=== PATIENT | female | born 1975 | race Caucasian/White ===

== ENCOUNTER 2021-07-09 15:10 | Outpatient (CLI) | payer BC, SELFPAY ==
--- NOTE | 2021-07-09 16:00 | MRI_ITS ---
STUDY: MRI CERVICAL SPINE WITHOUT CONTRAST ENHANCEMENT OF 1502 HOURS ON 07/09/2021 REASON FOR EXAM: 39-year-old female with neck and right arm pain. TECHNIQUE: Standardized fat and water weighted pulse sequences were obtained in the sagittal and axial planes. COMPARISON: None FINDINGS: No cervical vertebral body fractures, subluxations, or intervertebral disc space narrowing. Cervical spinal Canal measures 1.3 cm at the level of the C3 vertebra and 1.2 cm at the level of the C7 vertebra-chest compatible with a mild osseous spinal stenosis. There is a mild central degenerative disc at the C5-C6 level that does not efface the spinal cord. There is no evidence of other extradural, intradural, intramedullary lesions. The posterior elements have a normal appearance. Prevertebral soft tissues are normal. MRI/Spine Cervical (Routine) IMPRESSION: 1. Mild cervical osseous spinal stenosis. 2. No fractures, subluxations or intervertebral disc space narrowing of the cervical spine. 2. Mild central degenerative disc at the C5-C6 level that does not efface the spinal cord. 3. No evidence of other extradural, intradural, intramedullary lesions. 4. Normal posterior elements. Electronically Signed: Trev Headley MD at 21:10 EDT ,
== END 2021-07-09 23:59 | disposition home or self-care (01) ==
PROVIDERS: PCP Nurse Practitioner Primary Care; Visit Provider Orthopaedic Surgery
DX: M47.22 Other spondylosis with radiculopathy, cervical region (principal); M48.02 Spinal stenosis, cervical region
CPT/HCPCS: 72141

== ENCOUNTER 2021-07-29 13:57 | Outpatient (CLI) | payer BC, SELFPAY ==
--- NOTE | 2021-07-29 15:06 | NEURO ---
NCS and/or EMG Patient Report Ordering Doctor: Bam Ramesh DATE OF SERVICE: 07/29/21 Indication: Chronic localized neck pain with occasional radiation down the right upper extremity. The quality is stabbing, tingling, and numb. No fixed sensory disturbance. Evaluate for cervical radiculopathy. Findings: Nerve conduction studies were performed in the right upper extremity. The right median motor study recording the abductor pollicis brevis showed a normal amplitude, borderline distal latency and normal conduction velocity. The right ulnar motor study recording the abductor digiti minimi showed a normal amplitude, normal distal latency and normal conduction velocity. No conduction block or focal slowing was present across the elbow. The right median sensory response recording digit two showed a normal amplitude, normal latency and borderline conduction velocity. The right ulnar sensory response recording digit five showed a normal amplitude, latency and conduction velocity. The right radial sensory response recording over the extensor snuff box showed a normal amplitude, latency and conduction velocity. Needle EMG of the right upper extremity and cervical paraspinal muscles was performed. No denervation was seen in any muscle. All motor unit morphology, activation and recruitment patterns were normal. Impression: This is a normal study. There is no electrophysiologic evidence of cervical radiculopathy in the right upper extremity. In addition, there was no electrophysiologic evidence of median or ulnar entrapment neuropathy in the right upper extremity. Please note: the electrodiagnosis of radiculopathy is made on the basis of excluding peripheral nerve lesions on nerve conduction studies and the needle EMG demonstrating denervation and/or reinnervation in the distribution of one or more nerve roots (i.e., acute and/or chronic axonal loss). Thus, electrodiagnostic studies are insensitive in detecting radiculopathy in the absence of axonal loss (e.g., in the setting of compression resulting in intermittent ischemia or mechanical deformation; or demyelination without axonal loss). Thus, clinical correlation is required in the interpretation of this negative electrodiagnostic study for radiculopathy. Efren Irene D.O. Multi Select Codes Neurology Neurology Interp Codes: 91669-26 Musc test done w/n test comp (interp) and 91351-29 Nrv cndj tst 5-6 studies (interp)
== END 2021-07-29 23:59 | disposition home or self-care (01) ==
LOC: PSN 13:57
PROVIDERS: PCP Nurse Practitioner Primary Care; Visit Provider Orthopaedic Surgery
DX: M47.22 Other spondylosis with radiculopathy, cervical region (principal); R03.0 Elevated blood-pressure reading, without diagnosis of hypertension; R20.2 Paresthesia of skin
CPT/HCPCS: 95886; 95909

== ENCOUNTER 2024-01-08 10:14 | Emergency (ER) | payer BC, SELFPAY ==
[2024-01-08 10:14] VITALS: BP 132/89; PULSE 74; RESP 14; TEMP 36.9; O2SAT 99; BMI 26.9
--- NOTE | 2024-01-08 10:54 | EDS_ITS ---
HPI HPI - GI History of Present Illness Chief Complaint: Abd Pain Informant: patient Narrative Narrative: Patient is a 48-year-old female with history of prior appendectomy, depression, endometriosis and prior right oophorectomy presenting for with intermittent episodes of abdominal pain and bloating. Patient states this been going on for at least 4 months but it sounds infection going on longer than this. She states for the past 2 weeks she has had no improvement. She has had a pretty extensive workup through the [facility] system. She saw an ORDER DESK CALLER on 12/29, Dr. Staley, and was sent to the emergency room because of the amount of pain she was having. Had a CT of the abdomen pelvis that did not show any acute process. Patient was given pain control and ultimately discharged home. Patient does have an IUD. On 12/03 she had renal as well as pelvic ultrasounds which was consistent with adenomyosis. She followed up with local ORDER DESK CALLER, Dr. Ruvalcaba, yesterday. She has an outpatient MRI ordered for further evaluation and also has a referral for the pelvic pain clinic. Chart review shows that patient is active been complaining of abdominal bloating and cramping for years. Patient had colonoscopy on 11/26/2023 which was largely normal. Patient had sudden onset of recurrent bloating and diffuse abdominal pain today. States the pain radiates to her back and she is a squeezing sensation in her thighs. She denies any associated urinary symptoms. She states sometimes she does get a headache secondary to the pain. Denies any vomiting and states her bowel movements have been normal. [facility] Medical History Endometriosis Home Medications ?Medication ?Instructions ?Recorded ?Last Taken ?Type Ibuprofen [Motrin] 800 mg PO TID PRN PRN Pain 04/05/14 Unknown History acetaminophen 325 mg tablet 1 - 2 tab PO Q4H PRN PRN Pain 04/05/14 Unknown History (Tylenol) amitriptyline 25 mg tablet 25 mg PO QHS 04/05/14 Unknown History clonazepam 1 mg tablet 1 mg PO TID PRN PRN Anxiety 04/05/14 Unknown History cyclobenzaprine 10 mg tablet 5 mg PO TID 04/05/14 Unknown History gabapentin 600 mg tablet 600 mg PO TIDCM 04/05/14 Unknown History polyethylene glycol 3350 17 gram 17 g PO DAILY #15 packets 04/05/14 Unknown Rx oral powder packet trazodone 150 mg tablet 150 mg PO DAILY 04/05/14 Unknown History venlafaxine 37.5 mg tablet 37.5 mg PO DAILY 04/05/14 Unknown History hyoscyamine sulfate 0.125 mg 0.125 mg sublingual Q6H PRN 01/08/24 Unknown Rx sublingual tablet (Levsin/SL) abdominal pain #20 tabs simethicone 125 mg chewable tablet 125 mg PO TID PRN abdominal 01/08/24 Unknown Rx distention #20 tabs Allergy/AdvReac Type Severity Reaction Status Date / Time iodine AdvReac Upset Verified 01/08/24 12:57 Stomach Family History no significant family his Surgical History History of appendectomy S/P cervical disc replacement Social History Smoking Status: Current every day smoker tobacco type: cigarettes ROS ROS ED Constitutional Constitutional ED: Denies chills or fever(s) Cardiovascular Cardiovascular: Denies chest pain Respiratory/Chest Respiratory/Chest: Denies cough or dyspnea Gastrointestinal Gastrointestinal: Reports abdominal pain and nausea; Denies constipation, diarrhea, melena or vomiting Genitourinary Genitourinary ED: Denies dysuria or hematuria Musculoskeletal Musculoskeletal: Reports back pain; Denies arthralgias or myalgias Integumentary Denies rash Neurologic Neurologic: Denies weakness Psychiatric Psychiatric: Denies anxiety Hematologic/Lymphatic Hematologic/Lymphatic: Denies easy bleeding or easy bruising EXAM Physical Exam Const Vital Signs: 01/08/24 10:14 01/08/24 12:14 Temperature 98.4 F Temperature Source Oral Pulse Rate 74 78 Respiratory Rate 14 19 H Blood Pressure 132/89 H 148/78 H Blood Pressure Mean 103 101 Pulse Ox 99 Oxygen Delivery Method Room Air Positive well nourished and well developed General Appearance ED: well developed and NAD; Negative for pallor HEENT Reports moist mucous membranes Neck supple Resp normal respiratory effort and clear to auscultation bilaterally Cardio regular rate and regular rhythm GI GI Narrative: No peritoneal signs. Diffuse abdominal bloating and distention. Hypoactive bowel sounds present. Inspection: abdominal distention Palpation: soft and tender; Negative for guarding or rigid Back/Spine no CVA tenderness Extremity full ROM Neuro moves all extremities Sensorium / Orientation: alert Motor Exam: Negative for general weakness Psych mental status grossly normal and thought process normal Skin no wounds General Skin Exam: Negative for jaundice or pallor MDM MDM MDM Narrative Medical decision making narrative: Patient presents for recurrent episode of abdominal pain and abdominal bloating. She has had an extensive workup for this already. She has an outpatient MRI scheduled. Patient is distended in her abdomen with hypoactive bowel sounds. Differential includes was not limited to gastroparesis, chronic abdominal pain, endometriosis, diverticulitis, ileus, liver disease, pancreatitis. Patient's vital signs are normal. She is nontoxic-appearing. As initially given Toradol, Zofran and morphine for her symptoms. She does not report any improvement of her pains on repeat evaluation. Her lab work however is largely normal with a normal CBC, CMP, lactate. Initially imaging not ordered as patient has had a recent CT, pelvic ultrasound and endoscopy. I did pull up the images from patient's recent CT at [facility]. There is a little bit of fluid and questionable abnormality at the sigmoid colon on my interpretation of the films. I do not see any obvious large stool burden or abnormal gas pattern. It was read as negative with no acute process. Discussed with patient and she is amenable to repeating the CT here to ensure there is no progressive changes or disease or an acute process now. I then spoke with ORDER DESK CALLER on-call for [facility] Dr Kelly who reviewed the patient's chart and actually spoke with the doctor that saw her yesterday. They felt that this really is unlikely to be gynecologic and I do not think this is related to endometriosis or adenomyosis given her age and the timing of her symptoms. They feel that really this should be referred to GI. She does have an outpatient abdominal MRI and referral to the pelvic pain clinic pending. This is communicated with the patient. Will give the patient a GI follow-up referral. On repeat evaluation after receiving additional morphine, Haldol and simethicone patient has improvement of her symptoms. CT of the abdomen pelvis does not show any acute process to explain her symptoms. She does have a decent amount of gas in her stomach and her small bowel. Will prescribe her simethicone as well as Levsin (states that she has been prescribed Bentyl but she could not tolerate it). Will give her outpatient referral for GI. She is reevaluated and states her pain is improved. Is requesting a work note for today. Discussed with patient at length that while the cause of her symptoms is not clear and there does not appear to be an immediate/emergent surgical or medical process at this time it is safe for her to continue to follow-up outpatient. Patient and mother verbalized agreement to this plan. Patient discharged home in stable and improved condition. History & Record Review Additional record(s) reviewed:: Prior outpatient record (See HPI) Lab Data Attestation: I reviewed the patient's lab results. Labs: Laboratory Results - last 24 hr 01/08/24 11:20 WBC 7.7 RBC 5.20 Hgb 14.3 Hct 43.6 MCV 83.8 MCH 27.5 MCHC 32.8 RDW Std Deviation 41.3 RDW Coeff of Whitney 13.4 Plt Count 294 MPV 10.2 Immature Gran % (Auto) 0.100 Neut % (Auto) 49.1 Lymph % (Auto) 39.9 [place] % (Auto) 6.5 Eos % (Auto) 3.8 Baso % (Auto) 0.6 Absolute Neuts (auto) 3.8 Absolute Lymphs (auto) 3.08 Nucleated RBC % 0 Sodium 138 Potassium 3.8 Chloride 111 H Carbon Dioxide 23.0 Anion Gap 4 L BUN 10 Creatinine 0.62 Estim Creat Clear Calc 102.37 Est GFR (MDRD) Af Amer 131 Est GFR (MDRD) Non-Af 108 BUN/Creatinine Ratio 16.1 Glucose 95 Lactic Acid 0.8 Calcium 9.2 Total Bilirubin 0.20 AST 15 ALT 19 Alkaline Phosphatase 119 H Total Protein 7.6 Albumin 3.5 Globulin 4.1 Albumin/Globulin Ratio 0.9 Radiography Diagnostic Testing: Clinical Impression(s) from Imaging Studies Abdomen/Pelvis CT 01/08/24 12:45 IMPRESSION: No acute intra-abdominal process. Electronically Signed: Joy Mccarthy MD at 13:13 EDT , Management Discussion w/another healthcare provider: Hydro Pneumatic Tester Discharge Plan Triage Chief Complaint: Abd Pain ED Provider: Shaye Dye Dx/Rx/DC Orders Clinical Impression: Abdominal pain, recurrent, Abdominal bloating Instructions: ED Abdominal Pain Unkn Cause Fem Prescriptions: New simethicone 125 mg tablet,chewable 125 mg PO TID PRN (Reason: abdominal distention) Qty: 20 0RF hyoscyamine sulfate [Levsin/SL] 0.125 mg tablet, sublingual 0.125 mg sublingual Q6H PRN (Reason: abdominal pain) Qty: 20 0RF No Action cyclobenzaprine 10 MG tablet 5 mg PO TID acetaminophen [Tylenol] 325 MG tablet 1 - 2 tab PO Q4H PRN PRN (Reason: Pain) gabapentin 600 MG tablet 600 mg PO TIDCM clonazepam 1 MG tablet 1 mg PO TID PRN PRN (Reason: Anxiety) amitriptyline 25 MG tablet 25 mg PO QHS venlafaxine 37.5 MG tablet 37.5 mg PO DAILY trazodone 150 MG tablet 150 mg PO DAILY Ibuprofen [Motrin] 800 MG tablet 800 mg PO TID PRN PRN (Reason: Pain) polyethylene glycol 3350 17 GM powder in packet 17 g PO DAILY Qty: 15 0RF Primary Care Provider: Humera Garcia NP Referrals: Niall Schmidt, [Med Staff - Active Staff] - As soon as possible Oliverio Crowe NP, CERTIFIED MEDICATION TECHNICIAN-C [Non-Staff] - Activity Restrictions/Additional Instructions: The cause of your recurrent abdominal pain and bloating is not clear however there does not appear to be an acute surgical or medical emergency at this time thankfully. After discussion with ORDER DESK CALLER they have a lower suspicion that this is related to endometriosis or adenomyosis of the uterus. Please continue to follow-up as they recommend however is also given a referral to a GI doctor. As we discussed please start keeping a food diary of what you eat and how your symptoms are to see if there is any pattern that shows itself. Print Language: Lithuanian Disposition Disposition: Home, Self Care
[2024-01-08] MEDS: Morphine 4 MG/ML Syringe IV ×2 (11:03→12:36)
[2024-01-08] MEDS: Ketorolac 15 MG/ML Vial IV (11:03)
[2024-01-08] MEDS: Ondansetron 4 MG/2 ML Vial IV (11:03)
[2024-01-08 11:34] LABS: Absolute Lymphocyte Count 3.08 X10^3/uL (0.83-4.51); Absolute Neutrophil Count 3.8 X10^3/uL (2.0-7.7); Basophil# 0.05 X10^3/uL; Basophil% 0.6 % (0-1); Eosinophil# 0.29 X10^3/uL; Eosinophils% 3.8 % (0-5); Hematocrit 43.6 % (37-47); Hemoglobin 14.3 g/dL (12.0-15.0); Lymphocyte # 3.08 X10^3/ul (0.83-4.51); Lymphocyte % 39.9 % (19-41); Mean Corp Hgb Conc 32.8 g/dL (32-36); Mean Corpuscular Hgb 27.5 pg (27.0-32.0); Mean Corpuscular Volume 83.8 fL (81-99); Mean Platelet Vol. 10.2 fl (6.2-12.0); Monocyte% 6.5 % (0-10); NRBC Flagged by Analyzer 0 % (0-5); Neutrophil # 3.79 X10^3/uL (2.7-7.7); Neutrophil % 49.1 % (47-70); Platelet Count 294 K/mm3 (150-450); RBC Distribution Width CV 13.4 % (11.6-14.6); RBC Distribution Width SD 41.3 fl (35.1-43.9); White Blood Count 7.7 K/mm3 (4.4-11.0)
[2024-01-08 11:47] LABS: ALB/GLOB Ratio 0.9 RATIO (0.9-2.4); AST(SGOT) 15 U/L (15-37); Alanine Aminotransfer ALT/SGPT 19 U/L (13-56); Albumin, Serum 3.5 g/dL (3.2-5.0); Alkaline Phosphatase 119 U/L (45-117); Anion Gap 4 (5-15); BUN 10 mg/dL (7-18); BUN/Creat Ratio 16.1 RATIO (10-20); Calcium,Total 9.2 mg/dL (8.5-10.1); Chloride 111 mmol/L (98-107); Creatinine, Serum 0.62 mg/dL (0.55-1.02); EST Glomerular Filtration Rate 108 mL/min (>60); Est Glom Filt Rate - Afr Amer 131 mL/min (>60); Estimated Creatinine Clearance 102.37 ml/min; Globulin 4.1 g/dL (2.2-4.2); Glucose 95 mg/dL (74-106); Potassium 3.8 mmol/L (3.5-5.1); Protein, Total 7.6 g/dL (6.4-8.2); Sodium Level 138 mmol/L (136-145)
[2024-01-08 12:01] LABS: Lactic Acid 0.8 mmol/L (0.4-1.9)
[2024-01-08 12:14] VITALS: BP 148/78; PULSE 78; RESP 19
[2024-01-08] MEDS: SimETHICONE 80 MG Chewable Tablet PO (12:35)
[2024-01-08] MEDS: Haloperidol Lactate 5 MG/ML Vial 1 MG IV (12:36)
--- NOTE | 2024-01-08 12:45 | CT_ITS ---
STUDY: CT ABDOMEN AND PELVIS WITH CONTRAST - URINARY TRACT REASON FOR EXAM: Female, 48 years old abdominal pain, bloating RADIATION DOSAGE (If Supplied By Facility): CTDIvol = ( 13.18 ) mGy, DLP = ( 675.74 ) mGycm TECHNIQUE: IV 100mL Isovue-300 was administered. Transaxial images were obtained from the dome of the diaphragm to the symphysis pubis subsequent to intravenous contrast administration. Multiplanar coronal and sagittal images were reformatted. The protocol utilizes one or more of the following dose reduction techniques: automated exposure control, adjustment of mA and/or kV according to patient size,and/or use of iterative reconstruction technique. COMPARISON: No relevant prior comparison study available FINDINGS: There is bibasilar atelectasis and/or scarring. There are left basilar pleural-based calcifications. The visualized portions of the heart are within normal limits. There is a too small to characterize low-attenuation focus within the left hepatic lobe which may reflect a cyst or hemangioma. Normal gallbladder and extrahepatic biliary system. Normal spleen. Normal pancreas. Normal bilateral adrenal glands. Normal visualized stomach. Normal small intestine. Normal colon. There is non-visualization of the appendix. Normal abdominal aorta. No retroperitoneal adenopathy. Normal right kidney. Normal left kidney. Normal urinary bladder. There is an intrauterine device in place in a grossly satisfactory position. Normal abdominal wall. Normal osseous structures. CT/Abdomen/Pelvis W IV Cont ONLY IMPRESSION: No acute intra-abdominal process. Electronically Signed: Joy Mccarthy MD at 13:13 EDT ,
[2024-01-08 13:58] VITALS: BP 122/90; PULSE 75; RESP 18; TEMP 36.6; O2SAT 96
== END 2024-01-08 14:07 | disposition home or self-care (01) ==
PROVIDERS: Emergency Provider Emergency Medicine; PCP Registered Nurse; Visit Provider Emergency Medicine
DX: R10.9 Unspecified abdominal pain (principal); R14.0 Abdominal distension (gaseous); F17.210 Nicotine dependence, cigarettes, uncomplicated
CPT/HCPCS: 36415; 74177; 80053; 83605; 85025; 96361; 96374; 96375; 99283; J7030; Q9967; J2405

== ENCOUNTER → 2024-01-20 | Outpatient (CLI) | payer BC, SELFPAY ==
[2024-01-20 12:19] LABS: Erythrocyte Sedimentation Rate 18 mm/hr (0-30)
[2024-01-20 12:45] LABS: CRP 6.57 mg/L (0.0-3.0); LDH 187 U/L (84-246)
[2024-01-20 12:51] LABS: Vitamin B12 436 pg/mL (211-911)
[2024-01-24 12:07] LABS: ACCA 47 units (0-90); ALCA 34 units (0-60); AMCA 141 units (0-100); Albumin 3.8 g/dL (2.9-4.4); Alpha-1-Globulins 0.3 g/dL (0.0-0.4); Beef <0.10 kU/L (Class 0); Chocolate <0.10 kU/L (Class 0); Codfish <0.10 kU/L (Class 0); Corn <0.10 kU/L (Class 0); Egg, Whole <0.10 kU/L (Class 0); Endomysial Antibody IgA Negative (Negative); Gamma Globulin 1.1 g/dL (0.4-1.8); Immunoglobulin A 196 mg/dL (87-352); Immunoglobulin E 10 IU/mL (6-495); Immunoglobulin G 989 mg/dL (586-1602); Immunoglobulin M 243 mg/dL (26-217); Milk (Cow) <0.10 kU/L (Class 0); Mussels <0.10 kU/L (Class 0); PROEL- TOTAL PROTEIN 7.1 g/dL (6.0-8.5); Peanut <0.10 kU/L (Class 0); Pork <0.10 kU/L (Class 0); Salmon <0.10 kU/L (Class 0); Shrimp <0.10 kU/L (Class 0); Soybean <0.10 kU/L (Class 0); Tuna <0.10 kU/L (Class 0); Wheat <0.10 kU/L (Class 0); gASCA 72 units (0-50); t-Transglutaminase IgA <2 U/mL (0-3)
== END | disposition home or self-care (01) ==
LOC: LAB 11:24
PROVIDERS: PCP Registered Nurse
DX: K63.8219 Small intestinal bacterial overgrowth, unspecified (principal); K92.89 Other specified diseases of the digestive system
CPT/HCPCS: 36415; 82607; 82784; 82785; 83516; 83615; 84165; 85652; 86003; 86005; 86036; 86140; 86255; 86334; 86671

== ENCOUNTER → 2024-01-31 | Outpatient (CLI) | payer BC, SELFPAY ==
[2024-02-03 14:54] LABS: Pancreatic Elastase, Fecal > 800 (>200)
[2024-02-03 17:07] LABS: Calprotectin, Stool 494 ug/g (0-120); Fats, Neutral Normal (.); Fats, Total Increased (.)
== END | disposition home or self-care (01) ==
LOC: LABSPEC 14:39
PROVIDERS: PCP Registered Nurse
DX: K92.89 Other specified diseases of the digestive system (principal); K63.8219 Small intestinal bacterial overgrowth, unspecified; K58.9 Irritable bowel syndrome, unspecified
CPT/HCPCS: 82653; 82705; 83630; 83993

== ENCOUNTER 2024-03-11 12:53 | Day surgery (SDC) | payer BC, SELFPAY ==
[2024-03-11] VITALS (8 sets, daily range): BP systolic 87–117; BP diastolic 66–86; PULSE 89–91; RESP 16–18; TEMP 36.8–36.9; O2SAT 92–96; BMI 26.9
--- NOTE | 2024-03-11 13:23 | PRE.ANES_ITS ---
ASA Classification* ASA Classification ASA Classification: 2 Assessment & Plan Anesthesia* Anesthesia Assessment Anesthesia Assessment: Discussed sedation and/or anesthesia options, risks, benefits, and alternatives with patient/parents/legal guardian/POA. Questions invited. The patient/parents/legal guardian/POA seems to understand and agrees to proceed with anesthesia plan. Reviewed the physical assessment, medical history, allergy history and patient home medications list prior to surgery/procedure/anesthetic and documented any changes. Performed airway and anesthesia risk assessments. Anesthesia Type Anesthesia Type: MAC Anesthesia Focused Assessment* Temperature: 98.5 F Pulse Rate: 91 Blood Pressure: 117/86 Respiratory Rate: 16 Pulse Ox: 96 Airway Assessment Mouth opens: >3 cm Mallampati Score: II Focused Labs Anesthesia Preop lab: CBC WBC 7.7 K/mm3 (4.4-11.0) 01/08/24 11:20 RBC 5.20 M/mm3 (4.2-5.4) 01/08/24 11:20 Hgb 14.3 g/dL (12.0-15.0) 01/08/24 11:20 Hct 43.6 % (37-47) 01/08/24 11:20 Plt Count 294 K/mm3 (150-450) 01/08/24 11:20 CHEMISTRY Potassium 3.8 mmol/L (3.5-5.1) 01/08/24 11:20 Sodium 138 mmol/L (136-145) 01/08/24 11:20 BUN 10 mg/dL (7-18) 01/08/24 11:20 Creatinine 0.62 mg/dL (0.55-1.02) 01/08/24 11:20 Glucose 95 mg/dL (74-106) 01/08/24 11:20 COAG Pre-Assessment Diagnosis/Proposed Procedure Planned Operative Procedure(s): egd and cscope Anesthesia History Anesthesia History - experiential therapist: Anesthesia History - experiential therapist Hx Hospitalization No 03/10/24 14:30 Any Problems With Anesthesia Yes: slow to awaken 03/10/24 14:30 Cholinesterase deficiency No 03/10/24 14:30 You/Your Family Experience No 03/10/24 14:30 fever (hyperthermia) with Relationship Recent Exposure to Contagious No 03/11/24 13:12 Disease Does patient have nerve No 03/10/24 14:30 stimulator Patient instructed to have device shut off --Does patient have Pacemaker No 03/11/24 13:12 or ICD? When Was Last Pacemaker Check QUESTION #4 FULL TEXT: You/Your Family Experience fever (hyperthermia) with Anesthesia Last Oral Intake Last Oral intake: Last Oral Intake NPO since 08:30 03/11/24 13:12 Meds taken in AM with sips of water? Meds patient instructed to take am of surgery PONV PONV - experiential therapist: PONV - experiential therapist Female Yes 03/10/24 14:30 HX of Motion Sickness No 03/10/24 14:30 HX of N/V After Surgery No 03/10/24 14:30 Non-Smoker No 03/10/24 14:30 Duration of Surgery greater No 03/10/24 14:30 than 60 minutes Number of Risk Factors 1 03/10/24 14:30 PONV Score Low Risk 03/10/24 14:30 Height & Weight Height & Weight: Anesthesia: Height & Weight Height 5 ft 3 in 03/11/24 13:12 Weight: 68.946 kg 03/11/24 13:12 Body Mass Index (BMI) 26.9 03/11/24 13:12 Respiratory Assessment Respiratory Assessment - experiential therapist: Respiratory Tract Infection Hx - experiential therapist Hx Respiratory Tract Infection No 03/10/24 14:30 STOP Sleep Apnea STOP Sleep Apnea - experiential therapist: STOP Sleep Apnea - experiential therapist Hx Hypertension No 03/10/24 14:30 Hx Sleep Apnea No 03/10/24 14:30 CPAP BIPAP Do you snore loudly (louder Yes 03/10/24 14:30 than talking or can be heard Do you often feel tired/ No 03/10/24 14:30 fatigued/ sleepy during daytime? Has anyone observed you stop No 03/10/24 14:30 breathing during sleep? STOP Results Negative 03/10/24 14:30 QUESTION #5 FULL TEXT : Do you snore loudly (louder than talking or can be heard through closed doors)? Tobacco Use History Tobacco Use History - experiential therapist: Tobacco Use History - experiential therapist Tobacco Use Smoking Status Current every day smoker 03/10/24 14:30 Hx Tobacco Use Yes 03/10/24 14:30 Years Smoking Packs Smoked per Day 0.5 03/10/24 14:30 Smoking Cessation Date was within the last 15 years Hx Smoking Cessation Date Hx Smoking Cessation Counseling Hematologic Medial History Hematologic Hx - experiential therapist: Hematologic Medical Hx - outreach worker Hx of Blood Transfusion No 03/10/24 14:30 Hx of Transfusion in last 3 No 03/10/24 14:30 Months Date of Last Transfusion (if within last 3 months) Ever experience any problems No 03/10/24 14:30 with transfusion(s)? Specify any problems Hx of Preganancy in last 3 N/A 03/10/24 14:30 Months Nurse Filling Out Transfusion NBUCHER 03/10/24 14:30 & Questions: Date: 03/10/24 03/10/24 14:30 Time: 14:32 03/10/24 14:30 Patient unable to answer at this time (ie. confused, unrespo /Reproduction History /Reproductive History - experiential therapist: /Reproductive Hx- experiential therapist Hx Now No 03/10/24 14:30 Gestational Age (in weeks): EDC: Hx Hx Para Hx Section SAB No 03/10/24 14:30 PFSH Medical History Wears dentures Depression Anxiety Low iron History of Crohn's disease Heartburn Gastric reflux Smoker Post-menopausal Endometriosis Home Medications ?Medication ?Instructions ?Recorded ?Last Taken ?Type acetaminophen 325 mg tablet 1 - 2 tab PO Q4H PRN PRN Pain 04/05/14 Unknown History (Tylenol) lactobacillus combination no.4 3 3,000 mmu cells PO BID #28 caps 01/20/24 Unknown Rx billion cell capsule omeprazole 40 mg capsule,delayed 40 mg PO BID #60 caps 01/20/24 Unknown Rx release hyoscyamine sulfate 0.125 mg 0.125 mg PO BID-QID PRN dyspepsia 01/21/24 Unknown Rx sublingual tablet #80 tabs phenobarbital 16.2 mg tablet 16.2 mg PO Q6H #80 tabs 01/21/24 Unknown Rx rifaximin 550 mg tablet 550 mg PO TID 2 weeks #42 tabs 02/03/24 Unknown Rx budesonide 9 mg tablet,delayed and 9 mg PO QAM #30 ea 02/04/24 Unknown Rx extended release Allergy/AdvReac Type Severity Reaction Status Date / Time iodine AdvReac Upset Verified 03/11/24 13:12 Stomach Surgical History History of lung surgery History of tubal ligation History of appendectomy S/P cervical disc replacement Social History Smoking Status: Current every day smoker tobacco type: cigarettes Review of Systems (Anesthesia) ROS Narrative System reviewed and no additional complaints, except as documented.
--- NOTE | 2024-03-11 14:00 | EGD_PTH ---
PATIENT: BRITTNEE RUST LOC: EN U#:[id number] AGE/SX: 48/F ROOM: RE03/11/[address]: Dr. Niall Schmidt DO : 1975 BED: DIS: 03/11/2024 SPEC #: [id number] RECD: 03/11/24 16:25 STATUS: SUNNI ANGIE #: [id number] REJI: 03/11/24 14:[address]: Niall Schmidt DEPT: SURGICAL PATHOLOGY RECD BY: Allyn Carranza ENTERED: 03/14/24 11:03 SP TYPE: EGD BIOPSY OTHR DR: Humera Garcia, FREDA-Keshawn Tissues: A - Gastric mucous membrane B - Gastric mucous membrane C - Esophagus, NOS D - Ileum, NOS E - COLON BIOPSY F - Sigmoid colon biopsy Procedures: Special Stain Group I Surgery Specimen Level IV Alcian Blue/PAS (control) HEADER OPERATION: Colonoscopy, EGD with biopsy PRE-OP DIAGNOSIS: Irritable bowel syndrome with diarrhea, gas bloat syndrome TISSUE SUBMITTED: A- Gastric pylorus biopsy, B- Gastric body biopsy, C- Distal esophagus biopsy, D- Terminal ileum biopsy, E- Random colon biopsy, F- Sigmoid polyp MICROSCOPIC DIAGNOSIS A. Gastric pylorus, biopsy: Mild chronic gastritis. See comment. B. Gastric body, biopsy: Chronic gastritis. C. Distal esophagus, biopsy: Gastroesophageal junctional biopsy with mild chronic inflammation. Focal changes of reflux. No evidence of goblet cell metaplasia. See comment. D. Terminal ileum, biopsy: No pathologic change. E. Colon, random biopsy: Mild melanosis coli. Focal ischemic change suspected. F. Sigmoid colon polyp, biopsy: Hyperplastic polyp. AM. 03/15/2024 COMMENT A. The results of immunohistochemistry for Helicobacter pylori will be reported separately ([id number]). C. Alcian blue/PAS stain with matched control is used in the evaluation of the specimen. MICROSCOPIC DESCRIPTION Slides are reviewed. GROSS DESCRIPTION A. Received in fixative is one container labeled with the patient's name and designated Gastric pylorus biopsy. The specimen consists of two irregular fragments of light brambila soft tissue that in aggregate measure 0.7 x 0.2 x 0.1 cm. The specimen is totally submitted in one cassette. B. Received in fixative is one container labeled with the patient's name and designated Gastric body biopsy. The specimen consists of two irregular fragments of light brambila soft tissue that in aggregate measure 0.8 x 0.6 x 0.1 cm. The specimen is totally submitted in one cassette. C. Received in fixative is one container labeled with the patient's name and designated Distal esophagus biopsy. The specimen consists of two irregular fragments of light brambila soft tissue that in aggregate measure 0.7 x 0.7 x 0.1 cm. The specimen is totally submitted in one cassette. D. Received in fixative is one container labeled with the patient's name and designated Terminal ileum biopsy. The specimen consists of two irregular fragments of light brambila soft tissue that in aggregate measure 1.0 x 0.8 x 0.1 cm. The specimen is totally submitted in one cassette. E. Received in fixative is one container labeled with the patient's name and designated Random colon biopsy. The specimen consists of multiple irregular fragments of light brambila soft tissue that in aggregate measure 1.5 x 0.6 x 0.1 cm. The specimen is totally submitted in one cassette. F. Received in fixative is one container labeled with the patient's name and designated Sigmoid polyp. The specimen consists of one irregular fragment of light brambila soft tissue that in aggregate measure 0.6 x 0.2 x 0.1 cm. The specimen is totally submitted in one cassette. 03/14/2024 TC:3 CPT:56102n4,91018
--- NOTE | 2024-03-11 14:00 | IMM_PTH ---
PATIENT: BRITTNEE RUST LOC: EN U#:[id number] AGE/SX: 48/F ROOM: RE03/11/[address]: Dr. Niall Schmidt DO : 1975 BED: DIS: 03/11/2024 SPEC #: [id number] RECD: 03/14/24 09:41 STATUS: SUNNI REQ #: [id number] REJI: 03/11/24 14:[address]: Niall Schmidt DEPT: IMMUNOHISTOCHEMISTRY RECD BY: Brandon Duron ENTERED: 03/14/24 09:42 SP TYPE: IMMUNO OTHR DR: Humera Garcia, LANGUAGE PATHOLOGIST-C Tissues: A - Gastric mucous membrane Procedures: H Pylori (initial) PHYSICIAN & INSTITUTION [place] [id number] SPECIMEN INFORMATION: Tissue Source: A- Gastric pylorus biopsy Clinical Info: Irritable bowel syndrome with diarrhea, gas bloat syndrome Specimen Number: [id number] CPT code: 13346 METHODOLOGY: Deparaffinized sections of prefer/formalin-fixed tissue or PAP/DQ stained slides are incubated with monoclonal/polyclonal antibodies/oligonucleotide probes. Localization is made via biotin free immunoperoxidase method. Appropriate controls are performed and reacted as expected. Results on target cell population are indicated in the following table: RESULTS: ANTIBODY / CLONE RESULT Block A H Pylori (polyclonal) negative These tests were developed and their performance characteristics determined by [facility]. They may not have been cleared or approved by the U.S. Food and Drug Administration. The FDA has determined that such clearance or approval is not necessary. The above immunohistochemical/dualISH markers are ordered and reviewed by the Pathologist. INTERPRETATION: A. Gastric pylorus, biopsy: Negative for Helicobacter pylori organisms. ROSELIA/ 03/15/2024
--- NOTE | 2024-03-11 14:12 | HP.PCM_ITS ---
History and Physical Date of Admission: 03/11/24 Chief Complaint: abdominal pain and bloating Details: BRITTNEE RUST, is a 48 F who presents to the office today for establishment with [facility] for complaints of severe mid- to lower abdominal pain and bloating with diarrhea. She reports the bloating started about 4 months ago, but has been g radually getting worse to the point of being unbearable. She states that she has had extensive workup by her [employer], but they said there's nothing wrong with you. She reports a recent emergency room visit at [facility] for the abdominal pain; they repeated an abd/pelvis CT w/IV contrast that resulted no acute process but upon visualization of the scan, her stomach is enlarged with gas and includes extensive involvement of her intestines, with a large pocket of gas noted in the ascending colon. She reports that she can literally feel the gas bubbles moving around. She rates her abdominal pain as 10/10, with sharp stabbing pains that cause tingling; pain starts in her back and radiates forward to wrap around abdomen and down to her inner thighs with no loss of sensation. She denies difficulty chewing and swallowing. Reports heartburn and nausea, minimal emesis. She reports quite a bit of her pain is relieved with a BM of diarrhea. Denies hematochezia and melena. She reports loose fitting upper dentures, carbonated drink consumption, and gum chewing. She states that she stopped taking the simethicone and omeprazole because she felt they weren't doing anything. She denies fever, chills, and change in water source. ROS Const Constitutional: Positive for anorexia, body ache, fatigue, decreased energy, weakness, abnormal sleep pattern and change in appetite Eyes Eyes: No blurry vision or change in vision ENT ENT: No abnormal hearing or difficulty swallowing Resp Respiratory: No cough Cardio Cardiology: Positive for leg pain with exertion; No chest pain at rest or chest pain with exertion Gastro GI: Positive for abdominal pain, belching, bloating, change in bowel habits, cramping, diarrhea, heartburn, excessive flatus and nausea/dyspepsia; No change in stool character, coffee ground emesis, constipation, difficulty swallowing, feeling full early, incontinent of stools, Vomiting blood/hematemesis, Blood in stool, loose stools, Black,tarry stools, pain with swallowing or vomiting Genitourinary-Female: No difficulty urinating Musc Musculoskeletal: Positive for abnormal gait and leg pain with exertion Skin Skin: No yellowing of the eye or itchy eyes Neuro Neurology: Positive for abnormal gait and weakness; No abnormal hearing Psych Psychiatric: Positive for abnormal sleep pattern and Positive for change in appetite Endo Endocrine: Positive for fatigue; No cold intolerance or heat intolerance Aller/Imm Allergy/Immunologic: No food intolerance or itchy eyes Felipe/Lymp Hematologic/Lymphatic: No easy bleeding or easy bruising Exam Const General: cooperative and acute distress moderate (guarding of abdomen with facial grimacing) Orientation: alert [facility] Head: normal to inspection Ears: hearing grossly normal bilaterally Nose: external nose normal Face and sinus: normal facial exam and face symmetric Mouth: oral mucosae normal Teeth and gingiva: dentures Eyes General: appearance normal, both eyes and all related structures Sclera: sclerae normal Neck Neck: full ROM Neck mass: No Chest Chest palpation & inspection: normal inspection of the chest Resp Effort & Inspection: normal respiratory effort, able to speak in complete sentences and symmetric chest movement GI Inspection: distended Auscultation: hypoactive bowel sounds Percussion: tympanic to percussion Palpation: soft, guarding and tender Musc Musculoskeletal: No joint tenderness Skin General: no rashes or lesions noted Neuro General: patient alert, patient awake and patient oriented x3 Cognition: normal cognition Speech: speech normal Gait: normal gait Motor: muscle tone normal throughout Sensory Exam: no sensory deficits noted Extrem General: normal to inspection and full ROM Psych Appearance: grossly normal Mental Status: mental status grossly normal Mood: anxious mood Affect: anxious affect Speech and Movement: speech and movement normal Attitude: cooperative Thought Process: normal Assessment and Plan Assessment and Plan (1) Irritable bowel syndrome with diarrhea: Status: Acute Plan: BRITTNEE RUST, is a 48 F who presents to the office today for establishment with [facility] for complaints of severe mid- to lower abdominal pain and bloating with diarrhea. Differential diagnoses include: IBS-D, IBD, SIBO, food allergy, air swallowing, LES stricture. Discussed plan with patient: * blood for allergy, inflammation, immunology, absorption disorder * stool for enzymes, inflammatory, fat markers * adhere to low FODMAP diet, handout given * continue simethicone PRN * increase omeprazole 40mg PO BID * rifaximin 550mg PO TID [id number] * lactobacillus PO BID [id number], starting second week of rifaximin * EGD * call with results * office follow-up in 3months (2) Small intestinal bacterial overgrowth (SIBO): Status: Acute (3) Gas bloat syndrome: Status: Acute Orders: Orders Allergen, Food Profile 14 Today K63.8219 - Small intestinal bacterial overgrowth, unspecified, K92.89 - Other specified diseases of the digestive system Celiac Disease Profile Today K63.8219 - Small intestinal bacterial overgrowth, unspecified, K92.89 - Other specified diseases of the digestive system CRP Today K63.8219 - Small intestinal bacterial overgrowth, unspecified, K92.89 - Other specified diseases of the digestive system Erythrocyte Sed Rate Today K63.8219 - Small intestinal bacterial overgrowth, unspecified, K92.89 - Other specified diseases of the digestive system IBD Expanded Profile Today K63.8219 - Small intestinal bacterial overgrowth, unspecified, K92.89 - Other specified diseases of the digestive system MILLI + Protein Elect, Serum Today K63.8219 - Small intestinal bacterial overgrowth, unspecified, K92.89 - Other specified diseases of the digestive system Immunoglobulins G/A/M/E Today K63.8219 - Small intestinal bacterial overgrowth, unspecified, K92.89 - Other specified diseases of the digestive system LDH Today K63.8219 - Small intestinal bacterial overgrowth, unspecified, K92.89 - Other specified diseases of the digestive system Vitamin B12 Today K63.8219 - Small intestinal bacterial overgrowth, unspecified, K92.89 - Other specified diseases of the digestive system Pancreatic Elastase, Fecal Today K63.8219 - Small intestinal bacterial overgr owth, unspecified, K92.89 - Other specified diseases of the digestive system Calprotectin, Stool Today K63.8219 - Small intestinal bacterial overgrowth, unspecified, K92.89 - Other specified diseases of the digestive system Stool Lactoferrin/WBC Today K58.9 - Irritable bowel syndrome, unspecified, K63.8219 - Small intestinal bacterial overgrowth, unspecified, K92.89 - Other specified diseases of the digestive system Fecal Fat, Qualitative Today K63.8219 - Small intestinal bacterial overgrowth, unspecified, K92.89 - Other specified diseases of the digestive system Medications: New rifaximin 550 mg PO TID 42 tabs 2RF lactobacillus combination no.4 administer with a meal 3,000 mmu cells PO BID 28 caps 2RF omeprazole Stop 5 days before scheduled EGD, then resume. 40 mg PO BID 60 caps 2RF Refilled simethicone 125 mg PO TID PRN 45 tabs 2RF abdominal distention Coding Level of Care Code New Pt Off vis,new,level 4 Patient Type New History Comprehensive Exam Comprehensive Medical Decision Making Moderate Complexity I have examined the patient and the H&P has been reviewed. There are no clinical changes since date of exam.
--- NOTE | 2024-03-11 15:23 | OP.CCLET_ITS ---
03/11/2024 Humera Garcia Re : Upper GI endoscopy procedure for Ricarda Marie Dear Radha This procedure was performed on Monday, March 11, 2024. My impressions and recommendations are as follows: Impressions : - LA Grade A erosive esophagitis with bleeding. Biopsied. - Erythematous mucosa in the gastric body. Biopsied. - No gross lesions in the first portion of the duodenum. Recommendations : - Discharge patient to home. - Resume previous diet. - Continue present medications. - Await pathology results. My findings are described in the full procedure note, which is enclosed. If I can be of further assistance, please feel free to contact me at . Sincerely, Niall Schmidt, 03/11/2024 3:23:14 PM This report has been signed electronically.
--- NOTE | 2024-03-11 15:23 | PCM.POST.ANE ---
Anesthesia: Postop Eval I Current Vital Signs Temperature: 98.4 F Pulse Rate: 91 Blood Pressure: 92/74 Respiratory Rate: 18 Pulse Ox: 93 Oxygen Delivery Method: Room Air Assessment Airway patent: Yes Spontaneous unlabored respirations: Yes Mental status: Asleep nausea: No Vomiting: No Anesthesia Complication: No Fluid Hydration Crystalloid volume administer (ml): 75 Total IV fluid infused: 75 Progress Note Anesthesia document: Postop Eval 1 completed: Yes
--- NOTE | 2024-03-11 15:26 | OP.COLON_ITS ---
Patient Name: Ricarda Marie Procedure Date: 03/11/2024 3:00 PM Date of : 1975 Age: 48 Procedure: Colonoscopy Indications: Screening for colorectal malignant neoplasm Providers: Niall Schmidt DO Referring MD: Humera Garcia Medicines: Monitored Anesthesia Care Patient Profile: This is a 48 year old female. Refer to note in patient chart for documentation of history and physical. Patient has symptoms of chronic epigastric abdominal pain, chronic dyspepsia and chronic heartburn. Last Colonoscopy: date unknown. Unable to locate last colonoscopy report. Complications: No immediate complications. Procedure: Pre-Anesthesia Assessment: - Prior to the procedure, a History and Physical was performed, and patient medications and allergies were reviewed. The patient is competent. The risks and benefits of the procedure and the sedation options and risks were discussed with the patient. All questions were answered and informed consent was obtained. Patient identification and proposed procedure were verified by the physician in the pre-procedure area. Mental Status Examination: alert and oriented. Airway Examination: normal oropharyngeal airway and neck mobility. Respiratory Examination: clear to auscultation. CV Examination: normal. Prophylactic Antibiotics: The patient does not require prophylactic antibiotics. Prior Anticoagulants: The patient has taken no anticoagulant or antiplatelet agents except for NSAID medication. ASA Grade Assessment: II - A patient with mild systemic disease. After reviewing the risks and benefits, the patient was deemed in satisfactory condition to undergo the procedure. The anesthesia plan was to use monitored anesthesia care (MAC). Immediately prior to administration of medications, the patient was re-assessed for adequacy to receive sedatives. The heart rate, respiratory rate, oxygen saturations, blood pressure, adequacy of pulmonary ventilation, and response to care were monitored throughout the procedure. The physical status of the patient was re-assessed after the procedure. After I obtained informed consent, the scope was passed under direct vision. Throughout the procedure, the patient's blood pressure, pulse, and oxygen saturations were monitored continuously. The Colonoscope was introduced through the anus and advanced to the terminal ileum. The colonoscopy was performed without difficulty. The patient tolerated the procedure well. The quality of the bowel preparation was adequate. The terminal ileum, ileocecal valve, appendiceal orifice, and rectum were photographed. Scope In: 3:02:10 PM Scope Withdrawal Time 0 hours 8 minutes 41 seconds Scope Out: 3:14:24 PM Total Procedure Duration Time 0 hours 12 minutes 14 seconds Findings: The perianal and digital rectal examinations were normal. A 7 mm polyp was found in the sigmoid colon. The polyp was sessile. The polyp was removed with a jumbo cold forceps. Resection and retrieval were complete. Verification of patient identification for the specimen was done. Estimated blood loss was minimal. An area of moderately congested mucosa was found in the recto-sigmoid colon, in the sigmoid colon, in the descending colon and at the splenic flexure. Biopsies were taken with a cold forceps for histology. Verification of patient identification for the specimen was done. Estimated blood loss was minimal. Patchy moderate inflammation characterized by erythema was found in the recto-sigmoid colon, in the sigmoid colon and in the descending colon. Biopsies were taken with a cold forceps for histology. Verification of patient identification for the specimen was done. Estimated blood loss was minimal. The terminal ileum appeared normal. Biopsies were taken with a cold forceps for histology. Verification of patient identification for the specimen was done. Estimated blood loss was minimal. Mild rectal prolapse was present. Impression: - One 7 mm polyp in the sigmoid colon, removed with a jumbo cold forceps. Resected and retrieved. - Congested mucosa in the recto-sigmoid colon, in the sigmoid colon, in the descending colon and at the splenic flexure. Biopsied. - Patchy moderate inflammation was found in the recto-sigmoid colon, in the sigmoid colon and in the descending colon secondary to colitis. Biopsied. - The examined portion of the ileum was normal. Biopsied. Recommendation: - Discharge patient to home. - Resume previous diet. - Continue present medications. - Await pathology results. - Repeat colonoscopy in 5 years for surveillance. Procedure Code(s): --- Professional --- 89658, Colonoscopy, flexible; with biopsy, single or multiple CPT copyright 2021 [employer]. All rights reserved. The codes documented in this report are preliminary and upon vp delivery review may be revised to meet current compliance requirements. Niall Schmidt DO 03/11/2024 3:26:29 PM This report has been signed electronically. Number of Addenda: 0 Note Initiated On: 03/11/2024 3:00 PM
--- NOTE | 2024-03-11 15:26 | OP.CCLET_ITS ---
03/11/2024 Humera Garcia Re : Colonoscopy procedure for Ricarda Marie Dear Radha This procedure was performed on Monday, March 11, 2024. My impressions and recommendations are as follows: Impressions : - One 7 mm polyp in the sigmoid colon, removed with a jumbo cold forceps. Resected and retrieved. - Congested mucosa in the recto-sigmoid colon, in the sigmoid colon, in the descending colon and at the splenic flexure. Biopsied. - Patchy moderate inflammation was found in the recto-sigmoid colon, in the sigmoid colon and in the descending colon secondary to colitis. Biopsied. - The examined portion of the ileum was normal. Biopsied. Recommendations : - Discharge patient to home. - Resume previous diet. - Continue present medications. - Await pathology results. - Repeat colonoscopy in 5 years for surveillance. My findings are described in the full procedure note, which is enclosed. If I can be of further assistance, please feel free to contact me at . Sincerely, Niall Schmidt, 03/11/2024 3:26:29 PM This report has been signed electronically.
--- NOTE | 2024-03-11 16:48 | PCM.POSTANE2 ---
Anesthesia Postop Eval I Sum Postop Eval Completion status Anesthesia document: Postop Eval 1 completed: Yes Anesthesia Postop Eval I Summary Anesthesia Postop Eval I Summary: Anesthesia Postop Eval I: Assessment Summary Airway patent Yes 03/11/24 15:24 [email or web address] Spontaneous unlabored Yes 03/11/24 15:24 [email or web address] respirations Mental status Asleep 03/11/24 15:24 [email or web address] nausea No 03/11/24 15:24 [email or web address] Vomiting No 03/11/24 15:24 [email or web address] Anesthesia Postop Eval I: Fluid Summary Crystalloid volume administer 75 03/11/24 15:24 [email or web address] (ml) Colloids volume administered ( ml) Blood Product volume administered (ml) Total IV fluid infused 75 03/11/24 15:24 [email or web address] Anesthesia Postop Eval I: Summary Notes Anesthesia Complication No 03/11/24 15:24 [email or web address] Anesthesia Complication Comment: Post-operative progress note Anesthesia: Postop Eval II Evaluation Mental status: Awake and Calm Pain Level: 0 nausea: No Vomiting: No Complications Anesthesia Complication: No
== END 2024-03-11 16:13 | disposition home or self-care (01) ==
LOC: EN 12:53 → AC 12:54
PROVIDERS: PCP Registered Nurse; Referring Provider Registered Nurse; Visit Provider Internal Medicine Gastroenterology
PROC: 0DJD8ZZ Inspection of Lower Intestinal Tract, Via Natural or Artificial Opening Endoscopic (ICD-10-PCS; CPT 45378; principal; 2024-03-11 13:55)
DX: Z12.11 Encounter for screening for malignant neoplasm of colon (principal); K63.5 Polyp of colon; K63.89 Other specified diseases of intestine; K58.0 Irritable bowel syndrome with diarrhea; K29.50 Unspecified chronic gastritis without bleeding; K30 Functional dyspepsia; K63.8219 Small intestinal bacterial overgrowth, unspecified; G89.29 Other chronic pain; F17.210 Nicotine dependence, cigarettes, uncomplicated; Z79.899 Other long term (current) drug therapy
CPT/HCPCS: 45380; 43239; 88305; 88312; 88342; A4216; J2405

== ENCOUNTER → 2024-03-29 | Outpatient (CLI) | payer BC, SELFPAY ==
--- NOTE | 2024-03-29 12:22 | RAD_ITS ---
EXAM: XR ABDOMEN, 1 VIEW CLINICAL INDICATION: eval for pill cam in GI tract TECHNIQUE: Frontal supine view of the abdomen/pelvis. COMPARISON: No relevant prior studies available. FINDINGS: LOWER THORAX: No acute pathology. GASTROINTESTINAL TRACT: Unremarkable. Non-obstructive. No bowel or stomach distention. ORGANS: Unremarkable as visualized. No organomegaly. No abnormal calcifications. BONES/JOINTS: No acute pathology. SOFT TISSUES: No radiopaque camera foreign body in the abdomen and pelvis. TUBES, LINES AND DEVICES: IUD device in place. RAD/Abdomen Single View IMPRESSION: 1. No radiopaque camera foreign body in the abdomen and pelvis. 2. IUD device in place. 3. No acute abnormality. Electronically Signed: Brad Connor MD at 15:55 EST ,
== END | disposition home or self-care (01) ==
LOC: RAD 12:22
PROVIDERS: PCP Registered Nurse; Referring Provider Internal Medicine Gastroenterology; Visit Provider Internal Medicine Gastroenterology
DX: K55.9 Vascular disorder of intestine, unspecified (principal)
CPT/HCPCS: 74018

== ENCOUNTER 2024-04-21 16:07 | Emergency (ER) | payer BC, SELFPAY ==
[2024-04-21 16:10] VITALS: BP 159/94; PULSE 92; RESP 20; TEMP 36.5; O2SAT 100; BMI 28.3
--- NOTE | 2024-04-21 16:47 | EKG12_ITS ---
Test Reason : CHEST PAIN Blood Pressure : */* mmHG Vent. Rate : 88 BPM Atrial Rate : 88 BPM P-R Int : 138 ms QRS Dur : 94 ms QT Int : 392 ms P-R-T Axes : 61 36 59 degrees QTcB Int : 474 ms Poor data quality, interpretation may be adversely affected Normal sinus rhythm Normal ECG Confirmed by MARIAH SALTER, HECTOR ([id number]), editor book RAE MORROW ([id number]) on 04/22/2024 8:25:26 AM Referred By: Confirmed By: HECTOR LEMUS MD
[2024-04-21] MEDS: 0.9% Normal Saline (1000mL) 1,000 ML 999 ML IV ×2 (17:02→18:58)
[2024-04-21] MEDS: Ondansetron 4 MG/2 ML Vial IV (17:03)
[2024-04-21 17:13] LABS: Absolute Lymphocyte Count 4.06 X10^3/uL (0.83-4.51); Absolute Neutrophil Count 6.9 X10^3/uL (2.0-7.7); Basophil# 0.07 X10^3/uL; Basophil% 0.6 % (0-1); Eosinophil# 0.21 X10^3/uL; Eosinophils% 1.7 % (0-5); Hematocrit 42.4 % (37-47); Lymphocyte # 4.06 X10^3/ul (0.83-4.51); Lymphocyte % 33.7 % (19-41); Mean Corpuscular Hgb 28.2 pg (27.0-32.0); Mean Corpuscular Volume 85.5 fL (81-99); Mean Platelet Vol. 9.3 fl (6.2-12.0); Monocyte# 0.71 X10^3/uL; Monocyte% 5.9 % (0-10); NRBC Flagged by Analyzer 0 % (0-5); Neutrophil # 6.94 X10^3/uL (2.7-7.7); Neutrophil % 57.8 % (47-70); Platelet Count 325 K/mm3 (150-450); RBC Distribution Width CV 14.6 % (11.6-14.6); RBC Distribution Width SD 44.6 fl (35.1-43.9); Red Blood Count 4.96 M/mm3 (4.2-5.4)
[2024-04-21 17:21] LABS: Internal QC Validated? YES +Cl - CLEAR BKGD; Pregnancy, Serum, hCG Quali. NEGATIVE Negative
[2024-04-21 17:35] LABS: Anion Gap 7 (5-15); BUN 12 mg/dL (7-18); BUN/Creat Ratio 15.5 RATIO (10-20); Calcium,Total 9.1 mg/dL (8.5-10.1); Chloride 107 mmol/L (98-107); Creatinine, Serum 0.77 mg/dL (0.55-1.02); EST Glomerular Filtration Rate 84 mL/min (>60); Est Glom Filt Rate - Afr Amer 102 mL/min (>60); Estimated Creatinine Clearance 84.42 ml/min; Glucose 107 mg/dL (74-106); Lipase 41 U/L (13-75); Magnesium 2.1 mg/dL (1.6-2.6); Potassium 2.7 mmol/L (3.5-5.1); Sodium Level 140 mmol/L (136-145)
[2024-04-21 17:52] LABS: Lactic Acid 2.8 mmol/L (0.4-1.9)
[2024-04-21 17:57] LABS: Mucous, Urine 0 SEEN /hpf (<or=2+); Red Blood Cells-Urine 0 SEEN /hpf (0-5)
[2024-04-21 18:02] LABS: Color, Urine Yellow (Yellow); Glucose, Dipstick Normal (Normal); Ketone-Dipstick Negative (Negative); Leukocyte Esterase-Dipstick 25 /ul (Negative); Nitrite-Dipstick Negative (Negative); Occult Blood-Urine Negative /ul (Negative); Protein-Dipstick Negative (Negative); Urine Bilirubin Dipstick Negative (Negative); Urine Clarity Clear (Clear); Urine Urobilinogen Normal (Normal)
--- NOTE | 2024-04-21 18:04 | EX.ED.DYSGE1 ---
HPI History of Present Illness Chief Complaint: Alt LOC Informant: patient Narrative Narrative: Patient is a 48-year-old female with history of interval bowel syndrome, small intestine bacterial overgrowth and ischemic colitis presenting for episode of altered mental status/near syncope. Patient was talking to her work friend when she suddenly felt very weak and just seemed out of it. She is complaining of bodyaches, headache and generally not feeling good. She started having nausea and vomiting. She questionably passed out for couple seconds. Patient was transferred to the emergency room but does not remember getting here. She has had multiple episodes of vomiting. She denies any abdominal pain. She states her last bowel movement was last night. She does have some associated chest pain. She has been coughing as well. Has been around her grandchildren who have been sick. No fevers reported. [facility] Medical History Wears dentures Depression Anxiety Low iron History of Crohn's disease Heartburn Gastric reflux Smoker Post-menopausal Endometriosis Home Medications ?Medication ?Instructions ?Recorded ?Last Taken ?Type acetaminophen 325 mg tablet 1 - 2 tab PO Q4H PRN PRN Pain 04/05/14 Unknown History (Tylenol) omeprazole 40 mg capsule,delayed 40 mg PO BID #60 caps 01/20/24 Unknown Rx release phenobarbital 16.2 mg tablet 16.2 mg PO Q6H #80 tabs 01/21/24 Unknown Rx budesonide 9 mg tablet,delayed and 9 mg PO QAM #30 ea 02/04/24 Unknown Rx extended release hyoscyamine sulfate 0.125 mg 0.125 mg PO BID-QID PRN dyspepsia 03/23/24 Unknown Rx sublingual tablet #80 tabs mesalamine 1.2 gram tablet,delayed 2.4 g (2 x 1.2 gram) PO QDAY 8 03/24/24 Unknown Rx release weeks #112 tabs ondansetron 4 mg disintegrating 4 mg PO Q8H PRN PRN Nausea #10 tabs 04/21/24 Unknown Rx tablet potassium chloride 10 mEq 20 meq (2 x 10 mEq) PO DAILY #10 04/21/24 Unknown Rx capsule,extended release caps Allergy/AdvReac Type Severity Reaction Status Date / Time iodine AdvReac Upset Verified 04/21/24 16:18 Stomach Surgical History History of lung surgery History of tubal ligation History of appendectomy S/P cervical disc replacement Social History household members: spouse and children housing: house current occupational status: employed Smoking Status: Current every day smoker tobacco type: cigarettes ROS ROS ED Constitutional Constitutional ED: Denies chills or fever(s) Cardiovascular Cardiovascular: Reports chest pain Respiratory/Chest Respiratory/Chest: Reports cough; Denies dyspnea Gastrointestinal Gastrointestinal: Reports nausea and vomiting; Denies abdominal pain or diarrhea Musculoskeletal Musculoskeletal: Denies arthralgias or myalgias Neurologic Neurologic: Reports headache(s) and weakness Psychiatric Psychiatric: Reports anxiety Hematologic/Lymphatic Hematologic/Lymphatic: Denies easy bleeding or easy bruising EXAM Physical Exam Const Vital Signs: 04/21/24 16:10 04/21/24 18:09 04/21/24 19:16 Temperature 97.7 F L 97.9 F Temperature Source Oral Oral Pulse Rate 92 86 86 Respiratory Rate 20 H 20 H 14 Blood Pressure 159/94 H 100/76 100/76 Blood Pressure Mean 115 84 84 Pulse Ox 100 98 98 Oxygen Delivery Method Room Air Room Air Room Air 04/21/24 21:01 04/21/24 22:48 Temperature 98.3 F Temperature Source Pulse Rate 88 89 Respiratory Rate 18 18 Blood Pressure 112/87 H 112/87 H Blood Pressure Mean 95 95 Pulse Ox 97 97 Oxygen Delivery Method Room Air Positive well nourished and well developed General Appearance ED: well developed and NAD HEENT Reports dry mucous membranes Mouth ED: Yes dry mucous membranes Mouth: dry mucous membranes Eyes PERRL Neck supple Chest Wall inspection of chest normal and palpation of chest normal Resp normal respiratory effort and clear to auscultation bilaterally Cardio regular rate and regular rhythm GI normal to inspection, nondistended, normoactive bowel sounds and non-tender Palpation: soft; Negative for tender or guarding Extremity normal to inspection Neuro Sensorium / Orientation: alert and lethargic Motor Exam: general weakness Psych mental status grossly normal Mood & Affect: anxious Skin no rashes or lesions noted and no wounds MDM MDM MDM Narrative Medical decision making narrative: Patient presents for sudden onset of weakness, confusion, nausea and vomiting. Upon arrival patient is vomiting quite profusely. Patient is given IV fluids and Zofran. She slowly has improvement of symptoms. She is going of heartburn is also given Pepcid. Lab work looking for cause of her presentation is performed differential includes acute dehydration, ACS, small bowel obstruction, gastroenteritis, pancreatitis, septicemia/bacteremia, ischemic gut and electrolyte abnormality/BRITTANY. Lab work shows mild leukocytosis of 12.0. CBC otherwise normal. CMP does show hypokalemia potassium of 2.7 however her anion gap and bicarb are normal. Normal BUN and creatinine. Lactate is elevated 2.8. Magnesium added on which is normal. Lipase is 41. Urinalysis is consistent with contamination but not urinary tract infection. EKG does not show any acute ischemic changes. The lower suspicion for cardiac etiology. Patient is not to be syncopal episodes while in the emergency room. She is given total of 2 L of fluid and also given Compazine. She is given potassium placement emergency room. Lactic acidosis resolved to the emergency room and repeat lactate 0.7. Patient has no further vomiting and her symptoms resolved. She is feeling better. She is amatory in the emergency room. CT of the abdomen pelvis was obtained given her presentation elevated lactate. Was done without contrast as she reports history of hives with contrast. It does not show an acute process. Given her downtrending lactate have a lower suspicion for an acute ischemic process. Abdomen is now soft and nontender. She is not pain out of proportion. Chest x-ray viewed by myself as well as radiology does not show any acute process. Patient be discharged home with a prescription for potassium as well as Zofran. Will follow-up with GI (actually has an appointment tomorrow). Given return precautions. Tolerates p.o. challenge in the emergency room. Discharged home in improved and stable condition. I suspect she has some sort of gastritis that caused her presentation today. Her COVID flu and RSV however were negative. Lab Data Attestation: I reviewed the patient's lab results. Labs: Laboratory Results - last 24 hr 04/21/24 04/21/24 04/21/24 16:58 17:35 18:05 WBC 12.0 H RBC 4.96 Hgb 14.0 Hct 42.4 MCV 85.5 MCH 28.2 MCHC 33.0 RDW Std Deviation 44.6 H RDW Coeff of Whitney 14.6 Plt Count 325 MPV 9.3 Immature Gran % (Auto) 0.300 Neut % (Auto) 57.8 Lymph % (Auto) 33.7 [place] % (Auto) 5.9 Eos % (Auto) 1.7 Baso % (Auto) 0.6 Absolute Neuts (auto) 6.9 Absolute Lymphs (auto) 4.06 Nucleated RBC % 0 Sodium 140 Potassium 2.7 L* Chloride 107 Carbon Dioxide 26.0 Anion Gap 7 BUN 12 Creatinine 0.77 Estim Creat Clear Calc 84.42 Est GFR (MDRD) Af Amer 102 Est GFR (MDRD) Non-Af 84 BUN/Creatinine Ratio 15.5 Glucose 107 H Lactic Acid 2.8 H* Calcium 9.1 Magnesium 2.1 1.9 Troponin I High Sens 3 Lipase 41 Serum , Qual NEGATIVE Urine Color Yellow Urine Clarity Clear Urine pH 6.0 Ur Specific [place] 1.010 Urine Protein Negative Urine Glucose (UA) Normal Urine Ketones Negative Urine Occult Blood Negative Urine Nitrite Negative Urine Bilirubin Negative Urine Urobilinogen Normal Ur Leukocyte Esterase 25 H Urine RBC 0 SEEN Urine WBC 0-5 SEEN Ur Squamous Epith Cells 5-10 SEEN Urine Bacteria RARE Urine Mucus 0 SEEN 04/21/24 21:13 WBC RBC Hgb Hct MCV MCH MCHC RDW Std Deviation RDW Coeff of Whitney Plt Count MPV Immature Gran % (Auto) Neut % (Auto) Lymph % (Auto) [place] % (Auto) Eos % (Auto) Baso % (Auto) Absolute Neuts (auto) Absolute Lymphs (auto) Nucleated RBC % Sodium Potassium Chloride Carbon Dioxide Anion Gap BUN Creatinine Estim Creat Clear Calc Est GFR (MDRD) Af Amer Est GFR (MDRD) Non-Af BUN/Creatinine Ratio Glucose Lactic Acid 0.7 Calcium Magnesium Troponin I High Sens 5 Lipase Serum , Qual Urine Color Urine Clarity Urine pH Ur Specific [place] Urine Protein Urine Glucose (UA) Urine Ketones Urine Occult Blood Urine Nitrite Urine Bilirubin Urine Urobilinogen Ur Leukocyte Esterase Urine RBC Urine WBC Ur Squamous Epith Cells Urine Bacteria Urine Mucus Radiography Diagnostic Testing: Clinical Impression(s) from Imaging Studies Abdomen/Pelvis CT 04/21/24 18:42 IMPRESSION: No acute findings in the abdomen or pelvis. Electronically Signed: Corona Alicia MD at 19:25 EST , Chest X-Ray 04/21/24 19:00 IMPRESSION: No radiographic evidence of acute cardiopulmonary disease. Electronically Signed: Corona Alicia MD at 19:54 EST Reading Location ID and State: [facility] / [place] Tel , Service support , Rhythm Strip Rhythm Strip: Sinus Rhythm Rate: 88 Ectopy: None EKG Initial EKG: Attestation: I personally reviewed and interpreted this EKG as follows: Interpretation: Sinus Rhythm Comments: Normal sinus rhythm at a rate of 88 bpm Normal axis Normal intervals Normal ST segments Discharge Plan Triage Chief Complaint: Alt LOC ED Provider: Shaye Dye Dx/Rx/DC Orders Clinical Impression: Nausea & vomiting, Acute hypokalemia, Near syncope, Altered mental status Instructions: ED Hypokalemia, ED Near-Fainting, Uncertain Cause, ED Vomiting (Adult) Prescriptions: New potassium chloride 10 mEq capsule, extended release 20 meq PO DAILY Qty: 10 0RF ondansetron 4 mg tablet,disintegrating 4 mg PO Q8H PRN PRN (Reason: Nausea) Qty: 10 0RF No Action omeprazole 40 mg capsule,delayed release(DR/EC) 40 mg PO BID Qty: 60 2RF Rx Instructions: Stop 5 days before scheduled EGD, then resume. mesalamine 1.2 gram tablet,delayed release (DR/EC) 2.4 g PO QDAY 56 Days Qty: 112 3RF acetaminophen [Tylenol] 325 MG tablet 1 - 2 tab PO Q4H PRN PRN (Reason: Pain) phenobarbital 16.2 mg tablet 16.2 mg PO Q6H Qty: 80 0RF budesonide 9 mg tablet,delayed and ext.release 9 mg PO QAM Qty: 30 2RF hyoscyamine sulfate 0.125 mg tablet, sublingual 0.125 mg PO BID-QID PRN (Reason: dyspepsia) Qty: 80 0RF Primary Care Provider: Humera Garcia NP Referrals: Humera Garcia NP, CLINICAL INVESTIGATOR-C [Primary Care Provider] - Activity Restrictions/Additional Instructions: The exact cause of your symptoms today is not clear. You do have signs of dehydration low potassium level. Push fluids, you been prescribed potassium medication. Follow-up with GI tomorrow scheduled. Return if you have progression worsening your symptoms. Print Language: Yoruba Disposition Disposition: Home, Self Care Discharge Date/Time: 04/21/24 23:31
[2024-04-21 18:09] VITALS: BP 100/76; PULSE 86; RESP 20; O2SAT 98
[2024-04-21 18:10] LABS: Bacteria RARE /hpf (None Seen); Squamous Epithelial Cells - UA 5-10 SEEN /hpf (5-10); White Blood Cells 0-5 SEEN /hpf (0-5)
[2024-04-21 18:37] LABS: Magnesium 1.9 mg/dL (1.6-2.6); Troponin-I HS (w/2H Reflex) 3 pg/mL (3.0-54.0)
--- NOTE | 2024-04-21 18:42 | CT_ITS ---
EXAM: CT ABDOMEN AND PELVIS WITHOUT INTRAVENOUS CONTRAST CLINICAL INDICATION: nausea and vomiting TECHNIQUE: Helically acquired images were obtained of the abdomen and pelvis without intravenous contrast. This CT exam was performed using one or more of the following dose reduction techniques: automated exposure control, adjustment of the mA and/or kV according to patient size, and/or use of iterative reconstruction technique. COMPARISON: 01/08/2024 FINDINGS: LOWER THORAX: Unremarkable. Lung bases are clear. No cardiomegaly. No significant pericardial effusion. ABDOMEN: LIVER: Unremarkable. Homogeneous. GALLBLADDER AND BILE DUCTS: Unremarkable. No calcified gallstones. No gallbladder distention or wall edema. No intra- or extrahepatic biliary ductal dilation. PANCREAS: Unremarkable. No focal cystic mass. SPLEEN: Unremarkable. Normal size without focal cystic or solid mass. ADRENALS: Unremarkable. No nodules. KIDNEYS AND URETERS: Unremarkable. Normal renal size and position. No hydronephrosis. STOMACH AND BOWEL: Unremarkable. No stomach or bowel distention. No focal inflammatory change. PELVIS: APPENDIX: No evidence of acute appendicitis. BLADDER: Unremarkable. REPRODUCTIVE: Unremarkable as visualized. No mass. ABDOMEN and PELVIS: INTRAPERITONEAL SPACE: Unremarkable. No ascites or other fluid collection. No free air. BONES/JOINTS: Unremarkable. No suspicious lytic or blastic abnormality. SOFT TISSUES: Unremarkable. No discrete abdominal or pelvic wall hernia. VASCULATURE: Unremarkable. Abdominal aorta is non-dilated. LYMPH NODES: Unremarkable. No enlarged lymph nodes. TUBES, LINES AND DEVICES: There is an intrauterine device in place. CT/Abdomen/Pelvis without Cont IMPRESSION: No acute findings in the abdomen or pelvis. Electronically Signed: Corona Alicia MD at 19:25 [facility] ,
[2024-04-21] MEDS: Potassium Chloride 10mEq/100mL 10 MEQ/100 ML IV.SOLN. 100 MEQ IV BOLUS ×2 (18:58→21:00)
--- NOTE | 2024-04-21 19:00 | RAD_ITS ---
EXAM: XR CHEST, 2 VIEWS CLINICAL INDICATION: vomiting, weakness, sycope TECHNIQUE: Frontal and lateral views of the chest. COMPARISON: 04/05/2014 FINDINGS: LUNGS AND PLEURAL SPACES: Unremarkable. No consolidation or edema. No pneumothorax. No effusion. HEART: Unremarkable. Cardiac silhouette not enlarged. MEDIASTINUM: Central airways and mediastinal contour are unremarkable. BONES/JOINTS: Unremarkable. No acute fracture. SOFT TISSUES: Unremarkable. RAD/Chest PA and Lateral IMPRESSION: No radiographic evidence of acute cardiopulmonary disease. Electronically Signed: Corona Alicia MD at 19:54 EST ,
[2024-04-21 19:16] VITALS: BP 100/76; PULSE 86; RESP 14; TEMP 36.6; O2SAT 98
[2024-04-21] MEDS: proCHLORPERazine 10 MG/2 ML Vial 5 MG IV (19:28)
[2024-04-21] MEDS: Famotidine 200 MG/20 ML MDV 20 MG in 0.9% Normal Saline (Pres. free 8 ML 300 MG IV (19:30)
[2024-04-21 20:15] LABS: Reflex Troponin-HS? (from REC) Y
[2024-04-21 21:01] VITALS: BP 112/87; PULSE 88; RESP 18; O2SAT 97
[2024-04-21 21:08] LABS: Reflex Lactate? Y
[2024-04-21 21:41] LABS: Troponin-I HS 5 pg/mL (3.0-54.0)
[2024-04-21 21:50] LABS: Lactic Acid 0.7 mmol/L (0.4-1.9)
--- NOTE | 2024-04-21 22:46 | ED.RN ---
PO K not given earlier due to nausea/vomiting. clarified with Doctor to hold PO K due to receiving IV K.
[2024-04-21 22:48] VITALS: BP 112/87; PULSE 89; RESP 18; TEMP 36.8; O2SAT 97
== END 2024-04-21 23:31 | disposition home or self-care (01) ==
LOC: ED 17:05
PROVIDERS: Emergency Provider Emergency Medicine; PCP Registered Nurse; Visit Provider Emergency Medicine
DX: R41.82 Altered mental status, unspecified (principal); R11.2 Nausea with vomiting, unspecified; E87.6 Hypokalemia; R55 Syncope and collapse; F17.210 Nicotine dependence, cigarettes, uncomplicated
CPT/HCPCS: 71046; 74176; 80048; 81001; 83605; 83690; 83735; 84484; 84703; 85025; 87631; 93005; 96361; 96365; 96366; 96367; 96375; 99285; A4216; J2405

== ENCOUNTER → 2024-04-23 | Outpatient (CLI) | payer BC, SELFPAY ==
[2024-04-23 08:49] LABS: AST(SGOT) 13 U/L (15-37); Alanine Aminotransfer ALT/SGPT 19 U/L (13-56); Albumin, Serum 3.6 g/dL (3.2-5.0); Alkaline Phosphatase 104 U/L (45-117); Anion Gap 5 (5-15); BUN 11 mg/dL (7-18); BUN/Creat Ratio 15.4 RATIO (10-20); CPK Total, Creatine Kinase 68 U/L (26-192); Calcium,Total 9.1 mg/dL (8.5-10.1); Chloride 111 mmol/L (98-107); Creatinine, Serum 0.72 mg/dL (0.55-1.02); EST Glomerular Filtration Rate 92 mL/min (>60); Est Glom Filt Rate - Afr Amer 111 mL/min (>60); Globulin 3.7 g/dL (2.2-4.2); Glucose 98 mg/dL (74-106); Magnesium 2.1 mg/dL (1.6-2.6); Potassium 3.6 mmol/L (3.5-5.1); Protein, Total 7.3 g/dL (6.4-8.2); Sodium Level 140 mmol/L (136-145)
[2024-04-23 08:54] LABS: Urine Chloride 154 mmol/L (Not Establ.); Urine Sodium 106 mmol/L (Not Establ.)
[2024-04-23 09:06] LABS: Osmolality, Urine 623 mOsm/KG
[2024-04-23 09:18] LABS: Hemoglobin A1c 5.4 % (3.8-5.6)
[2024-05-09 18:07] LABS: ALDOSTERONE/RENIN RATIO 1.4 (0.0-30.0); Adrenocorticotropic Hormone 7.5 pg/mL (7.2-63.3); Aldolase 5.4 U/L (3.3-10.3); Aldosterone, Serum 1.1 ng/dL (0.0-30.0); Myoglobin, Urine 2 ng/mL (0-13); Renin, Plasma 0.764 ng/mL/hr (0.167-5.380)
== END | disposition home or self-care (01) ==
LOC: LAB 07:35
PROVIDERS: PCP Registered Nurse; Referring Provider Internal Medicine Gastroenterology; Visit Provider Internal Medicine Gastroenterology
DX: R41.82 Altered mental status, unspecified (principal); R11.2 Nausea with vomiting, unspecified; R55 Syncope and collapse; E87.6 Hypokalemia; K55.9 Vascular disorder of intestine, unspecified
CPT/HCPCS: 36415; 80053; 82024; 82085; 82088; 82436; 82533; 82550; 83036; 83735; 83874; 83935; 84133; 84244; 84300

== ENCOUNTER 2024-05-03 09:32 | Emergency (ER) | payer BC, SELFPAY ==
[2024-05-03 09:32] VITALS: BP 124/86; PULSE 89; RESP 14; TEMP 36.6; O2SAT 99; BMI 26.7
--- NOTE | 2024-05-03 09:39 | ED.VIS.CHEST ---
HPI History of Present Illness Chief Complaint: Chest Pain Informant: patient Onset/Context/Timing Onset: Yesterday Activity at onset: gradual Timing: Intermittent Quality: Positive for Sharp and Stabbing Worsened By: Movement of Torso Relieved By: Rest Associated Symptoms: Positive for Nausea, Dyspnea, Lightheadedness and Palpitations; Negative for Vomiting, Diaphoresis, Cough, Fever or Acid Reflux Narrative Narrative: Patient presents with chest pain that began yesterday. Patient states that has been intermittent. Patient states it comes on gradually. Patient describes it as sharp and stabbing. Patient states it is over the lower substernal area and left parasternal area. Patient states it is worse with certain movements. Patient states it is better with rest. Patient admits to some nausea but denies any vomiting. Patient admits to some shortness of breath but denies any cough or fever. Patient admits to some lightheadedness and palpitations where she felt like her heart was racing. Patient states that she had an episode at home where her heart rate went up to 202. CVD Risk Factors: Positive for Smoking; Negative for Hypertension, Diabetes, Hypercholesterolemia or Family History 1' </=55 PE Risk Factors: Negative for Recent Travel/Surgery, Recent Immobilization, Prior DVT or PE, Cancer or OCP + Smoking + >/=35 PFSH PFSH Medical History Wears dentures Depression Anxiety Low iron History of Crohn's disease Heartburn Gastric reflux Smoker Post-menopausal Endometriosis Home Medications ?Medication ?Instructions ?Recorded ?Last Taken ?Type acetaminophen 325 mg tablet 1 - 2 tab PO Q4H PRN PRN Pain 04/05/14 Unknown History (Tylenol) omeprazole 40 mg capsule,delayed 40 mg PO BID #60 caps 01/20/24 Unknown Rx release budesonide 9 mg tablet,delayed and 9 mg PO QAM #30 ea 02/04/24 Unknown Rx extended release hyoscyamine sulfate 0.125 mg 0.125 mg PO BID-QID PRN dyspepsia 03/23/24 Unknown Rx sublingual tablet #80 tabs mesalamine 1.2 gram tablet,delayed 2.4 g (2 x 1.2 gram) PO QDAY 8 03/24/24 Unknown Rx release weeks #112 tabs ondansetron 4 mg disintegrating 4 mg PO Q8H PRN PRN Nausea #10 tabs 04/21/24 Unknown Rx tablet potassium chloride 10 mEq 20 meq (2 x 10 mEq) PO DAILY #10 04/21/24 Unknown Rx capsule,extended release caps meclizine 25 mg tablet 25 mg PO BID PRN dizziness #30 tabs 05/02/24 Unknown Rx Allergy/AdvReac Type Severity Reaction Status Date / Time iodine AdvReac Upset Verified 05/03/24 09:33 Stomach Surgical History History of lung surgery History of tubal ligation History of appendectomy S/P cervical disc replacement Social History household members: spouse and children housing: house current occupational status: employed Smoking Status: Current every day smoker tobacco type: cigarettes ROS ROS ED Constitutional Constitutional ED: Denies chills or fever(s) Eyes Eyes: Denies blurry vision or change in vision ENT ENT ED: Denies rhinorrhea or sore throat Cardiovascular Cardiovascular: Reports chest pain, palpitations and racing heartbeat Respiratory/Chest Respiratory/Chest: Reports dyspnea; Denies cough Gastrointestinal Gastrointestinal: Reports nausea; Denies vomiting Genitourinary Genitourinary ED: Denies dysuria or hematuria Musculoskeletal Musculoskeletal: Reports back pain; Denies neck pain Integumentary Denies abscess or rash Neurologic Neurologic: Denies headache(s) or weakness Allergic/Immunologic Allergic/Immunologic ED: Denies mouth swelling or urticaria EXAM Physical Exam Const Vital Signs: 05/03/24 09:32 05/03/24 09:47 05/03/24 10:25 Temperature 98 F Temperature Source Temporal Pulse Rate 89 82 Respiratory Rate 14 16 Respiratory Effort Normal Non-Labored Respiratory Pattern Normal Blood Pressure 124/86 H 124/83 H Blood Pressure Mean 98 96 Pulse Ox 99 98 Oxygen Delivery Method Room Air Room Air Positive well nourished and well developed General Appearance ED: well developed and NAD HEENT Reports moist mucous membranes Neck supple and no JVD Resp normal respiratory effort and clear to auscultation bilaterally Cardio regular rate and regular rhythm GI soft to palpation, non-tender and non-distended Extremity normal to inspection General Extremety ED: Negative for edema or tenderness General Extremity: Negative for edema Neuro oriented x3, CN's II-XII intact bilaterally and no sensory deficits noted Sensorium / Orientation: awake Motor Exam: strength 5/5 throughout Psych mental status grossly normal Heart Score History: Slightly/Non-Suspicious ECG: Normal Age: >45 - <65 years Risk Factors: 1 or 2 Risk Factors Troponin: </= Normal Limit Score: 2 MDM MDM MDM Narrative Medical decision making narrative: Differential diagnosis includes cardiac dysrhythmia, cardiac ischemia, pneumonia, pneumothorax, electrolyte abnormality, gastroesophageal reflux disease, and anxiety. EKG will be obtained to assess for cardiac dysrhythmia and cardiac ischemia. Chest x-ray will be obtained to assess for pneumonia and pneumothorax. CBC will be obtained to assess for leukocytosis and anemia. Basic metabolic profile will be obtained to assess for electrolyte abnormality and renal function. High-sensitivity troponin will be obtained to assess for cardiac ischemia. Lab Data Attestation: I reviewed the patient's lab results. Lab results narrative: CBC was reviewed and was within normal limits. Basic metabolic profile was reviewed and was essentially within normal limits. Initial high-sensitivity troponin was reviewed and was normal at 8. 2-hour repeat high-sensitivity troponin was reviewed and was normal at 8. Labs: Laboratory Results - last 24 hr 05/03/24 05/03/24 09:56 12:30 WBC 8.5 RBC 5.12 Hgb 14.5 Hct 43.3 MCV 84.6 MCH 28.3 MCHC 33.5 RDW Std Deviation 43.5 RDW Coeff of Whitney 14.2 Plt Count 313 MPV 9.1 Immature Gran % (Auto) 0.400 Neut % (Auto) 50.8 Lymph % (Auto) 39.8 [place] % (Auto) 6.9 Eos % (Auto) 1.5 Baso % (Auto) 0.6 Absolute Neuts (auto) 4.3 Absolute Lymphs (auto) 3.37 Nucleated RBC % 0 Sodium 139 Potassium 3.7 Chloride 112 H Carbon Dioxide 21.0 Anion Gap 6 BUN 13 Creatinine 0.66 Estim Creat Clear Calc 99.45 Est GFR (MDRD) Af Amer 121 Est GFR (MDRD) Non-Af 100 BUN/Creatinine Ratio 19.5 Glucose 99 Calcium 9.4 Troponin I High Sens 8 8 Radiography Chest X-Ray - ED: 2 View, Read by ED Physician, Read by Radiologist and No Acute Disease Diagnostic Testing: Clinical Impression(s) from Imaging Studies Chest X-Ray 05/03/24 10:17 IMPRESSION: No acute abnormality is present. Electronically Signed: Andrew Addison MD at 10:50 EST , PA and lateral chest x-ray was obtained. There are 2 views. On my independent interpretation, lung serra are clear. There is normal cardiac silhouette. Bony thorax is normal. There is no acute process noted. Radiologist also interpreted the x-ray and agrees. EKG Initial EKG: Attestation: I personally reviewed and interpreted this EKG as follows: Interpretation: Sinus Rhythm (85) and No Acute Injury Pattern Comments: EKG was obtained. On my independent interpretation, it showed a normal sinus rhythm with a rate of 85. AL interval, QRS interval, and QTc intervals were all normal. [place] was normal. There are no acute ST or T wave changes. Prior EKG tracings: available for review Prior: Unchanged (04/21/2024) Differential Diagnosis Chest pain/SOB: pulmonary embolism Reason(s) PE less likely: Positive for PERC negative, Well's <3, not tachycardic and not hypoxic Treatment and Re-Evaluation :: Smoking cessation was discussed. Patient is given aspirin. Patient was feeling better on reevaluation. Patient was advised of her findings. Patient has a HEART score of 2. Patient was advised that this is low risk for acute cardiac event. Patient was instructed to follow-up with her primary care physician in 5 to 7 days. Patient was advised she may need further testing. Patient understood and was agreeable with the plan. All questions were answered. Discharge Plan Triage Chief Complaint: Chest Pain ED Provider: Sulaiman Hoffman Dx/Rx/DC Orders Clinical Impression: Chest pain, Tobacco use Instructions: ED Chest Pain, Uncertain Cause Prescriptions: No Action omeprazole 40 mg capsule,delayed release(DR/EC) 40 mg PO BID Qty: 60 2RF Rx Instructions: Stop 5 days before scheduled EGD, then resume. mesalamine 1.2 gram tablet,delayed release (DR/EC) 2.4 g PO QDAY 56 Days Qty: 112 3RF acetaminophen [Tylenol] 325 MG tablet 1 - 2 tab PO Q4H PRN PRN (Reason: Pain) potassium chloride 10 mEq capsule, extended release 20 meq PO DAILY Qty: 10 0RF ondansetron 4 mg tablet,disintegrating 4 mg PO Q8H PRN PRN (Reason: Nausea) Qty: 10 0RF budesonide 9 mg tablet,delayed and ext.release 9 mg PO QAM Qty: 30 2RF hyoscyamine sulfate 0.125 mg tablet, sublingual 0.125 mg PO BID-QID PRN (Reason: dyspepsia) Qty: 80 0RF meclizine 25 mg tablet 25 mg PO BID PRN (Reason: dizziness) Qty: 30 0RF Stand Alone Forms: Work / School Excuse Primary Care Provider: Humera Garcia NP Referrals: Humera Garcia NP, INSTALL AND REPAIR TECHNICIAN-C [Primary Care Provider] - 5-7 Days Print Language: Bulgarian Disposition Disposition: Home, Self Care
--- NOTE | 2024-05-03 10:17 | RAD_ITS ---
STUDY: X-RAY CHEST REASON FOR EXAM: Female, 48 years old. Chest pain TECHNIQUE: AP and lateral views of the chest. COMPARISON: Comparison is made with prior study dated April 21, 2024. FINDINGS: EKG electrodes are seen. The lungs are clear and expanded. There is no demonstrated pleural abnormality. Normal size heart. Normal mediastinum and fredrick. Normal visualized pulmonary arteries. Normal visualized aortic arch and descending thoracic aorta. There is demineralization of the osseous structures. Normal visualized ribs, clavicles, and shoulders. There is no demonstrated abnormality of the visualized soft tissue structures of the upper abdomen. RAD/Chest PA and Lateral IMPRESSION: No acute abnormality is present. Electronically Signed: Andrew Addison MD at 10:50 EST ,
[2024-05-03] MEDS: Aspirin 81 MG TAB.CHEW 324 MG PO (10:21)
[2024-05-03 10:25] VITALS: BP 124/83; PULSE 82; RESP 16; O2SAT 98
[2024-05-03 10:27] LABS: Absolute Lymphocyte Count 3.37 X10^3/uL (0.83-4.51); Absolute Neutrophil Count 4.3 X10^3/uL (2.0-7.7); Basophil# 0.05 X10^3/uL; Basophil% 0.6 % (0-1); Eosinophil# 0.13 X10^3/uL; Eosinophils% 1.5 % (0-5); Hematocrit 43.3 % (37-47); Hemoglobin 14.5 g/dL (12.0-15.0); Lymphocyte # 3.37 X10^3/ul (0.83-4.51); Lymphocyte % 39.8 % (19-41); Mean Corp Hgb Conc 33.5 g/dL (32-36); Mean Corpuscular Hgb 28.3 pg (27.0-32.0); Mean Corpuscular Volume 84.6 fL (81-99); Mean Platelet Vol. 9.1 fl (6.2-12.0); Monocyte# 0.58 X10^3/uL; Monocyte% 6.9 % (0-10); NRBC Flagged by Analyzer 0 % (0-5); Neutrophil % 50.8 % (47-70); Platelet Count 313 K/mm3 (150-450); RBC Distribution Width CV 14.2 % (11.6-14.6); RBC Distribution Width SD 43.5 fl (35.1-43.9); Red Blood Count 5.12 M/mm3 (4.2-5.4); White Blood Count 8.5 K/mm3 (4.4-11.0)
[2024-05-03 10:44] LABS: Anion Gap 6 (5-15); BUN 13 mg/dL (7-18); BUN/Creat Ratio 19.5 RATIO (10-20); Calcium,Total 9.4 mg/dL (8.5-10.1); Chloride 112 mmol/L (98-107); Creatinine, Serum 0.66 mg/dL (0.55-1.02); EST Glomerular Filtration Rate 100 mL/min (>60); Est Glom Filt Rate - Afr Amer 121 mL/min (>60); Estimated Creatinine Clearance 99.45 ml/min; Glucose 99 mg/dL (74-106); Potassium 3.7 mmol/L (3.5-5.1); Sodium Level 139 mmol/L (136-145); Troponin-I HS (w/2H Reflex) 8 pg/mL (3.0-54.0)
[2024-05-03 12:21] LABS: Reflex Troponin-HS? (from REC) Y
[2024-05-03 12:56] LABS: Troponin-I HS 8 pg/mL (3.0-54.0)
[2024-05-03 13:16] VITALS: BP 110/76; PULSE 80; RESP 24; TEMP 36.6; O2SAT 95
== END 2024-05-03 13:26 | disposition home or self-care (01) ==
PROVIDERS: Emergency Provider Emergency Medicine; PCP Registered Nurse; Visit Provider Emergency Medicine
DX: R07.9 Chest pain, unspecified (principal); F17.210 Nicotine dependence, cigarettes, uncomplicated
CPT/HCPCS: 71046; 80048; 84484; 85025; 93005; 99284; A4216

== ENCOUNTER → 2024-05-17 | Outpatient (CLI) | payer BC, OTHER, SELFPAY ==
--- NOTE | 2024-05-18 08:03 | TILTTABLE_ITS ---
Staff Staff: Elizabeth Ryder and Ananya Simmons Summary Pre Test Resting HR: 83 Pre Test Resting BP: 111/69 Minimum Test HR: 83 Maximum Test HR: 130 Minimum Test BP: 0/0 Maximum Test BP: 124/105 Reason for Test Termination: Syncope Physician Tilt Table Report Patient's Physicians Primary Care Physician: Humera Garcia NP Indications/Diagnosis: Altered mental status Procedure Comments: Patient was brought to the noninvasive lab in the p ostabsorptive state and informed consent was obtained. Initial EKG was obtained demonstrating sinus rhythm with a rate of 83 bpm blood pressure was 111/69 mmHg. The patient was then put into the 70 degree head upright tilt position for 20 minutes continuous EKG monitoring was performed. The initial heart rate went up to 104 bpm. Blood pressures remained stable. After 20 minutes the patient was then put in the recumbent position. Patient had complained of mild dizziness and feeling tired. In the recumbent position the patient was given sublingual nitroglycerin and then put back in the head upright tilt position. Heart rate went up from 106 bpm with a blood pressure 110/80 to a peak of 130 bpm. Patient subsequently became flushed tachycardic symptomatic with heart racing and dropped her blood pressure and needed to be put in the recumbent position. Patient subsequently started feeling better with a heart rate improving to 85 bpm and a blood pressure 109/79 mmHg. No EKG changes were noted. Summary: The above is suggestive of likely orthostatic hypotension exacerbated by nitroglycerin.
[2024-05-18 08:07] VITALS: BP 0/0; BP 111/69; BP 124/105
== END | disposition home or self-care (01) ==
PROVIDERS: PCP Registered Nurse; Referring Provider Internal Medicine Gastroenterology; Visit Provider Internal Medicine Gastroenterology
DX: R41.82 Altered mental status, unspecified (principal); R55 Syncope and collapse; R11.2 Nausea with vomiting, unspecified; E87.6 Hypokalemia; K55.9 Vascular disorder of intestine, unspecified
CPT/HCPCS: 93660; A4216

== ENCOUNTER 2024-11-14 09:59 | Emergency (ER) | payer BC, SELFPAY ==
[2024-11-14 10:00] VITALS: BP 148/98; PULSE 81; RESP 16; TEMP 36.7; O2SAT 99
[2024-11-14 10:01] VITALS: BMI 26.9
--- NOTE | 2024-11-14 10:06 | ED.VIS.CHEST ---
HPI History of Present Illness Chief Complaint: Chest Pain Informant: patient Onset/Context/Timing Onset: Today Activity at onset: gradual Timing: Continuous Quality: Positive for Burning, Heaviness and Sharp Location: Left Chest Worsened By: Nothing Relieved By: Nothing Associated Symptoms: Positive for Diaphoresis, Dyspnea, Lightheadedness and Palpitations; Negative for Nausea, Vomiting, Cough, Fever or Acid Reflux Narrative Narrative: Patient presents with chest pain that began today. Patient states that it came on gradually. Patient states she started having some shortness of breath and lightheadedness. Patient states she has been started having some pressure in her chest. Patient states it radiates into her left arm. Patient states it feels like there is an elephant sitting on my chest. Patient also describes her pain as sharp and burning. Patient states nothing makes it better and nothing makes it worse. CVD Risk Factors: Positive for Smoking; Negative for Hypertension, Diabetes, Hypercholesterolemia or Family History 1' </=55 PE Risk Factors: Negative for Recent Travel/Surgery, Recent Immobilization, Prior DVT or PE, Cancer or OCP + Smoking + >/=35 PFSH PFSH Medical History SVT (supraventricular tachycardia) Tension pneumothorax, spontaneous Hx of migraines Anxiety and depression Wears dentures Depression Anxiety Low iron History of Crohn's disease Heartburn Gastric reflux Smoker Post-menopausal Endometriosis Home Medications ?Medication ?Instructions ?Recorded ?Last Taken ?Type acetaminophen 325 mg tablet 1 - 2 tab PO Q4H PRN PRN Pain 04/05/14 Unknown History (Tylenol) omeprazole 40 mg capsule,delayed 40 mg PO BID #60 caps 01/20/24 11/13/24 Rx release trazodone 50 mg tablet 50 mg PO QHS PRN sleep 08/30/24 11/13/24 History metoprolol tartrate 25 mg tablet 25 mg PO BID #60 tabs 09/14/24 11/13/24 Rx ibuprofen 200 mg tablet (Advil) 400 mg PO Q6H PRN fever or pain 11/14/24 Unknown History Allergy/AdvReac Type Severity Reaction Status Date / Time adhesive tape Allergy Unknown Unknown Verified 11/14/24 09:59 iodine AdvReac Upset Verified 11/14/24 09:59 Stomach Family History Grandmother Diabetes Hypertension Grandfather Lung cancer Other Cancer Surgical History History of esophagogastroduodenoscopy (EGD) (03/11/24) History of oophorectomy History of colonoscopy (03/11/24) History of lung surgery History of tubal ligation History of appendectomy S/P cervical disc replacement Social History household members: spouse and children housing: house current occupational status: employed Smoking Status: Current every day smoker tobacco type: cigarettes alcohol intake: current substance use type: does not use caffeine: Yes Type: carbonated beverages Number of servings: 3 ROS ROS ED Constitutional Constitutional ED: Denies chills or fever(s) Eyes Eyes: Denies blurry vision or change in vision ENT ENT ED: Denies rhinorrhea or sore throat Cardiovascular Cardiovascular: Reports chest pain; Denies palpitations Respiratory/Chest Respiratory/Chest: Reports dyspnea; Denies cough Gastrointestinal Gastrointestinal: Denies nausea or vomiting Genitourinary Genitourinary ED: Denies dysuria or hematuria Musculoskeletal Musculoskeletal: Denies back pain or neck pain Integumentary Denies abscess or rash Neurologic Neurologic: Denies headache(s) or weakness Allergic/Immunologic Allergic/Immunologic ED: Denies mouth swelling or urticaria EXAM Physical Exam Const Vital Signs: 11/14/24 10:00 11/14/24 10:01 11/14/24 11:00 Temperature 98.0 F Temperature Source Oral Pulse Rate 81 Respiratory Rate 16 Respiratory Effort Normal Blood Pressure 148/98 H Blood Pressure Mean 114 Pulse Ox 99 Oxygen Delivery Method Room Air Room Air 11/14/24 11:00 11/14/24 12:31 11/14/24 13:00 Temperature Temperature Source Pulse Rate 89 78 63 Respiratory Rate 18 18 Respiratory Effort Blood Pressure 143/78 H 138/78 H Blood Pressure Mean 99 98 Pulse Ox 98 98 99 Oxygen Delivery Method Room Air Room Air 11/14/24 14:00 11/14/24 15:14 Temperature 97.7 F L Temperature Source Pulse Rate 65 65 Respiratory Rate 18 16 Respiratory Effort Blood Pressure 122/72 H 127/69 H Blood Pressure Mean 88 88 Pulse Ox 99 99 Oxygen Delivery Method Room Air Positive well nourished and well developed General Appearance ED: well developed and NAD HEENT Reports moist mucous membranes Neck supple and no JVD Resp normal respiratory effort and clear to auscultation bilaterally Cardio regular rate and regular rhythm GI soft to palpation, non-tender and non-distended Neuro oriented x3, CN's II-XII intact bilaterally and no sensory deficits noted Sensorium / Orientation: awake and alert Motor Exam: strength 5/5 throughout Psych mental status grossly normal Heart Score History: Slightly/Non-Suspicious ECG: Normal Age: >45 - <65 years Risk Factors: 1 or 2 Risk Factors Troponin: </= Normal Limit Score: 2 MDM MDM MDM Narrative Medical decision making narrative: Differential diagnosis includes cardiac dysrhythmia, cardiac ischemia, pneumonia, bronchitis, electrolyte abnormality, musculoskeletal pain, and anxiety. EKG will be obtained to assess cardiac dysrhythmia and cardiac ischemia. Chest x-ray will be obtained to assess for pneumonia or bronchitis. CBC will be obtained to assess for leukocytosis and anemia. Basic metabolic profile will be obtained to assess for electrolyte abnormality and renal function. High-sensitivity troponin will be obtained to assess for cardiac ischemia. 2-hour repeat high-sensitivity troponin will be obtained to assess for ongoing cardiac ischemia. History & Record Review Additional record(s) reviewed:: Prior outpatient record, Prior ED visit and Prior labs Lab Data Attestation: I reviewed the patient's lab results. Lab results narrative: CBC was reviewed and was within normal limits. Basic metabolic profile was reviewed and was within normal limits. Initial high-sensitivity troponin was reviewed and was less than 6. 2-hour repeat high-sensitivity troponin was reviewed and was less than 6. Labs: Laboratory Results - last 24 hr 11/14/24 11/14/24 10:10 12:35 WBC 7.4 RBC 4.68 Hgb 13.1 Hct 38.4 MCV 82.1 MCH 28.0 MCHC 34.1 RDW Std Deviation 38.7 RDW Coeff of [place] 13.1 Plt Count 297 MPV 9.8 Immature Gran % (Auto) 0.300 Neut % (Auto) 51.6 Lymph % (Auto) 38.1 [place] % (Auto) 7.1 Eos % (Auto) 2.2 Baso % (Auto) 0.7 Absolute Neuts (auto) 3.8 Absolute Lymphs (auto) 2.81 Nucleated RBC % 0 Sodium 140 Potassium 3.7 Chloride 106 Carbon Dioxide 21.1 Anion Gap 13 BUN 12 Creatinine 0.72 Est GFR (MDRD) Non-Af 102 BUN/Creatinine Ratio 17.2 Glucose 93 Calcium 9.3 Troponin T High Sens < 6 Troponin T Hi Sens 2 Hr < 6 Radiography Chest X-Ray - ED: 1 View, Read by ED Physician, Read by Radiologist and No Acute Disease Diagnostic Testing: Clinical Impression(s) from Imaging Studies Chest X-Ray 11/14/24 10:31 IMPRESSION: No acute process is identified in the chest. Reading Location: [facility] Portable 1 view chest x-ray was obtained. On my independent interpretation, lung serra are clear. There is normal cardiac silhouette. Bony thorax is normal. There is no acute process noted. Radiologist also interpreted the x-ray and agrees. EKG Initial EKG: Attestation: I personally reviewed and interpreted this EKG as follows: Interpretation: Sinus Rhythm (73) and No Acute Injury Pattern Comments: EKG was obtained. On my independent interpretation, it showed a normal sinus rhythm with a rate of 73. [place] interval, QRS interval, and QTc intervals were all normal. [place] was normal. There are no acute ST or T wave changes. Prior EKG tracings: available for review Prior: Unchanged (05/03/2024) Treatment and Re-Evaluation :: Patient was given aspirin. Patient was feeling better on reevaluation. Patient was advised of her findings. Patient has a HEART score of 2. Patient was advised that this is low risk for acute cardiac event. Patient was instructed to follow-up with her primary care physician in 5 to 7 days for further evaluation. Patient was instructed return if worse in any way. Patient understood and was agreeable with the plan. All questions were answered. Discharge Plan Triage Chief Complaint: Chest Pain ED Provider: Sulaiman Hoffman Dx/Rx/DC Orders Clinical Impression: Chest pain, Hypertension Instructions: ED Chest Pain, Uncertain Cause Prescriptions: No Action omeprazole 40 mg capsule,delayed release(DR/EC) 40 mg PO BID Qty: 60 2RF Rx Instructions: Stop 5 days before scheduled EGD, then resume. trazodone 50 mg tablet 50 mg PO QHS PRN (Reason: sleep) acetaminophen [Tylenol] 325 MG tablet 1 - 2 tab PO Q4H PRN PRN (Reason: Pain) ibuprofen [Advil] 200 mg tablet 400 mg PO Q6H PRN (Reason: fever or pain) metoprolol tartrate 25 mg tablet 25 mg PO BID Qty: 60 11RF Patient Comments: pt states she only takes pm because it makes her tired Stand Alone Forms: Work / School Excuse Primary Care Provider: Humera Garcia NP Referrals: Humera Garcia NP, [employer] [Primary Care Provider] - 5-7 Days Print Language: Icelandic Disposition Disposition: Home, Self Care Discharge Date/Time: 11/14/24 15:17
--- NOTE | 2024-11-14 10:31 | RAD_ITS ---
PROCEDURE: CHEST 1 VIEW (PORTABLE) 11/14/2024 REASON FOR EXAM: CHEST PAIN TECHNIQUE: Frontal view of the chest. COMPARISON: None FINDINGS: Heart size and mediastinal configuration are within normal limits. There is no focal infiltrate or consolidation. There is no pneumothorax or effusion. There is no acute bony abnormality. Aortic calcifications are visible. Hardware is noted in the cervical region. RAD/Chest 1 View (Portable) IMPRESSION: No acute process is identified in the chest. Reading Location: [facility]
--- NOTE | 2024-11-14 10:31 | EKG12_ITS ---
Test Reason : CP Blood Pressure : */* mmHG Vent. Rate : 73 BPM Atrial Rate : 73 BPM P-R Int : 130 ms QRS Dur : 82 ms QT Int : 404 ms P-R-T Axes : 51 50 60 degrees QTcB Int : 445 ms Normal sinus rhythm Normal ECG Confirmed by MARIAH SALTER, HECTOR ([id number]), image editor [employer] [employer] ([id number]) on 11/15/2024 1:02:01 PM Referred By: MARCOS/PATRICIO Confirmed By: HECTOR LEMUS MD
[2024-11-14 11:00] VITALS: BP 143/78; PULSE 89; RESP 18; O2SAT 98
[2024-11-14 11:00] LABS: Hematocrit 38.4 % (37-47); Hemoglobin 13.1 g/dL (12.0-15.0); Immature Granulocytes Count 0.020 X10^3/uL (0.0-0.0); Mean Corp Hgb Conc 34.1 g/dL (32-36); Mean Corpuscular Volume 82.1 fL (81-99); Mean Platelet Vol. 9.8 fl (6.2-12.0); NRBC Flagged by Analyzer 0 % (0-5); Platelet Count 297 K/mm3 (150-450); RBC Distribution Width CV 13.1 % (11.6-14.6); RBC Distribution Width SD 38.7 fl (35.1-43.9); Red Blood Count 4.68 M/mm3 (4.2-5.4); White Blood Count 7.4 K/mm3 (4.4-11.0)
[2024-11-14 11:40] LABS: Anion Gap 13 (5-15); BUN 12 mg/dL (4-19); BUN/Creat Ratio 17.2 RATIO (10-20); Calcium,Total 9.3 mg/dL (7.6-11.0); Carbon Dioxide 21.1 mmol/L (21.0-32.0); Chloride 106 mmol/L (98-108); Glucose 93 mg/dL (70-99); Potassium 3.7 mmol/L (3.3-5.1); Troponin T High Sensitivity < 6 ng/L (<=14)
[2024-11-14 12:31] VITALS: BP 138/78; PULSE 78; RESP 18; O2SAT 98
[2024-11-14 13:00] VITALS: PULSE 63; O2SAT 99
[2024-11-14 13:31] LABS: Troponin T High Sens 2 HR < 6 ng/L (<=14)
[2024-11-14 14:00] VITALS: BP 122/72; PULSE 65; RESP 18; O2SAT 99
[2024-11-14 15:14] VITALS: BP 127/69; PULSE 65; RESP 16; TEMP 36.5; O2SAT 99
== END 2024-11-14 15:17 | disposition home or self-care (01) ==
PROVIDERS: Emergency Provider Emergency Medicine; PCP Registered Nurse; Visit Provider Emergency Medicine
DX: R07.9 Chest pain, unspecified (principal); F17.210 Nicotine dependence, cigarettes, uncomplicated; I10 Essential (primary) hypertension; K21.9 Gastro-esophageal reflux disease without esophagitis; Z79.899 Other long term (current) drug therapy; Z98.51 Tubal ligation status; Z90.49 Acquired absence of other specified parts of digestive tract
CPT/HCPCS: 71045; 80048; 84484; 85025; 93005; 99283; A4216

== ENCOUNTER 2024-11-14 10:02 | Emergency (ER) | payer BC, SELFPAY | END 2024-11-14 10:09 | disposition left against medical advice (07) | LOC: ED 10:08 | PROVIDERS: PCP Registered Nurse | DX: R07.9 Chest pain, unspecified (principal) ==

== ENCOUNTER → 2025-03-23 | Outpatient (CLI) | payer BC, SELFPAY ==
[2025-03-23 12:04] LABS: Hematocrit 37.8 % (37-47); Hemoglobin 12.7 g/dL (12.0-15.0); Immature Granulocytes Count 0.010 X10^3/uL (0.0-0.0); Mean Corp Hgb Conc 33.6 g/dL (32-36); Mean Corpuscular Volume 82.7 fL (81-99); Mean Platelet Vol. 9.3 fl (6.2-12.0); NRBC Flagged by Analyzer 0 % (0-5); Platelet Count 257 K/mm3 (150-450); RBC Distribution Width CV 14.0 % (11.6-14.6); RBC Distribution Width SD 42.1 fl (35.1-43.9); Red Blood Count 4.57 M/mm3 (4.2-5.4); White Blood Count 5.1 K/mm3 (4.4-11.0)
[2025-03-23 12:48] LABS: AST(SGOT) 34 U/L (<=31); Alanine Aminotransfer ALT/SGPT 36 U/L (<=34); Albumin, Serum 4.4 g/dL (3.5-5.0); Alkaline Phosphatase 93 U/L (35-104); Anion Gap 10 (5-15); BUN 13 mg/dL (4-19); BUN/Creat Ratio 17.6 RATIO (10-20); Calcium,Total 9.4 mg/dL (7.6-11.0); Carbon Dioxide 25.6 mmol/L (21.0-32.0); Chloride 107 mmol/L (98-108); Globulin 2.8 g/dL (2.2-4.2); Glucose 94 mg/dL (70-99); Lipase 39 U/L (13-75); Potassium 3.8 mmol/L (3.3-5.1)
== END | disposition home or self-care (01) ==
LOC: LAB 10:52
PROVIDERS: PCP Registered Nurse; Referring Provider Student in an Organized Health Care Education/Training Program; Visit Provider Student in an Organized Health Care Education/Training Program
DX: R10.9 Unspecified abdominal pain (principal)
CPT/HCPCS: 36415; 80053; 83690; 85025

== ENCOUNTER → 2025-04-08 | Outpatient (CLI) | payer BC, SELFPAY ==
--- OUTSIDE RECORDS SUMMARY | 2025-04-08 09:45 | XMS RPT_ITS | CCD ---
Author Organization [facility] Care Team Providers Care [employer] Name Role Phone MIGUEL ÁNGEL BENOIT Unavailable Unavailable DENYS CONTI Unavailable Unavailable DENYS CONTI Unavailable Unavailable PHYSICIAN, NOT RECORDED Primary Care Physician U audrey GONZALEZ APRN-KELLY, BRAEDEN Primary Care Physician Unavailable Primary Care Provider UnavailDr. Bam Serna Referring Provider [phone] Dr. Bam Clancy Other Provider [phone] Carlos VP TREASURER, VP TREASURER-C Braeden Primary Care Provider Dr. Lee Irene Attending Provider Marj SALTER, Denys Primary Care Provider Marj SALTER, Denys Primary Care Provider Marj SALTER, Denys Primary Care Provider Marj SALTER, Denys Primary Care Provider Radha DIAGNOSTIC ASSISTANT.RECORDS MANAGEMENT ASSOCIATE, Humera Primary Care Provider HAAGEN DIAGNOSTIC ASSISTANT-RECORDS MANAGEMENT ASSOCIATE, HUMERA Primary Care Physician ANKUR SALTER, DR MOREL Attending Unavailab le ANKUSHAGEN DIAGNOSTIC ASSISTANT-RECORDS MANAGEMENT ASSOCIATE, HUMERA Primary Care Unavail able CARLOS DIAGNOSTIC ASSISTANT-RECORDS MANAGEMENT ASSOCIATE, BRAEDEN Primary Care Akshat GARCIA MD, DR MIK Harrison Attending Unavaillisbeth MIGUEL DO, DR ANTONI Yost Attending Unavailable CARLOS SANCHEZN-RECORDS MANAGEMENT ASSOCIATE, BRAEDEN Primary Care UnavailANNMARIE Morales Referring Unavailable HUMERA GARCIA Primary Care Unavailable ANNMARIE CORONADO Admitting Unavailable ANNMARIE CORONADO Attending Unavailable Haagen DIAGNOSTIC ASSISTANT.RECORDS MANAGEMENT ASSOCIATE, Humera Primary Care Provider Suppan DIAGNOSTIC ASSISTANT.RECORDS MANAGEMENT ASSOCIATE, Lin A Unavailable Danny Avila MD Unavailable Friend DO, Nhan Marroquin Unavailable Suppan DIAGNOSTIC ASSISTANT.RECORDS MANAGEMENT ASSOCIATE, Lin A Unavailable Danny Avila MD Unavailable HAAGEN DIAGNOSTIC ASSISTANT-RECORDS MANAGEMENT ASSOCIATE, HUMERA Primary Care Unavail able ARABELLA RAMON MD Attending Unavailable Haagen VP TREASURER-C, Humera Primary Care Provider Rodrigo SALTER, Dr. Georges Attending Provider Roxana CHANDLER, Dr. Tierney Referring Provider Roxana CHANDLER, Dr. Tierney Attending Provider Roxana CHANDLER, Dr. Tierney Other Provider Haagen VP TREASURER-C, Humera Referring Provider Vivi SALTER, Dr. Caban Attending Provider [phone] Haagen VP TREASURER-C, Humera Primary Care Provider [phone] Provider, Ed Physician Emergency Provider Dr. Sulaiman Gross DO Emergency Provider Dr. Sulaiman Hoffman DO Attending Provider Provider, Ed Physician Attending Provider Brittani lam Haagen, Humera Primary Care Unavailable Friend, Nhan Attending Unavailable Friend, Nhan Referring Unavailable Friend, Nhan Attending Unavailable Haagen, Humera Primary Care Unavailable Haagen, Humera Referring Unavailable Friend, Nhan Consulting Unavailable Haagen, Humera Primary Care Unavailable Friend, Nhan Attending Unavailable Haagen, Humera Referring Unavailable Haagen, Humera Primary Care Unavailable Arsh Trinidad Attending Unavailable Haagen, Humera Referring Unavailable Haagen, Humera Referring Unavailable Haagen, Humera Primary Care Unavailable SattiArsh Attending Unavailable Haagen, Humera Primary Care Unavailable Friend, Nhan Attending Unavailable Haagen, Humera Referring Unavailable Haagen, Humera Primary Care Unavailable Haagen, Humera Referring Unavailable Desirae Mancia Attending Unavailable Friend, Nhan Referring Unavailable Haagen, Humera Primary Care Unavailable José Manuel Wallace Attending Unavailable Friend, Nhan Referring Unavailable Haagen, Humera Primary Care Unavailable Friend, Nhan Consulting Unavailable José Manuel Wallace Attending Unavailable Haagen, Humera Primary Care Unavailable Génesis Das Attending Unavailable Friend, Nhan Referring Unavailable Haagen, Humera Primary Care Unavailable Friend, Nhan Attending Unavailable Shaye Dye Attending Unavailable Haagen, Humera Primary Care Unavailable Haagen, Humera Primary Care Unavailable SchwigerSulaiman Attending Unavailable Haagen, Humera Primary Care Unavailable Schwiger, Sulaiman Attending Unavailable Friend, Nhan Attending Unavailable Haagen, Humera Primary Care Unavailable Haagen, Humera Referring Unavailable Friend, Nhan Referring Unavailable Haagen, Humera Primary Care Unavailable Friend, Nhan Attending Unavailable Haagen, Humera Primary Care Unavailable SatShelley garciaArsh Referring Unavailable SatShelley garciaArsh Attending Unavailable Provider, Ed Physician Attending Unavailab le Haagen, Humera Primary Care Unavailable HAAGEN, HUMERA Primary Care Unavailable SUPPAN, LIN A Attending Unavailable HAAGEN, HUMERA Primary Care Unavailable JARED NAZARIO Referring Unavailable HAAGEN, HUMERA Primary Care Unavailable SUPPAN, LIN A Attending Unavailable DANNY AVILA Referring Unavailable SELF Referring Unavailable HAAGEN, HUMERA Primary Care Unavailable NAZARIO, JARED Attending Unavailable HAAGEN, HUMERA Primary Care Unavailable CLARK, IRMA P Referring Unavailable HAAGEN, HUMERA Primary Care Unavailable CLARK, IRMA P Referring Unavailable HAAGEN, HUMERA Primary Care Unavailable CLARK, IRMA P Attending Unavailable FRIEND, NHAN B Referring Unavailable HAAGEN, HUMERA Primary Care Unavailable SUPPAN, LIN A Attending Unavailable HAAGEN, HUMERA Primary Care Unavailable SUPPAN, LIN A Attending Unavailable SUPPAN, LIN A Attending Unavailable HAAGEN, HUMERA Primary Care Unavailable SUPPAN, LIN A Attending Unavailable HAAGEN, HUMERA Primary Care Unavailable Allergies Allergy Classification Reported Allergen(s) Allergy Type Date of Onset Reaction(s) Facility (20 sources) Acetaminophen / HYDROcodone; Translations: [acetaminophen-hy drocodone] Drug Allergy 3 Unknown [facility] Comment on above: states was in pain m anagement and given 2 meds at once and had reaction, unsure if it was the 2 meds or one. (20 sources) Acetaminophen / oxyCODONE; Translations: [acetaminophen-ox ycodone] Drug Allergy 3 GI Upset, [facility] Comment on above: is unsure if this is a true reaction, was given 2 meds at the same time by pain management (10 sources) Acetaminophen / Propoxyphene; Translations: [acetaminophen-pr opoxyphene] Drug Allergy Percocet Tablets (product) [facility] (10 sources) Adhesive Tape Allergy to substance welts, cooney [facility] (4 sources) cyclobenzaprine; Translations: [cyclobenzaprine] Drug Allergy [facility] Comment on above: was seeing pain martine gement and given 2 meds at once and is unsure if this was a true reaction or just one of the meds (10 sources) Latex Allergy to substance [facility] (10 sources) Povidone-Iodine; Translations: [povidone iodine topical] Drug Allergy bernardo, b urns [facility] (20 sources) topiramate; Translations: [topiramate] Drug Allergy 3 GI Upset [facility] (20 sources) Iodine; Translations: [IODINE] Drug Allergy 3 GI Upset [facility] Work Phone: (20 sources) Adhesive Tape; Translations: [ADHESIVE TAPE (ROSINS)] Allergy to substance 3 Swelling [facility] Work Phone: (20 sources) cyclobenzaprine; Translations: [CYCLOBENZAPRINE HCL] Drug Allergy 3 GI Upset [facility] Work Phone: (4 sources) Orphenadrine Drug Allergy 3 Unknown [facility] Work Phone: (20 sources) Propoxyphene N-Acetaminophen; Translations: [PROPOXYPHENE N-ACETAMINOPHEN] Drug Allergy 3 Unknown [facility] Work Phone: (2 sources) Acetaminophen / oxyCODONE; Translations: [OXYCODONE-ACETAM INOPHEN] Drug Allergy 3 [facility] Other [facility] (5 sources) Adhesive Tape; Translations: [adhesive tape] Allergy to substance [address] [facility] (1 source) Iodine Drug Allergy 5 [facility] Repository Medications Current Medications Medication Drug Class(es) Dates Sig (Normalized) Sig (Original) Albuterol (2 sources) beta2-Adrenergic Agonist Start: 04-04-2021 take 1 dose by inhalation every six hours albuterol 2.5 mg/3 mL (0.083%) inhalation solution Dose : 2.5 mg = 3 mL, Inhalation, q6h, # 60 EA, 0 Refill(s), Acute exacerbation of COPD Start Date: 04/04/21 Status: Ordered albuterol MDI (90 mcg/inh) CFC free inhalation aerosol (9 sources) Start: 10-10-2021 take 2 puff(s) by inhalation every four hours as needed for wheezing albuterol MDI (90 mcg/inh) CFC free inhalation aerosol 2 puff(s), Inhalation, q4h, PRN as needed for wheezing, # 18 gram(s), 0 Refill(s), Pharmacy: [facility]/pharmacy #[id number], Acute bronchitis, 162.6, cm, 10/10/21 10:15:00 EDT, Height Start Date: 10/10/21 Status: Ordered Start: 04-04-2021 take 2 puff(s) by in halation every four hours albuterol MDI (90 mcg/inh) CFC free inhalation aerosol 2 puff(s), Inhalation, q4h, # 1 EA, 0 Refill(s), Acute exacerbation of COPD Start Date: 04/04/21 Status: Ordered Start: 06-29-2019 take 2 puff(s) by in halation four times daily as needed for wheezing albuterol MDI (90 mcg/inh) CFC free inhalation aerosol 2 puff(s), Inhalation, QID, PRN as needed for wheezing, # 8 gram(s), 0 Refill(s), Viral syndrome Start Date: 06/29/19 Status: Ordered amoxicillin 875 mg / clavulanate 125 mg oral tablet (1 source) Penicillin-class Antibacterial Start: 06-10-2023 End: 06-17-2023 take 1 tablet by mouth every twelve hours amoxicillin-clavulanate 875 mg-125 mg oral tablet 1 tab(s), Oral, q12h, X 7 day(s), # 14 tab(s), 0 Refill(s), 06/17/23 8:33:00 AM EST, 61.4 Start Date: 06/10/23 Stop Date: 06/17/23 Status: Ordered aspirin 325 mg delayed release oral tablet (2 sources) Platelet Aggregation Inhibitor, Nonsteroidal Anti-inflammatory Drug Start: 05-10-2019 End: 05-09-2020 take 1 tablet by mouth every six hours as needed for pain aspirin 325 MG EC tablet Take 1 tablet by mouth every 6 hours as needed for Pain 30 tablet 0 05/10/2019 05/09/2020 Active Start: 05-10-2019 aspirin chewab le tablet 324 mg benzonatate 100 mg oral capsule (2 sources) Non-narcotic Antitussive Start: 06-10-2023 End: 06-17-2023 Tessalon Perles 100 mg oral capsule Dose : 100 mg = 1 cap(s), Oral, TID, PRN as needed for cough, X 7 day(s), # 21 cap(s), 0 Refill(s), 06/17/23 8:33:00 AM EST Start Date: 06/10/23 Stop Date: 06/17/23 Status: Ordered Start: 05-10-2019 End: 05-25-2019 take 1 capsule by mouth twice daily as needed for cough benzonatate (TESSALON) 100 MG capsule Take 1 capsule by mouth 2 times daily as needed for Cough 30 capsule 0 05/10/2019 05/25/2019 Active cetirizine hydrochloride 10 mg oral tablet (1 source) Histamine-1 Receptor Antagonist Start: 05-10-2019 cetirizine (ZYRTEC) tablet 10 mg Start: 05-10-2019 cetirizine (ZY RTEC) tablet 10 mg ciprofloxacin 500 mg oral tablet (2 sources) Quinolone Antimicrobial Start: 11-24-2023 End: 11-29-2023 take 1 tablet by mouth twice daily ciprofloxacin HCl (CIPRO) 500 mg tablet Indications: Periumbilical abdominal pain Take 1 tablet by mouth two times a day for 5 days. 10 tablet 0 11/24/2023 11/29/2023 Active cyclobenzaprine hydrochloride 10 mg oral tablet (13 sources) Muscle Relaxant Start: 06-19-2021 cyclobenzaprine 10 mg oral tablet Dose : 10 mg = 1 tab(s), Oral, TID, PRN for spasm, 0 Refill(s) Start Date: 06/19/21 Status: Ordered Start: 04-05-2014 take 5 mg by mouth t hree times daily Cyclobenzaprine Active 5 MG PO THREE TIMES A DAY April 05, 2014 6:51pm Start: 04-05-2014 End: 01-20-2024 take 5 mg by mouth three times daily Cyclobenzaprine 10 MG tablet Discontinued 5 mg PO THREE TIMES A DAY April 05, 2014 1:00am January 20, 2024 12:34pm dicyclomine hydrochloride 20 mg oral tablet (1 source) Anticholinergic Start: 12-30-2023 End: 01-06-2024 take 1 tablet by mouth every six hours as needed dicyclomine (BENTYL) 20 mg tablet Take 1 tablet by mouth four times a day as needed for up to 7 days. 20 tablet 12/30/2023 01/06/2024 Active doxycycline hyclate 100 mg oral capsule (1 source) Tetracycline-class Drug Start: 03-30-2023 End: 04-06-2023 doxycycline hyclate 100 mg oral capsule Dose : 100 mg = 1 cap(s), Oral, BID, X 7 day(s), # 14 cap(s), 0 Refill(s), 04/06/23 7:22:00 AM EST, 63.6 Start Date: 03/30/23 Stop Date: 04/06/23 Status: Ordered enteric contrast (will be provided with radiology test) (1 source) Start: 12-30-2023 End: 12-31-2023 enteric contrast (will be provided with radiology test) Indications: Pelvic pain , Abdominal distension (gaseous) , Pelvic and perineal pain For CT ABD/PEL W IVCON Routine order Administer, As Directed One Time Only, via Oral, Rectal, both Oral and Rectal, Enteric Tube, Stoma or Indwelling Catheter, Enteric Contrast as designated per enteric contrast guidelines 1 Each 12/30/2023 12/31/2023 Active ibuprofen 200 mg oral tablet (8 sources) Nonsteroidal Anti-inflammatory Drug Start: 11-14-2024 take 2 tablets by mouth every six hours as needed for pain Ibuprofen (Advil) 200 mg tablet Active 400 mg PO EVERY 6 HOURS as needed for fever or pain November 14, 2024 12:00am Start: 04-05-2014 End: 01-20-2024 take 1 tablet by mouth three times daily as needed for pain Ibuprofen (Motrin) 800 MG tablet Discontinued 800 mg PO 3 TIMES DAILY NEEDED as needed for Pain April 05, 2014 1:00am January 20, 2024 12:39pm iv contrast (will be provide d with radiology test) (3 sources) Start: 02-09-2024 End: 02-10-2024 iv contrast (will be provide d with radiology test) Indications: Lung nodules CT Chest W -Inject, intravenously, once for 1 dose.No IV access, insert saline lock prior to the beginning of sedation, infusion, injection of imaging exam. Discontinue saline lock post exam. If Pt. has a central line or IVAD, may access for administration according to line specific nursing protocol. Once exam is complete flush line and de-access according to line specific nursing protocol in the CT contrast administration guidelines link. 1 Each 02/09/2024 02/10/2024 Active Start: 01-07-2024 End: 01-08-2024 iv contrast (will be provide d with radiology test) Indications: Intra-abdominal and pelvic swelling, mass and lump, unspecified site MRI ABD/PEL Inject, intravenously, once for 1 dose. No IV access, insert saline lock prior to the beginning of sedation, infusion, injection of imaging exam. Discontinue saline lock post exam. If Pt. has a central line or IVAD, may access for administration according to line specific nursing protocol. Once exam is complete flush line and de-access according to line specific nursing protocol in the MR contrast administration guidelines link. 1 Each 01/07/2024 01/08/2024 Active Start: 12-30-2023 End: 12-31-2023 iv contrast (will be provide d with radiology test) Indications: Pelvic pain , Abdominal distension (gaseous) , Pelvic and perineal pain CT ABD/PEL -Inject, intravenously, once for 1 dose.No IV access, insert saline lock prior to the beginning of sedation, infusion, injection of imaging exam. Discontinue saline lock post exam. If Pt. has a central line or IVAD, may access for administration according to line specific nursing protocol. Once exam is complete flush line and de-access according to line specific nursing protocol in the CT contrast administration guidelines link. 1 Each 12/30/2023 12/31/2023 Active 24 hr loratadine 10 mg / pseudoephedrine sulfate 240 mg extended release oral tablet (1 source) alpha-Adrenergic Agonist Start: 05-10-2019 take 10-240 mg by mouth once loratadine-pseudoephedrine (CLARITIN-D 24 HOUR) 10-240 MG per extended release tablet Take 1 tablet by mouth daily 10 tablet 0 05/10/2019 Active Start: 05-10-2019 take 10-240 mg by mo ut once loratadine-pseudoephedrine (CLARITIN-D 2 4 HOUR) 10-240 MG per extended release tablet Take 1 tablet by mouth daily 10 tablet 0 05/10/2019 Active meloxicam 15 mg oral tablet (2 sources) Nonsteroidal Anti-inflammatory Drug Start: 08-14-2021 meloxicam 15 mg oral tablet Dose : 15 mg = 1 tab(s), Oral, qDay, # 30 tab(s), 0 Refill(s), Pharmacy: [facility]/pharmacy #[id number], Neck pain, 163.83, cm, 08/14/21 13:53:00 EDT, Height Start Date: 08/14/21 Status: Ordered metroNIDAZOLE 500 mg oral tablet (2 sources) Nitroimidazole Antimicrobial Start: 11-24-2023 End: 11-29-2023 take 1 tablet by mouth three times daily metroNIDAZOLE (FLAGYL) 500 mg tablet Indications: Periumbilical abdominal pain Take 1 tablet by mouth three times a day for 5 days. 15 tablet 0 11/24/2023 11/29/2023 Active omeprazole 40 mg delayed release oral capsule (20 sources) Proton Pump Inhibitor Start: 01-20-2024 End: 12-26-2025 take 1 capsule by mouth twice daily omeprazole (PRILOSEC) 40 mg capsule Indications: Gastroesophageal reflux disease without esophagitis Take 1 capsule by mouth two times a day. 180 capsule 3 12/26/2024 12/26/2025 Active Start: 12-15-2019 End: 07-11-2024 take 1 capsule by mouth once daily before breakfast omeprazole (PRILOSEC) 20 mg capsule Indications: Gastroesophageal reflux disease, unspecified whether esophagitis present Take 1 capsule by mouth daily before breakfast. 1/2 hr before meal. 30 capsule 2 10/12/2023 07/11/2024 Discontinued (Discontinued by Patient) End: 12-26-2024 take 1 capsule by mouth once daily omeprazole (PRILOSEC) 40 mg capsule Take 40 mg by mouth once daily. 12/26/2024 Discontinued (Cost of medication) Comment on above: Take 1 capsule by mo uth daily before breakfast. ondansetron 4 mg oral tablet, disintegrating (3 sources) Start: ondansetron 4 mg oral tablet, disintegrating Dose : 4 mg = 1 tab(s), Oral, q6h, PRN Nausea/Vomiting, # 20 tab(s), 0 Refill(s), Dehydration Start Date: 07/16/20 Status: Ordered predniSONE 20 mg oral tablet (1 source) Start: End: predniSONE 20 mg oral tablet Dose : 60 mg = 3 tab(s), Oral, qDay, X 4 day(s), # 12 tab(s), 0 Refill(s), 04/08/21 12:55:00 EST, Acute exacerbation of COPD Start Date: 04/04/21 Stop Date: 04/08/21 Status: Ordered propafenone hydrochloride 150 mg oral tablet (1 source) Antiarrhythmic Start: take 1 tablet by mouth every eight hours Propafenone 150 mg tablet Active 150 mg PO Q8H 90 30 December 30, 2024 12:00am sertraline 50 mg oral tablet (5 sources) Serotonin Reuptake Inhibitor Start: 025 End: 026 take 1 tablet by mouth once daily Sertraline 50 mg tablet Active 50 mg PO daily December 30, 2024 12:00am traMADol hydrochloride 50 mg oral tablet (7 sources) Opioid Agonist Start: End: take 1 tablet by mouth every eight hours as needed for pain traMADol (ULTRAM) 50 mg tablet Indications: Sacral pain , Periumbilical abdominal pain Take 1 tablet by mouth every 8 hours as needed for pain for up to 5 days. 15 tablet 0 11/24/2023 11/29/2023 Active Start: 10-10-2021 take 1 tablet by pily th every six hours as needed for pain traMADol 50 mg oral tablet TAKE 1 TABLET BY MOUTH EVERY 6 HOURS NEEDED FOR PAIN FOR 7 DAYS. Start Date: 10/10/21 Status: Ordered Start: 09-10-2021 End: 09-17-2021 traMADol 50 mg oral tablet D ose : 50 mg = 1 tab(s), Oral, q6h, PRN for pain, X 7 day(s), # 28 tab(s), 0 Refill(s), 09/17/21 7:17:00 EDT, Pharmacy: [facility]/pharmacy #[id number], Cervical spondylosis, 160, cm, 09/10/21 6:21:00 EDT, Height, 60 Start Date: 09/10/21 Stop Date: 09/17/21 Status: Ordered traZODone hydrochloride 50 mg oral tablet (19 sources) Serotonin Reuptake Inhibitor Start: 07-11-2024 End: 12-14-2024 take 1 tablet by mouth at bedtime as needed for sleep Trazodone 50 mg tablet Active 50 mg PO AT BEDTIME as needed for sleep 2024 12:00am Start: 04-05-2014 End: 01-20-2024 take 1 tablet by mouth once daily Trazodone 150 MG tablet Discontinued 150 mg PO DAILY April 05, 2014 1:00am January 20, 2024 12:36pm triamcinolone acetonide 1 mg/ml topical cream (1 source) Corticosteroid Start: 08-07-2023 End: 08-14-2023 triamcinolone acetonide (KENALOG) 0.1 % cream Apply 1 application to affected area two times a day for 7 days. Apply to affected area. Use sparingly. 15 g 0 08/07/2023 08/14/2023 Active Comment on above: Apply 1 application to affected area two times a day for 7 days. Apply to affected area. Use sparingly. Completed/Discontinued Medications Medication Drug Class(es) Dates Sig (Normalized) Sig (Original) acetaminophen 500 mg oral tablet (18 sources) Start: 05-10-2019 End: 05-10-2019 acetaminophen (TYLENOL) tablet 1,000 mg Start: 04-05-2014 Acetaminophen (Tylenol) 325 MG tablet Active 1 - 2 {tbl} PO EVERY 4 HOURS NEEDED as needed for Pain April 05, 2014 1:00am Start: 01-31-2014 End: 11-24-2023 take 325-650 mg by mouth every four hours as needed acetaminophen (TYLENOL) 325 mg tablet Take 1-2 tablets by mouth every 4 hours as needed for Pain. 0 01/31/2014 11/24/2023 Discontinued (Discontinued by Patient) Comment on above: Take 1-2 tablets by mouth every 4 hours as needed for Pain. amitriptyline hydrochloride 25 mg oral tablet (6 sources) Tricyclic Antidepressant Start: 04-05-20 End: 01-20-20 take 1 tablet by mouth at bedtime Amitriptyline 25 MG tablet Discontinued 25 mg PO AT BEDTIME April 05, 2014 1:00am January 20, 2024 12:34pm atropine sulfate 0.59774 mg/ml / hyoscyamine sulfate 0.0207 mg/ml / PHENobarbital 3.24 mg/ml / scopolamine hydrobromide 0.0013 mg/ml oral solution (4 sources) Anticholinergic, Cholinergic Muscarinic Antagonist Start: 01-20-20 End: 01-21-20 take 1 mL by mouth at bedtime Bplfhigfn-Emykjr-App opine-Scop 16.2-0.1037 -0.0194 mg/5 mL elixir Discontinued 5 mL PO before meals and at bedtime 120 0 January 20, 2024 2:51pm January 21, 2024 12:53pm Atropine 1 % drops (4 sources) Start: 01-21-20 End: 03-10-20 Atropine 1 % drops Discontinued 1 NMA BUCCAL EVERY 6 HOURS NEEDED as needed for secretions 5 0 January 21, 2024 12:00am March 10, 2024 3:29pm Start: 01-21-2024 End: 03-10-2024 Atropine 1 % drops Discontin ued 1 NMA BUCCAL EVERY 6 HOURS NEEDED as needed for secretions 5 January 21, 2024 12:00am March 10, 2024 3:29pm 24 hr budesonide 9 mg extended release oral tablet (4 sources) Corticosteroid Start: 02-04-2024 End: 09-02-2024 take 1 tablet by mouth once daily in the morning Budesonide 9 mg tablet,delayed and ext.release Discontinued 9 mg PO EVERY MORNING 30 February 04, 2024 12:00am September 02, 2024 11:35am cimetidine 200 mg oral tablet (7 sources) Histamine-2 Receptor Antagonist Start: 10-12-2023 End: 11-24-2023 take 1 tablet by mouth four times daily cimetidine (TAGAMET) 200 mg tablet Take 1 tablet by mouth four times daily. 0 10/12/2023 11/24/2023 Discontinued (Discontinued by another Health Care Provider) clonazePAM 1 mg oral tablet (6 sources) Benzodiazepine Start: 04-05-2014 End: 01-20-2024 take 1 tablet by mouth three times daily as needed for anxiety Clonazepam 1 MG tablet Discontinued 1 mg PO 3 TIMES DAILY NEEDED as needed for Anxiety April 05, 2014 1:00am January 20, 2024 12:34pm DULoxetine 30 mg delayed release oral capsule (5 sources) Serotonin and Norepinephrine Reuptake Inhibitor Start: 12-15-2019 End: 10-12-2023 take 1 capsule by mouth once daily, then take 2 capsules by mouth once daily DULoxetine (CYMBALTA) 30 mg capsule Indications: Chronic bilateral low back pain without sciatica , Depression, unspecified depression type Take 1 capsule by mouth once daily. For 2 weeks then increase to 2 tabs daily if tolerating 60 capsule 1 12/15/2019 10/12/2023 Discontinued (Other) Comment on above: Take 1 capsule by [facility] once daily. For 2 weeks then increase to 2 tabs daily if tolerating gabapentin 600 mg oral tablet (6 sources) Anti-epileptic Agent Start: 04-05-2014 End: 01-20-2024 take 1 tablet by mouth three times daily at mealtime Gabapentin 600 MG tablet Discontinued 600 mg PO 3 TIMES DAILY WITH MEALS April 05, 2014 1:00am January 20, 2024 12:34pm hydrOXYzine hydrochloride 10 mg oral tablet (20 sources) Antihistamine Start: 10-12-2023 End: 07-11-2024 take 1 tablet by mouth three times daily as needed hydrOXYzine HCl (ATARAX) 10 mg tablet Indications: STEPHANIE (generalized anxiety disorder) Take 1 tablet by mouth three times a day as needed. 30 tablet 1 10/12/2023 07/11/2024 Discontinued (Discontinued by Patient) hyoscyamine sulfate 0.125 mg sublingual tablet (13 sources) Start: 01-21-2024 End: 09-02-2024 Hyoscyamine Sulfate 0.125 mg tablet, sublingual Discontinued 0.125 mg PO 2 to 4 times per day as needed for dyspepsia 80 0 March 23, 2024 1:05pm September 02, 2024 11:35am Start: 01-08-2024 End: 01-20-2024 take 1 tablet under the tongue every six hours as needed for pain Hyoscyamine Sulfate (Levsin/Sl) 0.125 mg tablet, sublingual Discontinued 0.125 mg SL EVERY 6 HOURS as needed for abdominal pain 20 0 January 08, 2024 1:56pm January 20, 2024 12:35pm Start: 11-13-2023 Levsin 0.125 m g oral tablet Dose : 0.125 mg = 1 tab(s), Oral, QID, # 40 tab(s), 0 Refill(s) Start Date: 11/13/23 Status: Ordered Lactobacillus Combination No.4 3 billion cell capsule (8 sources) Start: 01-20-2024 End: 04-21-2024 take 3 capsules by mouth twice daily Lactobacillus Combination No.4 3 billion cell capsule Discontinued 3000 NMA PO TWICE A DAY 17 06January 20, 2024 2:51pm April 21, 2024 5:19pm administer with a meal Start: 01-20-2024 End: 04-21-2024 take 3 capsules by mouth twice daily Lactobacillus Combination No.4 3 billion cell capsule Discontinued 3000 NMA PO TWICE A DAY January 20, 2024 2:51pm April 21, 2024 5:19pm administer with a meal Start: 01-20-2024 End: 01-20-2024 take 3 capsules by mouth twice daily Lactobacillus Combination No.4 3 billion cell capsule Discontinued 3000 NMA PO TWICE A DAY 17 06January 20, 2024 12:00am January 20, 2024 2:52pm administer with a meal Start: 01-20-2024 End: 01-20-2024 take 3 capsules by mouth twice daily Lactobacillus Combination No.4 3 billion cell capsule Discontinued 3000 NMA PO TWICE A DAY January 20, 2024 12:00am January 20, 2024 2:52pm administer with a meal meclizine hydrochloride 25 mg oral tablet (4 sources) Antiemetic Start: 05-02-2024 End: 09-02-2024 take 1 tablet by mouth twice daily as needed for dizziness Meclizine 25 mg tablet Discontinued 25 mg PO TWICE A DAY as needed for dizziness 30 May 02, 2024 1:00am September 02, 2024 11:35am mesalamine 1200 mg delayed release oral tablet (4 sources) Aminosalicylate Start: 03-24-2024 End: 09-02-2024 take 2 tablets by mouth once daily Mesalamine 1.2 gram tablet,delayed release (DR/EC) Discontinued 2.4 g PO daily 112 56 March 24, 2024 1:00am September 02, 2024 11:35am 24 hr metoprolol succinate 25 mg extended release oral tablet (12 sources) beta-Adrenergic Jean Paul Start: 11-17-2024 End: 05-16-2025 take 2 tablets by mouth once daily Metoprolol Succinate 25 mg tablet extended release 24 hr Discontinued 12.5 mg PO daily December 30, 2024 12:00am December 30, 2024 1:27pm Start: 09-14-2024 End: 12-30-2024 take 1 tablet by mouth twice daily Metoprolol Tartrate 25 mg tablet Discontinued 25 mg PO TWICE A DAY 60 September 14, 2024 12:00am December 30, 2024 1:00pm Start: 09-02-2024 End: 09-14-2024 take 1 tablet by mouth once daily Metoprolol Succinate 25 mg tablet extended release 24 hr Discontinued 25 mg PO daily 90 September 02, 2024 12:00am September 14, 2024 4:55pm ondansetron 4 mg disintegrating oral tablet (6 sources) Serotonin-3 Receptor Antagonist Start: 04-21-2024 End: 09-02-2024 take 1 tablet by mouth every eight hours as needed for nausea Ondansetron 4 mg tablet,disintegrating Discontinued 4 mg PO EVERY 8 HOURS NEEDED as needed for Nausea 10 0 April 21, 2024 1:00am September 02, 2024 11:35am Start: 03-30-2023 End: 04-02-2023 ondansetron 4 mg oral tablet , disintegrating Dose : 4 mg = 1 tab(s), Oral, q8h, X 3 day(s), # 9 tab(s), 0 Refill(s), 04/02/23 6:41:00 AM EST Start Date: 03/30/23 Stop Date: 04/02/23 Status: Ordered Start: 10-15-2022 End: 10-18-2022 Zofran 4 mg oral tablet Dose : 4 mg = 1 tab(s), Oral, q8h, PRN Nausea/Vomiting, X 3 day(s), # 10 tab(s), 0 Refill(s), 10/18/22 8:30:00 EDT, URTI - Viral upper respiratory tract infection Viral pharyngitis Start Date: 10/15/22 Stop Date: 10/18/22 Status: Ordered Ovqyfkhya-Xqlqge-Zryxrapr-Sc op 16.2-0.1037 -0.0194 mg/5 mL elixir (4 sources) Start: 01-20-2024 End: 01-20-2024 take 1 mL by mouth at bedtime Inzqqxxfl-Ilqbvp-Fzroanjk-Scop 16.2-0.1037 -0.0194 mg/5 mL elixir Discontinued 5 mL PO before meals and at bedtime 120 January 20, 2024 12:00am January 20, 2024 2:52pm Start: 01-20-2024 End: 01-20-2024 take 1 mL by mouth at bedtime Sauygrahh-Hjcquv-Wmezpmyx-Scop 16.2-0.10 37 -0.0194 mg/5 mL elixir Discontinued 5 mL PO before meals and at bedtime January 20, 2024 12:00am January 20, 2024 2:52pm PHENobarbital 16.2 mg oral tablet (4 sources) Start: 01-21-2024 End: 04-22-2024 take 1 tablet by mouth every six hours Phenobarbital 16.2 mg tablet Discontinued 16.2 mg PO EVERY 6 HOURS 80 0 January 21, 2024 12:00am April 22, 2024 1:24pm polyethylene glycol 3350 09881 mg powder for oral solution (6 sources) Osmotic Laxative Start: 04-05-2014 End: 01-20-2024 take 17 g by mouth once daily Polyethylene Glycol 3350 17 GM powder in packet Discontinued 17 g PO DAILY 15 April 05, 2014 1:00am January 20, 2024 12:39pm polyethylene glycol 3350 185303 mg / potassium chloride 2970 mg / sodium bicarbonate 6740 mg / sodium chloride 5860 mg / sodium sulfate 94484 mg powder for oral solution (15 sources) Osmotic Laxative Start: 11-02-2023 End: 07-11-2024 take 4000 mL by mouth once GAVILYTE-G 236-22.74-6.74 -5.86 gram suspension TAKE 4000 ML BY MOUTH ONE TIME ONLY FOR 1 DOSE. REFER TO PRINTED PREP INSTRUCTIONS FROM PROVIDER 11/02/2023 07/11/2024 Discontinued (Discontinued by Patient) Start: 11-02-2023 End: 11-02-2023 peg 3350-Electrolytes (GOLYT LEONEL) 236-22.74-6.74 -5.86 gram suspension Indications: Screening for colon cancer Take 4,000 mL by mouth one time only for 1 dose. Refer to printed prep instructions from your provider. 4000 mL 0 11/02/2023 11/02/2023 potassium chloride 10 meq extended release oral capsule (4 sources) Start: 04-21-2024 End: 09-02-2024 take 2 capsules by mouth once daily Potassium Chloride 10 mEq capsule, extended release Discontinued 20 meq PO DAILY 10 April 21, 2024 1:00am September 02, 2024 11:34am propranolol hydrochloride 10 mg oral tablet (10 sources) beta-Adrenergic Jean Paul Start: 07-11-2024 End: 11-17-2024 take 1 tablet by mouth three times daily Propranolol 10 mg tablet Discontinued 10 mg PO THREE TIMES A DAY 2024 12:00am September 02, 2024 12:03pm rifAXIMin 550 mg oral tablet (20 sources) Rifamycin Antibacterial Start: 01-20-2024 End: 04-21-2024 take 1 tablet by mouth three times daily Rifaximin 550 mg tablet Discontinued 550 mg PO THREE TIMES A DAY 42 14 2 February 03, 2024 12:30pm April 21, 2024 5:19pm simethicone 125 mg chewable tablet (8 sources) Start: 01-08-2024 End: 01-20-2024 take 1 tablet by mouth three times daily as needed Simethicone 125 mg tablet,chewable Discontinued 125 mg PO THREE TIMES A DAY as needed for abdominal distention 45 2 January 20, 2024 11:54am January 20, 2024 12:35pm varenicline 1 mg oral tablet (20 sources) Partial Cholinergic Nicotinic Agonist Start: 10-12-2023 End: 07-11-2024 take 1 tablet by mouth once daily varenicline (CHANTIX STARTING MONTH BOX) 0.5 mg (11)- 1 mg (42) tablet Take 0.5 mg by mouth once daily on Days 1 through 3, THEN 0.5 mg twice daily on Days 4 through 7, THEN 1 mg twice daily on Day 8 and thereafter 53 tablet 10/12/2023 07/11/2024 Discontinued (Discontinued by Patient) Start: 10-12-2023 End: 07-11-2024 take 1 tablet by mouth twice daily at mealtime varenicline (CHANTIX) 1 mg tablet TAKE 1 TABLET BY MOUTH TWICE A DAY WITH FOOD 168 tablet 1 11/06/2023 07/11/2024 Discontinued (Discontinued by Patient) venlafaxine 37.5 mg oral tablet (6 sources) Serotonin and Norepinephrine Reuptake Inhibitor Start: 04-05-2014 End: 01-20-2024 take 1 tablet by mouth once daily Venlafaxine 37.5 MG tablet Discontinued 37.5 mg PO DAILY April 05, 2014 1:00am January 20, 2024 12:36pm Problems Active Problems Problem Classification Problem Date Documented Da te Episodic/Chronic Abdominal pain (14 sources) Abdominal pain; Translations: [Unspecified abdominal pain] Onset: 4 Episodic Anxiety disorders (20 sources) Mixed anxiety and depressive disorder; Translations: [Posttraumatic stress disorder] Onset: 2 04-23-2014 Chronic Cardiac dysrhythmias (10 sources) Postural orthostatic tachycardia syndrome ; Translations: [POTS (postural orthostatic tachycardia syndrome)] Onset: 5 07-05-2024 Chronic Chronic obstructive pulmonary disease and bronchiectasis (1 source) Acute exacerbation of chronic obstructive airways disease; Translations: [Chronic obstructive pulmonary disease with (acute) exacerbation] Onset: Chronic Disorders of lipid metabolism (4 sources) Mixed hyperlipidemia; Translations: [Mixed hyperlipidemia] Onset: 5 07-05-2024 Chronic Esophageal disorders (6 sources) Gastroesophageal reflux disease; Translations: [Gastro-esophageal reflux disease without esophagitis] Onset: 5 10-12-2023 Chronic Esophageal disorders (2 sources) Esophagitis; Translations: [Esophagitis] 05-31-2024 Episodic Essential hypertension (2 sources) Hypertensive disorder; Translations: [Essential (primary) hypertension] 11-14-2024 Chronic Headache; including migraine (10 sources) Migraine 10-08-2013 Chronic Malaise and fatigue (1 source) Fatigue; Translations: [Other fatigue] 10-12-2023 Episodic Miscellaneous mental health disorders (2 sources) Chronic insomnia; Translations: [Psychophysiologic insomnia] Onset: 5 07-11-2024 Chronic Mood disorders (20 sources) Depressive disorder; Translations: [Depression] Onset: 3 02-23-2013 Chronic Other acquired deformities (10 sources) Scoliosis of cervical spine 06-24-2013 Chronic Other female genital disorders (1 source) History of endometriosis; Translations: [Personal history of other diseases of the female genital tract] 01-07-2024 Episodic Other female genital disorders (1 source) History of gynecological disorder; Translations: [Personal history of other diseases of the female genital tract] 01-07-2024 Episodic Other gastrointestinal disorders (4 sources) Irritable bowel syndrome with diarrhea; Translations: [Irritable bowel syndrome with diarrhea] 01-20-2024 Chronic Other gastrointestinal disorders (6 sources) Abdominal bloating; Translations: [Abdominal distension (gaseous)] 11-03-2023 Episodic Other gastrointestinal disorders (1 source) Abdominal distension, gaseous; Translations: [Abdominal distension (gaseous)] 12-30-2023 Episodic Other gastrointestinal disorders (1 source) Finding of abdominopelvic segment of trunk; Translations: [Intra-abdominal and pelvic swelling, mass and lump, unspecified site] 01-07-2024 Episodic Other gastrointestinal disorders (2 sources) Swollen abdomen; Translations: [Abdominal distension (gaseous)] 05-31-2024 Episodic Other gastrointestinal disorders (4 sources) Small bowel bacterial overgrowth syndrome; Translations: [Small intestinal bacterial overgrowth (SIBO)] 01-20-2024 Episodic Other gastrointestinal disorders (4 sources) Disorder of gastrointestinal tract; Translations: [Other specified diseases of the digestive system] 01-20-2024 Episodic Other lower respiratory disease (1 source) Multiple nodules of lung; Translations: [Other nonspecific abnormal finding of lung field] 02-09-2024 Episodic Other nervous system disorders (20 sources) Chronic pain; Translations: [Other chronic pain] Onset: 5 05-10-2014 Chronic Other screening for suspected conditions (not mental disorders or infectious disease) (1 source) Computed tomography result abnormal; Translations: [Abnormal findings on diagnostic imaging of other specified body structures] 11-30-2023 Chronic Other skin disorders (1 source) Eruption; Translations: [Rash and other nonspecific skin eruption] 08-07-2023 Episodic Other upper respiratory infections (3 sources) Upper respiratory infection; Translations: [Acute upper respiratory infection] Onset: 3 Episodic Peripheral and visceral atherosclerosis (6 sources) Ischemic colitis; Translations: [Vascular disorder of intestine, unspecified] Onset: 5 03-24-2024 Chronic Pneumonia (except that caused by tuberculosis or sexually transmitted disease) (3 sources) Pneumonia; Translations: [Pneumonia, unspecified organism] Onset: 4 Episodic Residual codes; unclassified (10 sources) Ovary absent 10-12-2015 Episodic Residual codes; unclassified (7 sources) Insomnia 05-08-2021 Episodic Residual codes; unclassified (1 source) Intolerant of cold; Translations: [Other general symptoms and signs] 10-12-2023 Episodic Residual codes; unclassified (1 source) Trying to give up smoking; Translations: [Tobacco use] 11-11-2023 Episodic Residual codes; unclassified (1 source) Procedure not done; Translations: [Procedure and treatment not carried out, unspecified reason] 11-13-2023 Episodic Residual codes; unclassified (1 source) Sensation of being cold; Translations: [Other general symptoms and signs] 05-31-2024 Episodic Residual codes; unclassified (4 sources) Altered mental status; Translations: [Altered mental status, unspecified] 04-29-2024 Episodic Residual codes; unclassified (4 sources) Tobacco use and exposure - finding; Translations: [Tobacco use] 05-11-2024 Episodic Substance-related disorders (1 source) Nicotine dependence; Translations: [Nicotine dependence, unspecified, uncomplicated] Onset: 2 Chronic Unclassified (1 source) Unknown / UNK(Unknown) Onset: 7 Unclassified (1 source) Supraventricular tachycardia, unspecified; Translations: [Supraventricular tachycardia, unspecified] Onset: 5 Unclassified (1 source) POTS (postural orthostatic tachycardia syndrome); Translations: [POTS (postural orthostatic tachycardia syndrome)] Onset: 5 Viral infection (2 sources) Viral disease; Translations: [Other viral agents as the cause of diseases classified elsewhere] Onset: 1 Episodic Viral infection (1 source) COVID-19; Translations: [COVID-19] Onset: 5 Past or Other Problems Problem Classification Problem Date Documented Da te Episodic/Chronic Cardiac dysrhythmias (6 sources) Tachycardia; Translations: [Tachycardia, unspecified] Onset: 07-11-2024 05-31-2024 Episodic Fluid and electrolyte disorders (6 sources) Acute hypokalemia; Translations: [Hypokalemia] Onset: 04-22-2024 04-29-2024 Episodic Headache; including migraine (20 sources) Chronic headache disorder; Translations: [Chronic headaches] Onset: 02-23-2013 02-23-2013 Episodic Nausea and vomiting (6 sources) Nausea and vomiting; Translations: [Nausea with vomiting, unspecified] Onset: 04-22-2024 04-29-2024 Episodic Nonspecific chest pain (19 sources) Chest pain; Translations: [Chest pain, unspecified] Onset: 07-11-2024 05-31-2024 Episodic Other gastrointestinal disorders (1 source) Other specified diseases of the digestive system; Translations: [Other specified diseases of the digestive system] Onset: 02-22-2024 Episodic Other lower respiratory disease (1 source) Cough Onset: 10-17-2016 Episodic Other screening for suspected conditions (not mental disorders or infectious disease) (20 sources) Patient encounter status; Translations: [Encounter for screening mammogram for malignant neoplasm of breast] Onset: 11-26-2023 Episodic Residual codes; unclassified (2 sources) Altered mental status, unspecified; Translations: [Altered mental status, unspecified] Onset: 06-01-2024 Episodic Residual codes; unclassified (1 source) Other general symptoms and signs; Translations: [Cold feeling] Onset: 05-31-2024 Episodic Screening and history of mental health and substance abuse codes (1 source) Encounter for screening examination for other mental health and behavioral disorders; Translations: [Encounter for screening examination for other mental health and behavioral disorders] Onset: 11-17-2024 Episodic Spondylosis; intervertebral disc disorders; other back problems (20 sources) Neck pain; Translations: [Cervicalgia] Onset: 01-14-2013 09-06-2013 Episodic Syncope (16 sources) Near syncope; Translations: [Syncope] Onset: 04-22-2024 05-31-2024 Episodic Unclassified (1 source) Patient encounter status 09-13-2024 Results Test Name Value Interpretation Reference Range Facility [facility] BRITTNEE MARIE ([id number]) 1975 F Date Time Provider Department 02/23/25 8:20 AM LIN C[facility]OS [facility] During your visit today, we recorded the following information about you: Temperature Pulse Blood pressure Weight 97.9 degrees 68/minute 100/72 71.7 kg Lin Cisneros APRN.[employer] 02/23/2025 8:37 AM Signed This is a 49 year old female who presents today with: Patient presents with: Covid Follow Up HISTORY OF PRESENT ILLNESS: Brittnee Dajuan Frank is a 49 year old female. Patient presents with: Covid Follow Up The patient is a 49-year-old female presenting for evaluation of acute onset fever, chills, nonproductive cough, nasal congestion, and severe headache. Brittnee Marie is a 49-year-old female presenting for evaluation of persistent symptoms including temperature dysregulation, cough, and headaches. Temperature Dysregulation: - Experiences alternating sensations of being in the freezer and in the oven. - Chills at bedtime, even with an electric blanket. Cough: - Persistent cough, non-productive. - Episodes of tachycardia during severe coughing spells. - Taking Mucinex. Headaches: - Severe headaches, described as freaking headaches. - Headaches are intermittent, with no noted improvement. Rhinorrhea and Nasal Congestion: - Alternating episodes of rhinorrhea and nasal congestion. Dyspnea: - Mild dyspnea reported. Nausea: - Occasional nausea without emesis. General Well-being: - Describes fluctuating symptoms, feeling better at times and then feeling like the wind just been knocked out of me. - Maintaining adequate oral intake. - is also currently ill. PAST MEDICAL HISTORY: PAST MEDICAL HISTORY Diagnosis Date Anxiety Bulging disc neck c6 Depression Migraine Pneumothorax, spontaneous, tension Prolapse, disk Neck Scoliosis Neck PAST SURGICAL HISTORY Procedure Laterality Date APPENDECTOMY 04/20/2002 COLONOSCOPY FLX DX W/COLLJ SPEC WHEN PFRMD 05/17/2014 Colonoscopy EGD W/O [facility] SPEC VARICIES INJ 03/11/2024 Dr. Schmidt, [facility]; [place] Grade A erosive esophagitis with bleeding (biopsied), erythematous mucosa in gastric body (biopsied) LIG/TRNSXJ FLP TUBE ABDL/VAG APPR UNI/BI 04/20/1994 Tubal ligation NECK SURGERY HX 08/2021 [facility] -- has hardware in neck OOPHORECTOMY PARTIAL/TOTAL UNI/BI 04/20/2009 Right. Endometriosis noted at that time per patient PAST SURGICAL HISTORY OF 04/20/2003 left lung -[facility] PAST SURGICAL HISTORY OF cervical /lumbar spine pain injections ALLERGIES Tape [Adhesive Tape (Rosins)] MEDICATIONS Current Outpatient Medications Medication Sig guaiFENesin (MUCINEX) 600 mg 12 hr tablet Take 1 tablet by mouth two times a day. omeprazole (PRILOSEC) 40 mg capsule Take 1 capsule by mouth two times a day. traZODone (DESYREL) 50 mg tablet Take 1 tablet by mouth daily at bedtime. metoprolol succinate ER (TOPROL XL) 25 mg 24 hr tablet Take 0.5 tablets by mouth once daily. sertraline (ZOLOFT) 50 mg tablet Take 1 tablet by mouth once daily. methylPREDNISolone (MEDROL, CURRY,) 4 mg Dose-Pack Take as instructed per package. No current facility-administered medications for this visit. FAMILY HISTORY Problem Relation Age of Onset No Known Problems Mother no personal ca, but reports cancer runs through that family (? leukemia). No Known Problems Father Diabetes Maternal Grandmother other (htn) Maternal Grandmother Cancer Maternal Grandfather lung other (old age) Paternal Grandmother SOCIAL HISTORY[1] REVIEW OF SYSTEMS Constitutional: (+) chills Head: (+) headaches Ears/Nose/Mouth/Throat: (+) nasal congestion, (+) rhinorrhea Cardiovascular: (+) palpitations, (-) chest pain Respiratory: (+) cough, (+) dyspnea, (-) sputum production Gastrointestinal: (-) nausea, (-) vomiting, (-) diarrhea Skin: (-) rash, (-) pruritus EXAM: BP 100/72 (BP Site: Left Arm, BP Position: Sitting) Pulse 68 Temp 36.6 ?C (97.9 ?F) (Left Tympanic) Wt 71.7 kg (158 lb) LMP (LMP Unknown) SpO2 99% BMI 27.99 kg/m? PHYSICAL EXAM: GENERAL: NAD, alert and oriented SKIN: unremarkable, no rash or skin lesions. HEAD: normocephalic NOSE/SINUSES: Nares boggy and smooth, pink. Septum midline. Stuffy nose noted. OROPHARYNX: lips, mucosa, and tongue normal, good dentition. No oral lesions noted. NECK: Supple, no lymphadenopathy, normal thyroid, no carotid bruits. LUNGS: Clear to auscultation bilaterally, no wheezes/rhonchi/rales. Breath sounds slightly diminished. HEART: Regular rate and rhythm, no murmurs. No ectopy. EXTREMITIES: Normal, No deformities, No skin discoloration, No edema. NEURO: Awake, alert and oriented x3, cranial nerves II-XII grossly intact, normal gait, no involuntary motions LABS: ASSESSMENT/PLAN: 1. COVID-19 (U07.1) - Persistent symptoms include severe he (more content not included)... Normal [facility] Cardiology Visit Reporton Cardiology Visit Report [facility] [address] [place] [address] OFFICE VISIT Date of Service: 12/30/24 MR#: [id number] Acct: [id number] Name: BRITTNEE MARIE Rep #: [id number] : 1975 Provider: Dr. Arsh cheeam MD Age/Sex: 49/F Location: [facility] [place] Status: Signed HPI HPI History of Present Illness Surgical H P: No Details: The patient is a 49-year-old female who presents for follow-up evaluation of ongoing palpitations. She has a history of paroxysmal supraventricular tachycardia and has previously failed a trial of propranolol. She was subsequently switched to metoprolol succinate. The patient reports an emergency department visit on November 14, 2024, for an acute episode that began with a racing heart, followed by the onset of substernal chest pressure, dyspnea, and lightheadedness. An emergency department workup, including cardiac enzymes, was negative for an acute coronary event. The patient reports that the metoprolol has not improved her palpitations. She has independently reduced her dose from 25 mg to 12.5 mg daily due to significant fatigue that was interfering with her ability to function at work. The palpitations occur sporadically; she may experience them for several consecutive days and then have symptom-free periods of two to three days. The patient denies any identifiable triggers such as caffeine, exertion, or lack of sleep. The patient is a 49-year-old female with a history of palpitations due to tachycardia. She was seen for an initial consultation on September 02, 2024. She had previously failed propranolol 10 mg three times daily and was switched to metoprolol succinate 25 mg daily at that time. A prior Holter monitor demonstrated supraventricular tachycardia with maximal rates of 190 bpm. The longest recorded run was 16 beats at a rate of 161 bpm. A stress echocardiogram performed on July 19, 2024, was nondiagnostic and suboptimal, as the patient did not achieve the target heart rate. The patient achieved 72% of the maximum predicted heart rate with 3.2 METS of exertion. The study showed a left ventricular ejection fraction of 56% with normal valve function and no regional wall motion abnormalities at peak heart rate. The EKG from her emergency department visit on November 14, 2024, showed a normal sinus rhythm at 73 bpm without ectopy or evidence of ischemia. A twelve-lead EKG performed in the office today shows a normal sinus rhythm at 60 bpm with normal conduction intervals and no ectopy. Review of systems: CONSTITUTIONAL: Fatigue positive RESPIRATORY: Shortness of breath positive CARDIOVASCULAR: Chest pain positive, Palpitations positive NEUROLOGICAL: Dizziness positive PSYCHIATRIC: Anxiety positive Physical examination: GENERAL APPEARANCE: The patient is an alert, well-appearing female in no acute distress. LUNGS: Lungs are clear to auscultation bilaterally. There is no evidence of respiratory distress. CARDIAC: Auscultation reveals a regular rate and rhythm. No murmurs, rubs, or gallops are appreciated. The in-office electrocardiogram shows a normal sinus rhythm. NEUROLOGICAL: The patient is alert and oriented. Speech is fluent and appropriate. PSYCHIATRIC: Mood appears euthymic with an affect that is appropriate to the situation. The patient is cooperative. 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: No Accompanied by: Self Is patient in pain?: No Allergies adhesive tape Allergy (Unknown, Verified 12/30/24 12:59) Unknown iodine Adverse Reaction (Verified 12/30/24 12:59) Upset Stomach Medications ???Medication ???Instructions ???Recorded ???Confirmed ???Type acetaminophen 325 mg tablet 1 - 2 tab PO Q4H PRN PRN Pain 03/2012/09/24 History (Tylenol) omeprazole 40 mg capsule,delayed 40 mg PO BID #60 caps 01/20/2404/13 Rx release trazodone 50 mg tablet 50 mg PO QHS PRN sleep 08/30/24 History ibuprofen 200 mg tablet (Advil) 400 mg PO Q6H PRN fever or pain 12/09/24 History propafenone 150 mg tablet 150 mg PO Q8H 30 days #90 tabs 04/1312/30/24 Rx sertraline 50 mg tablet 50 mg PO QDAY 12/30/24 12/30/24 Hi story Ejection fraction %: 56 Have you fallen in the past year?: No PFSH Medical History SVT (supraventricular tachycardia) Tension pneumothorax, spontaneous Hx of migraines Anxiety and depression Wears dentures Depression Anxiety Low iron History of Crohn's disease Heartburn Gastric reflux Smoker Post-men (more content not included)... Normal [facility] CNOVon 12-26-2024 [facility] BRITTNEE MARIE ([id number]) 1975 F Date Time Provider Department 12/26/24 8:20 AM LIN CISNEROS [facility] During your visit today, we recorded the following information about you: Pulse Blood pressure Weight 66/minute 100/68 73.5 kg Lin Cisneros APRN.[facility] 12/26/2024 8:33 AM Signed This is a 49 year old female who presents today with: Patient presents with: Follow Up: 6 week anxiety and SVT follow up HISTORY OF PRESENT ILLNESS: Brittnee Marie is a 49 year old female. Patient presents with: Follow Up: 6 week anxiety and SVT follow up The patient is a 49-year-old female with GERD and anxiety disorder, presenting for evaluation of chest pain, dyspnea, and palpitations. Chest Pain: - Brittnee Marie has persistent chest pain. - Previously managed with omeprazole BID; currently out of medication. - Denies significant chest heaviness or diaphoresis. Dyspnea: - Brittnee denies significant dyspnea. Palpitations: - Intermittent palpitations; describes sensation of heart racing. Anxiety: - Brittnee reports improvement in anxiety symptoms. - Able to go places without significant anxiety. - Previously experienced severe anxiety, especially when late for work. - Currently sleeping well; denies excessive worrying. Fatigue: - Brittnee reports increased fatigue recently. - Suspects low blood pressure may be contributing to fatigue. PAST MEDICAL HISTORY: PAST MEDICAL HISTORY Diagnosis Date Anxiety Bulging disc neck c6 Depression Migraine Pneumothorax, spontaneous, tension Prolapse, disk Neck Scoliosis Neck PAST SURGICAL HISTORY Procedure Laterality Date APPENDECTOMY 04/20/2002 COLONOSCOPY FLX DX W/COLLJ SPEC WHEN PFRMD 05/17/2014 Colonoscopy EGD W/O [facility] SPEC VARICIES INJ 03/11/2024 Dr. Schmidt, [facility]; [place] Grade A erosive esophagitis with bleeding (biopsied), erythematous mucosa in gastric body (biopsied) LIG/TRNSXJ FLP TUBE ABDL/VAG APPR UNI/BI 04/20/1994 Tubal ligation NECK SURGERY HX 08/2021 [facility] -- has hardware in neck OOPHORECTOMY PARTIAL/TOTAL UNI/BI 04/20/2009 Right. Endometriosis noted at that time per patient PAST SURGICAL HISTORY OF 04/20/2003 left lung -[facility]arpal PAST SURGICAL HISTORY OF cervical /lumbar spine pain injections ALLERGIES Tape [Adhesive Tape (Rosins)] MEDICATIONS Current Outpatient Medications Medication Sig traZODone (DESYREL) 50 mg tablet Take 1 tablet by mouth daily at bedtime. omeprazole (PRILOSEC) 40 mg capsule Take 40 mg by mouth once daily. metoprolol succinate ER (TOPROL XL) 25 mg 24 hr tablet Take 0.5 tablets by mouth once daily. sertraline (ZOLOFT) 50 mg tablet Take 1 tablet by mouth once daily. No current facility-administered medications for this visit. FAMILY HISTORY Problem Relation Age of Onset No Known Problems Mother no personal ca, but reports cancer runs through that family (? leukemia). No Known Problems Father Diabetes Maternal Grandmother other (htn) Maternal Grandmother Cancer Maternal Grandfather lung other (old age) Paternal Grandmother SOCIAL HISTORY[1] REVIEW OF SYSTEMS Chest Pain: - Brittnee Marie has persistent chest pain. - Previously managed with omeprazole BID; currently out of medication. - Denies significant chest heaviness or diaphoresis. Dyspnea: - Brittnee denies significant dyspnea. Palpitations: - Intermittent palpitations; describes sensation of heart racing. Anxiety: - Brittnee reports improvement in anxiety symptoms. - Able to go places without significant anxiety. - Previously experienced severe anxiety, especially when late for work. - Currently sleeping well; denies excessive worrying. Fatigue: - Brittnee reports increased fatigue recently. - Suspects low blood pressure may be contributing to fatigue. ROS: Constitutional: (+) fatigue Cardiovascular: (+) chest pain, (+) chest heaviness, (+) palpitations Respiratory: (+) shortness of breath Skin: (+) diaphoresis Psychiatric: (+) anxiety, (-) sleep disturbance EXAM: BP 102/58 Pulse 66 Wt 73.5 kg (162 lb) LMP (LMP Unknown) SpO2 98% BMI 28.70 kg/m? PHYSICAL EXAM: GENERAL: NAD, alert and oriented. SKIN: Unremarkable, no rash or skin lesions. HEAD: Normocephalic. LUNGS: Clear to auscultation bilaterally, no wheezes/rhonchi/rales. HEART: Regular rate and rhythm, no murmurs. No ectopy. EXTREMITIES: Normal, no deformities, no skin discoloration, no edema. NEURO: Awake, alert and oriented x3, cranial nerves II-XII grossly intact, normal gait, no involuntary motions. LABS: ASSESSMENT/PLAN: 1. Gastroesophageal reflux disease without esophagitis (K21.9) - GERD symptoms improving; previously on omeprazole BID, but ran out of medication. - Restart omeprazole; advised to take on an empty stomach. - Educated on risks of long-term PPI use, including decreased jeet (more content not included)... Normal [facility] CNOVon 11-17-2024 [facility] BRITTNEE MARIE ([id number]) 1975 F Date Time Provider Department 11/17/24 8:20 AM LIN CISNEROS [facility] During your visit today, we recorded the following information about you: Pulse Blood pressure Weight 71/minute 116/74 74.8 kg Lin Cisneros APRN.[employer] 11/17/2024 8:38 AM Signed This is a 49 year old female who presents today with: Patient presents with: ER F/U: [facility] ER 11/14/24 HISTORY OF PRESENT ILLNESS: Brittnee Marie is a 49 year old female. Patient presents with: ER F/U: [facility] ER 11/14/24 Patient presents for follow-up on ER visit to [facility] for chest pain on November 14: Pain was described as burning, heaviness, and sharp. Positive for diaphoresis, shortness of breath, lightheadedness and palpitations. No nausea vomiting, cough, fever, or acid reflux. Pain came on gradually started having some shortness of breath and lightheadedness. Pain did radiate into her left arm. Feel like an elephant sitting on her chest. Sharp and burning. Nothing made it better or worse. She does have a history of tobacco use, family history of heart attack less than or equal to 55. No recent travel. History of supraventricular tachycardia, tension pneumothorax, migraines, anxiety depression, Crohn's, and heartburn. Blood pressure 148/98, heart rate 114, respirations 16, saturation 99%. WBC 7.4, hemoglobin 13.1, hematocrit 38.4, platelet count 297 Differential is normal Sodium 140, potassium 3.7, BUN 12, creatinine 0.72, glucose 93 Calcium 9.3 Troponin less than 6 Chest x-ray no acute process EKG sinus rhythm with a rate of 73, TN interval, QRS, and QTc were all normal. [place] normal. No ST changes. EKG unchanged from April. Instructed to follow-up with primary care PAST MEDICAL HISTORY: PAST MEDICAL HISTORY Diagnosis Date Anxiety Bulging disc neck c6 Depression Migraine Pneumothorax, spontaneous, tension Prolapse, disk Neck Scoliosis Neck PAST SURGICAL HISTORY Procedure Laterality Date APPENDECTOMY 04/20/2002 COLONOSCOPY FLX DX W/COLLJ SPEC WHEN PFRMD 05/17/2014 Colonoscopy EGD W/O [facility] SPEC VARICIES INJ 03/11/2024 Dr. Schmidt, [facility]; [place] Grade A erosive esophagitis with bleeding (biopsied), erythematous mucosa in gastric body (biopsied) LIG/TRNSXJ FLP TUBE ABDL/VAG APPR UNI/BI 04/20/1994 Tubal ligation NECK SURGERY HX 08/2021 [facility] -- has hardware in neck OOPHORECTOMY PARTIAL/TOTAL UNI/BI 04/20/2009 Right. Endometriosis noted at that time per patient PAST SURGICAL HISTORY OF 04/20/2003 left lung -[facility]arpal PAST SURGICAL HISTORY OF cervical /lumbar spine pain injections ALLERGIES Tape [Adhesive Tape (Rosins)] MEDICATIONS Current Outpatient Medications Medication Sig omeprazole (PRILOSEC) 40 mg capsule Take 40 mg by mouth once daily. traZODone (DESYREL) 50 mg tablet Take 50 mg by mouth daily at bedtime. propranolol (INDERAL) 10 mg tablet Take 1 tablet by mouth three times a day. No current facility-administered medications for this visit. FAMILY HISTORY Problem Relation Age of Onset No Known Problems Mother no personal ca, but reports cancer runs through that family (? leukemia). No Known Problems Father Diabetes Maternal Grandmother other (htn) Maternal Grandmother Cancer Maternal Grandfather lung other (old age) Paternal Grandmother Social History Tobacco Use Smoking status: Former Current packs/day: 0.00 Average packs/day: 0.3 packs/day for 22.0 years (5.5 ttl pk-yrs) Types: Cigarettes Quit date: 08/2024 Years since quittin.2 Smokeless tobacco: Never Vaping Use Vaping status: Never Used Substance Use Topics Alcohol use: Yes Comment: very rare Drug use: No REVIEW OF SYSTEMS Constitutional: (+) weight gain Ears/Nose/Mouth/Throat: (+) pulsatile tinnitus Cardiovascular: (+) chest pain, (+) palpitations, (+) lower extremity swelling Respiratory: (+) wheezing, (+) shortness of breath, (-) orthopnea Psychiatric: (+) anxiety, (+) insomnia EXAM: BP 116/74 Pulse 71 Wt 74.8 kg (165 lb) LMP (LMP Unknown) SpO2 97% BMI 29.23 kg/m? PHYSICAL EXAM: GENERAL: NAD, alert and oriented. SKIN: Unremarkable, no rash or skin lesions. HEAD: Normocephalic. LUNGS: Clear to auscultation bilaterally, no wheezes/rhonchi/rales. HEART: Regular rate and rhythm, no murmurs. No ectopy. EXTREMITIES: Normal, no deformities, no skin discoloration, no edema. NEURO: Awake, alert and oriented x3, cranial nerves II-XII grossly intact, normal gait, no involuntary motions. MOOD: good eye contact. Appropriate. LABS: Imaging: - Stress Echocardiogram: - Heart function was good and strong - No structural abnormalities - Normal blood flow ASSESSMENT/PLAN: 1. STEPHANIE (generalized anxiety disorder) (F41.1) 2. Encounter for screening examination for other mental health and behavioral dis (more content not included)... Normal [facility] 12 Lead EKGon 11-14-2024 12 Lead EKG [facility] Cardiovascular Services [address] [place] [address] 12 Lead EKG 11/14/24 1005 MR#: [id number] Acct: [id number] Name: BRITTNEE MARIE Rep #: [id number] : 1975 49 From: José Manuel Wallace MD Attending Dr: Status: DEP ER Ordering Dr: Sulaiman Hoffman DO Date: 11/14/24 Location: ED Sex: F C Admitted: Test Reason : CP Blood Pressure : */* mmHG Vent. Rate : 73 BPM Atrial Rate : 73 BPM P-R Int : 130 ms QRS Dur : 82 ms QT Int : 404 ms P-R-T Axes : 51 50 60 degrees QTcB Int : 445 ms Normal sinus rhythm Normal ECG Confirmed by RODRIGO SALTER, JOSÉ MANUEL ([id number]), news video editor DANYA HOUSE ([id number]) on 11/15/2024 1:02:01 PM Referred By: MARCOS/PATRICIO Confirmed By: JOSÉ MANUEL WALLACE MD 11/15/24 1302 Date José Manuel Wallace MD CC: VP TREASURER-C Humera Garcia; Dr. Sulaiman Hoffman DO Signed Normal [facility] Absolute lymphocyte countOrd ered By: Sulaiman Hoffman on 11-14-2024 Lymphocytes Auto (Unsp spec) [#/Vol] 2.81 10*3/uL 0.83-4.51 [facility] Absolute neutrophil countOrd ered By: Sulaiman Hoffman on 11-14-2024 Neutrophils (Bld) [#/Vol] 3.8 10*3/uL 2.0-7.7 [facility] Anion gap in Serum or Plasma Ordered By: Sulaiman Hoffman on 11-14-2024 Anion gap [Moles/Vol] 13 mmol/L 5-15 [facility] Automated blood erythrocyte countOrdered By: Sulaiman Hoffman on 11-14-2024 RBC (Bld) [#/Vol] 4.68 10*6/uL Normal 4.2-5.4 [facility] Comment on above: Performed By: #### L 501.5425, L100.0100, L500.2500 #### [facility] [address] [place], [address] Automated blood hematocrit ( percentage)Ordered By: Sulaiman Hoffman on 11-14-2024 Hematocrit (Bld) [Volume fraction] 38.4 % Normal 37-47 [facility] Comment on above: Performed By: #### L 501.5425, L100.0100, L500.2500 #### [facility] [address] [place], [address] Automated lymphocyte count a s percentage of total leukocytesOrdered By: Sulaiman Hoffman on 11-14-2024 Lymphocytes/100 WBC Auto (Unsp spec) 38.1 % 19-41 [facility] BUN/creatinine ratioOrdered By: Sulaiman Hoffman on 11-14-2024 Urea nitrogen/Creatinine [Mass ratio] 17.2 mg/mg 10- [facility] Basic Metabolic Profile (BMP )on 11-14-2024 BUN/CRE 17.2 RATIO Normal - [facility] Comment on above: Performed By: #### L 501.5425, L100.0100, L500.2500 #### [facility] [address] [place], [address] Calcium [Mass/Vol] 9.3 mg/dL Normal 7.6-11.0 [facility] Comment on above: Performed By: #### L 501.5425, L100.0100, L500.2500 #### [facility] [address] [place], [address] Chloride [Moles/Vol] 106 mmol/L Normal 98-108 [facility] Comment on above: Performed By: #### L 501.5425, L100.0100, L500.2500 #### [facility] [address] [place], [address] CO2 [Moles/Vol] 21.1 mmol/L Normal 21.0-32.0 [facility] Comment on above: Performed By: #### L 501.5425, L100.0100, L500.2500 #### [facility] [address] [place], [address] Creatinine [Mass/Vol] 0.72 mg/dL Normal 0.70-1.20 [facility] Comment on above: Performed By: #### L 501.5425, L100.0100, L500.2500 #### [facility] [address] [place], [address] GAP 13 Normal 5-15 [facility] Comment on above: Performed By: #### L 501.5425, L100.0100, L500.2500 #### [facility] [address] [place], [address] GFR/1.73 sq M.predicted among non-blacks MDRD (S/P/Bld) [Vol rate/Area] 102 mL/min/{1.73_m2} Normal >60 [facility] Comment on above: Result Comment: mL/m in/1.73m2 CKD-EPI Creatinine Equation (2020) Performed By: #### L 501.5425, L100.0100, L500.2500 #### [facility] [address] [place], [address] Glucose [Mass/Vol] 93 mg/dL Normal 70-99 [facility] Comment on above: Performed By: #### L 501.5425, L100.0100, L500.2500 #### [facility] [address] [place], [address] Potassium [Moles/Vol] 3.7 mmol/L Normal 3.3-5.1 [facility] Comment on above: Performed By: #### L 501.5425, L100.0100, L500.2500 #### [facility] [address] [place], [address] Sodium [Moles/Vol] 140 mmol/L Normal 133-145 [facility] Comment on above: Performed By: #### L 501.5425, L100.0100, L500.2500 #### [facility] [address] [place], [address] Urea nitrogen [Mass/Vol] 12 mg/dL Normal 4-19 [facility] Comment on above: Performed By: #### L 501.5425, L100.0100, L500.2500 #### [facility] [address] [place], [address] Basophil percentageOrdered B y: Sulaiman Hoffman on 11-14-2024 Basophils/100 WBC (Bld) 0.7 % Normal 0-1 [facility] Comment on above: Performed By: #### L 501.5425, L100.0100, L500.2500 #### [facility] [address] [place], [address] CBC W/Diff, Automatedon 10-19 Absolute Lymph 2.81 X10 3/uL Normal 0.83-4.51 [facility] Comment on above: Performed By: #### L 501.5425, L100.0100, L500.2500 #### [facility] [address] [place], [address] Absolute Neut 3.8 X10 3/uL Normal 2.0-7.7 [facility] Comment on above: Performed By: #### L 501.5425, L100.0100, L500.2500 #### [facility] [address] [place], [address] IG% 0.300 Normal 0.0-0.9 [facility] Comment on above: Result Comment: IG% - Immature Granulocytes (promyelocytes, myelocytes and metamyelocytes) > 1% indicates that a LEFT SHIFT is Present. Performed By: #### L 501.5425, L100.0100, L500.2500 #### [facility] [address] [place], [address] Lymphocytes/100 WBC (Bld) 38.1 % Normal 19-41 [facility] Comment on above: Performed By: #### L 501.5425, L100.0100, L500.2500 #### [facility] [address] [place], [address] Nucleated RBC (Bld) [#/Vol] 0 10*3/uL Normal 0-5 [facility] Comment on above: Performed By: #### L 501.5425, L100.0100, L500.2500 #### [facility] [address] [place], [address] RDW SD 38.7 fl Normal 35.1-43.9 [facility] Comment on above: Performed By: #### L 501.5425, L100.0100, L500.2500 #### [facility] [address] [place], [address] Carbon dioxide, total [Moles /volume] in Central venous bloodOrdered By: Sulaiman Hoffman on 11-14-2024 CO2 [Moles/Vol] 21.1 mmol/L 21.0-32.0 [facility] Chest 1 View (Portable)on Chest 1 View (Portable) [facility] Imaging Services [address] [place] [address] Chest 1 View (Portable) MR#: [id number] Acct: [id number] Name: BRITTNEE MARIE Rep #: [id number] : 1975 F 49 From: Tre Currie MD PCP: DIVINE Dempsey Status: REG ER Study: Chest 1 View (Portable) Date of Exam: 11/14/24 Exam# [id number] Ordering Dr: Sulaiman Hoffman DO PROCEDURE: CHEST 1 VIEW (PORTABLE) 11/14/2024 REASON FOR EXAM: CHEST PAIN TECHNIQUE: Frontal view of the chest. COMPARISON: None FINDINGS: Heart size and mediastinal configuration are within normal limits. There is no focal infiltrate or consolidation. There is no pneumothorax or effusion. There is no acute bony abnormality. Aortic calcifications are visible. Hardware is noted in the cervical region. RAD/Chest 1 View (Portable) IMPRESSION: No acute process is identified in the chest. Reading Location: [facility] CC: VP TREASURER-C Humera Garcia; Dr. Sulaiman Hoffman DO Fly Frame Tender: Signed Normal [facility] Chloride assayOrdered By: Joshua Hoffman on 11-14-2024 Chloride [Moles/Vol] 106 mmol/L 98-108 [facility] Emergency Department Summary on 11-14-2024 Emergency Department Summary [facility] Medical Records Department [address] [place] [id number] Emergency Department Summary 11/14/24 MR#: [id number] Acct: [id number] Name: BRITTNEE MARIE Rep #: [id number] : 1975 49 From: Sulaiman Hoffman DO PCP: DIVINE Dempsey Status:DEP ER Location: ED HPI History of Present Illness Chief Complaint: Chest Pain Informant: patient Onset/Context/Timing Onset: Today Activity at onset: gradual Timing: Continuous Quality: Positive for Burning, Heaviness and Sharp Location: Left Chest Worsened By: Nothing Relieved By: Nothing Associated Symptoms: Positive for Diaphoresis, Dyspnea, Lightheadedness and Palpitations; Negative for Nausea, Vomiting, Cough, Fever or Acid Reflux Narrative Narrative: Patient presents with chest pain that began today. Patient states that it came on gradually. Patient states she started having some shortness of breath and lightheadedness. Patient states she has been started having some pressure in her chest. Patient states it radiates into her left arm. Patient states it feels like there is an elephant sitting on my chest. Patient also describes her pain as sharp and burning. Patient states nothing makes it better and nothing makes it worse. CVD Risk Factors: Positive for Smoking; Negative for Hypertension, Diabetes, Hypercholesterolemia or Family History 1' PE Risk Factors: Negative for Recent Travel/Surgery, Recent Immobilization, Prior DVT or PE, Cancer or OCP + Smoking + >/=35 PFSH PFSH Medical History SVT (supraventricular tachycardia) Tension pneumothorax, spontaneous Hx of migraines Anxiety and depression Wears dentures Depression Anxiety Low iron History of Crohn's disease Heartburn Gastric reflux Smoker Post-menopausal Endometriosis Home Medications ???Medication ???Instructions ???Recorded ???Last Taken ???Type acetaminophen 325 mg tablet 1 - 2 tab PO Q4H PRN PRN Pain 03/20 10/31 Unknown History (Tylenol) omeprazole 40 mg capsule,delayed 40 mg PO BID #60 caps 01/20/24 Rx release trazodone 50 mg tablet 50 mg PO QHS PRN sleep 08/30/24 History metoprolol tartrate 25 mg tablet 25 mg PO BID #60 tabs 09/14/24 Rx ibuprofen 200 mg tablet (Advil) 400 mg PO Q6H PRN fever or pain Unknown History Allergy/AdvReac Type Severity Reaction Status Date / Time adhesive tape Allergy Unknown Unknown Verified 11/14/24 09:59 iodine AdvReac Upset Verified 11/14/24 09:59 Stomach Family History Grandmother Diabetes Hypertension Grandfather Lung cancer Other Cancer Surgical History History of esophagogastroduodenoscopy (EGD) (03/11/24) History of oophorectomy History of colonoscopy (03/11/24) History of lung surgery History of tubal ligation History of appendectomy S/P cervical disc replacement Social History household members: spouse and children housing: house current occupational status: employed Smoking Status: Current every day smoker tobacco type: cigarettes alcohol intake: current substance use type: does not use caffeine: Yes Type: carbonated beverages Number of servings: 3 ROS ROS ED Constitutional Constitutional ED: Denies chills or fever(s) Eyes Eyes: Denies blurry vision or change in vision ENT ENT ED: Denies rhinorrhea or sore throat Cardiovascular Cardiovascular: Reports chest pain; Denies palpitations Respiratory/Chest Respiratory/Chest: Reports dyspnea; Denies cough Gastrointestinal Gastrointestinal: Denies nausea or vomiting Genitourinary Genitourinary ED: Denies dysuria or hematuria Musculoskeletal Musculoskeletal: Denies back pain or neck pain Integumentary Denies abscess or rash Neurologic Neurologic: Denies headache(s) or weakness Allergic/Immunologic Allergic/Immunologic ED: Denies mouth swelling or urticaria EXAM Physical Exam Const Vital Signs: 11/14/24 10:00 11/14/24 10:01 11/14/24 11:00 Temperature 98.0 F Temperature Source Oral Pulse Rate 81 Respiratory Rate 16 Respiratory Effort Normal Blood Pressure 148/98 H Blood Pressure Mean 114 Pulse Ox 99 Oxygen Delivery Method Room Air Room Air 11/14/24 11:00 11/14/24 12:31 11/14/24 13:00 Temperature Temperature Source Pulse Rate 89 78 63 Respiratory Rate 18 18 Respiratory Effort Blood Pressure 143/78 H 138/78 H Blood Pressure Mean 99 98 Pulse Ox 98 98 99 Oxygen Delivery Method Room Air Room Air 11/14/24 14:00 11/14/24 15:14 Temperature 97.7 F L Temperature Source Pulse Rate 65 65 Respira (more content not included)... Normal [facility] Eosinophil percentageOrdered By: Sulaiman Hoffman on 11-14-2024 Eosinophils/100 WBC (Bld) 2.2 % Normal 0-5 [facility] Comment on above: Performed By: #### L 501.5425, L100.0100, L500.2500 #### [facility] [address] [place], [place], [id number] Erythrocyte distribution wid th ratioOrdered By: Sulaiman Hoffman on 11-14-2024 Erythrocyte distribution width (RBC) [Ratio] 13.1 % Normal 11.6-14.6 [facility] Comment on above: Performed By: #### L 501.5425, L100.0100, L500.2500 #### [facility] [address] [place], [address] Erythrocyte distribution wid th standard deviationOrdered By: Sulaiman Hoffman on 11-14-2024 Erythrocyte distribution width (RBC) [Ratio] 38.7 fl 35.1-43.9 [facility] Glomerular filtration rate ( GFR) estimation/1.73 sq m using serum, plasma, or whole bOrdered By: Sulaiman Hoffman on 11-14-2024 GFR/1.73 sq M.predicted among non-blacks MDRD (S/P/Bld) [Vol rate/Area] 102 mL/min/{1.73_m2} >60 [facility] Comment on above: mL/min/1.73m2 CKD-EP I Creatinine Equation (2020) Hemoglobin measurementOrdere d By: Sulaiman Hoffman on 11-14-2024 Hemoglobin (Bld) [Mass/Vol] 13.1 g/dL Normal 12.0-15.0 [facility] Comment on above: Performed By: #### L 501.5425, L100.0100, L500.2500 #### [facility] [address] [place], [address] Immature granulocytes/100 WB C Auto (Bld)Ordered By: Sulaiman Hoffman on 11-14-2024 Immature granulocytes/100 WBC (Bld) 0.300 % 0.0-0.9 [facility] Comment on above: IG% - Immature Granu locytes (promyelocytes, myelocytes and metamyelocytes) > 1% indicates that a LEFT SHIFT is Present. L501.4021on 11-14-2024 Trop T High Sen < 6 Normal <=14 [facility] Comment on above: Performed By: #### L 501.5425, L100.0100, L500.2500 #### [facility] [address] [place], [address] MCV (mean corpuscular volume ) determinationOrdered By: Sulaiman Hoffman on 11-14-2024 MCV (RBC) [Entitic vol] 82.1 fL Normal 81-99 [facility] Comment on above: Performed By: #### L 501.5425, L100.0100, L500.2500 #### [facility] [address] [place], [address] Mean corpuscular hemoglobin (MCH) determinationOrdered By: Sulaiman Hoffman on 11-14-2024 MCH (RBC) [Entitic mass] 28.0 pg Normal 27.0-32.0 [facility] Comment on above: Performed By: #### L 501.5425, L100.0100, L500.2500 #### [facility] [address] [place], [address] Mean corpuscular hemoglobin concentration (MCHC) determinationOrdered By: Sulaiman Hoffman on 11-14-2024 MCHC (RBC) [Mass/Vol] 34.1 g/dL Normal 32-36 [facility] Comment on above: Performed By: #### L 501.5425, L100.0100, L500.2500 #### [facility] [address] [place], [address] Mean platelet volume determi nationOrdered By: Sulaiman Hoffman on 11-14-2024 Platelet mean volume (Bld) [Entitic vol] 9.8 fL Normal 6.2-12.0 [facility] Comment on above: Performed By: #### L 501.5425, L100.0100, L500.2500 #### [facility] [address] [place], [address] Monocyte percentageOrdered B y: Sulaiman Hoffman on 11-14-2024 Monocytes/100 WBC (Bld) 7.1 % Normal 0-10 [facility] Comment on above: Performed By: #### L 501.5425, L100.0100, L500.2500 #### [facility] [address] [place], [address] Neutrophil percentageOrdered By: Sulaiman Hoffman on 11-14-2024 Neutrophils/100 WBC (Bld) 51.6 % Normal 47-70 [facility] Comment on above: Performed By: #### L 501.5425, L100.0100, L500.2500 #### [facility] [address] [place], [address] Nucleated red blood cell per centageOrdered By: Sulaiman Hoffman on 11-14-2024 Nucleated RBC/100 WBC (Bld) [Ratio] 0 % 0-5 [facility] Platelet countOrdered By: Joshua Hoffman on 11-14-2024 Platelets (Bld) [#/Vol] 297 10*3/uL Normal 150-450 [facility] Comment on above: Performed By: #### L 501.5425, L100.0100, L500.2500 #### [facility] [address] [place], [place], [id number] Potassium measurement (mass/ volume)Ordered By: Sulaiman Hoffman on 11-14-2024 Potassium (Unsp spec) [Mass/Vol] 3.7 mmol/L 3.3-5.1 [facility] Serum creatinine measurement (mass/volume)Ordered By: Sulaiman Hoffman on 11-14-2024 Creatinine [Mass/Vol] 0.72 mg/dL 0.70-1.20 [facility] Serum glucose measurement (m ass/volume)Ordered By: Sulaiman Hoffman on 11-14-2024 Glucose [Mass/Vol] 93 mg/dL 70-99 [facility] Serum or plasma calcium isacc urement (mass/volume)Ordered By: Sulaiman Hoffman on 11-14-2024 Calcium [Mass/Vol] 9.3 mg/dL 7.6-11.0 [facility] Serum or plasma urea nitroge n measurement (mass/volume)Ordered By: Sulaiman Hoffman on 11-14-2024 Urea nitrogen [Mass/Vol] 12 mg/dL 4-19 [facility] Sodium levelOrdered By: Sulaiman Hofmfan on 11-14-2024 Sodium [Moles/Vol] 140 mmol/L 133-145 [facility] Troponin T HS 2 HRon 025 Trop T High Sen < 6 Normal <=14 [facility] Comment on above: Performed By: #### L 499.0042 #### [facility] [address] [place], [address] Troponin T HS 4 HRon 025 Trop T High Sen Normal <=14 [facility] Comment on above: Result Comment: PT D ISCHARGED Performed By: #### L 501.4020 #### [facility] [address] [place], [address] Troponin T.cardiac [Mass/vol ume] in Serum or Plasma by High sensitivity methodOrdered By: Sulaiman Hoffman on 11-14-2024 Troponin T.cardiac High sensitivity method [Mass/Vol] < 6 ng/L <14 [facility] Troponin T.cardiac High sensitivity method [Mass/Vol] < 6 ng/L <14 [facility] White blood cell (WBC) count Ordered By: Sulaiman Hofmfan on 11-14-2024 WBC (Bld) [#/Vol] 7.4 10*3/uL Normal 4.4-11.0 [facility] Comment on above: Performed By: #### L 501.5425, L100.0100, L500.2500 #### [facility] [address] [place], [address] Cardiology Visit Reporton Cardiology Visit Report [facility] [address] [place] [address] OFFICE VISIT Date of Service: 09/02/24 MR#: [id number] Acct: [id number] Name: BRITTNEE MARIE Rep #: [id number] : 1975 Provider: Dr. Arsh cheema MD Age/Sex: 49/F Location: [facility] Status: Signed HPI HPI History of Present Illness Surgical H P: No Details: # HISTORY OF PRESENT ILLNESS The patient presents for evaluation of tachycardia. She reports experiencing episodes of rapid heart rate, which she monitors using a blood pressure cuff that measures her pulse. The episodes have been occurring for some time, but have gradually worsened. She describes the frequency as a couple of times per week, with each episode lasting several minutes, though subjectively feeling like days. The episodes occur randomly, without any identifiable triggers such as stress, dehydration, or food intake. The patient notes that the episodes have begun to wake her from sleep, and occur regardless of her position (sitting, lying down). The patient was prescribed Propranolol 10 mg three times daily approximately one month ago by her primary care physician, Dr. Pickard, after presenting to her office during an episode of tachycardia. The patient reports that the medication has provided slight relief. She states that during the episodes, her stomach swells. She also endorses lightheadedness and swelling in her legs. The patient was seen in the emergency department May 03, 2024, complaining of sharp intermittent chest pain, lightheadedness, and palpitations. On May 18, 2024, the patient underwent tilt table testing, which demonstrated orthostatic hypotension, with a supine blood pressure of 116/69, dropping with orthostatic stress plus nitroglycerin challenge, and a peak heart rate of 130 bpm at 20 minutes. On June 22, 2024, the patient's PCP noted complaints of palpitations and tachycardia with heart rates up to 200 bpm while seated and subsequently initiated Propranolol. The patient had a Holter monitor from May to June, which captured a maximum heart rate of 144 bpm in May. A stress test and echocardiogram were performed on July 19, which were unremarkable. An EKG on May 03, 2024, showed sinus rhythm at 85 bpm with normal conduction intervals. # REVIEW OF SYSTEMS CARDIOVASCULAR: Palpitations, positive GASTROINTESTINAL: Abdominal pain, positive NEUROLOGICAL: Dizziness, positive PSYCHIATRIC: Anxiety, positive MUSCULOSKELETAL: Back pain, positive # PHYSICAL EXAMINATION RESPIRATORY: Respiratory effort normal, lungs clear to auscultation CARDIAC: Regular rate and rhythm # ASSESSMENT AND PLAN Problem: Tachycardia Plan: Patient was seen for evaluation of tachycardia. History reviewed, noting episodes of heart racing with rates up to 190 bpm, as captured on previous Holter monitor, occurring a couple of times per week, lasting minutes, and occasionally waking her from sleep. The episodes are random, without clear triggers. Review of telemetry transmission suggest atrial tachycardia or multifocal atrial tachycardia as an etiology. Symptoms are nonsustained to suggest atrial fibrillation nor the need for anticoagulation. Prior echocardiogram and stress test results reviewed and were unremarkable. Propranolol 10 mg three times daily, started approximately one month ago by PCP, provided minimal relief. Given the side effect profile and dosing frequency of Propranolol, the patient was transitioned to Metoprolol once daily for improved tolerability and convenience. Patient was instructed to continue Propranolol until the Metoprolol prescription is filled and to discontinue Propranolol once starting Metoprolol. Patient was instructed to start Metoprolol in the morning initially, but if fatigue occurs, to switch to evening dosing. Patient was advised that the goal is to reduce the frequency and intensity of the tachycardia episodes and that it may take 2-4 months to see maximal benefit. Patient was counseled regarding potential side effects of Metoprolol, including fatigue, and the importance of adherence to the medication regimen. Patient was educated regarding lifestyle modifications, including avoiding caffeine and excessive alcohol intake, and staying well-hydrated. Patient was educated that if there is lightheadedness or dizziness, this is due to the ineffective pumping of blood from the heart. Follow-up appointment scheduled in 3 months to assess response to Metoprolol and to discuss further management options if needed. Intake Vital Signs 05/03/24 09:32 09/02/24 08:54 Height 5 ft 4 in 5 ft 4 in Weight: 165 lb BMI 28.3 BP 132/83 H Blood Pressure Location Lt brachial Position Sitting Respiration 16 Pulse 70 Pulse Source NIBP Intake Visit Ripton (more content not included)... Normal [facility] .Auto Diffon 08-08-2024 Basophil, Absolute 0.1 10 3/mcL Normal 0.0-0.3 [facility] Comment on above: Performed By: #### A PRABHU, TROPHS, BMP, GFR, CBC, ADSHERIE, W #### [id number] [place], [place] [address] Basophils/100 WBC (Bld) 0.8 % Normal 0.0-2.5 [facility] Comment on above: Performed By: #### A PRABHU, TROPHS, BMP, GFR, CBC, ADSHERIE, MDW #### [id number] [place], [place] [address] Eosinophil, Absolute 0.2 10 3/mcL Normal 0.0-0.[address] [facility] Comment on above: Performed By: #### A PRABHU, TROPHS, BMP, GFR, CBC, ADIFF, MDW #### [address] [address] Eosinophils/100 WBC (Bld) 3.2 % Normal 0.0-6.0 [facility] Comment on above: Performed By: #### A PRABHU, TROPHS, BMP, GFR, CBC, ADIFF, MDW #### [address] [address] Lymphocyte, Absolute 2.9 10 3/mcL Normal 0.9-4.[address] [facility] Comment on above: Performed By: #### A PRABHU, TROPHS, BMP, GFR, CBC, ADIFF, MDW #### [address] [address] Lymphocytes/100 WBC (Bld) 45.0 % High 20.0-40.0 [facility] Comment on above: Performed By: #### A PRABHU, TROPHS, BMP, GFR, CBC, ADIFF, MDW #### [address] [address] Monocyte, Absolute 0.5 10 3/mcL Normal 0.1-1.4 [facility] Comment on above: Performed By: #### A PRABHU, TROPHS, BMP, GFR, CBC, ADIFF, MDW #### [address] [address] Monocytes/100 WBC (Bld) 7.8 % Normal 2.0-13.0 [facility] Comment on above: Performed By: #### A PRABHU, TROPHS, BMP, GFR, CBC, ADIFF, MDW #### [address] [address] Neutrophils/100 WBC (Bld) 43.2 % Low 50.0-75.0 [facility] Comment on above: Performed By: #### A PRABHU, TROPHS, BMP, GFR, CBC, ADIFF, MDW #### [address] [address] .GFRon 08-08-2024 Estimated Glomerular Filtration Rate 89 ml/min/1.73sqm Normal [facility] Comment on above: Result Comment: Stages of Chronic Kidney Disease (CKD) Stage Description eGFR(ml/min/1.73 sq.m.) CKD 1 Normal kidney function or >=90 normal kindney function with possible kidney damage (ex. Proteinuria) CKD 2 Kidney damage with mild loss 60-89 of kidney function CKD 3a Mild to moderate loss of kidney 45-59 function CKD 3b Moderate to severe loss of 30-44 of kindey function CKD 4 Severe loss of kidney function 15-29 CKD 5 Kidney failure <15 Note: (go live 2024) the eGFR calculation was updated to the 2020 CKD-EPI creatinine equation without a race factor to calculate the eGFR results. Performed By: #### A PRABHU, TROPHS, BMP, GFR, CBC, ADIFF, W #### [address] [address] .MDWon 08-08-2024 Monocyte Distribution Width 18.71 Normal 0.00-20.00 [facility] Comment on above: Result Comment: For ED adult patients suspected of sepsis, MDW<=20.0 does not rule out sepsis or risk of sepsis Performed By: #### A PRABHU, TROPHS, BMP, GFR, CBC, ADSHERIE, HIMANSHU #### [address] [address] .NEUABSon 08-08-2024 Neutrophil, Absolute 2.8 10 3/mcL Normal 2.3-8.[address] [facility] Comment on above: Performed By: #### A PRABHU, TROPHS, BMP, GFR, CBC, ADSHERIE, MDW #### [address] [address] BMPon 08-08-2024 BUN/Creatinine Ratio 16 ratio Normal 7-27 [facility] Comment on above: Performed By: #### A PRABHU, TROPHS, BMP, GFR, CBC, ADSHERIE, W #### [id number] [place], [place] [address] Calcium [Mass/Vol] 9.1 mg/dL Normal 8.4-10.2 [facility] Comment on above: Performed By: #### A PRABHU, TROPHS, BMP, GFR, CBC, HIMANSHU LEVI #### [place] [address] Chloride [Moles/Vol] 106 mmol/L Normal 98-107 [facility] Comment on above: Performed By: #### A PRBAHU, TROPHS, BMP, GFR, CBC, HIMANSHU LEVI #### [place] [address] CO2 [Moles/Vol] 25 mmol/L Normal 22-29 [facility] Comment on above: Performed By: #### A PRABHU, TROPHS, BMP, GFR, CBC, HIMANSHU LEVI #### [place] [address] Creatinine [Mass/Vol] 0.81 mg/dL Normal 0.55-1.02 [facility] Comment on above: Result Comment: Test ing performed on Siemens Dimension EXL analyzer using a modified kinetic Carly technique. Performed By: #### A PRABHU, TROPHS, BMP, GFR, CBC, HIMANSHU LEVI #### [place] [address] Electrolyte Balance 9.0 mEq/L Normal 4.0-15.0 [facility] Comment on above: Performed By: #### A PRABHU, TROPHS, BMP, GFR, CBC, HIMANSHU LEVI #### [place] [address] Glucose [Mass/Vol] 94 mg/dL Normal 70-105 [facility] Comment on above: Performed By: #### A PRABHU, TROPHS, BMP, GFR, CBC, HIMANSHU LEVI #### [place] [address] Potassium [Moles/Vol] 3.9 mmol/L Normal 3.5-5.1 [facility] Comment on above: Performed By: #### A PRABHU, TROPHS, BMP, GFR, CBC, HIMANSHU LEVI #### [id number] Sodium [Moles/Vol] 140 mmol/L Normal 136-145 [facility] Comment on above: Performed By: #### A PRABHU, TROPHS, BMP, GFR, CBCGURMEET MDW #### [address] [address] Urea nitrogen [Mass/Vol] 13 mg/dL Normal 7-18 [facility] Comment on above: Performed By: #### A PRABHU, TROPHS, BMP, GFR, CBCGURMEET MDW #### [address] [address] CBCon 08-08-2024 Erythrocyte distribution width (RBC) [Ratio] 13.6 % Normal 11.5-15.5 [facility] Comment on above: Performed By: #### A PRABHU, TROPHS, BMP, GFR, CBCGURMEET MDW #### [address] [address] Hematocrit (Bld) [Volume fraction] 40.9 % Normal 34.0-46.0 [facility] Comment on above: Performed By: #### A PRABHU, TROPHS, BMP, GFR, GURMEET MARQUEZ MDW #### [address] [address] Hgb 13.8 G/dL Normal 12.0-16.0 [facility] Comment on above: Performed By: #### A PRABHU, TROPHS, BMP, GFR, CBCGURMEET MDW #### [address] [address] MCH (RBC) [Entitic mass] 28.4 pg Normal 27.0-33.0 [facility] Comment on above: Performed By: #### A PRABHU, TROPHS, BMP, GFR, CBCGURMEET MDW #### [address] [address] MCHC 33.9 G/dL Normal 32.0-36.0 [facility] Comment on above: Performed By: #### A PRABHU, TROPHS, BMP, GFR, CBCGURMEET MDW #### [address] [address] MCV (RBC) [Entitic vol] 83.7 fL Normal 80.0-99.0 [facility] Comment on above: Performed By: #### A PRABHU, TROPHS, BMP, GFR, CBC, HIMANSHU LEVI #### [address] [address] Platelet 265 10 3/mcL Normal 150-450 [facility] Comment on above: Performed By: #### A PRABHU, TROPHS, BMP, GFR, CBC, HIMANSHU LEVI #### [address] [address] Platelet mean volume (Bld) [Entitic vol] 7.3 fL Normal 6.6-10.5 [facility] Comment on above: Performed By: #### A PRABHU, TROPHS, BMP, GFR, CBCGURMEET MDW #### [id number] RBC 4.88 10 6/mcL Normal 4.10-5.30 [facility] Comment on above: Performed By: #### A PRABHU, TROPHS, BMP, GFR, CBCGURMEET MDW #### [address] [place] [id number] WBC 6.4 10 3/mcL Normal 4.5-10.8 [facility] Comment on above: Performed By: #### A PRABHU, TROPHS, BMP, GFR, GURMEET MARQUEZ MDW #### [address] [address] TROPHSon 08-08-2024 High Sensitivity Troponin I <4 Normal 0-51 [facility] Comment on above: Result Comment: High Sensitive Troponin I Reference Ranges: Female: 0-51 ng/L Male: 0-76 ng/L Testing performed on [employer] using a homogeneous sandwich chemiluminescent immunoassay based on [email or web address] technology. Performed By: #### T CECY #### [place] [address] High Sensitivity Troponin I <4 Normal 0-51 [facility] Comment on above: Result Comment: High Sensitive Troponin I Reference Ranges: Female: 0-51 ng/L Male: 0-76 ng/L Testing performed on [employer] using a homogeneous sandwich chemiluminescent immunoassay based on [email or web address] technology. Performed By: #### A PRABHU, TROPHS, BMP, GFR, CBC, HIMANSHU LEVI #### [facility] [address] [place], [place] [address] XR CHEST 1 VIEWon 08-08-2024 XR CHEST 1 VIEW ORIGINAL EXAMINATION: ONE XRAY VIEW OF THE CHEST 08/08/2024 9:29 am COMPARISON: 06/10/2024 HISTORY: ORDERING SYSTEM PROVIDED HISTORY: Reason for Exam: chest pain FINDINGS: Partially visualized cervical ACDF. The heart is within normal limits. No edema. No focal consolidation, pleural effusion or pneumothorax. No acute osseous abnormality. IMPRESSION: No acute cardiopulmonary process. Interpreted by: Sharon Morgan Preliminary Report By: Sharon Morgan Electronically signed By Sharon Morgan Dictated Date: 08/08/2024 9:40:36 AM Prelim Date: 08/08/2024 9:41:01 AM Sign Date: 08/08/2024 9:41:01 AM Ordering Provider: ARABELLA Pryor [facility] Polo 07-26-2024 LOPEZ Telephone (GEOVANI) BRITTNEE MARIE ([id number]) 1975 F Date Time Provider Department 07/26/24 HUMERA GARCIA During your visit today, we recorded the following information about you: Karey Manuel, NAI 07/26/2024 10:56 AM Signed Kaylyn with [facility] calling regarding referral that was placed by Kal Cisneros CNP. Kaylyn states the referral states for pt to see Dr. Trinidad, who works in Electrophysiology. Kaylyn asking if provider wishes for patient to be seen by Cardiology first, or seen by Electrophysiology? Please call Kaylyn with reply at [phone]. NAI Rivers Jacqueline A, APRN.RECOR[employer] MANAGEMENT ASSOCIATE 07/26/2024 11:19 AM Signed EP (Dr. Trinidad) - pt. Has SVT- symptomatic. Seen on Event recorder. Stress echo normal. No valve issues, EF 72% No wall motion abnormality Maru Kohler MA 07/26/2024 11:40 AM Signed Kaylyn notified of EP referral Allergies As of Date: 07/26/2024 Noted Allergy Reaction OXYCODONE-ACETAMINOPHEN 01/14/2013 8 - GI Upset 4 - Hives DARVOCET A500 (PROPOXYPHENE N-KODY*01/14/2013 16 - Unknown FLEXERIL (CYCLOBENZAPRINE HCL) 01/14/2013 8 - GI Upset TAPE (ADHESIVE TAPE (ROSINS)) 01/14/2013 7 - Swelling Comments: paper tape ok TOPIRAMATE 01/14/2013 8 - GI Upset Date Reviewed: 07/22/2024 Reviewed by: Maru Kohler MA - Fully Assessed Reason for Visit: Patient Question [3757] Prescriptions as of 07/26/2024 - propranolol (INDERAL) 10 mg tablet Take 1 tablet by mouth three times a day. - traZODone (DESYREL) 50 mg tablet Take 1 tablet by mouth at bedtime as needed for sedation. Problem List As Of Date 07/26/2024 Noted Resolved Neck pain on right side [M54.2] 01/14/2013 Chronic headaches [R51.9, G89.29] 02/23/2013 Depression [F32.A] 02/23/2013 Cervical radiculitis [M54.12] 02/21/2014 Chronic pain [G89.29] 05/10/2014 Screening for colon cancer [Z12.11] 11/26/2023 Encounter Status:Closed by MARU KOHLER on 07/26/24 Normal [facility] CNOVon 07-22-2024 CNOV Office Visit (FAMPWS ) BRITTNEE MARIE ([id number]) 1975 F Date Time Provider Department 07/22/24 4:20 PM LIN CISNEROS During your visit today, we recorded the following information about you: Temperature Pulse Blood pressure Weight 98 degrees 67/minute 104/66 71.7 kg Lin Cisneros, DIAGNOSTIC ASSISTANT.RECORDS MANAGEMENT ASSOCIATE 07/22/2024 4:39 PM Signed This is a 48 year old female who presents today with: Patient presents with: Tachycardia: 2 week medication follow up HISTORY OF PRESENT ILLNESS: Brittnee Marie is a 48 year old female. Patient presents with: Tachycardia: 2 week medication follow up Chest pain that is intermittent. Mid sternal. Lasts only a couple minutes. Sometimes takes her breath away. Sometimes a severe heartburn that takes her breath away when she lays down. Wakes her up at night. Heart starts racing and she gets hot. Then slows down and she gets cold. Sometimes nausea, no vomiting Appetite comes and goes No pain in jaw, neck, between shoulder blades Alleviated not at all Aggravated- lying down and extreme exertion Pain is a 10/10 Palpations last minutes to 2 - 3 min. Trazodone helps her sleep PAST MEDICAL HISTORY: PAST MEDICAL HISTORY Diagnosis Date Anxiety Bulging disc neck c6 Depression Migraine Pneumothorax, spontaneous, tension Prolapse, disk Neck Scoliosis Neck PAST SURGICAL HISTORY Procedure Laterality Date APPENDECTOMY 04/20/2002 COLONOSCOPY FLX DX W/COLLJ SPEC WHEN PFRMD 05/17/2014 Colonoscopy EGD W/O [facility] SPEC VARICIES INJ 03/11/2024 Dr. Schmidt, [facility]; [place] Grade A erosive esophagitis with bleeding (biopsied), erythematous mucosa in gastric body (biopsied) LIG/TRNSXJ FLP TUBE ABDL/VAG APPR UNI/BI 04/20/1994 Tubal ligation NECK SURGERY HX 08/2021 [facility] -- has hardware in neck OOPHORECTOMY PARTIAL/TOTAL UNI/BI 04/20/2009 Right. Endometriosis noted at that time per patient PAST SURGICAL HISTORY OF 04/20/2003 left lung -[place] PAST SURGICAL HISTORY OF cervical /lumbar spine pain injections ALLERGIES Oxycodone-Acetaminophen, Darvocet A500 [Propoxyphene N-Acetaminophen], Flexeril [Cyclobenzaprine Hcl], Tape [Adhesive Tape (Rosins)], and Topiramate MEDICATIONS Current Outpatient Medications Medication Sig propranolol (INDERAL) 10 mg tablet Take 1 tablet by mouth three times a day. traZODone (DESYREL) 50 mg tablet Take 1 tablet by mouth at bedtime as needed for sedation. No current facility-administered medications for this visit. FAMILY HISTORY Problem Relation Age of Onset No Known Problems Mother no personal ca, but reports cancer runs through that family (? leukemia). No Known Problems Father Diabetes Maternal Grandmother other (htn) Maternal Grandmother Cancer Maternal Grandfather lung other (old age) Paternal Grandmother Social History Tobacco Use Smoking status: Every Day Current packs/day: 0.25 Average packs/day: 0.3 packs/day for 22.0 years (5.5 ttl pk-yrs) Types: Cigarettes Smokeless tobacco: Never Vaping Use Vaping status: Never Used Substance Use Topics Alcohol use: Yes Comment: very rare Drug use: No EXAM: BP 104/66 Pulse 67 Temp 36.7 ?C (98 ?F) (Left Tympanic) Wt 71.7 kg (158 lb) LMP (LMP Unknown) SpO2 97% BMI 27.99 kg/m? PHYSICAL EXAM: Physical Exam Vitals reviewed. Constitutional: Appearance: Normal appearance. Cardiovascular: Rate and Rhythm: Normal rate and regular rhythm. Pulses: Normal pulses. Heart sounds: Normal heart sounds. Pulmonary: Effort: Pulmonary effort is normal. Breath sounds: Normal breath sounds. Musculoskeletal: General: Normal range of motion. Comments: Moves all ext. Without difficulty, walks w/o assistive device Skin: General: Skin is warm and dry. Neurological: Mental Status: She is alert and oriented to person, place, and time. Psychiatric: Mood and Affect: Mood normal. Behavior: Behavior normal. LABS: ASSESSMENT/PLAN: 1. SVT (supraventricular tachycardia) (HCC) - ICD9: 427.89, ICD10: I47.10 Will refer locally to Dr. Trinidad - CONSULT TO CARDIOLOGY Discussed treatment plan and patient voices understanding. Patient's questions answered appropriately. Medications and potential side effects were discussed and patient voices understanding. Return to the office as scheduled or as needed for worsening/no improvement. JUAN ANTONIO Goyal Jacqueline A, APRN.CNP 07/22/2024 4:38 PM Signed 1) Consult Dr. Trinidad- EP cardiology at [facility]- ax stress echo and event monitor along with recent labs 2) Follow up in 6 months Allergies As of Date: 07/22/2024 Noted Allergy Reaction OXYCODONE-ACETAMINOPHEN 01/14/2013 8 - GI Upset 4 - Hives DARVOCET A500 (PROPOXYPHENE N-KODY*01/14/2013 16 - Unknown FLEXERIL (CYCLOBENZAPRINE HCL) 01/14/2013 8 - GI Upset TAPE (ADHESIVE TAPE (ROSINS)) 01/14/2013 7 - Swelling Comments (more content not included)... Normal [facility] CNCOon 07-19-2024 CNCO Letter Text Normal [facility] STRESS ECHO TREADMILLon 04-0 STRESS ECHO TREADMILL Stress Blind Hooker Report: Stress Echo [facility]ly [facility] Date of service: 07/19/2024 1:01:00 PM OF COMPLIANCE Supervising physician: Jared Nazario MD PATIENT: Name: MRS. BRITTNEE MARIE Age: 48 years Gender: F The supervising physician was in the department and immediately available. Final Echocardiography Report: Stress Echo [facility] Date of service: 07/19/2024 1:01:00 PM OF COMPLIANCE Ordering physician: JARED NAZARIO Indication: Palpitations Technologist: Zina Barrientos RDCS Interpreting physician: Jared Nazario MD PATIENT: Name: MRS. BRITTNEE MARIE : 1975 Age: 48 years Gender: F Primary rhythm: sinus. Height: 160.00 cm BSA: 1.76 m Weight: 70.00 kg BMI: 27.3 kg/m Heart rate 73 bpm Blood pressure 104/68 mmHg Color Doppler was utilized to interrogate the cardiac valves assessed and spectral Doppler was utilized to determine the flow velocities and pressure gradients reported in this exam. MEASUREMENTS: Value Indexed Normal Left atrial volume 36 ml (biplane A-L) 21 ml/m Esther <= 34 LV ID (diastole) 4.3 cm (2D) 2.45 cm/m IVS, leaflet tips 0.9 cm (2D) Posterior wall thickness 0.8 cm (2D) Left ventricular mass 112 g (2D) 63 g/m LV stroke volume 44 ml (2D biplane) LV end diastolic volume 80 ml (2D biplane) 45.4 ml/m 29<=EDVi<62 LV end systolic volume 36 ml (2D biplane) 20.2 ml/m Ejection Fraction 56 % (2D biplane) EF > 54 FINDINGS: LEFT VENTRICLE The left ventricle is normal in size. Left ventricular systolic function is normal. Normal left ventricular diastolic function. Wall Motion: Rest: All scored segments are normal. Stress: All scored segments are normal. RIGHT VENTRICLE The right ventricle is normal in size. Estimated right ventricular systolic pressure is not reported due to an insufficient tricuspid regurgitation signal. Estimated right atrial pressure is not included as the IVC was not seen. LEFT ATRIUM The left atrial cavity is normal in size. RIGHT ATRIUM The right atrial cavity is normal in size. MITRAL VALVE The mitral valve leaflets are structurally normal. There is no mitral valve regurgitation. The pressure half time is 50 msec. The peak mitral E/A ratio is 1.03. The mitral flow deceleration time is 172 msec. TRICUSPID VALVE The tricuspid valve leaflets are structurally normal. There is trace tricuspid valve regurgitation. AORTIC VALVE The aortic valve cusps are structurally normal. There is no aortic valve regurgitation. PULMONIC VALVE The pulmonic valve cusps are structurally normal. There is trace pulmonic valve regurgitation. STRESS ECHO Peak HR 122 bpm. (72 % MPHR) Peak BP 112 mmHg/72 mmHg. The left ventricular cavity size is decreased with stress. CONCLUSIONS: - Exam indication: Palpitations - The exercise stress echo was non-diagnostic due to sub-optimal heart rate response at 72 % of MPHR (3.2 METS). No regional wall motion abnormality seen at heart rate achieved. - The left ventricle is normal in size. Left ventricular systolic function is normal. EF = 56 5% (2D biplane) - Normal left ventricular diastolic function. - The right ventricle is normal in size. - There are no significant valvular abnormalities. - Estimated right ventricular systolic pressure is not reported due to an insufficient tricuspid regurgitation signal. Estimated right atrial pressure is not included as the IVC was not seen. - The patient has not had a prior CC echocardiographic exam for comparison. Final Stress ECG Report: Stress Echo [facility] Date of service: 07/19/2024 1:01:00 PM OF COMPLIANCE Ordering physician: JARED NAZARIO it operations specialist: Shelby Calzada RN Interpreting physician: Jared Nazario MD Patient name: MRS. BRITTNEE MARIE Age: 48 years Gender: F Height: 160.00 cm BSA: 1.76 m Weight: 70.00 kg BMI: 27.3 kg/m Indication: Chest pressure / Chest tightness, Palpitations and Encounter for screening for cardiovascular disorders Stress ECG Conclusion: Conclusion: Non-diagnostic due to inadequate HR response Stress ECG Summary: The patient's resting heart rate was 73 bpm and blood pressure was 104/68 mmHg. The patient exercised according to the Santosh protocol. The estimated end-exercise MET level achieved using the FRIEND equation was 3.2, which is in the bottom 10th percentile for age and sex. The estimated end-exercise MET level achieved using the previous ACSM equation was 4.6. The test was terminated due to shortness of breath and patient request and the (more content not included)... Normal [facility] CNOVon 07-11-2024 CNOV Office Visit (FAMPWS ) BRITTNEE MARIE ([id number]) 1975 F Date Time Provider Department 07/11/24 4:20 PM LIN CISNEROS During your visit today, we recorded the following information about you: Blood pressure 98/60 Lin Cisneros, DIAGNOSTIC ASSISTANT.RECORDS MANAGEMENT ASSOCIATE 07/11/2024 4:43 PM Addendum This is a 48 year old female who presents today with: Patient presents with: Chest Pain HISTORY OF PRESENT ILLNESS: Brittnee Marie is a 48 year old female. Patient presents with: Chest Pain Chest pain that started last evening around 9:30 while resting. Intermittent through the night and today. Sometimes feels like she is SOB. Heaviness mid-sternal. Heart starts racing and she gets hot. Then slows down and she gets cold. No N/V No appetite No pain in jaw, neck, between shoulder blades Alleviated not at all Aggravated- activity Pain is a 9/10 Palpations last minutes to 30 min. Pain lasts hours Hasn't slept because eof the pain Had Covid when it first came out Cut back on smoking-did not quit PAST MEDICAL HISTORY: PAST MEDICAL HISTORY Diagnosis Date Anxiety Bulging disc neck c6 Depression Migraine Pneumothorax, spontaneous, tension Prolapse, disk Neck Scoliosis Neck PAST SURGICAL HISTORY Procedure Laterality Date APPENDECTOMY 04/20/2002 COLONOSCOPY FLX DX W/COLLJ SPEC WHEN PFRMD 05/17/2014 Colonoscopy EGD W/O [facility] SPEC VARICIES INJ 03/11/2024 Dr. Schmidt, [facility]; [place] Grade A erosive esophagitis with bleeding (biopsied), erythematous mucosa in gastric body (biopsied) LIG/TRNSXJ FLP TUBE ABDL/VAG APPR UNI/BI 04/20/1994 Tubal ligation NECK SURGERY HX 08/2021 [facility] -- has hardware in neck OOPHORECTOMY PARTIAL/TOTAL UNI/BI 04/20/2009 Right. Endometriosis noted at that time per patient PAST SURGICAL HISTORY OF 04/20/2003 left lung -[facility]arpal PAST SURGICAL HISTORY OF cervical /lumbar spine pain injections ALLERGIES Oxycodone-Acetaminophen, Darvocet A500 [Propoxyphene N-Acetaminophen], Flexeril [Cyclobenzaprine Hcl], Tape [Adhesive Tape (Rosins)], and Topiramate MEDICATIONS Current Outpatient Medications Medication Sig GAVILYTE-G 236-22.74-6.74 -5.86 gram suspension TAKE 4000 ML BY MOUTH ONE TIME ONLY FOR 1 DOSE. REFER TO PRINTED PREP INSTRUCTIONS FROM PROVIDER (Patient not taking: Reported on 12/30/2023) varenicline (CHANTIX) 1 mg tablet TAKE 1 TABLET BY MOUTH TWICE A DAY WITH FOOD omeprazole (PRILOSEC) 20 mg capsule Take 1 capsule by mouth daily before breakfast. 1/2 hr before meal. varenicline (CHANTIX STARTING MONTH BOX) 0.5 mg (11)- 1 mg (42) tablet Take 0.5 mg by mouth once daily on Days 1 through 3, THEN 0.5 mg twice daily on Days 4 through 7, THEN 1 mg twice daily on Day 8 and thereafter (Patient not taking: Reported on 12/30/2023) hydrOXYzine HCl (ATARAX) 10 mg tablet Take 1 tablet by mouth three times a day as needed. No current facility-administered medications for this visit. FAMILY HISTORY Problem Relation Age of Onset No Known Problems Mother no personal ca, but reports cancer runs through that family (? leukemia). No Known Problems Father Diabetes Maternal Grandmother other (htn) Maternal Grandmother Cancer Maternal Grandfather lung other (old age) Paternal Grandmother Social History Tobacco Use Smoking status: Every Day Current packs/day: 0.25 Average packs/day: 0.3 packs/day for 22.0 years (5.5 ttl pk-yrs) Types: Cigarettes Smokeless tobacco: Never Vaping Use Vaping status: Never Used Substance Use Topics Alcohol use: Yes Comment: very rare Drug use: No EXAM: Pulse (P) 88 Wt (P) 69.4 kg (153 lb) LMP (LMP Unknown) SpO2 (P) 97% BMI (P) 27.10 kg/m? PHYSICAL EXAM: Physical Exam Vitals reviewed. Constitutional: Appearance: Normal appearance. HENT: Head: Normocephalic. Cardiovascular: Rate and Rhythm: Normal rate and regular rhythm. Pulses: Normal pulses. Heart sounds: Normal heart sounds. Pulmonary: Effort: Pulmonary effort is normal. Breath sounds: Normal breath sounds. Abdominal: General: Bowel sounds are normal. Palpations: Abdomen is soft. Musculoskeletal: Right lower leg: No edema. Left lower leg: No edema. Skin: General: Skin is warm and dry. Neurological: Mental Status: She is alert and oriented to person, place, and time. LABS: ASSESSMENT/PLAN: 1. Tachycardia - ICD9: 785.0, ICD10: R00.0 (primary diagnosis) Being evaluated for POTS - PROPRANOLOL 10 MG TABLET 3 x day since ER only comes in 60 mg starting 2. Chest pain, unspecified type - ICD9: 786.50, ICD10: R07.9 Atypical chest pain, symptoms are not consistent with cardiac ischemia due to nonexertional nature of symptom possible etiology include valvular heart disease vs POTS Start with low dose intermittent beta-jean paul - PROPRANOLOL 10 MG TABLET 3 x day with liquid IV or Gatorade - Off work today and t (more content not included)... Normal [facility] CNOVon 07-05-2024 CNOV Office Visit (CAIFB) BRITTNEE MARIE ([id number]) 1975 F Date Time Provider Department 07/05/24 9:00 AM JARED NAZARIO During your visit today, we recorded the following information about you: Pulse Blood pressure Weight Height 79/minute 114/74 70 kg 1.6 m Jared Nazario MD 07/05/2024 9:41 AM [facility] Department of Cardiovascular Medicine SECTION OF REGIONAL CARDIOLOGY OUTPATIENT VISIT DATE July 05, 2024 OUTPATIENT VISIT TYPE NEW CONSULTATION PRIMARY CARE PHYSICIAN: Humera Garcia [address] [place] [address] CHIEF COMPLAINT: Palpitations HISTORY OF PRESENT ILLNESS: Ms. Marie is a pleasant 48 year old female here for cardiovascular evaluation. She has a history of STEPHANIE. She was recently seen in the neuromuscular clinic where she described episodes of heart racing that is intermittent in nature and hypertension. She has also previously had some episodes of chest pains. She has also previously had some syncopal episodes as well. She states that this recently started that she went to see a GI doctor for bloating and she underwent a colonoscopy and was told her heart is not producing enough blood flow from what he could see. She was told that she might have POTS. Family Hx: None contributory Smoking: Half a Pack a day. Caffeine: 3 bottles of 16 ounces pop a day. The following portions of the patient's history were reviewed and updated as appropriate, allergies, current medications, past medical, social, surgical, and family history and problem list. PAST MEDICAL HISTORY Diagnosis Date Anxiety Bulging disc neck c6 Depression Migraine Pneumothorax, spontaneous, tension Prolapse, disk Neck Scoliosis Neck PAST SURGICAL HISTORY Procedure Laterality Date APPENDECTOMY 04/20/2002 COLONOSCOPY FLX DX W/COLLJ SPEC WHEN PFRMD 05/17/2014 Colonoscopy EGD W/O [facility] SPEC VARICIES INJ 03/11/2024 Dr. Schmidt, [facility]; [place] Grade A erosive esophagitis with bleeding (biopsied), erythematous mucosa in gastric body (biopsied) LIG/TRNSXJ FLP TUBE ABDL/VAG APPR UNI/BI 04/20/1994 Tubal ligation NECK SURGERY HX 08/2021 [facility] -- has hardware in neck OOPHORECTOMY PARTIAL/TOTAL UNI/BI 04/20/2009 Right. Endometriosis noted at that time per patient PAST SURGICAL HISTORY OF 04/20/2003 left lung -[facility]arpal PAST SURGICAL HISTORY OF cervical /lumbar spine pain injections FAMILY HISTORY Problem Relation Age of Onset No Known Problems Mother no personal ca, but reports cancer runs through that family (? leukemia). No Known Problems Father Diabetes Maternal Grandmother other (htn) Maternal Grandmother Cancer Maternal Grandfather lung other (old age) Paternal Grandmother Social History Tobacco Use Smoking status: Every Day Current packs/day: 0.25 Average packs/day: 0.3 packs/day for 22.0 years (5.5 ttl pk-yrs) Types: Cigarettes Smokeless tobacco: Never Vaping Use Vaping status: Never Used Substance Use Topics Alcohol use: Yes Comment: very rare Drug use: No ALLERGIES Allergen Reactions Oxycodone-Acetamino* GI Upset, Hives Darvocet A500 [Prop* Unknown Flexeril [Cyclobenz* GI Upset Tape [Adhesive Tape* Swelling paper tape ok Topiramate GI Upset CURRENT MEDICATIONS: GAVILYTE-G 236-22.74-6.74 -5.86 gram suspension TAKE 4000 ML BY MOUTH ONE TIME ONLY FOR 1 DOSE. REFER TO PRINTED PREP INSTRUCTIONS FROM PROVIDER (Patient not taking: Reported on 12/30/2023) varenicline (CHANTIX) 1 mg tablet TAKE 1 TABLET BY MOUTH TWICE A DAY WITH FOOD omeprazole (PRILOSEC) 20 mg capsule Take 1 capsule by mouth daily before breakfast. 1/2 hr before meal. varenicline (CHANTIX STARTING MONTH BOX) 0.5 mg (11)- 1 mg (42) tablet Take 0.5 mg by mouth once daily on Days 1 through 3, THEN 0.5 mg twice daily on Days 4 through 7, THEN 1 mg twice daily on Day 8 and thereafter (Patient not taking: Reported on 12/30/2023) hydrOXYzine HCl (ATARAX) 10 mg tablet Take 1 tablet by mouth three times a day as needed. I have personally interviewed, confirmed and edited the above information if obtained by others. Physical Exam LMP (LMP Unknown) Gen: alert, no acute distress HEENT: normocephalic, atraumatic, no rinorrhea, no congestion, normal hearing, EOMI, no eye discharge Heart: no murmurs, S1/S2+, regular rate and rhythm Lungs: no wheezing, no rales, symmetric expansion, nonlabored Abdomen: soft, nontender, nondistended Musculoskeletal: no edema, nontender Neurological: no focal deficits, alert, oriented Psychatric: cooperative, appropriate Pertinent Diagnostics/Labs/Data reviewed (ECGs and echo listed personally reviewed today or prior) and include: Last EKG Result Conclusion ECG COMPLETE Collected: 05/31/2024 3:45 PM (Final result) Impression: NORMAL (more content not included)... Normal [facility] ECG COMPLETEon 07-05-2024 ECG COMPLETE Ventricular Rate : 7 9 BPM Atrial Rate : 79 BPM P-R Interval : 142 ms QRS Duration : 80 ms Q-T Interval : 416 ms QTC Calculation(Bazett) : 477 ms Calculated P [place] : 7 degrees Calculated R [place] : 39 degrees Calculated T [place] : 50 degrees NORMAL SINUS RHYTHM NORMAL ECG Confirmed by JARED NAZARIO MD ([id number]) on 07/14/2024 10:05:53 AM NAME : BRITTNEE MARIE PID : [id number] : 1975 Gender : Female Race : ORD : [id number] Procedure Date : Jul 05 2024 08:55:21 Edit Date : Jul 14 2024 10:05:56 Diagnosis: NORMAL SINUS RHYTHM NORMAL ECG Confirmed by JARED NAZARIO MD ([id number]) on 07/14/2024 10:05:53 AM Test Reason : R07.89 Atypical chest pain Location : 503 : [facility] Overread By : JARED NAZARIO MD Edited By : JARED NAZARIO MD Referred By : SELF, Acquired by : Konstantin schwarz [facility] CBC panel Auto (Bld)on 05-31 Erythrocyte distribution width (RBC) [Ratio] 13.5 % 11.5 - 15.0 % [facility] Hematocrit (Bld) [Volume fraction] 44.1 % 36.0 - 46.0 % [facility] Hemoglobin (Bld) [Mass/Vol] 14.5 g/dL 11.5 - 15.5 g/dL [facility] Interpretation and review of laboratory results Normal [facility] MCH (RBC) [Entitic mass] 28.5 pg 26.0 - 34.0 pg [facility] MCHC (RBC) [Mass/Vol] 32.9 g/dL 30.5 - 36.0 g/dL [facility] MCV (RBC) [Entitic vol] 86.8 fL 80.0 - 100.0 fL [facility] Nucleated RBC (Bld) [#/Vol] NINF [facility] Platelet mean volume (Bld) [Entitic vol] 10.3 fL 9.0 - 12.7 fL [facility] Platelets (Bld) [#/Vol] 333 10*3/uL [facility] RBC (Bld) [#/Vol] 5.08 10*6/uL 3.90 - 5.20 m/uL [facility] WBC (Bld) [#/Vol] 10.38 10*3/uL [facility] Erythrocyte distribution width (RBC) [Ratio] 13.5 % Normal 11.5-15.0 [facility] Comment on above: Order Comment: Speci men Type: BLOOD SPECIMENOrdering Facility: [facility] Address: [address] [place] [address] Performed By: #### 5 8410-2 ####[facility] [id number] [place] [address] [place] Hematocrit (Bld) [Volume fraction] 44.1 % Normal 36.0-46.0 [facility] Comment on above: Order Comment: Speci men Type: BLOOD SPECIMENOrdering Facility: [facility] Address: [address] [place] [address] Performed By: #### 5 8410-2 ####[facility] [id number] [place] [address] [place] Hemoglobin (Bld) [Mass/Vol] 14.5 g/dL Normal 11.5-15.5 [facility] Comment on above: Order Comment: Speci men Type: BLOOD SPECIMENOrdering Facility: [facility] Address: [address] [place] [address] Performed By: #### 5 8410-2 ####[facility] [id number] [place] [address] [place] MCH (RBC) [Entitic mass] 28.5 pg Normal 26.0-34.0 [facility] Comment on above: Order Comment: Speci men Type: BLOOD SPECIMENOrdering Facility: [facility] Address: [address] [place] [address] Performed By: #### 5 8410-2 ####[facility] [id number] [place] [address] [place] MCHC (RBC) [Mass/Vol] 32.9 g/dL Normal 30.5-36.0 [facility] Comment on above: Order Comment: Speci men Type: BLOOD SPECIMENOrdering Facility: [facility] Address: [address] [place] [address] Performed By: #### 5 8410-2 ####[facility] [id number] [place] [address] [place] MCV (RBC) [Entitic vol] 86.8 fL Normal 80.0-100.0 [facility] Comment on above: Order Comment: Speci men Type: BLOOD SPECIMENOrdering Facility: [facility] Address: [address] [place] [address] Performed By: #### 5 8410-2 ####[facility] [id number] [place] [address] [place] Nucleated RBC (Bld) [#/Vol] 10*3/uL Normal <0.01 [facility] Comment on above: Order Comment: Speci men Type: BLOOD SPECIMENOrdering Facility: [facility] Address: [address] [place] [address] Performed By: #### 5 8410-2 ####[facility] [id number] [place] [address] [place] Platelet mean volume (Bld) [Entitic vol] 10.3 fL Normal 9.0-12.7 [facility] Comment on above: Order Comment: Speci men Type: BLOOD SPECIMENOrdering Facility: [facility] Address: [address] [place] [address] Performed By: #### 5 8410-2 ####[facility] [id number] [place] [address] [place] Platelets (Bld) [#/Vol] 333 10*3/uL Normal 150-400 [facility] Comment on above: Order Comment: Speci men Type: BLOOD SPECIMENOrdering Facility: [facility] Address: [address] [place] [address] Performed By: #### 5 8410-2 ####[facility] [id number] [place] [address] [place] RBC (Bld) [#/Vol] 5.08 10*6/uL Normal 3.90-5.20 [facility] Comment on above: Order Comment: Speci men Type: BLOOD SPECIMENOrdering Facility: [facility] Address: [address] [place] [address] Performed By: #### 5 8410-2 ####[facility] [id number] [place] [address] [place] WBC (Bld) [#/Vol] 10.38 10*3/uL Normal 3.70-11.00 [facility] Comment on above: Order Comment: Speci men Type: BLOOD SPECIMENOrdering Facility: [facility] Address: [address] [place] [address] Performed By: #### 5 8410-2 ####[facility] [id number] [address] [place] CNOVon 05-31-2024 CNOV Office Visit (NEALMN ) BRITTNEE MARIE ([id number]) 1975 F Date Time Provider Department 05/31/24 2:00 PM [facility] During your visit today, we recorded the following information about you: Pulse Blood pressure Weight Height 91/minute 129/82 70.5 kg 1.6 m Irma Clark, DIAGNOSTIC ASSISTANT.RECORDS MANAGEMENT ASSOCIATE 05/31/2024 3:22 PM Signed [facility] Neuromuscular Medicine New Patient Evaluation Chief Complaint/Issues: Brittene Marie is a 48 year old female seen in the [facility] for Neuromuscular medicine for: New patient Chest pain HPI: Accompanied by , Chris. A few years ago started to notice occasional heart racing. Heart racing was non-positional, not related to activity or standing. The heart racing is still intermittent. Recently had HR >200s bpm while seated and resting, started to feel dizzy and lightheaded, may see black spots. Her BP was high for her with that episode, something like 150/110 mmHg. Gets heart racing episodes about once per month. About 1 year ago, developed heart burn. Reports the heart burn feels like a pain in the middle of her chest. Reports she also has chest pressure, like someone is sitting on her chest. Describes like a fiery burning sensation. Not correlated with meal times, can wake her up at night. She does have belching with this. She feels like her heart is going to explode from the pain. Sometimes laying on her R side increases her chest pains. Going up stairs causes chest pain. She has never had an Echo or stress test. She did have an EKG in the hospital. In the last 6 months developed new symptoms of stomach swelling. Her stomach swelling comes and goes, not related to the heart pain or racing. Reports she looks 9 months . She had an upper and lower scope done, and was told the only abnormality was a lack of blood flow to her colon. She did have ultrasounds of the belly and MRIs completed. No constipation or diarrhea, but has soft stools. No color change to the stool. No vomiting. No urine changes. No weight loss, has actually gained 25-30 pounds in the last year. She is eating her normal diet, maybe a little more than usual. She went to see Dr. Schmidt at [facility], a GI specialist. He found that her blood flow from her heart was not supplying her colon. Reports GI said they think she has issues with her heart causing her GI issues, or worried about adrenal insufficiency. She had a tilt table test ordered, after which time she was referred her to me. Reports she is always freezing. Sometimes she gets a hot flash, and feels like she walked in fire. Reports about 1 month ago, had a fainting spell at work. She went to the ER, was found to have very low potassium. Reports she had come back from lunch. She was feeling off that morning, having heart burn / chest pain. She was so uncomfortable she wasn't able to eat. She started to feel dizzy, lightheaded, and mild heart racing. She passed out, and remembers waking up in the ER. Unsure how long she was unresponsive, was told she was awake but wasn't aware of her surroundings. No incontinence, no mouth maceration. After coming to, she was confused for some time. Did not remember getting to the hospital. After waking up, had ongoing chest pain and some SOB. [place] extremely fatigued. PMH PAST MEDICAL HISTORY Diagnosis Date Anxiety Bulging disc neck c6 Depression Migraine Pneumothorax, spontaneous, tension Prolapse, disk Neck Scoliosis Neck PAST SURGICAL HISTORY Procedure Laterality Date APPENDECTOMY 04/20/2002 COLONOSCOPY FLX DX W/COLLJ SPEC WHEN PFRMD 05/17/2014 Colonoscopy EGD W/O [facility] SPEC VARICIES INJ 03/11/2024 Dr. Schmidt, [facility]; [place] Grade A erosive esophagitis with bleeding (biopsied), erythematous mucosa in gastric body (biopsied) LIG/TRNSXJ FLP TUBE ABDL/VAG APPR UNI/BI 04/20/1994 Tubal ligation NECK SURGERY HX 08/2021 Harpal -- has hardware in neck OOPHORECTOMY PARTIAL/TOTAL UNI/BI 04/20/2009 Right. Endometriosis noted at that time per patient PAST SURGICAL HISTORY OF 04/20/2003 left lung -Harpal PAST SURGICAL HISTORY OF cervical /lumbar spine pain injections ALLERGIES Allergen Reactions Oxycodone-Acetamino* GI Upset, Hives Darvocet A500 [Prop* Unknown Flexeril [Cyclobenz* GI Upset Tape [Adhesive Tape* Swelling paper tape ok Topiramate GI Upset Social History Tobacco Use Smoking status: Every Day Current packs/day: 0.25 Average packs/day: 0.3 packs/day for 22.0 years (5.5 ttl pk-yrs) Types: Cigarettes Smokeless tobacco: Never Vaping Use Vaping status: Never Used Substance Use Topics Alcohol use: Yes Comment: very rare Drug use: No FAMILY HISTORY Problem Relation Age of Onset No Known Problems Mother no personal ca, but reports cancer runs through that family (? leukemia). No Known (more content not included)... Normal [facility] ECG COMPLETEon 05-31-2024 ECG COMPLETE Ventricular Rate : 7 8 BPM Atrial Rate : 78 BPM P-R Interval : 140 ms QRS Duration : 82 ms Q-T Interval : 412 ms QTC Calculation(Bazett) : 469 ms Calculated P [place] : 60 degrees Calculated R [place] : 28 degrees Calculated T [place] : 50 degrees NORMAL SINUS RHYTHM NORMAL ECG Confirmed by AGNES RODRIGUEZ MD ([id number]) on 06/16/2024 9:27:58 PM NAME : BRITTNEE MARIE PID : [id number] : 1975 Gender : Female Race : ORD : [id number] Procedure Date : May 31 2024 15:45:31 Edit Date : Jun 16 2024 21:28:00 Diagnosis: NORMAL SINUS RHYTHM NORMAL ECG Confirmed by AGNES RODRIGUEZ MD ([id number]) on 06/16/2024 9:27:58 PM Test Reason : Location : [facility] : [facility] Overread By : AGNES RODRIGUEZ MD Edited By : AGNES RODRIGUEZ MD Referred By : IRMA CLARK Acquired by : TODD LEE [facility] Ferritin SerPl-ncon 2024 Ferritin [Mass/Vol] 209.0 ng/mL High 14.7-205.1 [facility] Comment on above: Order Comment: Speci men Type: BLOOD SPECIMENOrdering Facility: [facility] Address: [address] [place] [address] Performed By: #### T COLIN, 47243-4, 6-4 ####[facility] [id number] [place] [address] [place] Iron and Iron binding capaci panelon 05-31-2024 Iron [Mass/Vol] 31 ug/dL Low 41-186 [facility] Comment on above: Order Comment: Speci men Type: BLOOD SPECIMENOrdering Facility: [facility] Address: [address] [place] [address] Performed By: #### T [facility], 86028-4, 6-4 ####[facility] [id number] [place] [address] [place] Iron binding capacity [Mass/Vol] 289 ug/dL Normal 232-386 [facility] Comment on above: Order Comment: Speci men Type: BLOOD SPECIMENOrdering Facility: [facility] Address: [address] [place] [address] Performed By: #### T MARLON, 68523-5, 2276-4 ####[facility] [id number] [place] [address] [place] Iron/TIBC [Molar ratio] 10.7 % Low 15.0-57.0 [facility] Comment on above: Order Comment: Speci men Type: BLOOD SPECIMENOrdering Facility: [facility] Address: [address] [place] [address] Performed By: #### T COLIN, 01142-2, 6-4 ####[facility] [id number] [place] [address] [place] TSH W/REFLEX FT4on TSH Qn 0.883 m[IU]/L Normal 0.270-4.20 0 [facility] Comment on above: Order Comment: Speci renea Type: BLOOD SPECIMENOrdering Facility: [facility] Address: [address] [place] [address] Result Comment: If t he patient is , TSH reference range varies by gestational period: First Trimester (weeks 9-12): 0.180-2.990 mIU/L Second Trimester: 0.110-3.980 mIU/L Third Trimester: 0.480-4.710 mIU/L Miguel Amaya et al. A Practical Approach for the Verifications and Determination of Site- and Trimester-Specific Reference Intervals for Thyroid Function tests in . Thyroid, 2019:29:3:412-420. Art Jaquez, et al. 2017 Guidelines of the [place] Thyroid Association for the Diagnosis and Management of Thyroid Disease during and the . Thyroid, 2017:27:3:315-389. Performed By: #### T MARLON, 01222-1, 6-4 ####[facility] [id number] [place] [id number] [place] CNPKina 05-23-2024 CNPN Telephone ([facility]) BRITTNEE MARIE ([id number]) 1975 F Date Time Provider Department 05/23/24 NEUROLOGY PROVIDER PRINCE During your visit today, we recorded the following information about you: Sho Huertas 05/23/2024 11:22 AM Signed Referral source: Nhan Schmidt DO ([facility]) Reason for visit: POTS eval for dizziness, nausea abnormal tilt table test External records: Sent with referral. Uploaded to chart. Financial clearance: Not required to schedule Allergies As of Date: 05/23/2024 Noted Allergy Reaction OXYCODONE-ACETAMINOPHEN 01/14/2013 8 - GI Upset 4 - Hives DARVOCET A500 (PROPOXYPHENE N-KODY*01/14/2013 16 - Unknown FLEXERIL (CYCLOBENZAPRINE HCL) 01/14/2013 8 - GI Upset TAPE (ADHESIVE TAPE (ROSINS)) 01/14/2013 7 - Swelling Comments: paper tape ok TOPIRAMATE 01/14/2013 8 - GI Upset Date Reviewed: 01/07/2024 Reviewed by: Danya North MA - Fully Assessed Reason for Visit: Received Outside Medical Records [[id number]] Cmt: External referral to [facility] Prescriptions as of 05/23/2024 - GAVILYTE-G 236-22.74-6.74 -5.86 gram suspension TAKE 4000 ML BY MOUTH ONE TIME ONLY FOR 1 DOSE. REFER TO PRINTED PREP INSTRUCTIONS FROM PROVIDER - varenicline (CHANTIX) 1 mg tablet TAKE 1 TABLET BY MOUTH TWICE A DAY WITH FOOD - omeprazole (PRILOSEC) 20 mg capsule Take 1 capsule by mouth daily before breakfast. 1/2 hr before meal. - varenicline (CHANTIX STARTING MONTH BOX) 0.5 mg (11)- 1 mg (42) tablet Take 0.5 mg by mouth once daily on Days 1 through 3, THEN 0.5 mg twice daily on Days 4 through 7, THEN 1 mg twice daily on Day 8 and thereafter - hydrOXYzine HCl (ATARAX) 10 mg tablet Take 1 tablet by mouth three times a day as needed. Problem List As Of Date 05/23/2024 Noted Resolved Neck pain on right side [M54.2] 01/14/2013 Chronic headaches [R51.9, G89.29] 02/23/2013 Depression [F32.A] 02/23/2013 Cervical radiculitis [M54.12] 02/21/2014 Chronic pain [G89.29] 05/10/2014 Screening for colon cancer [Z12.11] 11/26/2023 Encounter Status:Closed by SHO HUERTAS on 05/23/24 Normal [facility] Tilt Tableon 05-18-2024 Tilt Table [facility] [address] [place] [address] 05/18/24 0803 MR#: [id number] Acct: [id number] Name: BRITTNEE MARIE Rep #: [id number] : 1975 48 From: José Manuel Wallace MD Attending Dr: Nhan Schmidt DO Status: REG CL I Ordering Dr: Nhan Schmidt DO Date: 05/18/24 Location: [facility] Sex: F C Admitted: Staff Staff: Elizabeth Ryder and Rae Simmons Summary Pre Test Resting HR: 83 Pre Test Resting BP: 111/69 Minimum Test HR: 83 Maximum Test HR: 130 Minimum Test BP: 0/0 Maximum Test BP: 124/105 Reason for Test Termination: Syncope Physician Tilt Table Report Patient's Physicians Primary Care Physician: Humera Garcia NP Indications/Diagnosis: Altered mental status Procedure Comments: Patient was brought to the noninvasive lab in the postabsorptive state and informed consent was obtained. Initial EKG was obtained demonstrating sinus rhythm with a rate of 83 bpm blood pressure was 111/69 mmHg. The patient was then put into the 70 degree head upright tilt position for 20 minutes continuous EKG monitoring was performed. The initial heart rate went up to 104 bpm. Blood pressures remained stable. After 20 minutes the patient was then put in the recumbent position. Patient had complained of mild dizziness and feeling tired. In the recumbent position the patient was given sublingual nitroglycerin and then put back in the head upright tilt position. Heart rate went up from 106 bpm with a blood pressure 110/80 to a peak of 130 bpm. Patient subsequently became flushed tachycardic symptomatic with heart racing and dropped her blood pressure and needed to be put in the recumbent position. Patient subsequently started feeling better with a heart rate improving to 85 bpm and a blood pressure 109/79 mmHg. No EKG changes were noted. Summary: The above is suggestive of likely orthostatic hypotension exacerbated by nitroglycerin. 05/18/24806 Date José Manuel Wallace MD CC: DIVINE Garcia; Nhan Friend, Date Dictated: 05/18/24802 Date Transcribed: 05/18/24802 Fly Frame Tender: [place] Signed Normal [facility] Adrenocorticotropic Hormoneo n 05-09-2024 ACTH 7.5 pg/mL Normal 7.2-63.3 [facility] Comment on above: Order Comment: 1 Y Result Comment: ACTH reference interval for samples collected between 7 and 10 AM. Performed By: #### L 501.5425, L100.0100, L500.2500 #### [facility] [address] [place], [address] Aldolaseon 05-09-2024 ALDOLASE 5.4 U/L Normal 3.3-10.3 [facility] Comment on above: Order Comment: 1 Y Performed By: #### L 501.5425, L100.0100, L500.2500 #### [facility] [address] [place], [address] Myoglobin, Urineon 5 MYOGLOBIN,URINE 2 ng/mL Normal 0-13 [facility] Comment on above: Order Comment: 1 Y Result Comment: Perf ormed at: - [facility] [id number] [employer]: Panfilo Mclaughlin MD, Phone: [phone] Performed at: [facility] [id number] [employer]: Pablo Cai PhD, Phone: [phone] Performed By: #### L 501.5425, L100.0100, L500.2500 #### [facility] [address] [place], [address] Renin/Aldosterone Activityon 05-09-2024 ALD/RENIN RATIO 1.4 Normal 0.0-30.0 [facility] Comment on above: Order Comment: 1 Y Result Comment: Unit s: ng/dL per ng/mL/hr Performed By: #### L 501.5425, L100.0100, L500.2500 #### [facility] [address] [place], [address] ALDOSTERONE,S 1.1 ng/dL Normal 0.0-30.0 [facility] Comment on above: Order Comment: 1 Y Performed By: #### L 501.5425, L100.0100, L500.2500 #### [facility] [address] [place], [address] RENIN, PLASMA 0.764 ng/mL/hr Normal 0.167-5.[address] [facility] Comment on above: Order Comment: 1 Y Performed By: #### L 501.5425, L100.0100, L500.2500 #### [facility] [address] [place], [address] Basic Metabolic Profile (BMP )on 05-03-2024 BUN/CRE 19.5 RATIO Normal 10-20 [facility] Comment on above: Order Comment: 1 Y Performed By: #### L 501.5425, L100.0100, L500.2500 #### [facility] [address] [place], [address] CA,Total 9.4 mg/dL Normal 8.5-10.1 [facility] Comment on above: Order Comment: 1 Y Performed By: #### L 501.5425, L100.0100, L500.2500 #### [facility] [address] [place], [address] Chloride [Moles/Vol] 112 mmol/L High 98-107 [facility] Comment on above: Order Comment: 1 Y Performed By: #### L 501.5425, L100.0100, L500.2500 #### [facility] [address] [place], [address] CO2 [Moles/Vol] 21.0 mmol/L Normal 21.0-32.0 [facility] Comment on above: Order Comment: 1 Y Performed By: #### L 501.5425, L100.0100, L500.2500 #### [facility] [address] [place], [address] Creatinine [Mass/Vol] 0.66 mg/dL Normal 0.55-1.02 [facility] Comment on above: Order Comment: 1 Y Result Comment: The validity of the calculated GFR GFRAA in patients over 70 years has not been determined. Clinical correlation is essential. Performed By: #### L 501.5425, L100.0100, L500.2500 #### [facility] [address] [place], [address] ECRCL 99.45 ml/min Normal [facility] Comment on above: Order Comment: 1 Y Performed By: #### L 501.5425, L100.0100, L500.2500 #### [facility] [address] [place], [address] EST GFR - AA 121 mL/min Normal >60 [facility] Comment on above: Order Comment: 1 Y Result Comment: Afri can Ethiopian GFR Calc Performed By: #### L 501.5425, L100.0100, L500.2500 #### [facility] [address] [place], [address] GAP 6 Normal 5-15 [facility] Comment on above: Order Comment: 1 Y Performed By: #### L 501.5425, L100.0100, L500.2500 #### [facility] [address] [place], [address] GFR/1.73 sq M.predicted among non-blacks MDRD (S/P/Bld) [Vol rate/Area] 100 mL/min/{1.73_m2} Normal >60 [facility] Comment on above: Order Comment: 1 Y Result Comment: Non- GFR Calc Performed By: #### L 501.5425, L100.0100, L500.2500 #### [facility] [address] [place], [address] Glucose [Mass/Vol] 99 mg/dL Normal 74-106 [facility] Comment on above: Order Comment: 1 Y Performed By: #### L 501.5425, L100.0100, L500.2500 #### [facility] [address] [place], [address] Potassium [Moles/Vol] 3.7 mmol/L Normal 3.5-5.1 [facility] Comment on above: Order Comment: 1 Y Performed By: #### L 501.5425, L100.0100, L500.2500 #### [facility] [address] [place], [address] Sodium [Moles/Vol] 139 mmol/L Normal 136-145 [facility] Comment on above: Order Comment: 1 Y Performed By: #### L 501.5425, L100.0100, L500.2500 #### [facility] [address] [place], [address] Urea nitrogen [Mass/Vol] 13 mg/dL Normal 7-18 [facility] Comment on above: Order Comment: 1 Y Performed By: #### L 501.5425, L100.0100, L500.2500 #### [facility] [address] [place], [address] CBC W/Diff, Automatedon 04-20 Absolute Lymph 3.37 X10 3/uL Normal 0.83-4.51 [facility] Comment on above: Performed By: #### L 501.5425, L100.0100, L500.2500 #### [facility] [address] [place], [address] Absolute Neut 4.3 X10 3/uL Normal 2.0-7.7 [facility] Comment on above: Performed By: #### L 501.5425, L100.0100, L500.2500 #### [facility] [address] [place], [address] Basophils/100 WBC (Bld) 0.6 % Normal 0-1 [facility] Comment on above: Performed By: #### L 501.5425, L100.0100, L500.2500 #### [facility] [address] [place], [address] Eosinophils/100 WBC (Bld) 1.5 % Normal 0-5 [facility] Comment on above: Performed By: #### L 501.5425, L100.0100, L500.2500 #### [facility] [address] [place], [address] Erythrocyte distribution width (RBC) [Ratio] 14.2 % Normal 11.6-14.6 [facility] Comment on above: Performed By: #### L 501.5425, L100.0100, L500.2500 #### [facility] [address] [place], [address] Hematocrit (Bld) [Volume fraction] 43.3 % Normal 37-47 [facility] Comment on above: Performed By: #### L 501.5425, L100.0100, L500.2500 #### [facility] [address] [place], [address] Hemoglobin (Bld) [Mass/Vol] 14.5 g/dL Normal 12.0-15.0 [facility] Comment on above: Performed By: #### L 501.5425, L100.0100, L500.2500 #### [facility] [address] [place], [address] IG% 0.400 Normal 0.0-0.9 [facility] Comment on above: Result Comment: IG% - Immature Granulocytes (promyelocytes, myelocytes and metamyelocytes) > 1% indicates that a LEFT SHIFT is Present. Performed By: #### L 501.5425, L100.0100, L500.2500 #### [facility] [address] [place], [address] Lymphocytes/100 WBC (Bld) 39.8 % Normal 19-41 [facility] Comment on above: Performed By: #### L 501.5425, L100.0100, L500.2500 #### [facility] [address] [place], [address] MCH (RBC) [Entitic mass] 28.3 pg Normal 27.0-32.0 [facility] Comment on above: Performed By: #### L 501.5425, L100.0100, L500.2500 #### [facility] [address] [place], [address] MCHC (RBC) [Mass/Vol] 33.5 g/dL Normal 32-36 [facility] Comment on above: Performed By: #### L 501.5425, L100.0100, L500.2500 #### [facility] [address] [place], [address] MCV (RBC) [Entitic vol] 84.6 fL Normal 81-99 [facility] Comment on above: Performed By: #### L 501.5425, L100.0100, L500.2500 #### [facility] [address] [place], [address] Monocytes/100 WBC (Bld) 6.9 % Normal 0-10 [facility] Comment on above: Performed By: #### L 501.5425, L100.0100, L500.2500 #### [facility] [address] [place], [address] Neutrophils/100 WBC (Bld) 50.8 % Normal 47-70 [facility] Comment on above: Performed By: #### L 501.5425, L100.0100, L500.2500 #### [facility] [address] [place], [address] Nucleated RBC (Bld) [#/Vol] 0 10*3/uL Normal 0-5 [facility] Comment on above: Performed By: #### L 501.5425, L100.0100, L500.2500 #### [facility] [address] [place], [address] Platelet mean volume (Bld) [Entitic vol] 9.1 fL Normal 6.2-12.0 [facility] Comment on above: Performed By: #### L 501.5425, L100.0100, L500.2500 #### [facility] [address] [place], [address] Platelets (Bld) [#/Vol] 313 10*3/uL Normal 150-450 [facility] Comment on above: Performed By: #### L 501.5425, L100.0100, L500.2500 #### [facility] [address] [place], [address] RBC (Bld) [#/Vol] 5.12 10*6/uL Normal 4.2-5.4 [facility] Comment on above: Performed By: #### L 501.5425, L100.0100, L500.2500 #### [facility] [address] [place], [address] RDW SD 43.5 fl Normal 35.1-43.9 [facility] Comment on above: Performed By: #### L 501.5425, L100.0100, L500.2500 #### [facility] [address] [place], [address] WBC (Bld) [#/Vol] 8.5 10*3/uL Normal 4.4-11.0 [facility] Comment on above: Performed By: #### L 501.5425, L100.0100, L500.2500 #### [facility] [address] [place], [address] Chest PA and Lateralon 05-03 Chest PA and Lateral [facility] [address] [place] [address] Chest PA and Lateral MR#: [id number] Acct: [id number] Name: BRITTNEE MARIE Rep #: [id number] : 1975 F 48 From: Andrew beard MD PCP: DIVINE Dempsey Status: PRE ER Study: Chest PA and Lateral Date of Exam: 05/03/24 Exam# [id number] Ordering Dr: Sulaiman Hoffman DO [id number] STUDY: X-RAY CHEST REASON FOR EXAM: Female, 48 years old. Chest pain TECHNIQUE: AP and lateral views of the chest. COMPARISON: Comparison is made with prior study dated April 21, 2024. FINDINGS: EKG electrodes are seen. The lungs are clear and expanded. There is no demonstrated pleural abnormality. Normal size heart. Normal mediastinum and fredrick. Normal visualized pulmonary arteries. Normal visualized aortic arch and descending thoracic aorta. There is demineralization of the osseous structures. Normal visualized ribs, clavicles, and shoulders. There is no demonstrated abnormality of the visualized soft tissue structures of the upper abdomen. RAD/Chest PA and Lateral IMPRESSION: No acute abnormality is present. Electronically Signed: Andrew Addison MD at 10:50 EST Reading Location ID and State: [facility] / ID , Service support , CC: DIVINE Garcia; Dr. Sulaiman Hoffman DO Fly Frame Tender: Signed Normal [facility] Emergency Department Summary on 05-03-2024 Emergency Department Summary [facility] Medical Records Department [address] [place] [address] Emergency Department Summary 05/03/24 MR#: [id number] Acct: [id number] Name: BRITTNEE MARIE Rep #: [id number] : 1975 48 From: Sulaiman Hoffman DO PCP: DIVINE Dempsey Status:DEP ER Location: ED HPI History of Present Illness Chief Complaint: Chest Pain Informant: patient Onset/Context/Timing Onset: Yesterday Activity at onset: gradual Timing: Intermittent Quality: Positive for Sharp and Stabbing Worsened By: Movement of Torso Relieved By: Rest Associated Symptoms: Positive for Nausea, Dyspnea, Lightheadedness and Palpitations; Negative for Vomiting, Diaphoresis, Cough, Fever or Acid Reflux Narrative Narrative: Patient presents with chest pain that began yesterday. Patient states that has been intermittent. Patient states it comes on gradually. Patient describes it as sharp and stabbing. Patient states it is over the lower substernal area and left parasternal area. Patient states it is worse with certain movements. Patient states it is better with rest. Patient admits to some nausea but denies any vomiting. Patient admits to some shortness of breath but denies any cough or fever. Patient admits to some lightheadedness and palpitations where she felt like her heart was racing. Patient states that she had an episode at home where her heart rate went up to 202. CVD Risk Factors: Positive for Smoking; Negative for Hypertension, Diabetes, Hypercholesterolemia or Family History 1' PE Risk Factors: Negative for Recent Travel/Surgery, Recent Immobilization, Prior DVT or PE, Cancer or OCP + Smoking + >/=35 PFSH PFSH Medical History Wears dentures Depression Anxiety Low iron History of Crohn's disease Heartburn Gastric reflux Smoker Post-menopausal Endometriosis Home Medications ???Medication ???Instructions ???Recorded ???Last Taken ???Type acetaminophen 325 mg tablet 1 - 2 tab PO Q4H PRN PRN Pain 04/05/14 Unknown History (Tylenol) omeprazole 40 mg capsule,delayed 40 mg PO BID #60 caps 01/20/24 Unknown Rx release budesonide 9 mg tablet,delayed and 9 mg PO QAM #30 ea 02/04/24 Unknown Rx extended release hyoscyamine sulfate 0.125 mg 0.125 mg PO BID-QID PRN dyspepsia 03/23/24 Unknown Rx sublingual tablet #80 tabs mesalamine 1.2 gram tablet,delayed 2.4 g (2 x 1.2 gram) PO QDAY 8 03/24/24 Unknown Rx release weeks #112 tabs ondansetron 4 mg disintegrating 4 mg PO Q8H PRN PRN Nausea #10 tabs 04/21/24 Unknown Rx tablet potassium chloride 10 mEq 20 meq (2 x 10 mEq) PO DAILY #10 04/21/24 Unknown Rx capsule,extended release caps meclizine 25 mg tablet 25 mg PO BID PRN dizziness #30 tabs 05/02/24 Unknown Rx Allergy/AdvReac Type Severity Reaction Status Date / Time iodine AdvReac Upset Verified 05/03/24 09:33 Stomach Surgical History History of lung surgery History of tubal ligation History of appendectomy S/P cervical disc replacement Social History household members: spouse and children housing: house current occupational status: employed Smoking Status: Current every day smoker tobacco type: cigarettes ROS ROS ED Constitutional Constitutional ED: Denies chills or fever(s) Eyes Eyes: Denies blurry vision or change in vision ENT ENT ED: Denies rhinorrhea or sore throat Cardiovascular Cardiovascular: Reports chest pain, palpitations and racing heartbeat Respiratory/Chest Respiratory/Chest: Reports dyspnea; Denies cough Gastrointestinal Gastrointestinal: Reports nausea; Denies vomiting Genitourinary Genitourinary ED: Denies dysuria or hematuria Musculoskeletal Musculoskeletal: Reports back pain; Denies neck pain Integumentary Denies abscess or rash Neurologic Neurologic: Denies headache(s) or weakness Allergic/Immunologic Allergic/Immunologic ED: Denies mouth swelling or urticaria EXAM Physical Exam Const Vital Signs: 05/03/24 09:32 05/03/24 09:47 05/03/24 10:25 Temperature 98 F Temperature Source Temporal Pulse Rate 89 82 Respiratory Rate 14 16 Respiratory Effort Normal Non-Labored Respiratory Pattern Normal Blood Pressure 124/86 H 124/83 H Blood Pressure Mean 98 96 Pulse Ox 99 98 Oxygen Delivery Method Room Air Room Air Positive well nourished and well developed General Appearance ED: well developed and NAD HEENT Reports moist mucous membranes Neck supple and no JVD Resp normal respiratory effort and clear to auscultation bilaterally Cardio regular rate and regular rhythm GI soft to palpation, non-tender and non-distended Extremity normal to inspection General (more content not included)... Normal [facility] L501.4020on 05-03-2024 TROPONIN-I HS 8 pg/mL Normal 3.0-54.0 [facility] Comment on above: Result Comment: Plea se Note: New Test Units and Gender Specific Reference Ranges. For more information see Policy Stat Procedure [place] High Sensitivity Troponin (TNIH) and attachments. Performed By: #### L 501.4020 #### [facility] [address] [place], [address] L501.5425on 05-03-2024 TROPONIN-I HS 8 pg/mL Normal 3.0-54.0 [facility] Comment on above: Order Comment: 1 Y Result Comment: Plea se Note: New Test Units and Gender Specific Reference Ranges. For more information see Policy Stat Procedure [place] High Sensitivity Troponin (TNIH) and attachments. Performed By: #### L 501.5425, L100.0100, L500.2500 #### [facility] [address] [place] [place], [address] L3410.9999on 04-27-2024 [facility]. COMMENT Normal . [facility] Comment on above: Order Comment: [id number] STOOL ELECTROLYTES Result Comment: Test Ordered: [id number] Electrolytes, Fecal Sodium, Stool 44 mmol/L Y8 Reference Range: . INTERPRETIVE INFORMATION: Fecal Sodium A reference interval has not been established for fecal specimens. This test was developed and its performance characteristics determined by [facility]. It has not been cleared or approved by the [place] Food and Drug Administration. This test was performed in a CLIA certified laboratory and is intended for clinical purposes. Potassium, Stool 89 mmol/L Y8 Reference Range: . INTERPRETIVE INFORMATION: Fecal Potassium A reference interval has not been established for fecal specimens. This test was developed and its performance characteristics determined by [facility]. It has not been cleared or approved by the [place] Food and Drug Administration. This test was performed in a CLIA certified laboratory and is intended for clinical purposes. Chloride, Stool 30 mmol/L Y8 Reference Range: . INTERPRETIVE INFORMATION: Fecal Chloride A reference interval has not been established for fecal specimens. This test was developed and its performance characteristics determined by [facility]. It has not been cleared or approved by the [place] Food and Drug Administration. This test was performed in a CLIA certified laboratory and is intended for clinical purposes. Performed at: Y - [facility] [address] [id number] [employer]: Bryn Nieves [facility], Phone: [phone] Performed at: [facility] [id number] [employer]: Pablo Cai PhD, Phone: [phone] Performed By: #### L 3410.9999 #### [facility] [address] [place], [address] CORTISOL SERUMon 04-25-2024 CORTISOL 9.40 ug/dL Normal 3.44-22.45 [facility] Comment on above: Result Comment: Adul t (AM) 5.27 - 22.45 ug/dL Adult (PM) 3.44 - 16.76 ug/dL Performed By: #### L 501.5425, L100.0100, L500.2500 #### [facility] [address] [facility] [place], [address] CPK Total, Creatine Kinaseon 04-23-2024 CPK TOTAL 68 U/L Normal 26-192 [facility] Comment on above: Performed By: #### L 500.9400, L501.7400, L3600.5000, L3100.7000, L501.3620, L3300.1000, L501.5200, L509.6000, L3300.1050, L501.9985, L500.4050 #### [facility] [address] [place], [address] Comprehensive Metabolic Prof ilon 04-23-2024 Albumin [Mass/Vol] 3.6 g/dL Normal 3.2-5.0 [facility] Comment on above: Performed By: #### L 500.9400, L501.7400, L3600.5000, L3100.7000, L501.3620, L3300.1000, L501.5200, L509.6000, L3300.1050, L501.9985, L500.4050 #### [facility] [address] [place], [address] Albumin/Globulin [Mass ratio] 1.0 {ratio} Normal 0.9-2.4 [facility] Comment on above: Performed By: #### L 500.9400, L501.7400, L3600.5000, L3100.7000, L501.3620, L3300.1000, L501.5200, L509.6000, L3300.1050, L501.9985, L500.4050 #### [facility] [address] [place], [address] ALK P 104 U/L Normal 45-117 [facility] Comment on above: Performed By: #### L 500.9400, L501.7400, L3600.5000, L3100.7000, L501.3620, L3300.1000, L501.5200, L509.6000, L3300.1050, L501.9985, L500.4050 #### [facility] [address] [place], [address] ALT [Catalytic activity/Vol] 19 U/L Normal 13-56 [facility] Comment on above: Performed By: #### L 500.9400, L501.7400, L3600.5000, L3100.7000, L501.3620, L3300.1000, L501.5200, L509.6000, L3300.1050, L501.9985, L500.4050 #### [facility] [address] [facility] [place], [address] AST [Catalytic activity/Vol] 13 U/L Low 15-37 [facility] Comment on above: Performed By: #### L 500.9400, L501.7400, L3600.5000, L3100.7000, L501.3620, L3300.1000, L501.5200, L509.6000, L3300.1050, L501.9985, L500.4050 #### [facility] [address] [facility] [place], [address] Bilirubin [Mass/Vol] 0.30 mg/dL Normal 0.20-1.00 [facility] Comment on above: Result Comment: For patients on eltrombopag therapy, use of Dimension [place] TBIL is not recommended. Performed By: #### L 500.9400, L501.7400, L3600.5000, L3100.7000, L501.3620, L3300.1000, L501.5200, L509.6000, L3300.1050, L501.9985, L500.4050 #### [facility] [address] [place], [address] BUN/CRE 15.4 RATIO Normal 10-20 [facility] Comment on above: Performed By: #### L 500.9400, L501.7400, L3600.5000, L3100.7000, L501.3620, L3300.1000, L501.5200, L509.6000, L3300.1050, L501.9985, L500.4050 #### [facility] [address] [place], [address] CA,Total 9.1 mg/dL Normal 8.5-10.1 [facility] Comment on above: Performed By: #### L 500.9400, L501.7400, L3600.5000, L3100.7000, L501.3620, L3300.1000, L501.5200, L509.6000, L3300.1050, L501.9985, L500.4050 #### [facility] [address] [facility] [address] [place], [place], [phone] ([phone] Chloride [Moles/Vol] 111 mmol/L High 98-107 [facility] Comment on above: Performed By: #### L 500.9400, L501.7400, L3600.5000, L3100.7000, L501.3620, L3300.1000, L501.5200, L509.6000, L3300.1050, L501.9985, L500.4050 #### [facility] [address] [facility] [place], [place], [phone] ([phone]) CO2 [Moles/Vol] 24.0 mmol/L Normal 21.0-32.0 [facility] Comment on above: Performed By: #### L 500.9400, L501.7400, L3600.5000, L3100.7000, L501.3620, L3300.1000, L501.5200, L509.6000, L3300.1050, L501.9985, L500.4050 #### [facility] [address] [place], [address] Creatinine [Mass/Vol] 0.72 mg/dL Normal 0.55-1.02 [facility] Comment on above: Result Comment: The validity of the calculated GFR GFRAA in patients over 70 years has not been determined. Clinical correlation is essential. Performed By: #### L 500.9400, L501.7400, L3600.5000, L3100.7000, L501.3620, L3300.1000, L501.5200, L509.6000, L3300.1050, L501.9985, L500.4050 #### [facility] [address] [place], [place], [phone] EST GFR - AA 111 mL/min Normal >60 [facility] Comment on above: Result Comment: Afri can Ethiopian GFR Calc Performed By: #### L 500.9400, L501.7400, L3600.5000, L3100.7000, L501.3620, L3300.1000, L501.5200, L509.6000, L3300.1050, L501.9985, L500.4050 #### [facility] [address] [place], [address] GAP 5 Normal 5-15 [facility] Comment on above: Performed By: #### L 500.9400, L501.7400, L3600.5000, L3100.7000, L501.3620, L3300.1000, L501.5200, L509.6000, L3300.1050, L501.9985, L500.4050 #### [facility] [address] [place], [place], [phone] GFR/1.73 sq M.predicted among non-blacks MDRD (S/P/Bld) [Vol rate/Area] 92 mL/min/{1.73_m2} Normal >60 [facility] Comment on above: Result Comment: Non- GFR Calc Performed By: #### L 500.9400, L501.7400, L3600.5000, L3100.7000, L501.3620, L3300.1000, L501.5200, L509.6000, L3300.1050, L501.9985, L500.4050 #### [facility] [address] [place], [address] Globulin (S) [Mass/Vol] 3.7 g/dL Normal 2.2-4.2 [facility] Comment on above: Performed By: #### L 500.9400, L501.7400, L3600.5000, L3100.7000, L501.3620, L3300.1000, L501.5200, L509.6000, L3300.1050, L501.9985, L500.4050 #### [facility] [address] [place], [address] Glucose [Mass/Vol] 98 mg/dL Normal 74-106 [facility] Comment on above: Performed By: #### L 500.9400, L501.7400, L3600.5000, L3100.7000, L501.3620, L3300.1000, L501.5200, L509.6000, L3300.1050, L501.9985, L500.4050 #### [facility] [address] [place], [address] Potassium [Moles/Vol] 3.6 mmol/L Normal 3.5-5.1 [facility] Comment on above: Performed By: #### L 500.9400, L501.7400, L3600.5000, L3100.7000, L501.3620, L3300.1000, L501.5200, L509.6000, L3300.1050, L501.9985, L500.4050 #### [facility] [address] [place], [address] Sodium [Moles/Vol] 140 mmol/L Normal 136-145 [facility] Comment on above: Performed By: #### L 500.9400, L501.7400, L3600.5000, L3100.7000, L501.3620, L3300.1000, L501.5200, L509.6000, L3300.1050, L501.9985, L500.4050 #### [facility] [address] [place], [address] T PROT 7.3 g/dL Normal 6.4-8.2 [facility] Comment on above: Performed By: #### L 500.9400, L501.7400, L3600.5000, L3100.7000, L501.3620, L3300.1000, L501.5200, L509.6000, L3300.1050, L501.9985, L500.4050 #### [facility] [address] [place], [address] Urea nitrogen [Mass/Vol] 11 mg/dL Normal 7-18 [facility] Comment on above: Performed By: #### L 500.9400, L501.7400, L3600.5000, L3100.7000, L501.3620, L3300.1000, L501.5200, L509.6000, L3300.1050, L501.9985, L500.4050 #### [facility] [address] [place], [address] Hemoglobin A1con 04-23-2024 HbA1c (Bld) [Mass fraction] 5.4 % Normal 3.8-5.6 [facility] Comment on above: Result Comment: Norm al < 5.7 % Prediabetic 5.7 - 6.4 % Diabetic >or= 6.5 % Please note range changes. Performed By: #### L 501.5425, L100.0100, L500.2500 #### [facility] [address] [place], [address] Magnesiumon 04-23-2024 Magnesium [Mass/Vol] 2.1 mg/dL Normal 1.6-2.6 [facility] Comment on above: Performed By: #### L 501.5425, L100.0100, L500.2500 #### [facility] [address] [place], [place], [id number] Osmolality, Urineon 04-23-19 25 OSMOLALITY,UR 623 mOsm/KG Normal [facility] Comment on above: Result Comment: Normal Urine Reference Ranges Random: 50 - 1200 mOsm/kg H20 depending on fluid intake Random: >850 mOsm/kg after 12 hour fluid restriction 24 hour: 300 - 900 mOsm/kg H2O Performed By: #### L 501.5425, L100.0100, L500.2500 #### [facility] [address] [facility] [place], [address] Urine Electrolytes- Randomon 04-23-2024 Sodium (U) [Moles/Vol] 106 mmol/L Normal Not Establ. [facility] Comment on above: Performed By: #### L 500.9400, L501.7400, L3600.5000, L3100.7000, L501.3620, L3300.1000, L501.5200, L509.6000, L3300.1050, L501.9985, L500.4050 #### [facility] [address] [place], [place], [id number] UR CL 154 mmol/L Normal Not Establ. [facility] Comment on above: Performed By: #### L 500.9400, L501.7400, L3600.5000, L3100.7000, L501.3620, L3300.1000, L501.5200, L509.6000, L3300.1050, L501.9985, L500.4050 #### [facility] [address] [place], [address] UR K 30.0 mmol/L Normal Not Establ. [facility] Comment on above: Performed By: #### L 500.9400, L501.7400, L3600.5000, L3100.7000, L501.3620, L3300.1000, L501.5200, L509.6000, L3300.1050, L501.9985, L500.4050 #### [facility] [address] [facility] [place], [address] Gastroenterology Visit Repor ton 04-22-2024 Gastroenterology Visit Report [facility] Gastroenterology [address] [place] [address] OFFICE VISIT Date of Service: 04/22/24 MR#: [id number] Acct: [id number] Name: BRITTNEE MARIE Rep #: [id number] : 1975 Provider: Nhan Schmidt DO Age/Sex: 48/F Location: [facility] [place] Status: Signed Intake Vital Signs 01/08/24 10:14 03/23/24 10:39 04/21/24 16:10 Height 5 ft 3 in 5 ft 3 in 5 ft 3 in Intake Visit Reasons: 3 M FU Allergies iodine Adverse Reaction (Verified 04/21/24 16:18) Upset Stomach Medications ???Medication ???Instructions ???Recorded ???Confirmed ???Type acetaminophen 325 mg tablet 1 - 2 tab PO Q4H PRN PRN Pain 04/05/14 04/22/24 History (Tylenol) omeprazole 40 mg capsule,delayed 40 mg PO BID #60 caps 01/20/24 04/22/24 Rx release budesonide 9 mg tablet,delayed and 9 mg PO QAM #30 ea 02/04/24 04/22/24 Rx extended release hyoscyamine sulfate 0.125 mg 0.125 mg PO BID-QID PRN dyspepsia 03/23/24 04/22/24 Rx sublingual tablet #80 tabs mesalamine 1.2 gram tablet,delayed 2.4 g (2 x 1.2 gram) PO QDAY 8 03/24/24 04/22/24 Rx release weeks #112 tabs ondansetron 4 mg disintegrating 4 mg PO Q8H PRN PRN Nausea #10 tabs 04/21/24 04/22/24 Rx tablet potassium chloride 10 mEq 20 meq (2 x 10 mEq) PO DAILY #10 04/21/24 04/22/24 Rx capsule,extended release caps PFSH Medical History Wears dentures Depression Anxiety Low iron History of Crohn's disease Heartburn Gastric reflux Smoker Post-menopausal Endometriosis Surgical History History of lung surgery History of tubal ligation History of appendectomy S/P cervical disc replacement Social History household members: spouse and children housing: house current occupational status: employed Smoking Status: Current every day smoker tobacco type: cigarettes HPI HPI Details: BRITTNEE MARIE, is a 48 F who presents to the office today for follow up. EGD and Colonoscopy 03.11.24 EGD LA Grade A erosive esophagitis with bleeding. Biopsied. Erythematous mucosa in the gastric body. Biopsied. No gross lesions in the first portion of the duodenum. Colonoscopy One 7 mm polyp in the sigmoid colon, removed with a jumbo cold forceps. Resected and retrieved. Congested mucosa in the recto-sigmoid colon, in the sigmoid colon, in the descending colon and at the splenic flexure. Biopsied. Patchy moderate inflammation was found in the recto-sigmoid colon, in the sigmoid colon and in the descending colon secondary to colitis. Biopsied. The examined portion of the ileum was normal. Biopsied. OV 12..24 Pt is here today to review results of her scopes and blood work up. She has been doing ok. She does continue to have issues with abdominal pain. She has tried hyoscyamine with some relief. Pill Cam 03.28.24 possible ulcer in the jejunum. Non specific inflammation in the small bowel. Increased transit time from the stomach to colon. [facility] ED 1.2.25 Alt LOC OV 1.3.25 pt reports she went to the ER yesterday for Alt LOC. States she was at work, became dizzy, put her head down on her desk, and then woke up in the ER. Pt reports occasional nausea with HB. Reports sharp lower abd pain that is occasional worsened by eating and not alleviated with a bm. Pt reports a daily bm; denies blood in the stool. ROS Const Constitutional: Positive for fatigue; No fever(s) or weight change ENT ENT: No difficulty swallowing Gastro GI: Positive for abdominal pain, bloating, heartburn, excessive flatus and nausea/dyspepsia; No belching, change in bowel habits, change in stool character, coffee ground emesis, constipation, cramping, diarrhea, difficulty swallowing, feeling full early, incontinent of stools, Vomiting blood/hematemesis, Blood in stool, loose stools, Black,tarry stools, pain with swallowing, vomiting or other Musc Musculoskeletal: Positive for back pain, muscle cramps and muscle weakness; No joint pain Skin Skin: No yellowing of the eye or itchy eyes Psych Psychiatric: Positive for anxiety and No depression Endo Endocrine: Positive for fatigue; No weight change Aller/Imm Allergy/Immunologic: No itchy eyes Felipe/Lymp Hematologic/Lymphatic: Positive for easy bruising; No easy bleeding Exam Const General: cooperative and comfortable Nutritional Appearance: average body habitus and well nourished HENMT Head: normal to inspection Ears: hearing grossly normal bilaterally Nose: external nose normal Face and sinus: normal facial exam Eyes General: appearance normal, both eyes and all related structures Neck Neck: normal visual inspection Chest Chest palpation inspection: normal inspection of the c (more content not included)... Normal [facility] 12 Lead EKGon 04-21-2024 12 Lead EKG [facility] Cardiovascular Services [address] [place] [address] 12 Lead EKG 04/21/24 1632 MR#: [id number] Acct: [id number] Name: BRITTNEE MARIE Rep #: [id number] : 1975 48 From: José Manuel Wallace MD Attending Dr: Status: DEP ER Ordering Dr: Shaye Dye DO Date: 04/21/24 Location: ED Sex: F C Admitted: Test Reason : CHEST PAIN Blood Pressure : */* mmHG Vent. Rate : 88 BPM Atrial Rate : 88 BPM P-R Int : 138 ms QRS Dur : 94 ms QT Int : 392 ms P-R-T Axes : 61 36 59 degrees QTcB Int : 474 ms Poor data quality, interpretation may be adversely affected Normal sinus rhythm Normal ECG Confirmed by JOSÉ MANUEL WALLACE MD ([id number]), news video editor RAE SIMMONS ([id number]) on 04/22/2024 8:25:26 AM Referred By: Confirmed By: JOSÉ MANUEL WALLACE MD 04/22/24 0825 Date José Manuel Wallace MD CC: VP TREASURER-C Humera Garcia; Dr. Shaye Dye DO Signed Normal [facility] Abdomen/Pelvis without Conto n 04-21-2024 Abdomen/Pelvis without Cont [facility] Imaging Services [address] [place], [place] [address] Abdomen/Pelvis without Cont MR#: [id number] Acct: [id number] Name: BRITTNEE MARIE Rep #: [id number] : 1975 F 48 From: Corona Alicia MD PCP: DIVINE Dempsey Status: REG ER Study: Abdomen/Pelvis without Cont Date of Exam: 06/14 Exam# [id number] Ordering Dr: Shaye Dye DO [id number] EXAM: CT ABDOMEN AND PELVIS WITHOUT INTRAVENOUS CONTRAST CLINICAL INDICATION: nausea and vomiting TECHNIQUE: Helically acquired images were obtained of the abdomen and pelvis without intravenous contrast. This CT exam was performed using one or more of the following dose reduction techniques: automated exposure control, adjustment of the mA and/or kV according to patient size, and/or use of iterative reconstruction technique. COMPARISON: 01/08/2024 FINDINGS: LOWER THORAX: Unremarkable. Lung bases are clear. No cardiomegaly. No significant pericardial effusion. ABDOMEN: LIVER: Unremarkable. Homogeneous. GALLBLADDER AND BILE DUCTS: Unremarkable. No calcified gallstones. No gallbladder distention or wall edema. No intra- or extrahepatic biliary ductal dilation. PANCREAS: Unremarkable. No focal cystic mass. SPLEEN: Unremarkable. Normal size without focal cystic or solid mass. ADRENALS: Unremarkable. No nodules. KIDNEYS AND URETERS: Unremarkable. Normal renal size and position. No hydronephrosis. STOMACH AND BOWEL: Unremarkable. No stomach or bowel distention. No focal inflammatory change. PELVIS: APPENDIX: No evidence of acute appendicitis. BLADDER: Unremarkable. REPRODUCTIVE: Unremarkable as visualized. No mass. ABDOMEN and PELVIS: INTRAPERITONEAL SPACE: Unremarkable. No ascites or other fluid collection. No free air. BONES/JOINTS: Unremarkable. No suspicious lytic or blastic abnormality. SOFT TISSUES: Unremarkable. No discrete abdominal or pelvic wall hernia. VASCULATURE: Unremarkable. Abdominal aorta is non-dilated. LYMPH NODES: Unremarkable. No enlarged lymph nodes. TUBES, LINES AND DEVICES: There is an intrauterine device in place. CT/Abdomen/Pelvis without Cont IMPRESSION: No acute findings in the abdomen or pelvis. Electronically Signed: Corona Alicia MD at 19:25 EST , CC: DIVINE Garcia; Dr. Shaye Dye DO Fly Frame Tender: Signed Normal [facility] Basic Metabolic Profile (BMP )on 04-21-2024 BUN/CRE 15.5 RATIO Normal 10-20 [facility] Comment on above: Performed By: #### L 501.5425, L100.0100, L500.2500 #### [facility] [address] [place], [address] CA,Total 9.1 mg/dL Normal 8.5-10.1 [facility] Comment on above: Performed By: #### L 501.5425, L100.0100, L500.2500 #### [facility] [address] [place], [address] Chloride [Moles/Vol] 107 mmol/L Normal 98-107 [facility] Comment on above: Performed By: #### L 501.5425, L100.0100, L500.2500 #### [facility] [address] [place], [address] CO2 [Moles/Vol] 26.0 mmol/L Normal 21.0-32.0 [facility] Comment on above: Performed By: #### L 501.5425, L100.0100, L500.2500 #### [facility] [address] [place], [address] Creatinine [Mass/Vol] 0.77 mg/dL Normal 0.55-1.02 [facility] Comment on above: Result Comment: The validity of the calculated GFR GFRAA in patients over 70 years has not been determined. Clinical correlation is essential. Performed By: #### L 501.5425, L100.0100, L500.2500 #### [facility] [address] [place], [address] ECRCL 84.42 ml/min Normal [facility] Comment on above: Performed By: #### L 501.5425, L100.0100, L500.2500 #### [facility] [address] [place], [address] EST GFR - AA 102 mL/min Normal >60 [facility] Comment on above: Result Comment: Afri can Ethiopian GFR Calc Performed By: #### L 501.5425, L100.0100, L500.2500 #### [facility] [address] [place], [address] GAP 7 Normal 5-15 [facility] Comment on above: Performed By: #### L 501.5425, L100.0100, L500.2500 #### [facility] [address] [place], [address] GFR/1.73 sq M.predicted among non-blacks MDRD (S/P/Bld) [Vol rate/Area] 84 mL/min/{1.73_m2} Normal >60 [facility] Comment on above: Result Comment: Non- GFR Calc Performed By: #### L 501.5425, L100.0100, L500.2500 #### [facility] [address] [place], [address] Glucose [Mass/Vol] 107 mg/dL High 74-106 [facility] Comment on above: Result Comment: Fast ing Glucose result from 100 to 125 mg/dL suggests IMPAIRED HOMEOSTASIS per A.D.A. criteria. Performed By: #### L 501.5425, L100.0100, L500.2500 #### [facility] [address] [place], [address] Potassium [Moles/Vol] 2.7 mmol/L Invalid Interpretation Code 3.5-5.1 [facility] Comment on above: Result Comment: Crit ical Result(s) Called at: 17:34:40 04/21/2024 by: LEON GRIJALVA. Results read back by Christine Carrasco Performed By: #### L 501.5425, L100.0100, L500.2500 #### [facility] [address] [place], [address] Sodium [Moles/Vol] 140 mmol/L Normal 136-145 [facility] Comment on above: Performed By: #### L 501.5425, L100.0100, L500.2500 #### [facility] [address] [place], [address] Urea nitrogen [Mass/Vol] 12 mg/dL Normal 7-18 [facility] Comment on above: Performed By: #### L 501.5425, L100.0100, L500.2500 #### [facility] [address] [place], [address] CBC W/Diff, Automatedon -0 Absolute Lymph 4.06 X10 3/uL Normal 0.83-4.51 [facility] Comment on above: Performed By: #### L 501.5425, L100.0100, L500.2500 #### [facility] [address] [place], [address] Absolute Neut 6.9 X10 3/uL Normal 2.0-7.7 [facility] Comment on above: Performed By: #### L 501.5425, L100.0100, L500.2500 #### [facility] [address] [place], [address] Basophils/100 WBC (Bld) 0.6 % Normal 0-1 [facility] Comment on above: Performed By: #### L 501.5425, L100.0100, L500.2500 #### [facility] [address] [place], [address] Eosinophils/100 WBC (Bld) 1.7 % Normal 0-5 [facility] Comment on above: Performed By: #### L 501.5425, L100.0100, L500.2500 #### [facility] [address] [place], [address] Erythrocyte distribution width (RBC) [Ratio] 14.6 % Normal 11.6-14.6 [facility] Comment on above: Performed By: #### L 501.5425, L100.0100, L500.2500 #### [facility] [address] [place], [address] Hematocrit (Bld) [Volume fraction] 42.4 % Normal 37-47 [facility] Comment on above: Performed By: #### L 501.5425, L100.0100, L500.2500 #### [facility] [address] [place], [address] Hemoglobin (Bld) [Mass/Vol] 14.0 g/dL Normal 12.0-15.0 [facility] Comment on above: Performed By: #### L 501.5425, L100.0100, L500.2500 #### [facility] [address] [place], [address] IG% 0.300 Normal 0.0-0.9 [facility] Comment on above: Result Comment: IG% - Immature Granulocytes (promyelocytes, myelocytes and metamyelocytes) > 1% indicates that a LEFT SHIFT is Present. Performed By: #### L 501.5425, L100.0100, L500.2500 #### [facility] [address] [place], [address] Lymphocytes/100 WBC (Bld) 33.7 % Normal 19-41 [facility] Comment on above: Performed By: #### L 501.5425, L100.0100, L500.2500 #### [facility] [address] [place], [address] MCH (RBC) [Entitic mass] 28.2 pg Normal 27.0-32.0 [facility] Comment on above: Performed By: #### L 501.5425, L100.0100, L500.2500 #### [facility] [address] [place], [address] MCHC (RBC) [Mass/Vol] 33.0 g/dL Normal 32-36 [facility] Comment on above: Performed By: #### L 501.5425, L100.0100, L500.2500 #### [facility] [address] [place], [address] MCV (RBC) [Entitic vol] 85.5 fL Normal 81-99 [facility] Comment on above: Performed By: #### L 501.5425, L100.0100, L500.2500 #### [facility] [address] [place], [address] Monocytes/100 WBC (Bld) 5.9 % Normal 0-10 [facility] Comment on above: Performed By: #### L 501.5425, L100.0100, L500.2500 #### [facility] [address] [place], [address] Neutrophils/100 WBC (Bld) 57.8 % Normal 47-70 [facility] Comment on above: Performed By: #### L 501.5425, L100.0100, L500.2500 #### [facility] [address] [place], [address] Nucleated RBC (Bld) [#/Vol] 0 10*3/uL Normal 0-5 [facility] Comment on above: Performed By: #### L 501.5425, L100.0100, L500.2500 #### [facility] [address] [place], [address] Platelet mean volume (Bld) [Entitic vol] 9.3 fL Normal 6.2-12.0 [facility] Comment on above: Performed By: #### L 501.5425, L100.0100, L500.2500 #### [facility] [address] [place], [address] Platelets (Bld) [#/Vol] 325 10*3/uL Normal 150-450 [facility] Comment on above: Performed By: #### L 501.5425, L100.0100, L500.2500 #### [facility] [address] [place], [address] RBC (Bld) [#/Vol] 4.96 10*6/uL Normal 4.2-5.4 [facility] Comment on above: Performed By: #### L 501.5425, L100.0100, L500.2500 #### [facility] [address] [place], [address] RDW SD 44.6 fl High 35.1-43.9 [facility] Comment on above: Performed By: #### L 501.5425, L100.0100, L500.2500 #### [facility] [address] [place], [address] WBC (Bld) [#/Vol] 12.0 10*3/uL High 4.4-11.0 [facility] Comment on above: Performed By: #### L 501.5425, L100.0100, L500.2500 #### [facility] [address] [place], [address] Chest PA and Lateralon 04-21 Chest PA and Lateral [facility] Imaging Services [address] [place] [address] Chest PA and Lateral MR#: [id number] Acct: [id number] Name: BRITTNEE MARIE Rep #: [id number] : 1975 F 48 From: Corona Alicia MD PCP: DIVINE Dempsey Status: REG ER Study: Chest PA and Lateral Date of Exam: 04/21/24 Exam# [id number] Ordering Dr: Shaye Dye DO [id number] EXAM: XR CHEST, 2 VIEWS CLINICAL INDICATION: vomiting, weakness, sycope TECHNIQUE: Frontal and lateral views of the chest. COMPARISON: 04/05/2014 FINDINGS: LUNGS AND PLEURAL SPACES: Unremarkable. No consolidation or edema. No pneumothorax. No effusion. HEART: Unremarkable. Cardiac silhouette not enlarged. MEDIASTINUM: Central airways and mediastinal contour are unremarkable. BONES/JOINTS: Unremarkable. No acute fracture. SOFT TISSUES: Unremarkable. RAD/Chest PA and Lateral IMPRESSION: No radiographic evidence of acute cardiopulmonary disease. Electronically Signed: Corona Alicia MD at 19:54 EST , CC: DIVINE Garcia; Dr. Shaye Dye DO Fly Frame Tender: Signed Normal [facility] Emergency Department Summary on 04-21-2024 Emergency Department Summary [facility] Medical Records Department [address] [place] [address] Emergency Department Summary 04/21/24 MR#: [id number] Acct: [id number] Name: BRITTNEE MARIE Rep #: [id number] : 1975 48 From: Shaye Dye DO PCP: DIVINE Dempsey Status:DEP ER Location: ED HPI History of Present Illness Chief Complaint: Alt LOC Informant: patient Narrative Narrative: Patient is a 48-year-old female with history of interval bowel syndrome, small intestine bacterial overgrowth and ischemic colitis presenting for episode of altered mental status/near syncope. Patient was talking to her work friend when she suddenly felt very weak and just seemed out of it. She is complaining of bodyaches, headache and generally not feeling good. She started having nausea and vomiting. She questionably passed out for couple seconds. Patient was transferred to the emergency room but does not remember getting here. She has had multiple episodes of vomiting. She denies any abdominal pain. She states her last bowel movement was last night. She does have some associated chest pain. She has been coughing as well. Has been around her grandchildren who have been sick. No fevers reported. [facility] Medical History Wears dentures Depression Anxiety Low iron History of Crohn's disease Heartburn Gastric reflux Smoker Post-menopausal Endometriosis Home Medications ???Medication ???Instructions ???Recorded ???Last Taken ???Type acetaminophen 325 mg tablet 1 - 2 tab PO Q4H PRN PRN Pain 04/05/14 Unknown History (Tylenol) omeprazole 40 mg capsule,delayed 40 mg PO BID #60 caps 01/20/24 Unknown Rx release phenobarbital 16.2 mg tablet 16.2 mg PO Q6H #80 tabs 01/21/24 Unknown Rx budesonide 9 mg tablet,delayed and 9 mg PO QAM #30 ea 02/04/24 Unknown Rx extended release hyoscyamine sulfate 0.125 mg 0.125 mg PO BID-QID PRN dyspepsia 03/23/24 Unknown Rx sublingual tablet #80 tabs mesalamine 1.2 gram tablet,delayed 2.4 g (2 x 1.2 gram) PO QDAY 8 03/24/24 Unknown Rx release weeks #112 tabs ondansetron 4 mg disintegrating 4 mg PO Q8H PRN PRN Nausea #10 tabs 04/21/24 Unknown Rx tablet potassium chloride 10 mEq 20 meq (2 x 10 mEq) PO DAILY #10 04/21/24 Unknown Rx capsule,extended release caps Allergy/AdvReac Type Severity Reaction Status Date / Time iodine AdvReac Upset Verified 04/21/24 16:18 Stomach Surgical History History of lung surgery History of tubal ligation History of appendectomy S/P cervical disc replacement Social History household members: spouse and children housing: house current occupational status: employed Smoking Status: Current every day smoker tobacco type: cigarettes ROS ROS ED Constitutional Constitutional ED: Denies chills or fever(s) Cardiovascular Cardiovascular: Reports chest pain Respiratory/Chest Respiratory/Chest: Reports cough; Denies dyspnea Gastrointestinal Gastrointestinal: Reports nausea and vomiting; Denies abdominal pain or diarrhea Musculoskeletal Musculoskeletal: Denies arthralgias or myalgias Neurologic Neurologic: Reports headache(s) and weakness Psychiatric Psychiatric: Reports anxiety Hematologic/Lymphatic Hematologic/Lymphatic: Denies easy bleeding or easy bruising EXAM Physical Exam Const Vital Signs: 04/21/24 16:10 04/21/24 18:09 04/21/24 19:16 Temperature 97.7 F L 97.9 F Temperature Source Oral Oral Pulse Rate 92 86 86 Respiratory Rate 20 H 20 H 14 Blood Pressure 159/94 H 100/76 100/76 Blood Pressure Mean 115 84 84 Pulse Ox 100 98 98 Oxygen Delivery Method Room Air Room Air Room Air 04/21/24 21:01 04/21/24 22:48 Temperature 98.3 F Temperature Source Pulse Rate 88 89 Respiratory Rate 18 18 Blood Pressure 112/87 H 112/87 H Blood Pressure Mean 95 95 Pulse Ox 97 97 Oxygen Delivery Method Room Air Positive well nourished and well developed General Appearance ED: well developed and NAD HEENT Reports dry mucous membranes Mouth ED: Yes dry mucous membranes Mouth: dry mucous membranes Eyes PERRL Neck supple Chest Wall inspection of chest normal and palpation of chest normal Resp normal respiratory effort and clear to auscultation bilaterally Cardio regular rate and regular rhythm GI normal to inspection, nondistended, normoactive bowel sounds and non-tender Palpation: soft; Negative for tender or guarding Extremity normal to inspection Neuro Sensorium / Orientation: alert and lethargic Motor Exam: general weakness Psych mental status grossly normal Mood Affect: anxious Skin no rashes or lesions noted (more content not included)... Normal [facility] L501.4020on 04-21-2024 TROPONIN-I HS 5 pg/mL Normal 3.0-54.0 [facility] Comment on above: Result Comment: Plejacklyn merida Note: New Test Units and Gender Specific Reference Ranges. For more information see Policy Stat Procedure [place] High Sensitivity Troponin (TNIH) and attachments. Performed By: #### L 501.5425, L100.0100, L500.2500 #### [facility] [address] [place], [address] L501.5425on 04-21-2024 TROPONIN-I HS 3 pg/mL Normal 3.0-54.0 [facility] Comment on above: Order Comment: 1Y Result Comment: Gilbert merida Note: New Test Units and Gender Specific Reference Ranges. For more information see Policy Stat Procedure [place] High Sensitivity Troponin (TNIH) and attachments. Performed By: #### L 503.6005 #### [facility] [address] [place], [address] Lactic Acidon 04-21-2024 Lactate [Moles/Vol] 0.7 mmol/L Normal 0.4-1.9 [facility] Comment on above: Performed By: #### L 503.6005 #### [facility] [address] [place], [address] Lactate [Moles/Vol] 2.8 mmol/L Invalid Interpretation Code 0.4-1.9 [facility] Comment on above: Order Comment: 1 Y Result Comment: Crit ical Result(s) Called at: 17:51:02 04/21/2024 by: LEON GRIJALVA. Results read back by Margoth Diana Performed By: #### L 501.5425, L100.0100, L500.2500 #### [facility] [address] [place], [address] Lipaseon 04-21-2024 Lipase [Catalytic activity/Vol] 41 U/L Normal 13-75 [facility] Comment on above: Result Comment: Gilbert merida note: LIPASE revised reference range effective 22. New Lipase methodology. Expected to produce lower values than the previous assay method. NEW Reference Range: 13 - 75 U/L Performed By: #### L 501.5425, L100.0100, L500.2500 #### [facility] [address] [place], [address] M100.678on 04-21-2024 M100.678 Normal Reference Ran ge = Negative FLUABV+SARS-CoV-2+RSV Pnl Resp ALLEN+probe GeneXpert Instrument, PCR method SARS-CoV-2 (COVID 19) Negative INFLUENZA A Negative INFLUENZA B Negative RSV PCR Negative Normal [facility] Comment on above: Performed By: #### L 501.4020 #### [facility] [address] [place], [address] Magnesiumon 04-21-2024 Magnesium [Mass/Vol] 1.9 mg/dL Normal 1.6-2.6 [facility] Comment on above: Order Comment: 1Y Performed By: #### L 503.6005 #### [facility] [address] [place], [address] Magnesium [Mass/Vol] 2.1 mg/dL Normal 1.6-2.6 [facility] Comment on above: Performed By: #### L 501.5425, L100.0100, L500.2500 #### [facility] [address] [place], [address] ,Serum,hCG Quali.on 04-21-2024 HCG, SERUM QUAL Negative Normal [facility] Comment on above: Performed By: #### L 501.5425, L100.0100, L500.2500 #### [facility] [address] [place], [address] Urinalysis, Completeon 04-21 BACTERIA RARE Normal None Seen [facility] Comment on above: Order Comment: CLEAN CATCH Performed By: #### L 501.4020 #### [facility] [address] [place], [address] EPI,SQUAMOUS 5-10 SEEN Normal 5-10 [facility] Comment on above: Order Comment: CLEAN CATCH Performed By: #### L 501.4020 #### [facility] [address] [place], [address] WBC 0-5 SEEN Normal 0-5 [facility] Comment on above: Order Comment: CLEAN CATCH Performed By: #### L 501.4020 #### [facility] [address] [place], [address] Mucus Ql (Urine sed) 0 SEEN Normal [facility] Comment on above: Order Comment: CLEAN CATCH Performed By: #### L 501.4020 #### [facility] [address] [place], [address] RBC 0 SEEN Normal 0-5 [facility] Comment on above: Order Comment: CLEAN CATCH Performed By: #### L 501.4020 #### [facility] [address] [place], [address] Abdomen Single Viewon 2023 Abdomen Single View [facility] [address] [place] [address] Abdomen Single View MR#: [id number] Acct: [id number] Name: BRITTNEE MARIE Rep #: [id number] : 1975 F 48 From: Brad Connor MD PCP: DIVINE Dempsey Status: REG CLI Study: Abdomen Single View Date of Exam: 03/29/24 Exam# [id number] Ordering Dr: Nhan Schmidt DO [id number] EXAM: XR ABDOMEN, 1 VIEW CLINICAL INDICATION: eval for pill cam in GI tract TECHNIQUE: Frontal supine view of the abdomen/pelvis. COMPARISON: No relevant prior studies available. FINDINGS: LOWER THORAX: No acute pathology. GASTROINTESTINAL TRACT: Unremarkable. Non-obstructive. No bowel or stomach distention. ORGANS: Unremarkable as visualized. No organomegaly. No abnormal calcifications. BONES/JOINTS: No acute pathology. SOFT TISSUES: No radiopaque camera foreign body in the abdomen and pelvis. TUBES, LINES AND DEVICES: IUD device in place. RAD/Abdomen Single View IMPRESSION: 1. No radiopaque camera foreign body in the abdomen and pelvis. 2. IUD device in place. 3. No acute abnormality. Electronically Signed: Brad Connor MD at 15:55 EST Reading Location ID and State: [facility] / [place] , Service support , CC: DIVINE Garcia; Nhan Schmidt DO Fly Frame Tender: Signed Normal [facility] Office Visit Reporton 2023 Office Visit Report [facility] [address] [place] [address] OFFICE VISIT Date of Service: 03/28/24 MR#: [id number] Acct: [id number] Patient: BRITTNEE MARIE Rep #: [id number] : 1975 Provider: Nhan Schmidt DO Age/Sex: 48/F Location: [facility] Status: Signed Intake Vital Signs 03/23/24 10:39 Height 5 ft 3 in Intake Visit Reasons: cap endo Chief Complaint: f/u Allergies iodine Adverse Reaction (Verified 03/11/24 13:12) Upset Stomach Office Procedures Procedure Administration Route: PO Administration Location: [facility] Dispensed Units: 1 Capsule Lot Number: [id number] Expiration Date: 01/10/25 Capsule ID Number: [id number] Consent Form Signed: Yes Reason for Pill Capsule Endoscopy: IBD Comments: Pt tolerated procedure well. All questions answered. Pill Cam Billing-In Office: [id number] GI TRACT CAPSULE ENDOSCOPY 03/28/24 0841 Date Nhan Carranza Signature: Date (if applicable) CC: Normal [facility] Gastroenterology Visit Repor ton 03-24-2024 Gastroenterology Visit Report [facility] [address] [place] [address] OFFICE VISIT Date of Service: 03/24/24 MR#: [id number] Acct: [id number] Name: BRITTNEE MARIE Rep #: [id number] : 1975 Provider: RADHA Lockhart Age/Sex: 48/F Location: [facility] Status: Signed Intake Vital Signs 03/11/24 13:12 03/23/24 10:39 Height 5 ft 3 in 5 ft 3 in Intake Visit Reasons: Test Result Chief Complaint: f/u Allergies iodine Adverse Reaction (Verified 03/11/24 13:12) Upset Stomach Nurse's Note: OV 03.24.24 Pt here for f/u. Pt reports abdominal pain, and nausea. Denies diarrhea, constipation, and bloody stools. Continues taking budesonide and omeprazole daily. [facility] Medical History Wears dentures Depression Anxiety Low iron History of Crohn's disease Heartburn Gastric reflux Smoker Post-menopausal Endometriosis Surgical History History of lung surgery History of tubal ligation History of appendectomy S/P cervical disc replacement Social History Smoking Status: Current every day smoker tobacco type: cigarettes HPI HPI Chief Complaint: f/u Details: BRITTNEE MARIE, is a 48 F who presents to the office today for f/u. BGI established with abdominal pain, bloating and diarrhea for [address] abd/pelvis 01.08.24; No acute intra-abdominal process. Biochemical work up 01.20.24; no food allergies, IBD sgi indicating severe Crohns disease, calprotecin elevated Colonoscopy 03.11.24: One 7 mm polyp in the sigmoid colon, removed with a jumbo cold forceps. Resected and retrieved. - Congested mucosa in the recto-sigmoid colon, in the sigmoid colon, in the descending colon and at the splenic flexure. Biopsied. - Patchy moderate inflammation was found in the recto-sigmoid colon, in the sigmoid colon and in the descending colon secondary to colitis. Biopsied. - The examined portion of the ileum was normal. Biopsied. Biopsies indicating ischemic colitis and SCAD EGD 03.11.24; with gastritis OV 03.24.24 Pt is here today to review results of her scopes and blood work up. SHe has been doing ok. SHe does continue to have issues with abdominal pain. SHe has tried hyoscyamine with some relief. ROS Const Constitutional: No fatigue, fever(s) or weight change ENT ENT: No difficulty swallowing Gastro GI: Positive for abdominal pain, diarrhea and nausea/dyspepsia; No belching, bloating, change in bowel habits, change in stool character, coffee ground emesis, constipation, cramping, heartburn, difficulty swallowing, feeling full early, excessive flatus, incontinent of stools, Vomiting blood/hematemesis, Blood in stool, loose stools, Black,tarry stools, pain with swallowing, vomiting or other Musc Musculoskeletal: Positive for back pain and muscle weakness; No joint pain Skin Skin: No yellowing of the eye or itchy eyes Psych Psychiatric: Positive for anxiety and No depression Endo Endocrine: No fatigue or weight change Aller/Imm Allergy/Immunologic: No itchy eyes Felipe/Lymp Hematologic/Lymphatic: Positive for easy bruising; No easy bleeding Exam Const General: cooperative and comfortable Nutritional Appearance: average body habitus and well nourished [facility] Head: normal to inspection Ears: hearing grossly normal bilaterally Nose: external nose normal Face and sinus: normal facial exam Eyes General: appearance normal, both eyes and all related structures Neck Neck: normal visual inspection Chest Chest palpation inspection: normal inspection of the chest Resp Effort Inspection: normal respiratory effort Cardio Palpation: normal PMI Rate: regular rate Rhythm: regular rhythm GI Inspection: normal to inspection Auscultation: normal bowel sounds Percussion: normal to percussion Palpation: no hepatosplenomegaly Skin General: no rashes or lesions noted Neuro General: patient alert Extrem General: normal to inspection Psych Affect: normal affect Assessment and Plan Assessment and Plan (1) Ischemic colitis: Status: Acute Plan: This is a 48 yo female pt here today for f/u after endoscopy and work up for IBD. I reviewed results with pt. She has positive antibodies for Crohn disease but biopsies from colonoscopy indicated ischemic colitis. After reviewing biopsy results Dr. Schmidt felt she may have SCAD and recommended treatment with 5-ASAs. She will start mesalamine daily and continue hyoscyamine daily. She will undergo capsule endoscopy to rule out Crohns of the small bowel. -Start mesalamine -Capsule endoscopy -f/u in 3 months Medications: New mesalamine 2.4 grams (2 x 1.2 gram) PO QDAY 112 tabs 3RF 8 weeks (more content not included)... Normal [facility] Colonoscopy Reporton 024 Colonoscopy Report [facility] Medical Records Department [address] [place] [address] Colonoscopy Report MR#: [id number] Acct: [id number] Name: BRITTNEE MARIE Rep #: [id number] : 1975 48 From: Nhan Schmidt DO PCP: DIVINE Dempsey Status:[facility] Patient Name: Brittnee Marie Procedure Date: 03/11/2024 3:00 PM Date of : 1975 Age: 48 Procedure: Colonoscopy Indications: Screening for colorectal malignant neoplasm Providers: Nhan Schmidt DO Referring MD: Humera Garcia Medicines: Monitored Anesthesia Care Patient Profile: This is a 48 year old female. Refer to note in patient chart for documentation of history and physical. Patient has symptoms of chronic epigastric abdominal pain, chronic dyspepsia and chronic heartburn. Last Colonoscopy: date unknown. Unable to locate last colonoscopy report. Complications: No immediate complications. Procedure: Pre-Anesthesia Assessment: - Prior to the procedure, a History and Physical was performed, and patient medications and allergies were reviewed. The patient is competent. The risks and benefits of the procedure and the sedation options and risks were discussed with the patient. All questions were answered and informed consent was obtained. Patient identification and proposed procedure were verified by the physician in the pre-procedure area. Mental Status Examination: alert and oriented. Airway Examination: normal oropharyngeal airway and neck mobility. Respiratory Examination: clear to auscultation. CV Examination: normal. Prophylactic Antibiotics: The patient does not require prophylactic antibiotics. Prior Anticoagulants: The patient has taken no anticoagulant or antiplatelet agents except for NSAID medication. ASA Grade Assessment: II - A patient with mild systemic disease. After reviewing the risks and benefits, the patient was deemed in satisfactory condition to undergo the procedure. The anesthesia plan was to use monitored anesthesia care (MAC). Immediately prior to administration of medications, the patient was re-assessed for adequacy to receive sedatives. The heart rate, respiratory rate, oxygen saturations, blood pressure, adequacy of pulmonary ventilation, and response to care were monitored throughout the procedure. The physical status of the patient was re-assessed after the procedure. After I obtained informed consent, the scope was passed under direct vision. Throughout the procedure, the patient's blood pressure, pulse, and oxygen saturations were monitored continuously. The Colonoscope was introduced through the anus and advanced to the terminal ileum. The colonoscopy was performed without difficulty. The patient tolerated the procedure well. The quality of the bowel preparation was adequate. The terminal ileum, ileocecal valve, appendiceal orifice, and rectum were photographed. Scope In: 3:02:10 PM Scope Withdrawal Time 0 hours 8 minutes 41 seconds Scope Out: 3:14:24 PM Total Procedure Duration Time 0 hours 12 minutes 14 seconds Findings: The perianal and digital rectal examinations were normal. A 7 mm polyp was found in the sigmoid colon. The polyp was sessile. The polyp was removed with a jumbo cold forceps. Resection and retrieval were complete. Verification of patient identification for the specimen was done. Estimated blood loss was minimal. An area of moderately congested mucosa was found in the recto-sigmoid colon, in the sigmoid colon, in the descending colon and at the splenic flexure. Biopsies were taken with a cold forceps for histology. Verification of patient identification for the specimen was done. Estimated blood loss was minimal. Patchy moderate inflammation characterized by erythema was found in the recto-sigmoid colon, in the sigmoid colon and in the descending colon. Biopsies were taken with a cold forceps for histology. Verification of patient identification for the specimen was done. Estimated blood loss was minimal. The terminal ileum appeared normal. Biopsies were taken with a cold forceps for histology. Verification of patient identification for the specimen was done. Estimated blood loss was minimal. Mild rectal prolapse was present. Impression: - One 7 mm polyp in the sigmoid colon, removed with a jumbo cold forceps. Resected and retrieved. - Congested mucosa in the recto-sigmoid colon, in the sigmoid colon, in the descending colon and at the splenic flexure. Biopsied. - Patchy moderate inflammation was found in the recto-sigmoid colon, in the sigmoid colon and in the descending colon secondary to colitis. Biopsied. - The examined portion of the ileum was normal. Biopsied. Recommendation: - Discharge patient to home. - Resume previous diet. - Continue present medications. - Await pathology results. - Repeat colono (more content not included)... Normal [facility] H Pylori (initial)on H Pylori (initial) ------- Patient Age/Sex Location Account Attending Physician BRITTNEE MARIE 48/F EN [id number] Nhan Schmidt DO Specimen: [id number] Received: 03/14/24 Status: SUNNI Bullock Num: [id number] Spec Type: IMMUNO Subm Dr: Nhan Schmidt, DO PHYSICIAN INSTITUTION [address] [place], [place] [address] SPECIMEN INFORMATION: Tissue Source: A- Gastric pylorus biopsy Clinical Info: Irritable bowel syndrome with diarrhea, gas bloat syndrome Specimen Number: [id number] CPT code: 44966 METHODOLOGY: Deparaffinized sections of prefer/formalin-fixed tissue or PAP/DQ stained slides are incubated with monoclonal/polyclonal antibodies/oligonucleotide probes. Localization is made via biotin free immunoperoxidase method. Appropriate controls are performed and reacted as expected. Results on target cell population are indicated in the following table: RESULTS: ANTIBODY / CLONE RESULT Block A H Pylori (polyclonal) negative These tests were developed and their performance characteristics determined by [facility]. They may not have been cleared or approved by the U.S. Food and Drug Administration. The FDA has determined that such clearance or approval is not necessary. The above immunohistochemical/dualISH markers are ordered and reviewed by the Pathologist. INTERPRETATION: A. Gastric pylorus, biopsy: Negative for Helicobacter pylori organisms. AM/mr 03/15/2024 Signed (signature on file) Dr. Eben Davidson, 03/15/[address] [facility] Comment on above: Performed By: #### L 503.6005 #### [facility] [address] [facility]. [place], [place], [address] MR/POSTOP.Najma 03-11-2024 MR/POSTOP.MARCELO [facility] Medical Records Department [address] [place] [address] Anesthesia Postop Eval I 03/11/24 1523 MR#: [id number] Acct: [id number] Name: BRITTNEE MARIE Rep #: [id number] : 1975 48 From: Homa Sanchez PCP: DIVINE Dempsey Status:[facility] Y Race: C Location: [place] [address] Anesthesia: Postop Eval I Current Vital Signs Temperature: 98.4 F Pulse Rate: 91 Blood Pressure: 92/74 Respiratory Rate: 18 Pulse Ox: 93 Oxygen Delivery Method: Room Air Assessment Airway patent: Yes Spontaneous unlabored respirations: Yes Mental status: Asleep nausea: No Vomiting: No Anesthesia Complication: No Fluid Hydration Crystalloid volume administer (ml): 75 Total IV fluid infused: 75 Progress Note Anesthesia document: Postop Eval 1 completed: Yes 03/11/24 1524 Date Homa Perry Signature: Date CC: Signed Normal [facility] MR/MMSXOPRI1mk 03-11-2024 [facility] Medical Records Department [address] [place] [address] Anesthesia Postop Eval II 03/11/24 1648 MR#: [id number] Acct: [id number] Name: BRITTNEE MARIE Rep #: [id number] : 1975 48 From: Dinh Ogden MD PCP: DIVINE Dempsey Status:[facility] Y Race: C Location: EN Anesthesia Postop Eval I Sum Postop Eval Completion status Anesthesia document: Postop Eval 1 completed: Yes Anesthesia Postop Eval I Summary Anesthesia Postop Eval I Summary: Anesthesia Postop Eval I: Assessment Summary Airway patent Yes 03/11/24 15:24 [email or web address] Spontaneous unlabored Yes 03/11/24 15:24 [email or web address] respirations Mental status Asleep 03/11/24 15:24 [email or web address] nausea No 03/11/24 15:24 [email or web address] Vomiting No 03/11/24 15:24 [email or web address] Anesthesia Postop Eval I: Fluid Summary Crystalloid volume administer 75 03/11/24 15:24 [email or web address] (ml) Colloids volume administered ( ml) Blood Product volume administered (ml) Total IV fluid infused 75 03/11/24 15:24 [email or web address] Anesthesia Postop Eval I: Summary Notes Anesthesia Complication No 03/11/24 15:24 [email or web address] Anesthesia Complication Comment: Post-operative progress note Anesthesia: Postop Eval II Evaluation Mental status: Awake and Calm Pain Level: 0 nausea: No Vomiting: No Complications Anesthesia Complication: No 03/11/24 165 Date Dinh Perry Signature: Date CC: Signed Normal [facility] Special Stain Group Ion 11-2 Special Stain Group I --------- Patient Age/Sex Location Account Attending Physician BRITTNEE MARIE 48/F EN [id number] Nhan Schmidt DO Specimen: [id number] Received: 03/11/24 Status: SUNNI Bullock Num: [id number] Spec Type: EGD BIOPSY Subm Dr: Nhan Schmidt, HEADER OPERATION: Colonoscopy, EGD with biopsy PRE-OP DIAGNOSIS: Irritable bowel syndrome with diarrhea, gas bloat syndrome TISSUE SUBMITTED: A- Gastric pylorus biopsy, B- Gastric body biopsy, C- Distal esophagus biopsy, D- Terminal ileum biopsy, E- Random colon biopsy, F- Sigmoid polyp MICROSCOPIC DIAGNOSIS A. Gastric pylorus, biopsy: Mild chronic gastritis. See comment. B. Gastric body, biopsy: Chronic gastritis. C. Distal esophagus, biopsy: Gastroesophageal junctional biopsy with mild chronic inflammation. Focal changes of reflux. No evidence of goblet cell metaplasia. See comment. D. Terminal ileum, biopsy: No pathologic change. E. Colon, random biopsy: Mild melanosis coli. Focal ischemic change suspected. F. Sigmoid colon polyp, biopsy: Hyperplastic polyp. AM. 03/15/2024 COMMENT A. The results of immunohistochemistry for Helicobacter pylori will be reported separately ([id number]). C. Alcian blue/PAS stain with matched control is used in the evaluation of the specimen. MICROSCOPIC DESCRIPTION Slides are reviewed. GROSS DESCRIPTION A. Received in fixative is one container labeled with the patient's name and designated Gastric pylorus biopsy. The specimen consists of two irregular fragments of light brambila soft tissue that in aggregate measure 0.7 x 0.2 x 0.1 cm. The specimen is totally submitted in one cassette. B. Received in fixative is one container labeled with the patient's name and designated Patient Age/Sex Location Account Attending Physician BRITTNEE MARIE 48/F EN [id number] Nhan Schmidt DO Gastric body biopsy. The specimen consists of two irregular fragments of light brambila soft tissue that in aggregate measure 0.8 x 0.6 x 0.1 cm. The specimen is totally submitted in one cassette. C. Received in fixative is one container labeled with the patient's name and designated Distal esophagus biopsy. The specimen consists of two irregular fragments of light brambila soft tissue that in aggregate measure 0.7 x 0.7 x 0.1 cm. The specimen is totally submitted in one cassette. D. Received in fixative is one container labeled with the patient's name and designated Terminal ileum biopsy. The specimen consists of two irregular fragments of light brambila soft tissue that in aggregate measure 1.0 x 0.8 x 0.1 cm. The specimen is totally submitted in one cassette. E. Received in fixative is one container labeled with the patient's name and designated Random colon biopsy. The specimen consists of multiple irregular fragments of light brambila soft tissue that in aggregate measure 1.5 x 0.6 x 0.1 cm. The specimen is totally submitted in one cassette. F. Received in fixative is one container labeled with the patient's name and designated Sigmoid polyp. The specimen consists of one irregular fragment of light brambila soft tissue that in aggregate measure 0.6 x 0.2 x 0.1 cm. The specimen is totally submitted in one cassette. 03/14/2024 TC:3 [facility]:[id number] Patient Age/Sex Location Account Attending Physician BRITTNEE MARIE 48/F EN [id number] Nhan Schmidt DO Signed (signature on file) Dr. Eben Davidson DO 03/15/[address] [facility] Comment on above: Performed By: #### L 501.4020 #### [facility] [address] [place], [place], [address] Calprotectin, Stoolon [address] 494 ug/g Abnormal 0-120 [facility] Comment on above: Order Comment: Test( s) 401385-Kpes, Neutral; 177032-Vmco, Totalwas developed and its performance characteristicsdetermined by [employer]. It has not been cleared or approvedby the Food and Drug Administration. Result Comment: Conc entration Interpretation Follow-Up < 5 - 50 ug/g Normal None >50 -120 ug/g Borderline Re-evaluate in 4-6 weeks >120 ug/g Abnormal Repeat as clinically indicated Performed at: [address] [id number] [employer]: Pablo Cai PhD, Phone: [phone] Performed at: [address] [id number] [employer]: Panfilo Mclaughlin MD, Phone: [phone] Performed By: #### L 503.6005 #### [facility] [address] [place], [place], [address] Fecal Fat, Qualitativeon FATS, NEUTRAL Normal Normal . [facility] Comment on above: Order Comment: Test( s) 992560-Xore, Neutral; 373993-Ysef, Totalwas developed and its performance characteristicsdetermined by [employer]. It has not been cleared or approvedby the Food and Drug Administration. Result Comment: Norm al (<60 Droplets/HPF) Performed By: #### L 503.6005 #### [facility] [address] [place], [place], [address] FATS, TOTAL Increased Normal . [facility] Comment on above: Order Comment: Test( s) 018741-Gyhw, Neutral; 853324-Vldt, Totalwas developed and its performance characteristicsdetermined by [facility]. It has not been cleared or approvedby the Food and Drug Administration. Result Comment: Norm al (<100 Droplets/HPF) Performed By: #### L 503.6005 #### [facility] [address] [place], [address] L7000.0750on 02-03-2024 P ELASTASE,FECA > [address] >200 [facility] Comment on above: Result Comment: Resu lt Units: ug Elast./g Severe Pancreatic Insufficiency: <100 Moderate Pancreatic Insufficiency: 100 - 200 Normal: >200 Performed at: [address] [id number] [employer]: Panfilo Mclaughlin MD, Phone: [phone] Performed By: #### L 503.6005 #### [facility] [address] [place], [address] Fecal Fat, Qualitativeon FATS, NEUTRAL Normal [facility] Comment on above: Result Comment: DUPL ICATE Performed By: #### L 501.4020 #### [facility] [address] [place], [address] FATS, TOTAL Normal [facility] Comment on above: Result Comment: DUPL ICATE Performed By: #### L 501.4020 #### [facility] [address] [place], [address] Stool Lactoferrin/WBCon 01-18 WBCST Normal Reference Ran ge = Negative Fecal WBC Lactoferrin A Positive: Fecal WBC Lactoferrin present A Normal [facility] Comment on above: Performed By: #### L 503.6005 #### [facility] [address] [place], [address] UA DIP,URINE HCG (POC)on Beta HCG ( test) Ql (U) Negative Negative [facility] Comment on above: Location:[facility], [address] [facility], [place], [address] [employer] (POCT) Internal QC OK [facility] Location:[facility], [address] [facility], [place], [address] [facility] POINT OF CARE [facility] ANES POSTPROC EVALon 024 ANES POSTPROC EVAL HNO ID: [id number] Author: VALENTINA MORRISON MD Service: Anesthesiology Author Type: Physician Type: Anesthesia Postprocedure Evaluation Filed: 11/26/2023 13:03 Note Text: POST ANESTHESIA EVALUATION NOTE : 1975 Procedure Summary Date: 11/26/23 Room / Location: SURGERY Anesthesia Start: 1236 Anesthesia Stop: Procedure: COLONOSCOPY SCREENING Diagnosis: Screening for colon cancer Screening for colon cancer Scheduled Providers: Annmarie Coronado MD; Valentina Morrison MD Responsible Provider: Valentina Morrison MD Anesthesia Type: MAC ASA Status: 3 Anesthesia Type: MAC Last Vitals Vitals Value Taken Time BP 105/66 11/26/23 1300 Temp 97.8 11/26/23 1303 Pulse 100 11/26/23 1302 Resp 30 11/26/23 1302 SpO2 95 % 11/26/23 1302 Vitals shown include unfiled device data. Post Anesthesia Patient Status Patient Evaluation: bedside. Anticipated Disposition: phase 2 then home. Neurological Status: aware and responsive. Pulmonary Status: breathing comfortably on room air Airway Control: returned to baseline unsupported. Cardiovascular Status: stable. Pain Management: clinically adequate Postoperative Hydration: acceptable. Intraoperative Events: no significant anesthesia events Post Operative Nausea/Vomiting Status: no significant post operative nausea or vomiting Recommendation: continue current plan of care. Anesthesia Observations No Documentation SIGNATURE: Valentina Morrison MD PATIENT NAME: Brittnee Marie DATE: November 26, 2023 TIME: 1:03 PM CSN: [id number] [facility] ANES PRE-OPon 11-26-2023 ANES PRE-OP HNO ID: [id number] Author: VALENTINA MORRISON MD Service: Anesthesiology Author Type: Physician Type: Anesthesia Preprocedure Evaluation Filed: 11/26/2023 12:35 Note Text: ANESTHESIOLOGY DAY OF SURGERY NOTE : 1975 Procedure Information Date/Time: 11/26/23 1230 Scheduled providers: Annmarie Coronado MD; Valentina Morrison MD Procedure: COLONOSCOPY SCREENING Location: LD SURGERY Estimated body mass index is 27.1 kg/m? as calculated from the following: Height as of 11/23/23: 160 cm (5' 3). Weight as of 11/24/23: 69.4 kg (153 lb). Most recent hematocrit and potassium results: Hematocrit 43.8 10/27/2023 Potassium 4.3 10/27/2023 Relevant Problems No relevant active problems I - PHYSICAL EVALUATION AIRWAY Patient intubated: No. Tracheostomy tube not present Mallampati: III. TM distance: >3 FB. Neck ROM: limited flexion and extension. Mouth opening: adequate. Short neck: no. Thick neck: no Mario present: no Microretrognathia/Micronagt hia/Recessed Chin: No DENTAL Dental findings: edentulous. Additional exam findings: yes. CARDIOVASCULAR Normal cardiovascular observations. PULMONARY Normal pulmonary observations. II - ANESTHESIA PLAN ASA Score: 3 Anesthetic Plan: MAC The patient is a current smoker. (1/2 ppd) NPO Status: adequate Beta Jean Paul Monitoring Plan Monitoring plan: standard ASA. Post Procedure Analgesic Plan Postoperative analgesic plan: parenteral or oral opioids. Informed Consent Anesthetic risks, benefits, alternatives, personnel and consent discussed: yes. Patient / Responsible Republican agrees to proceed: yes Patient / Surrogate agrees to blood products: Yes DNR status not reviewed with patient and/or family prior to surgery. Significant changes in the patient condition since the History and Physical, not otherwise documented in primary service progress note: no. Potential Anesthesia issues that may suggest increased risk of complications or contraindication to planned procedure: other. Pt. In ER 2 weeks ago with abd pain, surgeon reviewed CT and okay for procedure.pt. with cervical fusion and limited ROM neck Vitals Value Taken Time BP 118/82 11/26/23 1120 Pulse 80 11/26/23 1129 Resp 22 11/26/23 1129 Temp SpO2 95 % 11/26/23 1129 Vitals shown include unfiled device data. No current facility-administered medications on file as of 11/26/2023. Outpatient Medications as of 11/26/2023 Medication Sig - ciprofloxacin HCl (CIPRO) 500 mg tablet Take 1 tablet by mouth two times a day for 5 days. - metroNIDAZOLE (FLAGYL) 500 mg tablet Take 1 tablet by mouth three times a day for 5 days. - hydrOXYzine HCl (ATARAX) 10 mg tablet Take 1 tablet by mouth three times a day as needed. - traMADol (ULTRAM) 50 mg tablet Take 1 tablet by mouth every 8 hours as needed for pain for up to 5 days. - GAVILYTE-G 236-22.74-6.74 -5.86 gram suspension TAKE 4000 ML BY MOUTH ONE TIME ONLY FOR 1 DOSE. REFER TO PRINTED PREP INSTRUCTIONS FROM PROVIDER - varenicline (CHANTIX) 1 mg tablet TAKE 1 TABLET BY MOUTH TWICE A DAY WITH FOOD - omeprazole (PRILOSEC) 20 mg capsule Take 1 capsule by mouth daily before breakfast. 1/2 hr before meal. - varenicline (CHANTIX STARTING MONTH BOX) 0.5 mg (11)- 1 mg (42) tablet Take 0.5 mg by mouth once daily on Days 1 through 3, THEN 0.5 mg twice daily on Days 4 through 7, THEN 1 mg twice daily on Day 8 and thereafter I have interviewed and examined the patient. I have reviewed the medical record and/or the pre-anesthesia evaluation, pertinent labs, and test results. This contains updated information obtained within 48 hours of Surgery/Procedure. SIGNATURE: Valentina Morrison MD PATIENT NAME: Brittnee Marie DATE: November 26, 2023 TIME: 12:22 PM CSN: [id number] [facility] BRIEF OP NOTon 11-26-2023 BRIEF OP NOT HNO ID: [id number] Author: ANNMARIE CORONADO MD Service: General Surgery Author Type: Physician Type: Brief Op Note Filed: 11/26/2023 12:59 Note Text: BRIEF OPERATIVE NOTE SURGERY DATE: 11/26/2023 Incision/Procedure Start Time: 12:43 cecal intubation time: 12:47 Incision Close/Procedure End Time: 12:55 Surgeon(s)/Proceduralist(s) and Adjunct Spanish Instructor(s): dominguez Procedures: Screening colonoscopies Anesthesia: MAC Findings: hemorrhoids Estimated Blood Loss: 0 ml Specimens: None Complications: None Closure Technique: NA Preop Diagnosis: screening for colon cancer, last colonoscopy 2014 Postop Diagnosis: hemorrhoids Patient was accompanied to the next level of care by a licensed practitioner from the surgical team pending completion of this brief op note (or operative note)c SIGNATURE: Annmarie Coronado MD PATIENT NAME: Brittnee Marie DATE: November 26, 2023 TIME: 12:56 PM Csn: [id number] Normal [facility] HISTORY PHYSICALon HISTORY PHYSICAL HNO ID: [id number] Author: ANNMARIE CORONADO MD Service: General Surgery Author Type: Physician Type: H&P Filed: 11/26/2023 11:21 Note Text: HISTORY AND PHYSICAL Brittnee Marie 1975 REFERRING PHYSICIAN: Humera Garcia APRN.C* CHIEF COMPLAINT: Consult (Screening for colon cancer) HPI: The patient is a 48 year old female referred for endoscopy. Brittnee notes lower abdominal cramping pain and bloating for years. She denies blood in stools. She denies changes in bowel habits. She notes occasional constipation. The patient notes no colon cancer in immediate family. The patient has had previous colonoscopy in 2014 with MAC. She also had history of acid reflux, but states that she is asymptomatic on PPI PAST MEDICAL HISTORY PAST MEDICAL HISTORY Diagnosis Date Anxiety Bulging disc neck c6 Depression Migraine Pneumothorax, spontaneous, tension Prolapse, disk Neck Scoliosis Neck PAST SURGICAL HISTORY PAST SURGICAL HISTORY Procedure Laterality Date APPENDECTOMY 04/20/2002 COLONOSCOPY FLX DX W/COLLJ SPEC WHEN PFRMD 05/17/2014 Colonoscopy LIG/TRNSXJ FLP TUBE ABDL/VAG APPR UNI/BI 04/20/1994 Tubal ligation NECK SURGERY HX 08/2021 Harpal -- has hardware in neck OOPHORECTOMY PARTIAL/TOTAL UNI/BI 04/20/2009 right PAST SURGICAL HISTORY OF 04/20/2003 left lung -Harpal PAST SURGICAL HISTORY OF cervical /lumbar spine pain injections CURRENT MEDICATIONS Current Outpatient Medications Medication Sig cimetidine (TAGAMET) 200 mg tablet Take 1 tablet by mouth four times daily. omeprazole (PRILOSEC) 20 mg capsule Take 1 capsule by mouth daily before breakfast. 1/2 hr before meal. varenicline (CHANTIX STARTING MONTH BOX) 0.5 mg (11)- 1 mg (42) tablet Take 0.5 mg by mouth once daily on Days 1 through 3, THEN 0.5 mg twice daily on Days 4 through 7, THEN 1 mg twice daily on Day 8 and thereafter varenicline (CHANTIX CONTINUING MONTH BOX) 1 mg tablet Take 1 tablet by mouth two times a day with meals. hydrOXYzine HCl (ATARAX) 10 mg tablet Take 1 tablet by mouth three times a day as needed. acetaminophen (TYLENOL) 325 mg tablet Take 1-2 tablets by mouth every 4 hours as needed for Pain. No current facility-administered medications for this visit. ALLERGIES: Darvocet A500 [Propoxyphene N-Acetaminophen], Flexeril [Cyclobenzaprine Hcl], Iodine, Percocet [Oxycodone-Acetaminophen], Tape [Adhesive Tape (Rosins)], and Topiramate PERSONAL HISTORY: SOCIAL HISTORY Social History Tobacco Use Smoking status: Every Day Packs/day: 0.50 Years: 22.00 Additional pack years: 0.00 Total pack years: 11.00 Types: Cigarettes Smokeless tobacco: Never Vaping Use Vaping Use: Never used Substance Use Topics Alcohol use: Yes Comment: very rare Drug use: No FAMILY HISTORY FAMILY HISTORY Problem Relation Age of Onset No Known Problems Mother no personal ca, but reports cancer runs through that family (? leukemia). No Known Problems Father Diabetes Maternal Grandmother other (htn) Maternal Grandmother Cancer Maternal Grandfather lung other (old age) Paternal Grandmother The review of systems data was entered by the nurse and reviewed by de Nursing Notes: Cherelle eFlder LPN 11/02/2023 3:55 PM Signed REVIEW OF SYSTEMS: General: The patient denies fatigue, denies weight loss, denies weight gain, denies feeling hot, and denies feelings of cold. Eyes: The patient denies glaucoma, denies eye injury/surgery, does not wear glasses or contacts. Ear/Nose/Throat: The patient NOTES allergies, denies hayfever, denies ear infections, and denies bloody noses. Cardiovascular: The patient denies chest pain, denies heart disease, denies high blood pressure,denies cardiac stent, denies prior heart attack, denies irregular heart beat, denies high cholesterol, denies poor circulation, denies heart failure, other cardiac issues, denies claudication, denies cold feet, denies peripheral arterial stent. Respiratory: The patient denies tuberculosis, denies pneumonia, denies frequent cough, denies pulmonary embolism, denies shortness of breath, and denies coughing up blood. Gastrointestinal: The patient denies difficulty swallowing, NOTES acid reflux, denies ulcers, denies vomiting, denies jaundice/hepatitis, denies gallbladder problems, denies black or tarry stools, denies hemorrhoids, denies bleeding from rectum, denies diverticulitis, NOTES constipation, denies diarrhea, denies loss of stool control, and denies hernias. Kidney/Bladder: The patient denies kidney stones, denies urine infections, and denies bloody urine. Skin: The patient denies a history of skin cancer, denies bleeding/changing moles, and denies a history of skin rash. Neurologic: The patient denies a history of epilepsy/convulsions, denies headaches, denies head/spinal injuries, and denies stroke/TIA. Psychiatric: The patient denies psychiatric medications, denies depression (more content not included)... Normal [facility] OPERATIVE NOon 11-26-2023 OPERATIVE NO HNO ID: [id number] Author: ANNMARIE CORONADO MD Service: General Surgery Author Type: Physician Type: Operative Report Filed: 11/27/2023 09:14 Note Text: [facility] - Operative Report - BRITTNEE Chung : 1975 AGE: 48. SEX: F PATIENT TYPE: O HOSP [facility] [place] [facility] LOCATION: [facility] [place] ATTENDING PHYSICIAN: Annmarie Coronado MD CSN NUMBER: [id number] DATE OF SURGERY/PROCEDURE: 11/26/2023 INCISION/PROCEDURE START TIME: 12:43 PM INCISION CLOSE/PROCEDURE END TIME: 12:55 PM PREOPERATIVE DIAGNOSIS: Screening for colon cancer. POSTOPERATIVE DIAGNOSIS: Hemorrhoids. SURGEON: Annmarie Coronado MD TAKE AWAY ATTENDANT: No Additional Staff SURGERY/PROCEDURE: Screening colonoscopy. ANESTHESIA: MAC. LOCATION: [facility] INDICATIONS: Brittnee Marie is a 48-year-old female who presents for a colonoscopy. She has been counseled the risks of procedure including, but not limited to infection, bleeding, perforation of GI tract, inability to complete the procedure, injury to any internal organs, etc., and the patient understands and agrees to proceed. Her last colonoscopy was in 2014. DESCRIPTION OF PROCEDURE: After informed consent was given, the patient was brought to the endoscopy suite. Appropriate time-out protocol was followed. She was placed in left lateral decubitus position. She was given IV anesthesia by the anesthesia provider. The endoscope was lubricated, carefully inserted into the patient's anus and advanced into the rectum. It was then advanced into the sigmoid colon, then left colon, past splenic flexure into transverse colon, past hepatic flexure into the right colon, then into the cecum. The cecum was identified by confluence of teniae coli, identification of ileocecal valve, appendiceal orifice, and external palpation. At this level, the colonoscope was slowly retracted back and entire colonic mucosal surface was examined. The colon cleansing preparation was adequate. There was no evidence of any masses, polyps, lesions in the right colon. There was no evidence of any masses, polyps, lesions in the transverse colon. There was no evidence of any masses, polyps, or lesions in the left colon. There was no evidence of any masses, polyps, lesions in the sigmoid colon. There was no evidence of any masses or polyps in the rectum. Retroflexed view in the rectum revealed hemorrhoidal changes, but no active inflammation or bleeding. The endoscope was removed intact. Digital examination of the anal canal revealed no palpable masses. The patient tolerated the procedure well, was brought to recovery room in stable condition. ESTIMATED BLOOD LOSS: None. SPECIMENS: None. COMPLICATIONS: None. RECOMMENDATIONS: Screening colonoscopy in 10 years. Annmarie Coronado MD LW:[id number] /[id number] Normal [facility] NURSING PROGon 11-23-2023 NURSING PROG HNO ID: [id number] Author: GALILEA NORTON RN Service: ? Author Type: Registered Nurse Type: Nursing Progress Note Filed: 11/23/2023 10:42 Note Text: Pre-Procedure Checklist Brittnee Marie [phone] (home) [phone] (work) 1975 48 year old Body mass index is 27.81 kg/m?. 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 No Recent EKG/Cardiac Testing: No Chest pain in the last 6 months (<6 months cardiac clearance needed): No History of: Heart Attack/Stroke/Blood Clot?: none Shortness of Breath: No Asthma: No Inhalers: No Any Outstanding Consults?: No If yes, list: none Additional Notes: Normal [facility] .Auto Diffon 11-13-2023 Basophil, Absolute 0.1 10 3/mcL Normal 0.0-0.2 [facility] ([place]) Comment on above: Performed By: #### L IP, ADIFF, CBC, GFR, ANEU, CMP, MDW #### [address] [address] Basophils/100 WBC (Bld) 0.8 % Normal 0.0-2.5 [facility] ([place]) Comment on above: Performed By: #### L IP, ADIFF, CBC, GFR, ANEU, CMP, MDW #### [address] [address] Eosinophil, Absolute 0.2 10 3/mcL Normal 0.0-0.4 [facility] ([place]) Comment on above: Performed By: #### L IP, ADIFF, CBC, GFR, ANEU, CMP, MDW #### [address] [address] Eosinophils/100 WBC (Bld) 2.9 % Normal 0.0-7.0 [facility] ([place]) Comment on above: Performed By: #### L IP, ADIFF, CBC, GFR, ANEU, CMP, MDW #### [address] [address] Lymphocyte, Absolute 2.5 10 3/mcL Normal 0.8-3.9 [facility] ([place]) Comment on above: Performed By: #### L IP, ADIFF, CBC, GFR, ANEU, CMP, MDW #### [address] [address] Lymphocytes/100 WBC (Bld) 35.0 % Normal 10.0-50.0 [facility] ([place]) Comment on above: Performed By: #### L IP, ADIFF, CBC, GFR, ANEU, CMP, MDW #### [address] [address] Monocyte, Absolute 0.5 10 3/mcL Normal 0.2-1.0 [facility] ([place]) Comment on above: Performed By: #### L IP, ADIFF, CBC, GFR, ANEU, CMP, MDW #### [address] [address] Monocytes/100 WBC (Bld) 7.1 % Normal 1.7-13.0 [facility] ([place]) Comment on above: Performed By: #### L IP, ADIFF, CBC, GFR, ANEU, CMP, HIMANSHU #### [address] [address] Neutrophils/100 WBC (Bld) 54.2 % Normal 37.0-80.0 [facility] ([place]) Comment on above: Performed By: #### L IP, ADIFF, CBC, GFR, ANEU, CMP, MDChad #### [address] [address] .GFRon 11-13-2023 GFR Non- 95 ml/min/1.73sqm Normal [facility] ([place]) Comment on above: Result Comment: GFR Population mean for , Non- Americans Ages 20-29 = 116 mL/min/1.73 sq.m. Ages 30-39 = 107 mL/min/1.73 sq.m. Ages 40-49 = 99 mL/min/1.73 sq.m. Ages 50-59 = 93 mL/min/1.73 sq.m. Ages 60-69 = 85 mL/min/1.73 sq.m. Ages 70+ = 75 mL/min/1.73 sq.m. Chronic Kidney Disease: Less than 60 mL/min/1.73 square meters End Stage Renal Disease: Less than 15 mL/min/1.73 square meters Performed By: #### L IP, ADIFF, CBC, GFR, ANEU, CMP, MDW ####[address] [place], [place] [address] GFR 115 ml/min/1.73sqm Normal [facility] ([place]) Comment on above: Result Comment: GFR Population mean for , Non- Americans Ages 20-29 = 116 mL/min/1.73 sq.m. Ages 30-39 = 107 mL/min/1.73 sq.m. Ages 40-49 = 99 mL/min/1.73 sq.m. Ages 50-59 = 93 mL/min/1.73 sq.m. Ages 60-69 = 85 mL/min/1.73 sq.m. Ages 70+ = 75 mL/min/1.73 sq.m. Chronic Kidney Disease: Less than 60 mL/min/1.73 square meters End Stage Renal Disease: Less than 15 mL/min/1.73 square meters Performed By: #### L IP, ADIFF, CBC, GFR, ANEU, CMP, MDW ####[id number] [place], [place] [address] .MDWon 11-13-2023 Monocyte Distribution Width 18.08 Normal 0.00-20.00 [facility] ([place]) Comment on above: Result Comment: For ED adult patients suspected of sepsis, MDW<=20.0 does not rule out sepsis or risk of sepsis Performed By: #### L IP, ADIFF, CBC, GFR, ANEU, CMP, MDW #### [address] [address] .NEUABSon 11-13-2023 Neutrophil, Absolute 3.9 10 3/mcL Normal 2.9-6.2 [facility] ([place]) Comment on above: Performed By: #### L IP, ADIFF, CBC, GFR, ANEU, CMP, MDW #### [address] [address] .Urinalysis Microscopic (AO) on 11-13-2023 UA Bacteria Trace Abnormal [facility] ([place]) Comment on above: Performed By: #### U A, UAMICAO #### [address] [address] UA RBC None Seen Normal None Seen [facility] ([place]) Comment on above: Performed By: #### U A, UAMICAO #### [address] [address] UA Squam Epithelial LOADED Abnormal None Seen [facility] ([place]) Comment on above: Performed By: #### U A, UAMICAO #### [address] [address] UA WBC 0-5 Abnormal None Seen [facility] ([place]) Comment on above: Performed By: #### U A, UAMICAO #### [place] [id number] CBCon 11-13-2023 Erythrocyte distribution width (RBC) [Ratio] 14.2 % Normal 11.5-14.5 [facility] ([place]) Comment on above: Performed By: #### L IP, ADIFF, CBC, GFR, ANEU, CMP, MDW #### [address] [address] Hematocrit (Bld) [Volume fraction] 42.5 % Normal 37.0-47.0 [facility] ([place]) Comment on above: Performed By: #### L IP, ADIFF, CBC, GFR, ANEU, CMP, MDW #### [address] [address] Hgb 14.6 G/dL Normal 12.0-16.0 [facility] ([place]) Comment on above: Performed By: #### L IP, ADIFF, CBC, GFR, ANEU, CMP, MDW #### [address] [address] MCH (RBC) [Entitic mass] 28.8 pg Normal 27.0-31.2 [facility] ([place]) Comment on above: Performed By: #### L IP, ADIFF, CBC, GFR, ANEU, CMP, MDW #### [address] [address] MCHC 34.3 G/dL Normal 33.0-37.0 [facility] ([place]) Comment on above: Performed By: #### L IP, ADIFF, CBC, GFR, ANEU, CMP, MDW #### [address] [address] MCV (RBC) [Entitic vol] 84.0 fL Normal 80.0-94.0 [facility] ([place]) Comment on above: Performed By: #### L IP, ADIFF, CBC, GFR, ANEU, CMP, MDW #### [address] [address] Platelet 256 10 3/mcL Normal 130-400 [facility] ([place]) Comment on above: Performed By: #### L IP, ADIFF, CBC, GFR, ANEU, CMP, MDW #### [address] [address] Platelet mean volume (Bld) [Entitic vol] 8.3 fL Normal 7.4-10.4 [facility] ([place]) Comment on above: Performed By: #### L IP, ADIFF, CBC, GFR, ANEU, CMP, MDW #### [address] [address] RBC 5.06 10 6/mcL Normal 4.20-5.40 [facility] ([place]) Comment on above: Performed By: #### L IP, ADIFF, CBC, GFR, ANEU, CMP, MDW #### [address] [address] WBC 7.2 10 3/mcL Normal 4.6-10.8 [facility] ([place]) Comment on above: Performed By: #### L IP, ADIFF, CBC, GFR, ANEU, CMP, MDW #### [place] [address] CMPon 11-13-2023 Albumin Level 3.7 G/dL Normal 3.5-5.0 [facility] ([place]) Comment on above: Performed By: #### L IP, ADIFF, CBC, GFR, ANEU, CMP, MDW #### [address] [address] Albumin/Globulin [Mass ratio] 1.1 {ratio} Normal 1.1-2.5 [facility] ([place]) Comment on above: Performed By: #### L IP, ADIFF, CBC, GFR, ANEU, CMP, MDW #### [address] [address] ALP [Catalytic activity/Vol] 127 U/L Normal 40-135 [facility] ([place]) Comment on above: Performed By: #### L IP, ADIFF, CBC, GFR, ANEU, CMP, MDW #### [address] [address] ALT [Catalytic activity/Vol] 23 U/L Normal 14-59 [facility] ([place]) Comment on above: Performed By: #### L IP, ADIFF, CBC, GFR, ANEU, CMP, MDW #### [address] [address] AST [Catalytic activity/Vol] 21 U/L Normal 10-40 [facility] ([place]) Comment on above: Performed By: #### L IP, ADIFF, CBC, GFR, ANEU, CMP, MDW #### [address] [address] Bili Total 0.3 mg/dL Normal 0.2-1.0 [facility] ([place]) Comment on above: Result Comment: Use of this assay is not recommended for patients undergoing treatment with eltrombopag due to the potential for falsely elevated results. Performed By: #### L IP, ADIFF, CBC, GFR, ANEU, CMP, MDW #### [address] [address] BUN/Creatinine Ratio 14 ratio Normal 7-27 [facility] ([place]) Comment on above: Performed By: #### L IP, ADIFF, CBC, GFR, ANEU, CMP, MDW #### [address] [address] Calcium [Mass/Vol] 9.7 mg/dL Normal 8.4-10.2 [facility] ([place]) Comment on above: Performed By: #### L IP, ADIFF, CBC, GFR, ANEU, CMP, MDW #### [place] [address] Chloride [Moles/Vol] 107 mmol/L Normal 98-107 [facility] ([place]) Comment on above: Performed By: #### L IP, ADIFF, CBC, GFR, ANEU, CMP, MDW #### [place] [address] CO2 [Moles/Vol] 24 mmol/L Normal 22-29 [facility] ([place]) Comment on above: Performed By: #### L IP, ADIFF, CBC, GFR, ANEU, CMP, MDW #### [place] [address] Creatinine [Mass/Vol] 0.66 mg/dL Normal 0.55-1.02 [facility] ([place]) Comment on above: Performed By: #### L IP, ADIFF, CBC, GFR, ANEU, CMP, MDW #### [address] [address] Electrolyte Balance 11.0 mEq/L Normal 4.0-15.0 [facility] ([place]) Comment on above: Performed By: #### L IP, ADIFF, CBC, GFR, ANEU, CMP, MDW #### [address] [address] Globulin 3.4 G/dL Normal [facility] ([place]) Comment on above: Performed By: #### L IP, ADIFF, CBC, GFR, ANEU, CMP, MDW #### [place] [address] Glucose [Mass/Vol] 100 mg/dL Normal 70-105 [facility] ([place]) Comment on above: Performed By: #### L IP, ADIFF, CBC, GFR, ANEU, CMP, MDW #### [address] [address] Potassium [Moles/Vol] 4.0 mmol/L Normal 3.5-5.1 [facility] ([place]) Comment on above: Performed By: #### L IP, ADIFF, CBC, GFR, ANEU, CMP, MDW #### [address] [address] Sodium [Moles/Vol] 142 mmol/L Normal 136-145 [facility] ([place]) Comment on above: Performed By: #### L IP, ADIFF, CBC, GFR, ANEU, CMP, MDW #### [address] [address] Total Protein 7.1 G/dL Normal 6.4-8.2 [facility]) Comment on above: Performed By: #### L IP, ADIFF, CBC, GFR, ANEU, CMP, MDW #### [address] [address] Urea nitrogen [Mass/Vol] 9 mg/dL Normal 7-18 [facility] ([place]) Comment on above: Performed By: #### L IP, ADIFF, CBC, GFR, ANEU, CMP, MDW #### [address] [address] [address] ABD/PELVIS W/ IV CONTRAST ONLYon 11-13-2023 CT ABD/PELVIS W/ IV CONTRAST ONLY ORIGINAL EXAMINATION: CT OF THE ABDOMEN AND PELVIS WITH CONTRAST11/13/2023 10:18 am TECHNIQUE: CT of the abdomen and pelvis was performed with the administration of intravenous contrast. Multiplanar reformatted images are provided for review. Automated exposure control, iterative reconstruction, and/or weight based adjustment of the mA/kV was utilized to reduce the radiation dose to as low as reasonably achievable. COMPARISON: Chest x-ray 10/15/2022 HISTORY: ORDERING SYSTEM PROVIDED HISTORY: Reason for Exam: pain FINDINGS: The included lung bases show bibasilar scarring or atelectasis. Calcified hyperdense pleuroparenchymal nodular densities seen in medial left costal pleural sinus measuring 3 cm and 3.3 cm in maximum dimension. Another calcified nodular pleural based density seen in left anteromedial costal pleural sulcus posterior to left ventricle. Atelectasis/scarring with bronchiectasis in the medial right middle lobe. Trace left pleural effusion and small amount of pericardial fluid.. The heart is normal in size. The liver, spleen, adrenal glands, and pancreas are within normal limits. The gallbladder is normal. The kidneys enhance symmetrically. No evidence of hydronephrosis bilaterally. The large and small bowel demonstrate no obstruction. The appendix is surgically absent. No free intraperitoneal fluid or gas is identified. The aorta is normal in caliber. There is mild atherosclerosis of the larger arteries. There is no lymphadenopathy. The pelvic structures are grossly unremarkable. Intrauterine device seen. No filling defects seen in the urinary bladder. The abdominal wall is unremarkable. There is no acute fracture or aggressive osseous lesion. IMPRESSION: No acute abnormality within abdomen or pelvis. Trace left pleural effusion. Small amount of pericardial fluid. Hyperattenuating pleural based densities in the left lower thorax. Is there a history of pleurodesis? If there is no history of pleurodesis, follow-up CT thorax is advised to guide management. . I have personally reviewed the images of this examination and agree with the resident's findings and interpretation. Interpreted by: Federico Mccormick MD Preliminary Report By: Christos Tierney Electronically signed By Federico Mccormick MD Dictated Date: 11/13/2023 10:27:24 AM Prelim Date: 11/13/2023 11:00:21 AM Sign Date: 11/13/2023 11:00:21 AM Ordering Provider: MARIA TERESA Pryor [facility] ([place]) LABORATORYOrdered By: Meghan De Los Santos on 11-13-2023 HCG ( test) Ql Negative (11/13/23 9:43 AM) Normal AO Manual Urine SS test (u) int Not detected Invalid Interpretation Code AO Manual Urine SS LABORATORYOrdered By: SYSTEM SYSTEM on 11-13-2023 Albumin BCP dye [Mass/Vol] 3.7 G/dL Normal 3.5 - 5.0 G/dL AO ADM SS Albumin/Globulin [Mass ratio] 1.1 {ratio} Normal 1.1 - 2.5 ratio AO ADM SS ALP [Catalytic activity/Vol] 127 U/L Normal 40 - 135 U/L AO ADM SS ALT With P-5'-P [Catalytic activity/Vol] 23 U/L Normal 14 - 59 U/L AO ADM SS AST With P-5'-P [Catalytic activity/Vol] 21 U/L Normal 10 - 40 U/L AO ADM SS Basophil, Absolute 0.1 103/mcL Normal 0.0 - 0.2 10^3/mcL AO Workflow SS Basophils/100 WBC (Bld) 0.8 % Normal 0.0 - 2.5 % AO Workflow SS Bilirubin [Mass/Vol] 0.3 mg/dL Normal 0.2 - 1 .0 mg/dL AO ADM SS Comment on above: Interpretive Data: U se of this assay is not recommended for patients undergoing treatment with eltrombopag due to the potential for falsely elevated results. Calcium [Mass/Vol] 9.7 mg/dL Normal 8.4 - 10. 2 mg/dL AO ADM SS Chloride [Moles/Vol] 107 mmol/L Normal 98 - 10 7 mmol/L AO ADM SS CO2 [Moles/Vol] 24 mmol/L Normal 22 - 29 mmol/L AO ADM SS Creatinine [Mass/Vol] 0.66 mg/dL Normal 0.55 - 1.02 mg/dL AO ADM SS Electrolyte Balance 11.0 mEq/L Normal 4.0 - 15 .0 mEq/L AO ADM SS Eosinophil, Absolute 0.2 103/mcL Normal 0.0 - 0 .4 10^3/mcL AO Workflow SS Eosinophils/100 WBC (Bld) 2.9 % Normal 0.0 - 7.0 % AO Workflow SS Erythrocyte distribution width (RBC) [Ratio] 14.2 % Normal 11.5 - 14.5 % AO Workflow SS GFR/1.73 sq M.predicted among blacks MDRD (S/P/Bld) [Vol rate/Area] 115 ml/min/1.73sqm Invalid Interpretation Code AO Chemistry S Comment on above: Interpretive Data: GFR Population mean for , Non- Americans Ages 20-29 = 116 mL/min/1.73 sq.m. Ages 30-39 = 107 mL/min/1.73 sq.m. Ages 40-49 = 99 mL/min/1.73 sq.m. Ages 50-59 = 93 mL/min/1.73 sq.m. Ages 60-69 = 85 mL/min/1.73 sq.m. Ages 70+ = 75 mL/min/1.73 sq.m. Chronic Kidney Disease: Less than 60 mL/min/1.73 square meters End Stage Renal Disease: Less than 15 mL/min/1.73 square meters GFR/1.73 sq M.predicted among non-blacks MDRD (S/P/Bld) [Vol rate/Area] 95 ml/min/1.73sqm Invalid Interpretation Code AO Chemistry S Comment on above: Interpretive Data: GFR Population mean for , Non- Americans Ages 20-29 = 116 mL/min/1.73 sq.m. Ages 30-39 = 107 mL/min/1.73 sq.m. Ages 40-49 = 99 mL/min/1.73 sq.m. Ages 50-59 = 93 mL/min/1.73 sq.m. Ages 60-69 = 85 mL/min/1.73 sq.m. Ages 70+ = 75 mL/min/1.73 sq.m. Chronic Kidney Disease: Less than 60 mL/min/1.73 square meters End Stage Renal Disease: Less than 15 mL/min/1.73 square meters Globulin 3.4 G/dL Invalid Interpretation Code AO ADM SS Glucose [Mass/Vol] 100 mg/dL Normal 70 - 105 mg/dL AO ADM SS Hematocrit (Bld) [Volume fraction] 42.5 % Normal 37.0 - 47.0 % AO Workflow SS Hemoglobin (Bld) [Mass/Vol] 14.6 G/dL Normal 12.0 - 16.0 G/dL AO Workflow SS Lipase [Catalytic activity/Vol] 35 U/L Normal 16 - 77 U/L AO ADM SS Lymphocyte, Absolute 2.5 103/mcL Normal 0.8 - 3 .9 10^3/mcL AO Workflow SS Lymphocytes/100 WBC (Bld) 35.0 % Normal 10.0 - 50.0 % AO Workflow SS MCH (RBC) [Entitic mass] 28.8 pg Normal 27.0 - 31.2 pg AO Workflow SS MCHC 34.3 G/dL Normal 33.0 - 37.0 G/dL AO Workflow SS MCV (RBC) [Entitic vol] 84.0 fL Normal 80.0 - 94.0 fL AO Workflow SS Monocyte distribution width Auto (Bld) [Entitic vol] 18.08 1 Normal 0.00 - 20.00 AO Workflow SS Comment on above: Result Comment: For ED adult patients suspected of sepsis, MDW<=20.0 does not rule out sepsis or risk of sepsis Monocyte, Absolute 0.5 103/mcL Normal 0.2 - 1.0 10^3/mcL AO Workflow SS Monocytes/100 WBC (Bld) 7.1 % Normal 1.7 - 13.0 % AO Workflow SS Neutrophil, Absolute 3.9 103/mcL Normal 2.9 - 6 .2 10^3/mcL AO Workflow SS Neutrophils/100 WBC (Bld) 54.2 % Normal 37.0 - 80.0 % AO Workflow SS Platelet mean volume (Bld) [Entitic vol] 8.3 fL Normal 7.4 - 10.4 fL AO Workflow SS Platelets (Bld) [#/Vol] 256 103/mcL Normal 130 - 400 10^3/mcL AO Workflow SS Potassium [Moles/Vol] 4.0 mmol/L Normal 3.5 - 5.1 mmol/L AO ADM SS Protein [Mass/Vol] 7.1 G/dL Normal 6.4 - 8.2 G/dL AO ADM SS RBC (Bld) [#/Vol] 5.06 106/mcL Normal 4.20 - 5.40 10^6/mcL AO Workflow SS Sodium [Moles/Vol] 142 mmol/L Normal 136 - 145 mmol/L AO ADM SS Urea nitrogen [Mass/Vol] 9 mg/dL Normal 7 - 18 mg/dL AO ADM SS Urea nitrogen/Creatinine [Mass ratio] 14 ratio Normal 7 - 27 ratio AO ADM SS WBC (Bld) [#/Vol] 7.2 103/mcL Normal 4.6 - 10.8 10^3/mcL AO Workflow SS LABORATORYOrdered By: Yemi Fulton on 11-13-2023 Appearance (U) Clear (11/13/23 9:33 AM) Normal Clear AO Auto Urine SS Bacteria LM.HPF (Urine sed) [#/Area] Trace /HPF Invalid Interpretation Code AO Auto Urine SS Bilirubin Ql (U) Negative (11/13/23 9:33 AM) Normal Negative AO Auto Urine SS Color (U) Yellow (11/13/23 9:33 AM) Normal AO Auto Urine SS Glucose Test strip (U) [Mass/Vol] Negative Normal Negative AO Auto Urine SS Hemoglobin Auto test strip (U) [Mass/Vol] Negative (11/13/23 9:33 AM) Normal Negative AO Auto Urine SS Ketones Ql (U) Negative Normal Negative AO Auto Urine SS UA Leuk Est Small *ABN* (11/13/23 9:33 AM) Invalid Interpretation Code Negative AO Auto Urine SS UA Nitrite Negative (11/13/23 9:33 AM) Normal Negative AO Auto Urine SS UA pH 6.5 (11/13/23 9:33 AM) Normal 5.0 - 8.0 AO Auto Urine SS UA Protein Negative Normal Negative AO Auto Urine SS UA RBC None Seen /HPF Normal None Seen AO Auto Urine SS UA Spec Grav 1.025 (11/13/23 9:33 AM) Normal 1.015-1.02 5 AO Auto Urine SS UA Specimen Type Clean Catch (11/13/23 9:33 AM) Normal AO Auto Urine SS UA Squam Epithelial LOADED /HPF Invalid Interpretation Code None Seen AO Auto Urine SS UA Urobilinogen 0.2 E.U./dL Normal 0.2-1.0 AO Auto Urine SS WBC LM.HPF (Urine sed) [#/Area] 0-5 /HPF Invalid Interpretation Code None Seen AO Auto Urine SS LIPon 11-13-2023 Lipase Level 35 U/L Normal 16-77 [facility] ([place]) Comment on above: Performed By: #### L IP, ADIFF, CBC, GFR, ANEU, CMP, MDW #### Harpal [address] [address] PREGUon 11-13-2023 HCG ( test) Ql (U) Negative Normal [facility] ([place]) Comment on above: Performed By: #### P REGU ####[address] [place], [place] [address] test (u) int Not detected Invalid Interpretation Code [facility] ([place]) Comment on above: Performed By: #### P REGU ####[address] [place], [place] [address] UAon 11-13-2023 Color (U) Yellow Normal [facility] ([place]) Comment on above: Performed By: #### U A, UAMICAO #### [place] [address] Glucose (U) [Mass/Vol] Negative Normal Negative [facility] ([place]) Comment on above: Performed By: #### U A, UAMICAO #### [place] [address] Ketones Ql (U) Negative Normal Negative [facility] ([place]) Comment on above: Performed By: #### U A, UAMICAO #### [place] [address] UA Appear Clear Normal Clear [facility] ([place]) Comment on above: Performed By: #### U A, UAMICAO #### [place] [address] UA Blood Negative Normal Negative [facility] ([place]) Comment on above: Performed By: #### U A, UAMICAO #### [place] [address] UA Leuk Est Small Abnormal Negative [facility] ([place]) Comment on above: Performed By: #### U A, UAMICAO #### [place] [address] UA Nitrite Negative Normal Negative [facility] ([place]) Comment on above: Performed By: #### U A, UAMICAO #### [place] [address] UA pH 6.5 Normal 5.0 - 8.0 [facility] ([place]) Comment on above: Performed By: #### U A, UAMICAO #### [place] [address] UA Protein Negative Normal Negative [facility] ([place]) Comment on above: Performed By: #### U A, UAMICAO #### [place] [address] UA Spec Grav 1.025 Normal 1.015-1.02 5 [facility] ([place]) Comment on above: Performed By: #### U A, UAMICAO #### [place] [address] UA Specimen Type Clean Catch Normal [facility] ([place]) Comment on above: Performed By: #### U A, UAMICAO #### [place] [address] UA Urobilinogen 0.2 E.U./dL Normal 0.2-1.0 [facility] ([place]) Comment on above: Performed By: #### U A, UAMICAO #### [place] [address] Urobilinogen (U) [Mass/Vol] Negative Normal Negative [facility] ([place]) Comment on above: Performed By: #### U A, UAMICAO #### [place] [address] CVFLURVon 06-10-2023 FLU A PCR Negative Normal Negative [facility] ([place]) Comment on above: Performed By: #### C VFLURV ####[place] [address] FLU B PCR Negative Normal Negative [facility] ([place]) Comment on above: Performed By: #### C VFLURV ####[place] [address] RSV PCR Negative Normal Negative [facility] ([place]) Comment on above: Performed By: #### C VFLURV ####[place] [address] SARS-CoV-2 (COVID-19) RNA ALLEN+probe Ql (Unsp spec) Negative Normal Negative [facility] ([place]) Comment on above: Result Comment: Resu lts from the Xpert Xpress CoV-2/Flu/RSV plus test should be correlated with the clinical history, epidemiological data, and other data available to the clinical evaluating the patient. Performance of the Xpert Xpress CoV-2/Flu/RSV plus test has only been established in nasopharyngeal swab specimen. Erroneous test results might occur from improper specimen collection, failure to follow the recommended sample collection, handling and storage procedures, technical error, or sample mix-up. False negative results may occur if a virus is present at a level below the analytical limit of detection. Viral nucleic acid may persist in vivo, independent of virus viability. Detection of analyte target(s) does not imply that the corresponding virus(es) are infectious or are the causative agents for clinical symptoms. Recent patient exposure to FluMist or other live attenuated influenza vaccines may cause inaccurate positive results. Performed By: #### C VFLURV ####[address] [place], [place] [address] LABORATORYOrdered By: Meghan De Los Santos on 06-10-2023 FLUAV RNA ALLEN+probe Ql (Resp) Negative (06/10/23 7:16 AM) Normal Negative AO Auto Urine SS FLUBV RNA ALLEN+probe Ql (Resp) Negative (06/10/23 7:16 AM) Normal Negative AO Auto Urine SS RSV RNA ALLEN+probe Ql (Resp) Negative (06/10/23 7:16 AM) Normal Negative AO Auto Urine SS SARS-CoV-2 (COVID-19) RNA ALLEN+probe Ql (Resp) Negative 1 (06/10/23 7:16 AM) Normal Negative AO Auto Urine SS Comment on above: Interpretive Data: R esults from the Xpert Xpress CoV-2/Flu/RSV plus test should be correlated with the clinical history, epidemiological data, and other data available to the clinical evaluating the patient. Performance of the Xpert Xpress CoV-2/Flu/RSV plus test has only been established in nasopharyngeal swab specimen. Erroneous test results might occur from improper specimen collection, failure to follow the recommended sample collection, handling and storage procedures, technical error, or sample mix-up. False negative results may occur if a virus is present at a level below the analytical limit of detection. Viral nucleic acid may persist in vivo, independent of virus viability. Detection of analyte target(s) does not imply that the corresponding virus(es) are infectious or are the causative agents for clinical symptoms. Recent patient exposure to FluMist or other live attenuated influenza vaccines may cause inaccurate positive results. XR CHEST 1 VIEWon 06-10-2023 XR CHEST 1 VIEW ORIGINAL EXAMINATION: ONE XRAY VIEW OF THE CHEST 06/10/2023 7:24 am COMPARISON: Chest x-ray 03/30/2023 HISTORY: ORDERING SYSTEM PROVIDED HISTORY: Reason for Exam: cough FINDINGS: The cardiomediastinal silhouette is normal. Minimal left basilar opacity could represent consolidation versus atelectasis. The right lung is clear. Biapical scarring. No large pleural effusion. No pneumothorax. Partially visualized ACDF changes. IMPRESSION: Minimal left basilar opacity could represent infectious consolidation versus atelectasis. I have personally reviewed the images of this examination and agree with the resident's findings and interpretation. Interpreted by: Lázaro Angel MD Preliminary Report By: Yovana Yon Electronically signed By Lázaro Angel MD Dictated Date: 06/10/2023 7:30:15 AM Prelim Date: 06/10/2023 7:32:55 AM Sign Date: 06/10/2023 7:41:11 AM Ordering Provider: MIK GARCIA [facility] ([place]) XR CHEST 1 VIEWon 03-30-2023 XR CHEST 1 VIEW ORIGINAL EXAMINATION: ONE XRAY VIEW OF THE CHEST 03/30/2023 6:55 am COMPARISON: None. HISTORY: ORDERING SYSTEM PROVIDED HISTORY: Reason for Exam: cough FINDINGS: Hazy airspace disease at the lung bases. No pneumothorax. No large effusion. Heart size is normal. IMPRESSION: Mild hazy airspace disease at the lung bases. Interpreted by: Lázaro Angel MD Preliminary Report By: Lázaro Angel MD Electronically signed By Lázaro Angel MD Dictated Date: 03/30/2023 7:02:06 AM Prelim Date: 03/30/2023 7:06:37 AM Sign Date: 03/30/2023 7:06:37 AM Ordering Provider: ANTONI MIGUEL [facility] ([place]) LABORATORYOrdered By: Yemi Fulton on 10-15-2022 Basophil, Absolute 0.0 103/mcL Invalid Interpretation Code 0.0 - 0.2 10^3/mcL AO Workflow SS Basophils/100 WBC (Bld) 0.5 % Invalid Interpretation Code 0.0 - 2.5 % AO Workflow SS Eosinophil, Absolute 0.2 103/mcL Invalid Interpretation Code 0.0 - 0.4 10^3/mcL AO Workflow SS Eosinophils/100 WBC (Bld) 1.9 % Invalid Interpretation Code 0.0 - 7.0 % AO Workflow SS Erythrocyte distribution width (RBC) [Ratio] 13.4 % Invalid Interpretation Code 11.5 - 14.5 % AO Workflow SS Hematocrit (Bld) [Volume fraction] 40.6 % Invalid Interpretation Code 37.0 - 47.0 % AO Workflow SS Hemoglobin (Bld) [Mass/Vol] 13.7 G/dL Invalid Interpretation Code 12.0 - 16.0 G/dL AO Workflow SS Lymphocyte, Absolute 2.5 103/mcL Invalid Interpretation Code 0.8 - 3.9 10^3/mcL AO Workflow SS Lymphocytes/100 WBC (Bld) 31.2 % Invalid Interpretation Code 10.0 - 50.0 % AO Workflow SS MCH (RBC) [Entitic mass] 28.1 pg Invalid Interpretation Code 27.0 - 31.2 pg AO Workflow SS MCHC 33.7 G/dL Invalid Interpretation Code 33.0 - 37.0 G/dL AO Workflow SS MCV (RBC) [Entitic vol] 83.6 fL Invalid Interpretation Code 80.0 - 94.0 fL AO Workflow SS Monocyte distribution width Auto (Bld) [Entitic vol] 19.74 Invalid Interpretation Code 0.00 - 20.00 AO Workflow SS Comment on above: Result Comment: For ED adult patients suspected of sepsis, MDW<=20.0 does not rule out sepsis or risk of sepsis Monocyte, Absolute 0.6 103/mcL Invalid Interpretation Code 0.2 - 1.0 10^3/mcL AO Workflow SS Monocytes/100 WBC (Bld) 7.3 % Invalid Interpretation Code 1.7 - 13.0 % AO Workflow SS Neutrophil, Absolute 4.8 103/mcL Invalid Interpretation Code 2.9 - 6.2 10^3/mcL AO Workflow SS Neutrophils/100 WBC (Bld) 59.1 % Invalid Interpretation Code 37.0 - 80.0 % AO Workflow SS Platelet mean volume (Bld) [Entitic vol] 8.1 fL Invalid Interpretation Code 7.4 - 10.4 fL AO Workflow SS Platelets (Bld) [#/Vol] 277 103/mcL Invalid Interpretation Code 130 - 400 10^3/mcL AO Workflow SS RBC (Bld) [#/Vol] 4.85 106/mcL Invalid Interpretation Code 4.20 - 5.40 10^6/mcL AO Workflow SS WBC (Bld) [#/Vol] 8.2 103/mcL Invalid Interpretation Code 4.6 - 10.8 10^3/mcL AO Workflow SS LABORATORYOrdered By: SYSTEM SYSTEM on 10-15-2022 Calcium [Mass/Vol] 9.2 mg/dL Invalid Interpretation Code 8.4 - 10.2 mg/dL AO ADM SS Chloride [Moles/Vol] 106 mmol/L Invalid Interpretation Code 98 - 107 mmol/L AO ADM SS CO2 [Moles/Vol] 26 mmol/L Invalid Interpretation Code 22 - 29 mmol/L AO ADM SS Creatinine [Mass/Vol] 0.69 mg/dL Invalid Interpretation Code 0.55 - 1.02 mg/dL AO ADM SS Electrolyte Balance 10.0 mEq/L Invalid Interpretation Code 4.0 - 15.0 mEq/L AO ADM SS GFR/1.73 sq M.predicted among blacks MDRD (S/P/Bld) [Vol rate/Area] 110 ml/min/1.73sqm Invalid Interpretation Code AO Chemistry S GFR/1.73 sq M.predicted among non-blacks MDRD (S/P/Bld) [Vol rate/Area] 91 ml/min/1.73sqm Invalid Interpretation Code AO Chemistry S Glucose [Mass/Vol] 92 mg/dL Invalid Interpretation Code 70 - 105 mg/dL AO ADM SS Potassium [Moles/Vol] 3.6 mmol/L Invalid Interpretation Code 3.5 - 5.1 mmol/L AO ADM SS Sodium [Moles/Vol] 142 mmol/L Invalid Interpretation Code 136 - 145 mmol/L AO ADM SS Urea nitrogen [Mass/Vol] 11 mg/dL Invalid Interpretation Code 7 - 18 mg/dL AO ADM SS Urea nitrogen/Creatinine [Mass ratio] 16 ratio Invalid Interpretation Code 7 - 27 ratio AO ADM SS LABORATORYOrdered By: Chantell Hackett on 10-15-2022 S. pyogenes DNA ALLEN+probe Ql (Throat) Negative (10/15/22 7:53 AM) Invalid Interpretation Code Negative AO Auto Urine SS S. pyogenes DNA ALLEN+probe Ql (Throat) Negative for Streptococcus pyogenes by PCR. Negative test results do not rule out other possible infections besides those caused by Group A Streptococcus. False Negatives may be obtained in the presence of NYQUIL (0.5% V/V)The Marv Group A Strep Assay is a real-time polymerase chain reaction (PCR) based qualitative in vitro diagnostic test for the direct detection of Streptococcus pyogenes (Group A Beta hemolytic Streptococcus) in throat swab specimens from patients with signs and symptoms of pharyngitis.The Marv Group A Strep Assay can be used as an aid in the diagnosis of Group A Streptococcal pharyngitis. The assay is not intended to monitor treatment for Group A Streptococcus infections. Invalid Interpretation Code AO Auto Urine SS LABORATORYOrdered By: Meghan De Los Santos on 09-11-2021 Basophil, Absolute 0.0 103/mcL Invalid Interpretation Code 0.0 - 0.2 10^3/mcL AO Workflow SS Basophils/100 WBC (Bld) 0.3 % Invalid Interpretation Code 0.0 - 2.5 % AO Workflow SS Calcium [Mass/Vol] 9.4 mg/dL Invalid Interpretation Code 8.4 - 10.2 mg/dL AO ADM SS Chloride [Moles/Vol] 101 mmol/L Invalid Interpretation Code 98 - 107 mmol/L AO ADM SS CO2 [Moles/Vol] 24 mmol/L Invalid Interpretation Code 22 - 29 mmol/L AO ADM SS Creatinine [Mass/Vol] 0.79 mg/dL Invalid Interpretation Code 0.55 - 1.02 mg/dL AO ADM SS Electrolyte Balance 14.0 mEq/L Invalid Interpretation Code 4.0 - 15.0 mEq/L AO ADM SS Eosinophil, Absolute 0.0 103/mcL Invalid Interpretation Code 0.0 - 0.4 10^3/mcL AO Workflow SS Eosinophils/100 WBC (Bld) 0.0 % Invalid Interpretation Code 0.0 - 7.0 % AO Workflow SS Erythrocyte distribution width (RBC) [Ratio] 14.1 % Invalid Interpretation Code 11.5 - 14.5 % AO Workflow SS Glucose [Mass/Vol] 116 mg/dL Invalid Interpretation Code 70 - 105 mg/dL AO ADM SS Hematocrit (Bld) [Volume fraction] 43.8 % Invalid Interpretation Code 37.0 - 47.0 % AO Workflow SS Hgb 14.3 G/dL Invalid Interpretation Code 12.0 - 16.0 G/dL AO Workflow SS Lymphocyte, Absolute 1.7 103/mcL Invalid Interpretation Code 0.8 - 3.9 10^3/mcL AO Workflow SS Lymphocytes/100 WBC (Bld) 10.4 % Invalid Interpretation Code 10.0 - 50.0 % AO Workflow SS MCH (RBC) [Entitic mass] 27.8 pg Invalid Interpretation Code 27.0 - 31.2 pg AO Workflow SS MCHC 32.7 G/dL Invalid Interpretation Code 33.0 - 37.0 G/dL AO Workflow SS MCV (RBC) [Entitic vol] 85.1 fL Invalid Interpretation Code 80.0 - 94.0 fL AO Workflow SS Monocyte, Absolute 0.8 103/mcL Invalid Interpretation Code 0.2 - 1.0 10^3/mcL AO Workflow SS Monocytes/100 WBC (Bld) 4.8 % Invalid Interpretation Code 1.7 - 13.0 % AO Workflow SS Neutrophil, Absolute 13.6 103/mcL Invalid Interpretation Code 2.9 - 6.2 10^3/mcL AO Workflow SS Neutrophils/100 WBC (Bld) 84.5 % Invalid Interpretation Code 37.0 - 80.0 % AO Workflow SS Platelet 312 103/mcL Invalid Interpretation Code 130 - 400 10^3/mcL AO Workflow SS Platelet mean volume (Bld) [Entitic vol] 7.7 fL Invalid Interpretation Code 7.4 - 10.4 fL AO Workflow SS Potassium [Moles/Vol] 4.8 mmol/L Invalid Interpretation Code 3.5 - 5.1 mmol/L AO ADM SS RBC 5.15 106/mcL Invalid Interpretation Code 4.20 - 5.40 10^6/mcL AO Workflow SS Sodium [Moles/Vol] 139 mmol/L Invalid Interpretation Code 136 - 145 mmol/L AO ADM SS Urea nitrogen [Mass/Vol] 8 mg/dL Invalid Interpretation Code 7 - 18 mg/dL AO ADM SS Urea nitrogen/Creatinine [Mass ratio] 10 ratio Invalid Interpretation Code 7 - 27 ratio AO ADM SS WBC 16.1 103/mcL Invalid Interpretation Code 4.6 - 10.8 10^3/mcL AO Workflow SS LABORATORYOrdered By: SYSTEM SYSTEM on 09-11-2021 GFR 95 ml/min/1.73sqm Invalid Interpretation Code AO Chemistry S GFR Non- 78 ml/min/1.73sqm Invalid Interpretation Code AO Chemistry S Monocyte Distribution Width Not Performed 1 *NA* (09/11/21 5:26 AM) Invalid Interpretation Code 0.00 - 20.00 AO Hematology S Comment on above: Result Comment: MDW testing performed only on adult ER patients between the ages of 18-89 years. LABORATORYOrdered By: Meghan De Los Santos on 09-10-2021 HCG ( test) Ql Negative (09/10/21 6:40 AM) Invalid Interpretation Code AO Manual Urine SS test (u) int Not detected Invalid Interpretation Code AO Manual Urine SS LABORATORYOrdered By: Jolene Morris on 09-02-2021 aPTT Coag (Bld) [Time] 30.7 s Invalid Interpretation Code 24.8 - 33.3 seconds AO Coag SS HbA1c (Bld) [Mass fraction] 5.6 % Invalid Interpretation Code 4.3 - 6.4 % AO ADM SS Heparin dose (APTT) Unknown (09/02/21 9:14 AM) Invalid Interpretation Code AO Coag SS INR Coag (PPP) [Relative time] 1.0 {INR} Invalid Interpretation Code 0.9 - 1.2 ratio AO Coag SS PT Coag (PPP) [Time] 11.9 s Invalid Interpretation Code 9.7 - 14.3 seconds AO Coag SS LABORATORYOrdered By: Crystal Emmanuel on 08-14-2021 Albumin BCP dye [Mass/Vol] 3.7 G/dL Invalid Interpretation Code 3.5 - 5.0 G/dL AO ADM SS Albumin/Globulin [Mass ratio] 1.1 {ratio} Invalid Interpretation Code 1.1 - 2.5 ratio AO ADM SS ALP [Catalytic activity/Vol] 113 U/L Invalid Interpretation Code 40 - 135 U/L AO ADM SS ALT With P-5'-P [Catalytic activity/Vol] 16 U/L Invalid Interpretation Code 14 - 59 U/L AO ADM SS AST With P-5'-P [Catalytic activity/Vol] 16 U/L Invalid Interpretation Code 10 - 40 U/L AO ADM SS Bilirubin [Mass/Vol] 0.1 mg/dL Invalid Interpretation Code 0.2 - 1.0 mg/dL AO ADM SS Calcium [Mass/Vol] 8.9 mg/dL Invalid Interpretation Code 8.4 - 10.2 mg/dL AO ADM SS Chloride [Moles/Vol] 105 mmol/L Invalid Interpretation Code 98 - 107 mmol/L AO ADM SS CO2 [Moles/Vol] 25 mmol/L Invalid Interpretation Code 22 - 29 mmol/L AO ADM SS Creatinine [Mass/Vol] 0.66 mg/dL Invalid Interpretation Code 0.55 - 1.02 mg/dL AO ADM SS Electrolyte Balance 10.0 mEq/L Invalid Interpretation Code 4.0 - 15.0 mEq/L AO ADM SS Globulin 3.5 G/dL Invalid Interpretation Code AO ADM SS Glucose [Mass/Vol] 82 mg/dL Invalid Interpretation Code 70 - 105 mg/dL AO ADM SS Potassium [Moles/Vol] 3.4 mmol/L Invalid Interpretation Code 3.5 - 5.1 mmol/L AO ADM SS Protein [Mass/Vol] 7.2 G/dL Invalid Interpretation Code 6.4 - 8.2 G/dL AO ADM SS Sodium [Moles/Vol] 140 mmol/L Invalid Interpretation Code 136 - 145 mmol/L AO ADM SS Urea nitrogen [Mass/Vol] 10 mg/dL Invalid Interpretation Code 7 - 18 mg/dL AO ADM SS Urea nitrogen/Creatinine [Mass ratio] 15 ratio Invalid Interpretation Code 7 - 27 ratio AO ADM SS LABORATORYOrdered By: Jony Glasgow on 08-14-2021 Basophil, Absolute 0.00 103/mcL Invalid Interpretation Code 0.00 - 0.19 10^3/mcL AO Auto Heme SS Basophils/100 WBC (Bld) 0.6 % Invalid Interpretation Code 0.0 - 2.5 % AO Auto Heme SS Eosinophil, Absolute 0.20 103/mcL Invalid Interpretation Code 0.00 - 0.40 10^3/mcL AO Auto Heme SS Eosinophils/100 WBC (Bld) 3.0 % Invalid Interpretation Code 0.0 - 7.0 % AO Auto Heme SS Erythrocyte distribution width (RBC) [Ratio] 13.3 % Invalid Interpretation Code 11.5 - 14.5 % AO Auto Heme SS Hematocrit (Bld) [Volume fraction] 41.5 % Invalid Interpretation Code 37.0 - 47.0 % AO Auto Heme SS Hemoglobin (Bld) [Mass/Vol] 14.4 G/dL Invalid Interpretation Code 12.0 - 16.0 G/dL AO Auto Heme SS Lymphocyte, Absolute 2.90 103/mcL Invalid Interpretation Code 0.77 - 3.85 10^3/mcL AO Auto Heme SS Lymphocytes/100 WBC (Bld) 46.8 % Invalid Interpretation Code 10.0 - 50.0 % AO Auto Heme SS MCH (RBC) [Entitic mass] 28.9 pg Invalid Interpretation Code 27.0 - 31.2 pg AO Auto Heme SS MCHC (RBC) [Mass/Vol] 34.6 G/dL Invalid Interpretation Code 33.0 - 37.0 G/dL AO Auto Heme SS MCV (RBC) [Entitic vol] 83.5 fL Invalid Interpretation Code 80.0 - 94.0 fL AO Auto Heme SS Monocyte, Absolute 0.50 103/mcL Invalid Interpretation Code 0.15 - 1.00 10^3/mcL AO Auto Heme SS Monocytes/100 WBC (Bld) 7.5 % Invalid Interpretation Code 1.7 - 13.0 % AO Auto Heme SS Neutrophil, Absolute 2.60 103/mcL Invalid Interpretation Code 2.85 - 6.16 10^3/mcL AO Auto Heme SS Neutrophils/100 WBC (Bld) 42.1 % Invalid Interpretation Code 37.0 - 80.0 % AO Auto Heme SS Platelet mean volume (Bld) [Entitic vol] 8.1 fL Invalid Interpretation Code 7.4 - 10.4 fL AO Auto Heme SS Platelets (Bld) [#/Vol] 342 103/mcL Invalid Interpretation Code 130 - 400 10^3/mcL AO Auto Heme SS RBC (Bld) [#/Vol] 4.97 106/mcL Invalid Interpretation Code 4.20 - 5.40 10^6/mcL AO Auto Heme SS WBC (Bld) [#/Vol] 6.20 103/mcL Invalid Interpretation Code 4.60 - 10.80 10^3/mcL AO Auto Heme SS LABORATORYOrdered By: SYSTEM SYSTEM on 08-14-2021 GFR 117 ml/min/1.73sqm Invalid Interpretation Code AO Chemistry S GFR Non- 96 ml/min/1.73sqm Invalid Interpretation Code AO Chemistry S LABORATORYOrdered By: Meghan De Los Santos on 05-04-2021 ADMITTED TO INTENSIVE CARE UNIT FOR CONDITION OF INTEREST:FIND:PT:^JOSE ALBERTO ENT:ORD: No (05/04/21 10:00 AM) Invalid Interpretation Code AO Auto Urine SS EMPLOYED IN A HEALTHCARE SETTING:FIND:PT:^PATIE NT:ORD: No (05/04/21 10:00 AM) Invalid Interpretation Code AO Auto Urine SS FIRST TEST FOR CONDITION OF INTEREST:FIND:PT:^JOSE ALBERTO ENT:ORD: No (05/04/21 10:00 AM) Invalid Interpretation Code AO Auto Urine SS HAS SYMPTOMS RELATED TO CONDITION OF INTEREST:FIND:PT:^JOSE ALBERTO ENT:ORD: Yes (05/04/21 10:00 AM) Invalid Interpretation Code AO Auto Urine SS Illness or injury onset date and time [id number] Invalid Interpretation Code AO Auto Urine SS Patient was hospitalized because of this condition No (05/04/21 10:00 AM) Invalid Interpretation Code AO Auto Urine SS status Not (05/04/21 10:00 AM) Invalid Interpretation Code AO Auto Urine SS RESIDES IN A CONGREGATE CARE SETTING:FIND:PT:^TAVARES NT:ORD: No (05/04/21 10:00 AM) Invalid Interpretation Code AO Auto Urine SS SARS-CoV-2 (COVID-19) RNA ALLEN+probe Ql (Resp) Negative (05/04/21 10:00 AM) Invalid Interpretation Code Negative AO Auto Urine SS SARS-CoV-2 (COVID-19) RNA ALLEN+probe Ql (Unsp spec) Negative results do not preclude SARS-CoV-2 infection and should not be used as the sole basis for patient management decisions. Negative results must be combined with clinical observations, patient history, and epidemiological information.There is a risk of false negative values resulting from improperly collected, transported, or handled specimens.There is a risk of false negative values due to the presence of sequence variants in the pathogen targets of the assay, procedural errors, amplification inhibitors in specimens, or inadequate numbers of organisms for amplification.MARV SARS-CoV-2 Assay is a Real-Time reverse-transcriptase polymerase chain reaction (RT-PCR) based qualitative in vitro diagnostic test intended for the qualitative detection of nucleic acid from the SARS-CoV-2 in nasopharyngeal swab specimens collected from individuals suspected of COVID-19 by their healthcare provider. Testing is limited to laboratories certified under the Clinical Laboratory Improvement Amendments of 1988 (CLIA), 42 U.S.C. 263a, to perform moderate and high complexity tests. Invalid Interpretation Code AO Auto Urine SS LABORATORYOrdered By: Jolene Morris on 04-04-2021 Basophil, Absolute 0.00 103/mcL Invalid Interpretation Code 0.00 - 0.19 10^3/mcL AO Auto Heme SS Basophils/100 WBC (Bld) 0.7 % Invalid Interpretation Code 0.0 - 2.5 % AO Auto Heme SS Calcium [Mass/Vol] 8.9 mg/dL Invalid Interpretation Code 8.4 - 10.2 mg/dL AO ADM SS Chloride [Moles/Vol] 101 mmol/L Invalid Interpretation Code 98 - 107 mmol/L AO ADM SS CO2 [Moles/Vol] 25 mmol/L Invalid Interpretation Code 22 - 29 mmol/L AO ADM SS Creatinine [Mass/Vol] 0.58 mg/dL Invalid Interpretation Code 0.55 - 1.02 mg/dL AO ADM SS Electrolyte Balance 9.0 mEq/L Invalid Interpretation Code AO ADM SS Eosinophil, Absolute 0.20 103/mcL Invalid Interpretation Code 0.00 - 0.40 10^3/mcL AO Auto Heme SS Eosinophils/100 WBC (Bld) 4.8 % Invalid Interpretation Code 0.0 - 7.0 % AO Auto Heme SS Erythrocyte distribution width (RBC) [Ratio] 13.1 % Invalid Interpretation Code 11.5 - 14.5 % AO Auto Heme SS Glucose [Mass/Vol] 80 mg/dL Invalid Interpretation Code 70 - 105 mg/dL AO ADM SS Hematocrit (Bld) [Volume fraction] 38.6 % Invalid Interpretation Code 37.0 - 47.0 % AO Auto Heme SS Hemoglobin (Bld) [Mass/Vol] 13.2 G/dL Invalid Interpretation Code 12.0 - 16.0 G/dL AO Auto Heme SS Lymphocyte, Absolute 2.30 103/mcL Invalid Interpretation Code 0.77 - 3.85 10^3/mcL AO Auto Heme SS Lymphocytes/100 WBC (Bld) 44.6 % Invalid Interpretation Code 10.0 - 50.0 % AO Auto Heme SS MCH (RBC) [Entitic mass] 29.0 pg Invalid Interpretation Code 27.0 - 31.2 pg AO Auto Heme SS MCHC (RBC) [Mass/Vol] 34.1 G/dL Invalid Interpretation Code 33.0 - 37.0 G/dL AO Auto Heme SS MCV (RBC) [Entitic vol] 85.1 fL Invalid Interpretation Code 80.0 - 94.0 fL AO Auto Heme SS Monocyte, Absolute 0.40 103/mcL Invalid Interpretation Code 0.15 - 1.00 10^3/mcL AO Auto Heme SS Monocytes/100 WBC (Bld) 7.8 % Invalid Interpretation Code 1.7 - 13.0 % AO Auto Heme SS Neutrophil, Absolute 2.10 103/mcL Invalid Interpretation Code 2.85 - 6.16 10^3/mcL AO Auto Heme SS Neutrophils/100 WBC (Bld) 42.1 % Invalid Interpretation Code 37.0 - 80.0 % AO Auto Heme SS Platelet mean volume (Bld) [Entitic vol] 7.4 fL Invalid Interpretation Code 7.4 - 10.4 fL AO Auto Heme SS Platelets (Bld) [#/Vol] 266 103/mcL Invalid Interpretation Code 130 - 400 10^3/mcL AO Auto Heme SS Potassium [Moles/Vol] 3.4 mmol/L Invalid Interpretation Code 3.5 - 5.1 mmol/L AO ADM SS RBC (Bld) [#/Vol] 4.54 106/mcL Invalid Interpretation Code 4.20 - 5.40 10^6/mcL AO Auto Heme SS Sodium [Moles/Vol] 135 mmol/L Invalid Interpretation Code 136 - 145 mmol/L AO ADM SS Urea nitrogen [Mass/Vol] 16 mg/dL Invalid Interpretation Code 7 - 18 mg/dL AO ADM SS Urea nitrogen/Creatinine [Mass ratio] 28 ratio Invalid Interpretation Code 7 - 27 ratio AO ADM SS WBC (Bld) [#/Vol] 5.10 103/mcL Invalid Interpretation Code 4.60 - 10.80 10^3/mcL AO Auto Heme SS LABORATORYOrdered By: SYSTEM SYSTEM on 04-04-2021 GFR 136 ml/min/1.73sqm Invalid Interpretation Code AO Chemistry S GFR Non- 112 ml/min/1.73sqm Invalid Interpretation Code AO Chemistry S LABORATORYOrdered By: Meghan De Los Sanots on 04-04-2021 Troponin I.cardiac DL <= 0.01 ng/mL [Mass/Vol] 5.9 ng/L Invalid Interpretation Code 0.0 - 51.4 ng/L AO ADM SS LABORATORYOrdered By: Meghan De Los Santos on 03-11-2021 ADMITTED TO INTENSIVE CARE UNIT FOR CONDITION OF INTEREST:FIND:PT:^JOSE ALBERTO ENT:ORD: No (03/11/21 11:36 AM) Invalid Interpretation Code AO Auto Urine SS EMPLOYED IN A HEALTHCARE SETTING:FIND:PT:^PATIE NT:ORD: No (03/11/21 11:36 AM) Invalid Interpretation Code AO Auto Urine SS FIRST TEST FOR CONDITION OF INTEREST:FIND:PT:^JOSE ALBERTO ENT:ORD: Unknown (03/11/21 11:36 AM) Invalid Interpretation Code AO Auto Urine SS HAS SYMPTOMS RELATED TO CONDITION OF INTEREST:FIND:PT:^JOSE ALBERTO ENT:ORD: Yes (03/11/21 11:36 AM) Invalid Interpretation Code AO Auto Urine SS Illness or injury onset date and time [id number] Invalid Interpretation Code AO Auto Urine SS Patient was hospitalized because of this condition No (03/11/21 11:36 AM) Invalid Interpretation Code AO Auto Urine SS status Unknown (03/11/21 11:36 AM) Invalid Interpretation Code AO Auto Urine SS RESIDES IN A CONGREGATE CARE SETTING:FIND:PT:^PATIE NT:ORD: No (03/11/21 11:36 AM) Invalid Interpretation Code AO Auto Urine SS SARS-CoV-2 (COVID-19) RNA ALLEN+probe Ql (Resp) Negative (03/11/21 11:36 AM) Invalid Interpretation Code Negative AO Auto Urine SS SARS-CoV-2 (COVID-19) RNA ALLEN+probe Ql (Unsp spec) Negative results do not preclude SARS-CoV-2 infection and should not be used as the sole basis for patient management decisions. Negative results must be combined with clinical observations, patient history, and epidemiological information.There is a risk of false negative values resulting from improperly collected, transported, or handled specimens.There is a risk of false negative values due to the presence of sequence variants in the pathogen targets of the assay, procedural errors, amplification inhibitors in specimens, or inadequate numbers of organisms for amplification.[employer] SARS-CoV-2 Assay is a Real-Time reverse-transcriptase polymerase chain reaction (RT-PCR) based qualitative in vitro diagnostic test intended for the qualitative detection of nucleic acid from the SARS-CoV-2 in nasopharyngeal swab specimens collected from individuals suspected of COVID-19 by their healthcare provider. Testing is limited to laboratories certified under the Clinical Laboratory Improvement Amendments of 1988 (CLIA), 42 U.S.C. 263a, to perform moderate and high complexity tests. Invalid Interpretation Code AO Auto Urine SS CR Chest PA/LATon 05-10-2019 CR Chest PA/LAT Patient Name: BRITTNEE LUIS Diagnostic Radiology Exam Date/Time 05/09/2019 23:49:26 EST Exam CR Chest PA/LAT Ordering Physician MD JEREMY, [facility] Accession Number [id number] CPT4 Codes 66661 () Reason For Exam chest pain Report CHEST PA AND LATERAL CLINICAL INDICATION: chest pain, cough TECHNIQUE: Frontal and lateral chest x-ray. COMPARISON: None. FINDINGS: Cardiac and mediastinal silhouette within normal limits. Lungs show reticular, pleuroparenchymal densities and probable scarring in the bilateral apices, left greater than right. No significant vascular congestion. No focal consolidation, apparent pleural effusion or pneumothorax. Mild levoscoliotic and degenerative change in the thoracic spine. IMPRESSION: 1. No acute consolidation. Report Dictated on Workstation: [email or web address] Final Dictating Physician: MD SCHMITT WENDELL Signed Date and Time: 05/09/2019 11:55 pm Signed by: MD SCHMITT WENDELL Transcribed Date and Time: 05/09/2019 11:56 Normal [facility] RESPIRATORY PCR PANELon 04-21 RESPIRATORY PCR PANEL RESPIRATORY PCR PA ALICJA --> Status: F NEGATIVE: No targets were detected by the [employer] Upper Respiratory Pathogens PCR Panel. _ The [employer] Upper Respiratory Pathogens PCR Panel can detect the following targets: Adenovirus, Coronavirus 229E, Coronavirus HKU1, Coronavirus NL63, Coronavirus OC43, Human Metapneumovirus, Human Rhinovirus/Enterovirus, Influenza A, Influenza B, Parainfluenza Virus 1, Parainfluenza Virus 2, Parainfluenza Virus 3, Parainfluenza Virus 4, Respiratory Syncytial Virus, Bordetella pertussis, Bordetella parapertussis, Chlamydia pneumoniae, Mycoplasma pneumoniae Respiratory Pathogens PCR Panel. _ The [employer] Upper Respiratory Pathogens PCR Panel can detect the following targets: Adenovirus, Coronavirus 229E, Coronavirus HKU1, Coronavirus NL63, Coronavirus OC43, Human Metapneumovirus, Human Rhinovirus/Enterovirus, Influenza A, Influenza B, Parainfluenza Virus 1, Parainfluenza Virus 2, Parainfluenza Virus 3, Parainfluenza Virus 4, Respiratory Syncytial Virus, Bordetella pertussis, Bordetella parapertussis, Chlamydia pneumoniae, Mycoplasma pneumoniae Normal [facility] Comment on above: Order Comment: Speci men Source Comment:Nasopharyngeal Performed By: #### B FRES #### [address] [id number] XR CHEST STANDARD (2 VW)Orde red By: Juan Manuel Page on 05-09-2019 Patient Name: BRITTNEE LUIS ---Diagnostic Radiology--- Exam Date/Time 05/09/2019 23:49:26 EST Exam CR Chest PA/LAT Ordering Physician MD PAGE NISHIT Accession Number [id number] CPT4 Codes 80386 () Reason For Exam chest pain Report CHEST PA AND LATERAL CLINICAL INDICATION: chest pain, cough TECHNIQUE: Frontal and lateral chest x-ray. COMPARISON: None. FINDINGS: Cardiac and mediastinal silhouette within normal limits. Lungs show reticular, pleuroparenchymal densities and probable scarring in the bilateral apices, left greater than right. No significant vascular congestion. No focal consolidation, apparent pleural effusion or pneumothorax. Mild levoscoliotic and degenerative change in the thoracic spine. IMPRESSION: 1. No acute consolidation. Report Dictated on Workstation: [email or web address] --- Final --- Dictating Physician: MD SCHMITT WENDELL Signed Date and Time: 05/09/2019 11:55 pm Signed by: MD SCHMITT WENDELL Transcribed Date and Time: 05/09/2019 11:56 [facility] Work Phone: Lázaro, [facility] Incoming Radiology Results From [facility] - 05/09/2019 11:57 PM EST Patient Name: BRITTNEE MARIE ---Diagnostic Radiology--- Exam Date/Time 05/09/2019 23:49:26 EST Exam CR Chest PA/LAT Ordering Physician MD JEREMY, [facility] Accession Number [id number] CPT4 Codes 08449 () Reason For Exam chest pain Report CHEST PA AND LATERAL CLINICAL INDICATION: chest pain, cough TECHNIQUE: Frontal and lateral chest x-ray. COMPARISON: None. FINDINGS: Cardiac and mediastinal silhouette within normal limits. Lungs show reticular, pleuroparenchymal densities and probable scarring in the bilateral apices, left greater than right. No significant vascular congestion. No focal consolidation, apparent pleural effusion or pneumothorax. Mild levoscoliotic and degenerative change in the thoracic spine. IMPRESSION: 1. No acute consolidation. Report Dictated on Workstation: [email or web address] --- Final --- Dictating Physician: MD SCHMITT WENDELL Signed Date and Time: 05/09/2019 11:55 pm Signed by: MD SCHMITT WENDELL Transcribed Date and Time: 05/09/2019 11:56 [facility] Work Phone: ED Note-Provideron 7 ED Note-Provider Normal [facility] Patient Summary Documentson 10-17-2016 Patient Summary Documents Normal [facility] Vital Signs Date Time Vital Sign Value Performing Clinician Facility 12-30-2024 12:59-0400 Body height 162.56 cm Humera Garcia VP TREASURER-C Work Phone: [facility] 12-30-2024 12:59-0400 Body mass index (BMI) [Ratio] 27.8 kg/m2 Humera Garcia VP TREASURER-C Work Phone: [facility] 12-30-2024 12:59-0400 Body weight 73.48 kg Humera Garcia VP TREASURER-C Work Phone: [facility] 12-30-2024 12:59-0400 Diastolic blood pressure 72 mm[Hg] Humera Niñoagen VP TREASURER-C Work Phone: [facility] 12-30-2024 12:59-0400 Heart rate 64 /min Humera Garcia VP TREASURER-C Work Phone: 5(455)[phone] [place] [address] 12-30-2024 12:59-0400 Respiratory rate 18 /min Humera Haagen VP TREASURER-C Work Phone: [facility] 12-30-2024 12:59-0400 Systolic blood pressure 109 mm[Hg] Humera Haagen VP TREASURER-C Work Phone: [facility] 12-26-2024 08:26-0400 Diastolic blood pressure 68 mm[Hg] Lin Suppan DIAGNOSTIC ASSISTANT.RECORDS MANAGEMENT ASSOCIATE Work Phone: [facility] 12-26-2024 08:26-0400 Systolic blood pressure 100 mm[Hg] Lin Suppan DIAGNOSTIC ASSISTANT.RECORDS MANAGEMENT ASSOCIATE Work Phone: [facility] 12-26-2024 08:02-0400 Body mass index (BMI) [Ratio] 28.7 kg/m2 Lin Suppan DIAGNOSTIC ASSISTANT.RECORDS MANAGEMENT ASSOCIATE Work Phone: [facility] 12-26-2024 08:02-0400 Body weight 73.48 kg Lin Suppan DIAGNOSTIC ASSISTANT.RECORDS MANAGEMENT ASSOCIATE Work Phone: [facility] 12-26-2024 08:02-0400 Heart rate 66 /min Lin Suppan DIAGNOSTIC ASSISTANT.RECORDS MANAGEMENT ASSOCIATE Work Phone: [facility] 12-26-2024 08:02-0400 SaO2% (BldA) [Mass fraction] 98 % Lin Suppan DIAGNOSTIC ASSISTANT.RECORDS MANAGEMENT ASSOCIATE Work Phone: [facility] 11-17-2024 08:04-0400 Body mass index (BMI) [Ratio] 29.23 kg/m2 Lin Suppan DIAGNOSTIC ASSISTANT.RECORDS MANAGEMENT ASSOCIATE Work Phone: [facility] 11-17-2024 08:04-0400 Body weight 74.84 kg Lin Suppan DIAGNOSTIC ASSISTANT.RECORDS MANAGEMENT ASSOCIATE Work Phone: [facility] 11-17-2024 08:04-0400 Diastolic blood pressure 74 mm[Hg] Lin Suppan DIAGNOSTIC ASSISTANT.RECORDS MANAGEMENT ASSOCIATE Work Phone: [facility] 11-17-2024 08:04-0400 Heart rate 71 /min Lin Suppan DIAGNOSTIC ASSISTANT.RECORDS MANAGEMENT ASSOCIATE Work Phone: [facility] 11-17-2024 08:04-0400 SaO2% (BldA) [Mass fraction] 97 % Lin Suppan DIAGNOSTIC ASSISTANT.RECORDS MANAGEMENT ASSOCIATE Work Phone: [facility] 11-17-2024 08:04-0400 Systolic blood pressure 116 mm[Hg] Lin Suppan DIAGNOSTIC ASSISTANT.RECORDS MANAGEMENT ASSOCIATE Work Phone: [facility] 11-14-2024 15:14-0400 Body temperature 97.7 [degF] Humera Haagen VP TREASURER-C Work Phone: [facility] 11-14-2024 15:14-0400 Diastolic blood pressure 69 mm[Hg] Humera Haagen VP TREASURER-C Work Phone: [facility] 11-14-2024 15:14-0400 Heart rate 65 /min Humera Haagen VP TREASURER-C Work Phone: [facility] 11-14-2024 15:14-0400 Respiratory rate 16 /min Humera Haagen VP TREASURER-C Work Phone: [facility] 11-14-2024 15:14-0400 SaO2% (BldA) [Mass fraction] 99 % Humera Haagen VP TREASURER-C Work Phone: 4(803)615-304526 [place] [address] 11-14-2024 15:14-0400 Systolic blood pressure 127 mm[Hg] Humera Haagen VP TREASURER-C Work Phone: 0(450)[phone] [place] [address] 11-14-2024 10:01-0400 Body mass index (BMI) [Ratio] 26.9 kg/m2 Humera Haagen VP TREASURER-C Work Phone: 8(763)555-409926 [place] [address] 11-14-2024 10:01-0400 Body weight 71 kg Humera Haagen VP TREASURER-C Work Phone: 2(577)901-016826 [place] [address] 11-14-2024 10:00-0400 Body height 162.56 cm Humera Haagen VP TREASURER-C Work Phone: 7(035)019-120626 [place] [address] 09-02-2024 08:54-0400 Body height 162.56 cm Humera Haagen VP TREASURER-C Work Phone: 9(992)831-875326 [place] [address] 09-02-2024 08:54-0400 Body mass index (BMI) [Ratio] 28.3 kg/m2 Humera Haagen VP TREASURER-C Work Phone: 4(752)568-212626 [place] [address] 09-02-2024 08:54-0400 Body weight 74.84 kg Humera Haagen VP TREASURER-C Work Phone: 5(436)911-235526 [place] [address] 09-02-2024 08:54-0400 Diastolic blood pressure 83 mm[Hg] Humera Haagen VP TREASURER-C Work Phone: 2(450)345-139526 [place] [address] 09-02-2024 08:54-0400 Heart rate 70 /min Humera Haagen VP TREASURER-C Work Phone: 5(658)[phone] [place] [address] 09-02-2024 08:54-0400 Respiratory rate 16 /min Humera Haagen VP TREASURER-C Work Phone: 0(860)832-217226 [place] [address] 09-02-2024 08:54-0400 Systolic blood pressure 132 mm[Hg] Humera Haagen VP TREASURER-C Work Phone: 8(878)[phone] [place] [address] 07-22-2024 15:49-0400 Body mass index (BMI) [Ratio] 27.99 kg/m2 Lin Suppan DIAGNOSTIC ASSISTANT.RECORDS MANAGEMENT ASSOCIATE Work Phone: [facility] 07-22-2024 15:49-0400 Body temperature 98.01 [degF] Lin Suppan DIAGNOSTIC ASSISTANT.RECORDS MANAGEMENT ASSOCIATE Work Phone: [facility] 07-22-2024 15:49-0400 Body weight 71.67 kg Lin Suppan DIAGNOSTIC ASSISTANT.RECORDS MANAGEMENT ASSOCIATE Work Phone: [facility] 07-22-2024 15:49-0400 Diastolic blood pressure 66 mm[Hg] Lin Suppan DIAGNOSTIC ASSISTANT.RECORDS MANAGEMENT ASSOCIATE Work Phone: [facility] 07-22-2024 15:49-0400 Heart rate 67 /min Lin Suppan DIAGNOSTIC ASSISTANT.RECORDS MANAGEMENT ASSOCIATE Work Phone: [facility] 07-22-2024 15:49-0400 SaO2% (BldA) [Mass fraction] 97 % Lin Suppan DIAGNOSTIC ASSISTANT.RECORDS MANAGEMENT ASSOCIATE Work Phone: [facility] 07-22-2024 15:49-0400 Systolic blood pressure 104 mm[Hg] Lin Suppan DIAGNOSTIC ASSISTANT.RECORDS MANAGEMENT ASSOCIATE Work Phone: [facility] 07-11-2024 16:29-0400 Diastolic blood pressure 60 mm[Hg] Lin Suppan DIAGNOSTIC ASSISTANT.RECORDS MANAGEMENT ASSOCIATE Work Phone: [facility] 07-11-2024 16:29-0400 Systolic blood pressure 98 mm[Hg] Lin Suppan DIAGNOSTIC ASSISTANT.RECORDS MANAGEMENT ASSOCIATE Work Phone: [facility] 07-05-2024 08:57-0400 Body height 160 cm Jared Nazario MD Work Phone: [facility] 07-05-2024 08:57-0400 Body mass index (BMI) [Ratio] 27.34 kg/m2 Jared Nazario MD Work Phone: [facility] 07-05-2024 08:57-0400 Body weight 70 kg Jared Nazario MD Work Phone: [facility] 07-05-2024 08:57-0400 Diastolic blood pressure 74 mm[Hg] Jared Nazario MD Work Phone: [facility] 07-05-2024 08:57-0400 Heart rate 79 /min Jared Nazario MD Work Phone: [facility] 07-05-2024 08:57-0400 Systolic blood pressure 114 mm[Hg] Jared Nazario MD Work Phone: [facility] 05-31-2024 14:48-0500 Diastolic blood pressure 82 mm[Hg] Irma Clark DIAGNOSTIC ASSISTANT.RECORDS MANAGEMENT ASSOCIATE Work Phone: [facility] 05-31-2024 14:48-0500 Heart rate 91 /min Irma Clark DIAGNOSTIC ASSISTANT.RECORDS MANAGEMENT ASSOCIATE Work Phone: [facility] 05-31-2024 14:48-0500 Systolic blood pressure 129 mm[Hg] Irma Clark DIAGNOSTIC ASSISTANT.RECORDS MANAGEMENT ASSOCIATE Work Phone: [facility] 05-31-2024 13:53-0500 Body height 160 cm Irma Clark DIAGNOSTIC ASSISTANT.RECORDS MANAGEMENT ASSOCIATE Work Phone: [facility] 05-31-2024 13:53-0500 Body mass index (BMI) [Ratio] 27.53 kg/m2 Irma Clark DIAGNOSTIC ASSISTANT.RECORDS MANAGEMENT ASSOCIATE Work Phone: [facility] 05-31-2024 13:53-0500 Body weight 70.5 kg Irma Clark DIAGNOSTIC ASSISTANT.RECORDS MANAGEMENT ASSOCIATE Work Phone: [facility] 05-31-2024 13:53-0500 SaO2% (BldA) [Mass fraction] 98 % Irma Clark DIAGNOSTIC ASSISTANT.RECORDS MANAGEMENT ASSOCIATE Work Phone: [facility] 01-07-2024 13:09-0400 Body mass index (BMI) [Ratio] 27.21 kg/m2 Trini Higginbotham MD Work Phone: [facility] 01-07-2024 13:09-0400 Body weight 69.67 kg Trini Higginbotham MD Work Phone: [facility] 01-07-2024 13:09-0400 Diastolic blood pressure 80 mm[Hg] Trini Higginbotham MD Work Phone: [facility] 01-07-2024 13:09-0400 Systolic blood pressure 120 mm[Hg] Trini Higginbotham MD Work Phone: [facility] 12-30-2023 08:49-0400 Body mass index (BMI) [Ratio] 27.28 kg/m2 Pietro Staley MD Work Phone: [facility] 12-30-2023 08:49-0400 Body weight 69.85 kg Pietro Staley MD Work Phone: [facility] 12-30-2023 08:49-0400 Diastolic blood pressure 60 mm[Hg] Pietro Staley MD Work Phone: [facility] 12-30-2023 08:49-0400 Systolic blood pressure 118 mm[Hg] Pietro Staley MD Work Phone: [facility] 11-30-2023 08:32-0400 Body mass index (BMI) [Ratio] 27.1 kg/m2 Humera Garcia DIAGNOSTIC ASSISTANT.RECORDS MANAGEMENT ASSOCIATE Work Phone: [facility] 11-30-2023 08:32-0400 Body weight 69.4 kg Humera Garcia DIAGNOSTIC ASSISTANT.RECORDS MANAGEMENT ASSOCIATE Work Phone: [facility] 11-30-2023 08:32-0400 Diastolic blood pressure 72 mm[Hg] Humera Garcia DIAGNOSTIC ASSISTANT.RECORDS MANAGEMENT ASSOCIATE Work Phone: [facility] 11-30-2023 08:32-0400 Heart rate 71 /min Humera Garcia DIAGNOSTIC ASSISTANT.RECORDS MANAGEMENT ASSOCIATE Work Phone: [facility] 11-30-2023 08:32-0400 Respiratory rate 16 /min Humera Garcia DIAGNOSTIC ASSISTANT.RECORDS MANAGEMENT ASSOCIATE Work Phone: [facility] 11-30-2023 08:32-0400 SaO2% (BldA) [Mass fraction] 97 % Humera Garcia DIAGNOSTIC ASSISTANT.RECORDS MANAGEMENT ASSOCIATE Work Phone: [facility] 11-30-2023 08:32-0400 Systolic blood pressure 120 mm[Hg] Humera Garcia DIAGNOSTIC ASSISTANT.RECORDS MANAGEMENT ASSOCIATE Work Phone: [facility] 11-24-2023 09:28-0400 Body mass index (BMI) [Ratio] 27.1 kg/m2 Lin Suppan DIAGNOSTIC ASSISTANT.RECORDS MANAGEMENT ASSOCIATE Work Phone: [facility] 11-24-2023 09:28-0400 Body temperature 97.3 [degF] Lin Suppan DIAGNOSTIC ASSISTANT.RECORDS MANAGEMENT ASSOCIATE Work Phone: [facility] 11-24-2023 09:28-0400 Body weight 69.4 kg Lin Suppan DIAGNOSTIC ASSISTANT.RECORDS MANAGEMENT ASSOCIATE Work Phone: [facility] 11-24-2023 09:28-0400 Diastolic blood pressure 68 mm[Hg] Lin Suppan DIAGNOSTIC ASSISTANT.RECORDS MANAGEMENT ASSOCIATE Work Phone: [facility] 11-24-2023 09:28-0400 Heart rate 80 /min Lin Suppan DIAGNOSTIC ASSISTANT.RECORDS MANAGEMENT ASSOCIATE Work Phone: [facility] 11-24-2023 09:28-0400 SaO2% (BldA) [Mass fraction] 95 % Lin Suppan DIAGNOSTIC ASSISTANT.RECORDS MANAGEMENT ASSOCIATE Work Phone: [facility] 11-24-2023 09:28-0400 Systolic blood pressure 100 mm[Hg] Iln Suppan DIAGNOSTIC ASSISTANT.RECORDS MANAGEMENT ASSOCIATE Work Phone: [facility] 11-13-2023 12:07-0400 Diastolic Blood Pressure Non-Invasive 73 mm[Hg] DR MARIA TERESA PASCUAL MD [facility] 11-13-2023 12:07-0400 Heart rate 72 /min DR MARIA TERESA PASCUAL MD [facility] 11-13-2023 12:07-0400 Respiratory rate 16 /min DR MARIA TERESA PASCUAL MD [facility] 11-13-2023 12:07-0400 Systolic Blood Pressure Non-Invasive 126 mm[Hg] DR MARIA TERESA PASCUAL MD [facility] 11-13-2023 11:00-0400 Diastolic Blood Pressure Non-Invasive 82 mm[Hg] DR MARIA TERESA PASCUAL MD [facility] 11-13-2023 11:00-0400 Heart rate 85 /min DR MARIA TERESA PASCUAL MD [facility] 11-13-2023 11:00-0400 Systolic Blood Pressure Non-Invasive 138 mm[Hg] DR MARIA TERESA PASCUAL MD [facility] 11-13-2023 10:19-[address] MARIA TERESA PASCUAL MD [facility] 11-13-2023 10:19-0400 Diastolic Blood Pressure Non-Invasive 89 mm[Hg] DR MARIA TERESA PASCUAL MD [facility] 11-13-2023 10:19-0400 Heart rate 86 /min DR MARIA TERESA PASCUAL MD [facility] 11-13-2023 10:19-0400 Respiratory rate 16 /min DR MARIA TERESA PASCUAL MD [facility] 11-13-2023 10:19-0400 Systolic Blood Pressure Non-Invasive 132 mm[Hg] DR MARIA TERESA PASCUAL MD [facility] 11-13-2023 08:54-0400 Blood Pressure Cuff Size DR MARIA TERESA PASCUAL MD [facility] 11-13-2023 08:54-[address] MARIA TERESA PASCUAL MD [facility] 11-13-2023 08:54-0400 Body temperature 98.96 [degF] DR MARIA TERESA PASCULA MD [facility] 11-11-2023 15:22-0400 Body mass index (BMI) [Ratio] 27.81 kg/m2 Humera Haagen DIAGNOSTIC ASSISTANT.RECORDS MANAGEMENT ASSOCIATE Work Phone: [facility] 11-11-2023 15:22-0400 Body temperature 98.49 [degF] Humera Haagen DIAGNOSTIC ASSISTANT.RECORDS MANAGEMENT ASSOCIATE Work Phone: [facility] 11-11-2023 15:22-0400 Body weight 71.22 kg Humera Haagen DIAGNOSTIC ASSISTANT.RECORDS MANAGEMENT ASSOCIATE Work Phone: [facility] 11-11-2023 15:22-0400 Diastolic blood pressure 80 mm[Hg] Humera Haagen DIAGNOSTIC ASSISTANT.RECORDS MANAGEMENT ASSOCIATE Work Phone: [facility] 11-11-2023 15:22-0400 Heart rate 77 /min Humera Haagen DIAGNOSTIC ASSISTANT.RECORDS MANAGEMENT ASSOCIATE Work Phone: [facility] 11-11-2023 15:22-0400 Respiratory rate 16 /min Humera Haagen DIAGNOSTIC ASSISTANT.RECORDS MANAGEMENT ASSOCIATE Work Phone: [facility] 11-11-2023 15:22-0400 Systolic blood pressure 110 mm[Hg] Humera Haagen DIAGNOSTIC ASSISTANT.RECORDS MANAGEMENT ASSOCIATE Work Phone: [facility] 11-02-2023 16:02-0400 Body height 160 cm Annmarie Coronado MD Work Phone: [facility] 11-02-2023 16:02-0400 Body mass index (BMI) [Ratio] 27.63 kg/m2 Annmarie Coronado MD Work Phone: [facility] 11-02-2023 16:02-0400 Body temperature 98.49 [degF] Annmarie Coronado MD Work Phone: [facility] 11-02-2023 16:02-0400 Body weight 70.76 kg Annmarie Coronado MD Work Phone: [facility] 11-02-2023 16:02-0400 Diastolic blood pressure 80 mm[Hg] Annmarie Coronado MD Work Phone: [facility] 11-02-2023 16:02-0400 Heart rate 88 /min Annmarie Coronado MD Work Phone: [facility] 11-02-2023 16:02-0400 SaO2% (BldA) [Mass fraction] 96 % Annmarie Coronado MD Work Phone: [facility] 11-02-2023 16:02-0400 Systolic blood pressure 106 mm[Hg] Annmarie Coronado MD Work Phone: [facility] 10-12-2023 17:26-0400 Body mass index (BMI) [Ratio] 26.43 kg/m2 Humera Haagen DIAGNOSTIC ASSISTANT.RECORDS MANAGEMENT ASSOCIATE Work Phone: [facility] 10-12-2023 17:26-0400 Body weight 69.85 kg Humera Haagen DIAGNOSTIC ASSISTANT.RECORDS MANAGEMENT ASSOCIATE Work Phone: [facility] 10-12-2023 17:26-0400 Diastolic blood pressure 82 mm[Hg] Humera Haagen DIAGNOSTIC ASSISTANT.RECORDS MANAGEMENT ASSOCIATE Work Phone: [facility] 10-12-2023 17:26-0400 Heart rate 82 /min Humera Haagen DIAGNOSTIC ASSISTANT.RECORDS MANAGEMENT ASSOCIATE Work Phone: [facility] 10-12-2023 17:26-0400 Respiratory rate 16 /min Humera Haagen DIAGNOSTIC ASSISTANT.RECORDS MANAGEMENT ASSOCIATE Work Phone: [facility] 10-12-2023 17:26-0400 SaO2% (BldA) [Mass fraction] 97 % Humera Haagen DIAGNOSTIC ASSISTANT.RECORDS MANAGEMENT ASSOCIATE Work Phone: [facility] 10-12-2023 17:26-0400 Systolic blood pressure 110 mm[Hg] Humera Haagen DIAGNOSTIC ASSISTANT.RECORDS MANAGEMENT ASSOCIATE Work Phone: [facility] 08-07-2023 14:45-0400 Body temperature 98.2 [degF] Carmencita GARCIA Work Phone: [facility] 08-07-2023 14:45-0400 Diastolic blood pressure 62 mm[Hg] Krislyn Aberegg PA Work Phone: [facility] 08-07-2023 14:45-0400 Heart rate 103 /min Krislyn Aberegg PA Work Phone: [facility] 08-07-2023 14:45-0400 Respiratory rate 18 /min Krislyn Aberegg PA Work Phone: [facility] 08-07-2023 14:45-0400 SaO2% (BldA) [Mass fraction] 97 % Krislyn Aberegg PA Work Phone: [facility] 08-07-2023 14:45-0400 Systolic blood pressure 122 mm[Hg] Krislyn Aberegg PA Work Phone: [facility] 06-10-2023 08:47-0500 Diastolic Blood Pressure Non-Invasive 86 mm[Hg] DR MIK GARCIA MD [facility] 06-10-2023 08:47-0500 Heart rate 82 /min DR MIK GARCIA MD [facility] 06-10-2023 08:47-0500 Respiratory rate 18 /min DR MIK GARCIA MD [facility] 06-10-2023 08:47-0500 Systolic Blood Pressure Non-Invasive 114 mm[Hg] DR MIK GARCIA MD [facility] 06-10-2023 06:47-0500 Body height 162.[address] MIK GARCIA MD [facility] 06-10-2023 06:47-0500 Body temperature 96.98 [degF] DR MIK GARCIA MD [facility] 06-10-2023 06:47-0500 Body weight 61.[address] MIK GARCIA MD [facility] 06-10-2023 06:47-0500 Diastolic Blood Pressure Non-Invasive 79 mm[Hg] DR MIK GARCIA MD [facility] 06-10-2023 06:47-0500 Heart rate 79 /min DR MIK GACRIA MD [facility] 06-10-2023 06:47-0500 Respiratory rate 18 /min DR MIK GARCIA MD [facility] 06-10-2023 06:47-0500 Systolic Blood Pressure Non-Invasive 112 mm[Hg] DR MIK GARCIA MD [facility] 03-30-2023 07:30-0500 Diastolic Blood Pressure Non-Invasive 81 mm[Hg] CHRISTINA MICHELLET DO [facility] 03-30-2023 07:30-0500 Heart rate 83 /min CHRISTINA FROMARTUROT DO [facility] 03-30-2023 07:30-0500 Respiratory rate 16 /min CHRISTINA FROMMELT DO [facility] 03-30-2023 07:30-0500 Systolic Blood Pressure Non-Invasive 117 mm[Hg] CHRISTINA FROMMELT DO [facility] 03-30-2023 06:33-0500 Body temperature 97.7 [degF] CHRISTINA FROMMELT DO [facility] 03-30-2023 06:33-0500 Diastolic Blood Pressure Non-Invasive 86 mm[Hg] CHRISTINA FROMMELT DO [facility] 03-30-2023 06:33-0500 Heart rate 89 /min CHRISTINA FROMMELT DO [facility] 03-30-2023 06:33-0500 Respiratory rate 16 /min CHRISTINA FROMARTUROT DO [facility] 03-30-2023 06:33-0500 Systolic Blood Pressure Non-Invasive 118 mm[Hg] CHRISTINA FROMMELT DO [facility] 10-15-2022 08:42-0400 Diastolic Blood Pressure Non-Invasive 80 1 KAY REICHFIELD DO [facility] 10-15-2022 08:42-0400 Heart rate 66 /min KAY REICHFIELD DO [facility] 10-15-2022 08:42-0400 Respiratory rate 18 /min KAY REICHFIELD DO [facility] 10-15-2022 08:42-0400 Systolic Blood Pressure Non-Invasive 112 1 KAY REICHFIELD DO [facility] 10-15-2022 07:23-0400 Body temperature 97.88 [degF] KAY REICHFIELD DO [facility] 10-15-2022 07:23-0400 Body weight 63.6 kg KAY REICHFIELD DO [facility] 10-15-2022 07:23-0400 Diastolic Blood Pressure Non-Invasive 74 1 KAY REICHFIELD DO [facility] 10-15-2022 07:23-0400 Heart rate 84 /min KAY REICHFIELD DO [facility] 10-15-2022 07:23-0400 Respiratory rate 20 /min KAY REICHFIELD DO [facility] 10-15-2022 07:23-0400 Systolic Blood Pressure Non-Invasive 114 1 KAY PARMAR DO [facility] 09-11-2021 11:14-0400 Body temperature 98.6 [degF] BAM CLANCY DO [facility] 09-11-2021 11:14-0400 Diastolic blood pressure 80 mm[Hg] BAM CLANCY DO [facility] 09-11-2021 11:14-0400 Heart rate 88 /min BAM CLANCY DO [facility] 09-11-2021 11:14-0400 Reason For Taking VItal Signs BAM CLANCY DO [facility] 09-11-2021 11:14-0400 Respiratory rate 20 /min BAM CLANCY DO [facility] 09-11-2021 11:14-0400 Systolic blood pressure 115 mm[Hg] BAM CLANCY DO [facility] 09-11-2021 07:23-0400 Body temperature 97.88 [degF] BAM CLANCY DO [facility] 09-11-2021 07:23-0400 Diastolic blood pressure 83 mm[Hg] BAM CLANCY DO [facility] 09-11-2021 07:23-0400 Heart rate 96 /min BAM CLANCY DO [facility] 09-11-2021 07:23-0400 Reason For Taking VItal Signs BAM CLANCY DO [facility] 09-11-2021 07:23-0400 Respiratory rate 16 /min BAM CLANCY DO [facility] 09-11-2021 07:23-0400 Systolic blood pressure 122 mm[Hg] BAM CLANCY DO [facility] 09-11-2021 04:22-0400 Body temperature 97.88 [degF] BAM CLANCY DO [facility] 09-11-2021 04:22-0400 Diastolic blood pressure 80 mm[Hg] BAM CLANCY DO [facility] 09-11-2021 04:22-0400 Heart rate 86 /min BAM CLANCY DO [facility] 09-11-2021 04:22-0400 Reason For Taking VItal Signs BAM CLANCY DO [facility] 09-11-2021 04:22-0400 Respiratory rate 18 /min BAM CLANCY DO [facility] 09-11-2021 04:22-0400 Systolic blood pressure 121 mm[Hg] BAM CLANCY DO [facility] 09-10-2021 23:24-0400 Heart rate 104 /min BAM CLANCY DO [facility] 09-10-2021 11:33-0400 Body height 160 cm BAM CLANCY DO [facility] 09-10-2021 11:33-0400 Body weight 60 kg BAM CLANCY DO [facility] 09-10-2021 11:33-0400 Body weight 23.44 kg/m2 BAM CLANCY DO [facility] 09-10-2021 11:32-0400 Mean blood pressure 112 mm[Hg] BAM CLANCY DO [facility] 09-10-2021 11:00-0400 Diastolic Blood Pressure NBP 84 1 BAM CLANCY DO [facility] 09-10-2021 11:00-0400 Systolic Blood Pressure NBP 119 1 BAM CLANCY DO [facility] 09-10-2021 10:40-0400 Diastolic Blood Pressure NBP 83 1 BAM CLANCY DO [facility] 09-10-2021 10:40-0400 Systolic Blood Pressure NBP 123 1 BAM CLANCY DO [facility] 09-10-2021 10:25-0400 Diastolic Blood Pressure NBP 86 1 BAM CLANCY DO [facility] 09-10-2021 10:25-0400 Systolic Blood Pressure NBP 122 1 BAM CLANCY DO [facility] 09-10-2021 09:47-0400 Body temperature 97.34 [degF] BAM CLANCY DO [facility] 09-10-2021 09:15-0400 Body temperature 96.8 [degF] BAM CLANCY DO [facility] 09-10-2021 08:45-0400 Body temperature 96.8 [degF] BAM CLANCY DO [facility] 09-10-2021 06:21-0400 Body height 160 cm BAM CLANCY DO [facility] 09-10-2021 06:21-0400 Body temperature 97.16 [degF] BAM CLANCY DO [facility] 09-10-2021 06:21-0400 Body weight 60 kg BAM CLANCY DO [facility] 09-10-2021 06:21-0400 diastolic 76 mm[Hg] BAM CLANCY DO [facility] 09-10-2021 06:21-0400 Heart rate 85 /min BAM CLANCY DO [facility] 09-10-2021 06:21-0400 systolic 104 mm[Hg] BAM CLANCY DO [facility] 09-02-2021 09:00-0400 Body height 160 cm BAM CLANCY DO [facility] 09-02-2021 09:00-0400 Body weight 61.4 kg BAM CLANCY DO [facility] 09-02-2021 09:00-0400 Body weight 23.98 kg/m2 BAM CLANCY DO [facility] 09-02-2021 09:00-0400 diastolic 60 mm[Hg] BAM CLANCY DO [facility] 09-02-2021 09:00-0400 Heart rate 96 /min BAM CLANCY DO [facility] 09-02-2021 09:00-0400 Respiratory rate 18 /min BAM CLANCY DO [facility] 09-02-2021 09:00-0400 systolic 84 mm[Hg] BAM CLANCY DO [facility] 04-04-2021 13:30-0500 Diastolic blood pressure 88 mm[Hg] CHRISTINA FROMMELT DO [facility] 04-04-2021 13:30-0500 Heart rate 74 /min CHRISTINA FROMMELT DO [facility] 04-04-2021 13:30-0500 Respiratory rate 16 /min CHRISTINA FROMMELT DO [facility] 04-04-2021 13:30-0500 Systolic blood pressure 128 mm[Hg] CHRISTINA FROMMELT DO [facility] 04-04-2021 13:07-0500 Heart rate 76 /min CHRISTINA FROMMELT DO [facility] 04-04-2021 13:07-0500 Respiratory rate 16 /min CHRISTINA FROMMELT DO [facility] 04-04-2021 12:50-0500 Heart rate 88 /min CHRISTINA FROMMELT DO [facility] 04-04-2021 12:50-0500 Respiratory rate 16 /min CHRISTINA FROMMELT DO [facility] 04-04-2021 10:37-0500 Body temperature 98.78 [degF] CHRISTINA FROMMELT DO [facility] 04-04-2021 10:37-0500 Diastolic blood pressure 86 mm[Hg] CHRISTINA FROMMELT DO [facility] 04-04-2021 10:37-0500 Systolic blood pressure 126 mm[Hg] CHRISTINA LYONS DO [facility] 03-11-2021 11:08-0500 Body temperature 98.06 [degF] FEDERICO NAZARIO DO [facility] 03-11-2021 11:08-0500 Diastolic blood pressure 70 mm[Hg] FEDERICO NAZARIO DO [facility] 03-11-2021 11:08-0500 Heart rate 89 /min FEDERICO NAZARIO DO [facility] 03-11-2021 11:08-0500 Respiratory rate 20 /min FEDERICO NAZARIO DO [facility] 03-11-2021 11:08-0500 Systolic blood pressure 105 mm[Hg] FEDERICO NAZARIO DO [facility] 05-09-2019 23:40-0500 Body temperature 97.7 [degF] Juan Manuel Page MD Work Phone: [facility] Work Phone: 05-09-2019 23:40-0500 Diastolic blood pressure 62 mm[Hg] Juan Manuel Page MD Work Phone: [facility] Work Phone: 05-09-2019 23:40-0500 Heart rate 79 /min Juan Manuel Page MD Work Phone: [facility] Work Phone: 05-09-2019 23:40-0500 Respiratory rate 20 /min Juan Manuel Page MD Work Phone: [facility] Work Phone: 05-09-2019 23:40-0500 SaO2% (BldA) [Mass fraction] 99 % Juan Manuel Page MD Work Phone: [facility] Work Phone: 05-09-2019 23:40-0500 Systolic blood pressure 123 mm[Hg] Juan Manuel Page MD Work Phone: [facility] Work Phone: Encounters Encounter Date Encounter Type Care Provider Facility Start: 02-23-2025 End: 02-23-2025 ambulatory [facility] Facility:[facility] Start: 02-17-2025 End: 02-17-2025 ambulatory [facility] Facility:[facility] Start: 01-23-2025 [facility] Facility :[facility] Start: 12-30-2024 End: 12-30-[address] Arsh Trinidad MD -[place] [facility] Work Phone: Start: 12-30-2024 End: 12-30-2024 ambulatory [facility] VP TREASURER-C Work Phone: -[facility] Start: 12-26-2024 End: 12-26-2024 Office outpatient visit 15 minutes Lin Cisneros DIAGNOSTIC ASSISTANT.RECORDS MANAGEMENT ASSOCIATE Work Phone: [facility] Comment on above: Gastroesophageal ref lux disease without esophagitis (Primary Dx); SVT (supraventricular tachycardia) (HCC) Start: 12-26-2024 End: 12-26-2024 ambulatory LIN CISNEROS Facility:[facility] Start: 12-14-2024 End: 12-15-2024 Refill Humera Garcia DIAGNOSTIC ASSISTANT.RECORDS MANAGEMENT ASSOCIATE Work Phone: [facility] Comment on above: Refill Request Start: 12-13-2024 End: 12-14-2024 Get Medical Advice Lin Cisneros DIAGNOSTIC ASSISTANT.RECORDS MANAGEMENT ASSOCIATE Work Phone: [facility] Comment on above: Refill on prescripti on but won't let me check it Start: 11-17-2024 End: 11-17-2024 Office outpatient visit 25 minutes Lin Cisneros DIAGNOSTIC ASSISTANT.RECORDS MANAGEMENT ASSOCIATE Work Phone: [facility] Comment on above: STEPHANIE (generalized anx iety disorder) (Primary Dx); SVT (supraventricular tachycardia) (HCC); Encounter for screening examination for other mental health and behavioral disorders Start: 11-17-2024 End: 11-17-2024 ambulatory LIN CISNEROS Facility:[facility] Start: 11-14-2024 End: 11-14-2024 Emergency department patient visit Humera Garcia VP TREASURER-C Work Phone: -Emergency Department Work Phone: Start: 09-13-2024 End: 10-14-2024 ambulatory Humera Garcia APRN.CNP Work Phone: [facility] Start: 09-02-2024 End: 09-02-[address] Arsh Trinidad MD -[facility] Work Phone: Start: 09-02-2024 End: 09-02-2024 ambulatory Humera Garcia VP TREASURER-C Work Phone: [facility] Work Phone: Start: 08-08-2024 End: 08-08-2024 ambulatory Humera Garcia APRN.CNP Work Phone: [facility] Comment on above: Chest Pain Start: 08-08-2024 End: 08-08-2024 Emergency department patient visit HUMERA GARCIA APRN-RECORDS MANAGEMENT ASSOCIATE Facility:[facility] Start: 07-26-2024 End: 07-26-2024 Telephone encounter Humera Garcia APRN.KELLY Work Phone: Family [facility] Comment on above: Patient Question Start: 07-22-2024 End: 07-22-2024 Office outpatient visit 15 minutes Lin Cisneros DIAGNOSTIC ASSISTANT.RECORDS MANAGEMENT ASSOCIATE Work Phone: Family [facility] Comment on above: SVT (supraventricula r tachycardia) (HCC) (Primary Dx) Start: 07-22-2024 End: 07-22-2024 ambulatory [facility] Facility:[facility] Start: 07-19-2024 End: 07-19-2024 ambulatory [facility] Facility:[facility] Start: 07-11-2024 End: 07-11-2024 Office outpatient visit 15 minutes Lin Cisneros APRN.RECORDS MANAGEMENT ASSOCIATE Work Phone: Family [facility] Comment on above: Tachycardia (Primary Dx); Chest pain, unspecified type; Chronic insomnia Start: 07-11-2024 End: 07-11-[address] [facility] Facility:[facility] Start: 07-05-2024 End: 07-05-2024 Patient encounter procedure Jared Nazario MD Work Phone: [facility] Comment on above: Atypical chest pain (Primary Dx); Mixed hyperlipidemia; POTS (postural orthostatic tachycardia syndrome) Start: 07-05-2024 End: 07-05-2024 ambulatory [facility] Facility:[facility] Start: 06-02-2024 End: 08-02-2024 Follow-up encounter Irma Clark APRN.CNP Work Phone: Neurology Start: 05-31-2024 End: 05-31-[address] [facility] Facility:[facility] Start: 05-31-2024 End: 05-31-2024 Patient encounter procedure Irma Clark APRN.RECORDS MANAGEMENT ASSOCIATE Work Phone: Neurology Comment on above: Tachycardia (Primary Dx); Pre-syncope; Syncope, unspecified syncope type; Abdominal distension; Chest pain, unspecified type; Esophagitis; Cold feeling Start: 05-23-2024 End: 05-23-2024 Telephone encounter Neurology Provider Neurology Comment on above: Received Outside Med ical Records (External referral to [facility]/) Start: 05-18-2024 ambulatory Nhan Schmidt Facility :[facility] Start: 05-18-2024 Non-patient / Non-visit Dr. Georges Of madi [facility] Start: 05-17-2024 End: 05-17-2024 Patient encounter procedure Nhan Schmidt DO -Cardiovascular Services Work Phone: Start: 05-17-2024 End: 05-17-2024 ambulatory Nhan [place] Facility:[facility] Start: 05-17-2024 Non-patient / Non-visit Dr. Shantel [facility] -[facility] Start: 05-03-2024 End: 05-03-2024 Emergency department patient visit Humera ebenezer Facility:[facility] Start: 04-22-2024 End: 04-23-2024 ambulatory Nhan [place] Facility:[facility] Start: 04-21-2024 End: 04-21-2024 Emergency department patient visit Shaye Dye Facility:[facility] Start: 03-28-2024 End: 03-29-2024 ambulatory [facility] Facility:[facility] Start: 03-24-2024 End: 03-24-2024 ambulatory [facility] Facility:[facility] Start: 03-11-2024 ambulatory Nhan Schmidt Facility :[facility] Start: 03-11-2024 End: 03-11-2024 ambulatory Nhan [place] Facility:[facility] Start: 02-09-2024 End: 02-10-2024 Telephone encounter Humera Radha JUAN ANTONIO Work Phone: Family [facility] Comment on above: Results ([facility] CT Scan ); Appointment Start: 01-31-2024 End: 01-31-2024 ambulatory [facility] Facility:[facility] Start: 01-07-2024 End: 01-07-2024 Patient encounter procedure Trini Higginbotham MD Work Phone: OB/Gynecology Comment on above: Generalized abdomina l pain (Primary Dx); Abdominal bloating; History of endometriosis; History of ovarian cyst; Intra-abdominal and pelvic swelling, mass and lump, unspecified site; Pelvic and perineal pain Start: 01-06-2024 End: 01-06-2024 Telephone encounter Carie Mireles MD Work Phone: [facility] Comment on above: Patient Question Start: 12-30-2023 End: 12-30-2023 Patient encounter procedure Pietro Staley MD Work Phone: OB/Gynecology Comment on above: Abdominal distension (gaseous) (Primary Dx); Pelvic pain; Pelvic and perineal pain Start: 12-08-2023 End: 02-12-2024 Telephone encounter Humera Garcia APRN.KELLY Work Phone: [facility] Comment on above: Results Start: 12-04-2023 End: 12-04-2023 Subsequent hospital visit by physician [facility] Work Phone: Radiology Comment on above: Pelvic pain [R10.2] Start: 11-30-2023 End: 11-30-2023 Office outpatient visit 25 minutes Humera Garcia APRN.RECORDS MANAGEMENT ASSOCIATE Work Phone: [facility] [place] Comment on above: Pelvic pain (Primary Dx); Abnormal CT scan Start: 11-27-2023 Telephone encounter Humera sol APRN.RECORDS MANAGEMENT ASSOCIATE Work Phone: [facility] Comment on above: medication question/ future apt Start: 11-26-2023 End: 11-26-2023 ambulatory ANNMARIE CORONADO Facility:[facility] Start: 11-24-2023 End: 11-24-2023 Office outpatient visit 15 minutes Lin Cisneros APRN.RECORDS MANAGEMENT ASSOCIATE Work Phone: [facility] [place] Comment on above: Sacral pain (Primary Dx); Periumbilical abdominal pain Start: 11-13-2023 End: 11-13-2023 Emergency department patient visit DR MARIA TERESA PASCUAL MD [facility] Start: 11-13-2023 End: 11-13-2023 Patient encounter procedure Bam Cooney DIAGNOSTIC ASSISTANT.RECORDS MANAGEMENT ASSOCIATE Work Phone: [facility] Comment on above: Procedure not sho d out (Primary Dx) Start: 11-11-2023 End: 11-11-2023 Office outpatient visit 25 minutes Hmuera Garcia APRN.RECORDS MANAGEMENT ASSOCIATE Work Phone: [facility] Comment on above: Gastroesophageal ref lux disease, unspecified whether esophagitis present (Primary Dx); STEPHANIE (generalized anxiety disorder); Smoking trying to quit Start: 11-07-2023 Refill Humera Garcia APRN.RECORDS MANAGEMENT ASSOCIATE Work Phone: [facility] [place] Comment on above: Med Change Request Start: 11-05-2023 Refill Humera Garcia APRN.RECORDS MANAGEMENT ASSOCIATE Work Phone: [facility] [place] Comment on above: Med Change Request Start: 11-02-2023 End: 11-02-2023 Patient encounter procedure Annmarie Coronado MD Work Phone: General Surgery Comment on above: Screening for colon cancer; Abdominal bloating; Gastroesophageal reflux disease, unspecified whether esophagitis present Start: 10-12-2023 End: 10-12-2023 Patient encounter procedure Humera Garcia APRN.RECORDS MANAGEMENT ASSOCIATE Work Phone: [facility] Comment on above: Wellness examination (Primary Dx); Cold intolerance; Fatigue, unspecified type; Screening for colon cancer; Gastroesophageal reflux disease, unspecified whether esophagitis present; Visit for screening mammogram; STEPHANIE (generalized anxiety disorder) Start: 10-12-2023 End: 10-12-2023 Patient encounter status Humera Garcia APRN.RECORDS MANAGEMENT ASSOCIATE Work Phone: [facility] Work Phone: Start: 10-05-2023 Telephone encounter No Pcp CONCE[facility] Katalina Roe Comment on above: New Patient Start: 08-07-2023 End: 08-07-2023 Patient encounter procedure Carmencita GARCIA Work Phone: [facility] Comment on above: Rash (Primary Dx) Start: 06-10-2023 End: 06-10-2023 Emergency department patient visit DR MIK GARCIA MD [facility] Start: 03-30-2023 End: 03-30-2023 Emergency department patient visit CHRISTINA LYONS DO [facility] Start: 10-22-2022 ambulatory Denys Wade Work Phone: Internal [facility] Start: 10-15-2022 End: 10-15-2022 Emergency department patient visit KAY PARMAR DO [facility] Start: 11-20-2021 ambulatory Denys Conti Casandra Wade Work Phone: Internal Medicine [facility] Start: 09-10-2021 End: 09-11-2021 Evaluation and management of inpatient BAM MAYERSYLVIE CHANDLER [facility] Start: 09-02-2021 End: 09-02-2021 Admission to establishment BAM CLANCY DO [facility] Start: 08-14-2021 End: 08-14-2021 Patient encounter procedure BRAEDEN GONZALEZ DIAGNOSTIC ASSISTANT-RECORDS MANAGEMENT ASSOCIATE [facility] Start: 07-29-2021 Non-patient / Non-visit Dr. Dat Clancy Work Phone: [facility] Start: 07-29-2021 End: 07-29-[address] Bam Clancy Work Phone: [facility]-Pulmonary Services/Neurology Start: 07-09-2021 End: 07-09-[address] [facility] Start: 05-04-2021 End: 05-04-2021 Patient encounter procedure BRAEDEN GONZALEZ DIAGNOSTIC ASSISTANT-RECORDS MANAGEMENT ASSOCIATE [facility] Start: 04-04-2021 End: 04-04-2021 Emergency department patient visit CHRISTINA LYONS DO [facility] Start: 03-11-2021 End: 03-11-2021 Emergency department patient visit FEDERICO NAZARIO DO [facility] Start: 05-09-2019 End: 05-10-2019 Emergency department patient visit Juan Manuel Page MD Work Phone: [facility] Comment on above: Viral illness (Prima ry Dx); Upper respiratory tract infection, unspecified type Start: 10-17-2016 End: 10-17-2016 Emergency department patient visit MIGUEL ÁNGEL BENOIT Facility:[facility] Procedures Date Procedure Procedure Detail Performing Clinician Start: 11-14-2024 Plain chest X-ray Jorge Garcia VP TREASURER-C Work Phone: Start: 07-05-2024 Ecg routine ecg w/le ast 12 lds i&r only [facility] Provider Start: 11-30-2023 UA DIP,URINE HCG (POC) Humera Garcia DIAGNOSTIC ASSISTANT.RECORDS MANAGEMENT ASSOCIATE Work Phone: Start: 11-26-2023 Colonoscopy Humera sol DIAGNOSTIC ASSISTANT.RECORDS MANAGEMENT ASSOCIATE Work Phone: Start: 10-27-2023 Lipid 1996 panel - S sami or Plasma Annmarie Coronado MD Work Phone: Start: 09-10-2021 Cervical (qualifier value) BAM CLANCY DO Comment on above: CERVICAL 5-6 ANTERIO R CERVICAL DISCECTOMY AND FUSION Start: 07-09-2021 MRI of cervical spine Start: 12-15-2019 Lipid 1996 panel - S sami or Plasma Carmencita GARCIA Work Phone: Start: 05-09-2019 Radiologic exam ches t 2 views Juan Manuel Page MD Work Phone: Start: 05-17-2014 Colonoscopy Denys gutierrez MD Work Phone: Appendectomy FEDERICO NAZARIO DO Ligation of fallopian tube S LEONARDO NAZARIO DO Lung structure (body structure) FEDERICO NAZARIO DO Comment on above: surgery Lung structure (body structure) BAM CLANCY DO Comment on above: left lung surgery Oophorectomy FEDERICO NAZARIO DO Oophorectomy BAM JULIETH Wade O Comment on above: patient unsure of wh ich ovary was removed Plan of Treatment Date Care Activity Detail Author Start: 11-25-2033 Screening for malignant neoplasm of colon [facility] Start: 10-26-2028 Lipid panel Lipid Screening [facility] Start: 12-29-2026 Diabetes Screening Diabetes Screening [facility] Start: 10-26-2026 Diabetes Screening Diabetes Screening [facility] Start: 11-17-2025 Anxiety Screening Anxiety Screening [facility] Start: 10-17-2025 Influenza vaccination Influenza Vaccine (#1) Robert berman Comment on above: Postponed from 12/19/2024 (Declined at t his time) Start: 01-20-2025 End: 01-20-2025 Patient encounter procedure [facility] Comment on above: 6 month exam 6 mo follow up Start: 12-30-2024 Evaluation of diagnostic study results [facility] Start: 12-26-2024 End: 12-26-2024 Patient encounter procedure 12/26/2024 8:20 AM EDT Office Visit Family [facility] [address] [place] [address] Lin Cisneros APRN.[facility] [address] [place], [place] [id number] 6 week anxiety and SVT follow up [facility] Comment on above: 6 week anxiety and SVT follow up Start: 12-19-2024 Influenza vaccination [facility] Start: 12-14-2024 Lipid panel Lipid Screening [facility] Start: 12-14-2024 LIPID SCREEN LIPID SCREEN [facility] Start: 11-14-2024 [facility] Start: 11-14-2024 [facility] Start: 11-10-2024 Anxiety Screening Anxiety Screening [facility] Comment on above: Postponed from 1992 (Declined at t his time) Start: 10-17-2024 Influenza vaccination Influenza Vaccine (#1) Robert berman Comment on above: Postponed from 12/20/2023 (Declined at t his time) Start: 10-07-2024 End: 10-07-2024 Patient encounter procedure 10/07/2024 8:40 AM EDT Office Visit CARD INTERVENTION [facility] [address] [place] [id number] [place] [address] [facility] [place] [id number] 3 month f/u CARD INTERVENTION [facility] Comment on above: 3 month f/u Start: 09-02-2024 Evaluation of diagnostic study results [facility] Start: 2024 Pneumococcal Vaccine: 50+ (2 of 2 - PCV) Pneumococcal Vaccine: 50+ (2 of 2 - PCV) [facility] Start: 2024 Shingrix Vaccine (1 of 2) Shingrix Vaccine (1 of 2) [facility] Start: 07-22-2024 End: 07-22-2024 Patient encounter procedure 07/22/2024 4:20 PM EDT Office Visit [facility] [address] [place] [address] Lin Cisneros, DIAGNOSTIC ASSISTANT.RECORDS MANAGEMENT ASSOCIATE [address] [place], [place] [id number] 2 week tacycardia follow up [facility] Comment on above: 2 week tacycardia follow up Start: 07-19-2024 End: 07-19-2024 Patient encounter procedure 07/19/2024 1:50 PM EDT Office Visit Cardiology [address] [place] [address] [facility] Comment on above: Stress [facility] Start: 05-31-2024 End: 2024 Comprehensive metabolic 2000 panel - Serum or Plasma [facility] Comment on above: Expected: 05/31/2024, Expires: Start: 05-31-2024 End: 2024 Ferritin [Mass/volume] in Serum or Plasma [facility] Comment on above: Expected: 05/31/2024, Expires: Start: 05-31-2024 End: 2024 Iron and Iron binding capacity panel - Serum or Plasma [facility] Comment on above: Expected: 05/31/2024, Expires: Start: 05-31-2024 End: 05-31-2024 Patient encounter procedure 05/31/2024 2:00 PM EST Office Visit Neurology [address] [place] [address] Irma Clark DIAGNOSTIC ASSISTANT.RECORDS MANAGEMENT ASSOCIATE [address] [place] [address] POT (dizziness, nausea, abnormal tilt) Neurology Comment on above: POT (dizziness, nausea, abnormal tilt) Start: 05-31-2024 End: 2024 TSH W/REFLEX FT4 [facility] Work Phone: Comment on above: Expected: 05/31/2024, Expires: Start: 03-14-2024 End: 03-14-2024 Patient encounter procedure 03/14/2024 6:00 PM EST Office Visit [facility] [place] [address] [place] [address] Humera Garcia, DIAGNOSTIC ASSISTANT.RECORDS MANAGEMENT ASSOCIATE [address] [place] [address] [facility] MA[facility] 12/30/23 ED F/U for lung nodules seen on CT Scan [facility] [place] Comment on above: [facility] 12/30/23 ED F/U for lung no dules seen on CT Scan Start: 02-22-2024 End: 02-22-2024 Patient encounter procedure 02/22/2024 5:40 PM EST Office Visit [facility] [place] [address] [place] [address] Humera Garcia, DIAGNOSTIC ASSISTANT.RECORDS MANAGEMENT ASSOCIATE [address] [place] [address] 3 month f/u /possible pap [facility] [place] Comment on above: 3 month f/u /possible pap Start: 01-22-2024 End: 01-22-2024 Patient encounter procedure Radiology Comment on above: Intra-abdominal and pelvic swelling, mas s and lump, unspecified site [R19.00]; Pelvic and perineal pain [R10.2] Start: 01-18-2024 End: 01-18-2024 Patient encounter procedure Cat Scan Comment on above: Pelvic pain [R10.2]; Abdominal distensio n (gaseous) [R14.0]; Pelvic and perineal pain [R10.2] Pelvic pain f/u Start: 01-07-2024 End: 01-07-2024 Patient encounter procedure 01/07/2024 1:10 PM EDT Office Visit OB/Gynecology [address] [place] [address] Trini Higginbotham MD [address] [place] [address] Pelvic pain f/u OB/Gynecology Comment on above: Pelvic pain f/u Start: 12-20-2023 Covid-19 Vaccine ( season) Covid-19 Vaccine () [facility] Start: 12-20-2023 Covid-19 Vaccine () Covid-19 Vaccine () [facility] Start: 12-20-2023 Influenza vaccination [facility] Start: 12-11-2023 End: 12-11-2023 Patient encounter procedure 12/11/2023 8:00 AM EDT Office Visit Cardiology [address] [place] [address] scan [R93.89] Cardiology Comment on above: Abnormal CT scan [R93.89] Start: 12-04-2023 End: 12-04-2023 Patient encounter procedure Radiology Comment on above: Pelvic pain [R10.2] Start: 11-30-2023 End: 11-30-2023 Patient encounter procedure 11/30/2023 8:40 AM EDT Office Visit Family Medicine [facility] [address] [place] [address] Humera Garcia, DIAGNOSTIC ASSISTANT.RECORDS MANAGEMENT ASSOCIATE [address] [place] [address] discuss stomach probelms persisting. [facility] [place] Comment on above: discuss stomach probelms persisting. Start: 11-26-2023 End: 11-26-2023 Patient encounter procedure LD SURGERY Comment on above: COLON Start: 11-11-2023 End: 11-11-2023 Patient encounter procedure 11/11/2023 3:20 PM EDT Office Visit [facility] [place] [address] [place] [address] Humera Garcia APRN.RECORDS MANAGEMENT ASSOCIATE [address] [place] [address] 1 month follow up [facility]up[facility] Comment on above: 1 month follow up Start: 11-02-2023 End: 11-02-2023 Patient encounter procedure 11/02/2023 4:00 PM EDT Office Visit General Surgery [address] [place] [address] Annmarie Coronado MD [address] [place] [address] Screening for colon cancer [Z12.11]; Gastroesophageal reflux disease, unspecified whether esophagitis present [K21.9] General Surgery Comment on above: Screening for colon cancer [Z12.11]; Gas troesophageal reflux disease, unspecified whether esophagitis present [K21.9] Start: 10-21-2023 End: 10-21-2023 Patient encounter procedure 10/21/2023 4:00 PM EDT Appointment Mammogram [address] [facility] [place] [address] Visit for screening mammogram [Z12.31] Mammogram Comment on above: Visit for screening mammogram [Z12.31] Start: 10-12-2023 End: 10-12-2023 Patient encounter procedure 10/12/2023 5:40 PM EDT Office Visit [facility] Medicine [facility]up[facility] [address] [place] [address] Humera Garcia, DIAGNOSTIC ASSISTANT.RECORDS MANAGEMENT ASSOCIATE [address] [place] [address] establish care-okay per Humera [facility] Bhupinder Comment on above: establish care-okay per Humera Start: 10-12-2023 End: 01-11-2024 CBC W Auto Differential panel - Blood COMPLETE BLOOD COUNT AND DIFFERENTIAL Lab Routine Wellness examination Cold intolerance Fatigue, unspecified type Expected: 10/12/2023, Expires: 01/11/2024 [facility] Work Phone: Comment on above: Expected: 10/12/2023, Expires: Start: 10-12-2023 End: 01-11-2024 Comprehensive metabolic 2000 panel - Serum or Plasma COMPREHENSIVE METABOLIC PANEL Lab Routine Wellness examination Fatigue, unspecified type Expected: 10/12/2023, Expires: 01/11/2024 [facility] Comment on above: Expected: 10/12/2023, Expires: Start: 10-12-2023 End: 01-11-2024 Lipid 1996 panel - Serum or Plasma LIPID PANEL BASIC Lab Routine Wellness examination Expected: 10/12/2023, Expires: 01/11/2024 [facility] Comment on above: Expected: 10/12/2023, Expires: Start: 10-12-2023 End: 01-11-2024 Thyrotropin [Units/volume] in Serum or Plasma THYROID STIMULATING HORMONE Lab Routine Fatigue, unspecified type Expected: 10/12/2023, Expires: 01/11/2024 [facility] Comment on above: Expected: 10/12/2023, Expires: Start: 10-12-2023 End: 01-11-2024 Thyroxine (T4) free [Mass/volume] in Serum or Plasma T4 FREE/FREE THYROXINE Lab Routine Fatigue, unspecified type Expected: 10/12/2023, Expires: 01/11/2024 [facility] Comment on above: Expected: 10/12/2023, Expires: Start: 01-14-2023 Urine microalbumin profile DTAP,TDAP,TD (1 - Tdap) [facility] Comment on above: Postponed from 01/15/2013 (Declined at t his time) Start: 12-19-2022 Covid-19 Vaccine ( season) Covid-19 Vaccine ( season) [facility] Start: 12-19-2022 Influenza vaccination INFLUENZA (#1) [facility] Start: 12-14-2022 DIABETES SCREEN DIABETES SCREEN [facility] Start: 12-14-2022 Diabetes Screening Diabetes Screening [facility] Start: 12-19-2021 Influenza vaccination INFLUENZA (#1) [facility] Start: 10-15-2020 COVID-19 VACCINE (3 - Booster for Pfizer series) COVID-19 VACCINE (3 - Booster for Pfizer series) [facility] Start: 07-12-2020 COVID-19 VACCINE (3 - Booster for Pfizer series) COVID-19 VACCINE (3 - Booster for Pfizer series) [facility] Start: 08-31-2019 COLOGUARD (FIT-DNA) COLOGUARD (FIT-DNA) [facility] Start: 08-31-2019 Colonoscopy COLONOSCOPY [facility] Start: 08-31-2019 COLORECTAL CANCER SCREENING COLORECTAL CANCER SCREENING [facility] Start: 08-31-[address] COLONOGRAPHY [facility] Start: 08-31-2019 FECAL OCCULT BLOOD FECAL OCCULT BLOOD [facility] Start: 08-31-2019 Screening for malignant neoplasm of colon [facility] Start: 08-31-2019 SIGMOIDOSCOPY SIGMOIDOSCOPY [facility] Start: 04-25-2019 HPV TESTING HPV TESTING [facility] Start: 04-25-2019 PAP TESTING PAP TESTING [facility] Start: 04-25-2019 Screening for malignant neoplasm of cervix [facility] Start: 12-19-2018 Influenza vaccination Flu vaccine (#1) [facility] Work Phone: Start: 2014 Mammography MAMMOGRAM [facility] Start: 2014 Screening for malignant neoplasm of breast Mammogram Screening [facility] Start: 01-14-2014 PNEUMOCOCCAL (2 - PCV) PNEUMOCOCCAL (2 - PCV) [facility] Start: 01-14-2014 Pneumococcal vaccination Pneumococcal Vaccine (2 of 2 - PCV) [facility] Start: 01-14-2014 Pneumococcal Vaccine: 50+ (2 of 2 - PCV) Pneumococcal Vaccine: 50+ (2 of 2 - PCV) [facility] Start: 01-15-2013 Urine microalbumin profile DTaP,Tdap,Td Vaccine (1 - Tdap) [facility] Start: 1993 Hepatitis B Vaccine (1 of 3 - 19+ 3-dose series) Hepatitis B Vaccine (1 of 3 - 19+ 3-dose series) [facility] Start: 1974 HEPATITIS B (1 of 3 - 3-dose series) HEPATITIS B (1 of 3 - 3-dose series) [facility] Bacteria identified in Urine by Culture URINE CULTURE Microbiology Routine Pelvic pain 11/30/2023 10:20 AM EDT [facility] Chlamydia trachomatis+Neisseria gonorrhoeae DNA [Presence] in Unspecified specimen by ALLEN with probe detection GONORRHEA/CHLAMYDIA NAAT Lab Routine Pelvic pain 12/30/2023 10:23 AM EDT [facility] End: 01-28-2025 CT Abdomen and Pelvis W contrast IV CT ABD/PEL W IVCON Radiology STAT Pelvic pain Abdominal distension (gaseous) Pelvic and perineal pain 1 Occurrences starting 12/30/2023 until 01/28/2025 [facility] Work Phone: Comment on above: 1 Occurrences starting 12/30/2023 until 01/28/2025 End: 03-10-2025 CT Chest W contrast IV CT CHEST W IVCON Radiology Routine Lung nodules 1 Occurrences starting 02/09/2024 until 03/10/2025 [facility] Work Phone: Comment on above: 1 Occurrences starting 02/09/2024 until 03/10/2025 End: 10-13-2025 DBT Breast - bilateral screening LUCAS SCREENING W RIDDHI Radiology Routine Encounter for screening mammogram for breast cancer 1 Occurrences starting 09/13/2024 until 10/13/2025 [facility] Work Phone: Comment on above: 1 Occurrences starting 09/13/2024 until 10/13/2025 ECG COMPLETE ECG COMPLETE ECG Routine Tachycardia Pre-syncope Syncope, unspecified syncope type Chest pain, unspecified type 05/31/2024 3:45 PM EST [facility] ECG COMPLETE [facility] Work Phone: Comment on above: Ordered: 07/05/2024 End: 11-29-2024 Echocardiography ECHO Cardiology Routine Abnormal CT scan 1 Occurrences starting 11/30/2023 until 11/29/2024 [facility] Comment on above: 1 Occurrences starting 11/30/2023 until 11/29/2024 End: 05-31-2025 Echocardiography ECHO Cardiology Routine Tachycardia Pre-syncope Syncope, unspecified syncope type Chest pain, unspecified type 1 Occurrences starting 05/31/2024 until 05/31/2025 [facility] Comment on above: 1 Occurrences starting 05/31/2024 until 05/31/2025 EKG 12 Lead - Chest Pain EKG 12 Lead - Chest Pain ECG STAT 05/09/2019 11:45 PM EST [facility] Work Phone: End: 11-21-2023 LUCAS SCREENING LUCAS SCREENING Radiology Routine Encounter for screening mammogram for breast cancer 1 Occurrences starting 10/22/2022 until 11/21/2023 [facility] Work Phone: Comment on above: 1 Occurrences starting 10/22/2022 until 11/21/2023 End: 11-10-2024 MG Breast Screening LUCAS SCREENING Radiology Routine Visit for screening mammogram 1 Occurrences starting 10/12/2023 until 11/10/2024 [facility] Comment on above: 1 Occurrences starting 10/12/2023 until 11/10/2024 End: 02-05-2025 MR Abdomen WO and W contrast IV MRI ABDOMEN WO/W IVCON Radiology Routine Intra-abdominal and pelvic swelling, mass and lump, unspecified site 1 Occurrences starting 01/07/2024 until 02/05/2025 [facility] Work Phone: Comment on above: 1 Occurrences starting 01/07/2024 until 02/05/2025 End: 02-05-2025 MR Pelvis WO and W contrast IV MRI PELVIS WO/W IVCON Radiology Routine Intra-abdominal and pelvic swelling, mass and lump, unspecified site Pelvic and perineal pain 1 Occurrences starting 01/07/2024 until 02/05/2025 [facility] Comment on above: 1 Occurrences starting 01/07/2024 until 02/05/2025 OUTSIDE VENDOR CARDI AC OUTPATIENT EXTENDED RHYTHM RECORDING (WITHOUT TELEMETRY) OUTSIDE VENDOR CARDIAC OUTPATIENT EXTENDED RHYTHM RECORDING (WITHOUT TELEMETRY) Holter Routine Pre-syncope Syncope, unspecified syncope type Chest pain, unspecified type Ordered: 05/31/2024 [facility] Comment on above: Ordered: 05/31/2024 Patient Education ED Chest Pain, Uncertain Cause [facility] Work Phone: End: 05-10-2019 Respiratory Virus PCR Panel Respiratory Virus PCR Panel Microbiology Routine One Time for 1 Occurrences starting 05/10/2019 until 05/10/2019 [employer] Work Phone: Comment on above: One Time for 1 Occurrences starting 04/21 until 05/10/2019 Respiratory Virus PC R Panel Respiratory Virus PCR Panel Microbiology STAT 05/10/2019 12:49 AM EST [employer] Work Phone: End: 11-01-2024 Screening colonoscopy COLONOSCOPY SCREENING Endoscopy Routine Screening for colon cancer 1 Occurrences starting 11/02/2023 until 11/01/2024 [facility] Work Phone: Comment on above: 1 Occurrences starting 11/02/2023 until 11/01/2024 End: 12-20-2022 Screening mammography bi 2-view breast inc cad LUCAS SCREENING Radiology Routine Encounter for screening mammogram for breast cancer 1 Occurrences starting 11/20/2021 until 12/20/2022 [facility] Work Phone: Comment on above: 1 Occurrences starting 11/20/2021 until 12/20/2022 End: 07-05-2025 STRESS ECHO TREADMILL STRESS ECHO TREADMILL Cardiology Routine Atypical chest pain Mixed hyperlipidemia 1 Occurrences starting 07/05/2024 until 07/05/2025 [facility] Comment on above: 1 Occurrences starting 07/05/2024 until 07/05/2025 Troponin T.cardiac [Mass/volume] in Serum or Plasma by High sensitivity method [facility] Urinalysis complete panel - Urine URINALYSIS, WITH MICROSCOPIC Lab Routine Pelvic pain 11/30/2023 10:20 AM EDT [facility] End: 12-29-2024 US Kidney - bilateral and Urinary bladder US KIDNEY/BLADDER Radiology Routine Pelvic pain 1 Occurrences starting 11/30/2023 until 12/29/2024 [facility] Comment on above: 1 Occurrences starting 11/30/2023 until 12/29/2024 US Kidney - bilatera l and Urinary bladder US KIDNEY/BLADDER Radiology Routine Pelvic pain 12/04/2023 8:38 AM EDT [facility] Work Phone: End: 12-29-2024 US Pelvis transvaginal US FEMALE PELVIS TRANSVAG Radiology Routine Pelvic pain 1 Occurrences starting 11/30/2023 until 12/29/2024 [facility] Work Phone: Comment on above: 1 Occurrences starting 11/30/2023 until 12/29/2024 US Pelvis transvaginal US FEMALE PELVIS TRANSVAG Radiology Routine Pelvic pain 12/04/2023 8:36 AM EDT [facility] Work Phone: Immunizations Immunization Date Immunization Notes Care Provider Fa cilirichard 05-17-2020 SARS-CoV-2 mRNA (tozinameran) vaccine BRAEDEN GONZALEZ DIAGNOSTIC ASSISTANT-RECORDS MANAGEMENT ASSOCIATE [facility] Comment on above: Result Comment: 2021: [id number] 04-26-2020 SARS-CoV-2 mRNA (tozinameran) vaccine BRAEDEN GONZALEZ DIAGNOSTIC ASSISTANT-RECORDS MANAGEMENT ASSOCIATE [facility] Comment on above: Result Comment: 2021: TPV40 05-15-2015 influenza virus vacc ine, unspecified formulation BRAEDEN GONZALEZ DIAGNOSTIC ASSISTANT-RECORDS MANAGEMENT ASSOCIATE [facility] 05-15-2015 influenza, injectabl e, quadrivalent, contains preservative Denys Conti MD Work Phone: [facility] 01-14-2013 pneumococcal polysaccharide vaccine, 23 valent Denys Conti MD Work Phone: [facility] Work Phone: 01-14-2013 tetanus and diphther ia toxoids, adsorbed, preservative free, for adult use (2 Lf of tetanus toxoid and 2 Lf of diphtheria toxoid) Denys Conti MD Work Phone: [facility] Work Phone: Payers Date Payer Category Payer Private Health Insurance [id number] 2023 Unknown [id number] 2023 Blue [employer] Blue Shield BLUE ACCE SS PPO [id number] 2023 Unknown [id number] 2023 Self-pay [id number] 2021 Unknown [id number] 2014 Unknown [id number] 1974 Unknown [id number] 2.16.840.1.905571.3.579.2. 627 1974 Unknown [id number] 2.16.840.1.941117.3.579.2. 627 1974 Unknown [id number] 2.16.840.1.306943.3.579.2. 627 1974 Unknown [id number] 2.16.840.1.301019.3.579.2. 627 Medicaid [id number] Unknown SELF PAY INSURANCE [id number] Unknown [id number] 2.16.840.1.295656.3.579.2. 462 Unknown [id number] 2.16.840.1.983920.3.579.2. 462 Unknown [id number] 2.16.840.1.004254.3.579.2. 462 Unknown [id number] 2.16.840.1.577280.3.579.2. 462 Unknown [id number] 2.16.840.1.434028.3.579.2. 462 Unknown [id number] 2.16.840.1.708013.3.579.2. 462 Unknown [id number] 2.16.840.1.547189.3.579.2. 462 Unknown [id number] 2.16.840.1.400304.3.579.2. 462 Unknown [id number] 2.16.840.1.847894.3.579.2. 462 Unknown [id number] 2.16.840.1.172685.3.579.2. 462 Unknown [id number] 2.16.840.1.489229.3.579.2. 462 Unknown [id number] 2.16.840.1.620730.3.579.2. 462 Unknown [id number] 2.16.840.1.399314.3.579.2. 462 Unknown [id number] 2.16.840.1.463528.3.579.2. 462 Unknown [id number] 2.16.840.1.800729.3.579.2. 462 Unknown [id number] 2.16.840.1.824898.3.579.2. 462 Unknown [id number] 2.16.840.1.127880.3.579.2. 462 Unknown [id number] 2.16.840.1.748304.3.579.2. 462 Social History Date Type Detail Facility Start: 12-13-2018 Light tobacco smoker (finding) [facility] Start: 1975 Sex Assigned At Female A [facility] Start: 05-09-2019 End: 11-17-2024 Tobacco smoking status NHIS Former smoker [facility] Start: 05-09-2019 Alcohol intake Ex-drinker (finding) [facility] Work Phone: Start: 05-09-2019 Tobacco Comment quit 09/2018 [facility] Work Phone: Start: 1975 Sex Assigned At Not on file S [facility] Work Phone: Start: 04-05-2014 Tobacco smoking stat us CAIS Unknown if ever smoked [facility] Work Phone: Start: 05-08-2021 Tobacco smoking status Heavy t obacco smoker (finding) [facility] Start: 12-15-2019 End: 11-14-2024 Tobacco smoking status NHIS Smokes tobacco daily [facility] Work Phone: End: 08-18-2024 History of tobacco use Cigarette Smoker [facility] Work Phone: Start: 12-15-2019 End: 10-12-2023 Cigarettes smoked current (pack per day) - Reported 0.5 [facility] Start: 12-15-2019 End: 11-17-2024 Tobacco use and exposure Smokeless tobacco non-user [facility] Work Phone: Start: 05-07-2021 End: 08-07-2023 Alcohol intake Current non-drinker of alcohol (finding) [facility] Start: 04-08-2016 History SDOH Alcohol Comment rare [facility] Start: 08-07-2023 End: 10-12-2023 Gender identity Not on file [facility] Start: 01-03-2013 National Score (1-10 0), lower number is lower risk Not on file [facility] Start: 10-12-2023 End: 12-26-2024 Alcohol intake Current drinker of alcohol (finding) [facility] Start: 10-12-2023 Alcohol Comment very rare [facility] Start: 10-08-2023 Gender identity Identifies as female gender (finding) [facility] Has the electric, ga s, oil, or water company threatened to shut off services in your home in past 12Mo No [facility] Are you now , , , , never or living with a partner? [facility] How often to you hav e a drink containing alcohol? Monthly or less [facility] How often do you hav e 6 or more drinks on 1 occasion? Never [facility] How hard is it for y ou to pay for the very basics like food, housing, medical care, and heating Somewhat hard [facility] Do you feel stress - tense, restless, nervous, or anxious, or unable to sleep at night because your mind is troubled all the time - these days [OSQ] Very much [facility] (I/We) worried adrienne (my/our) food would run out before (I/we) got money to buy more. Sometimes true [facility] In the past 12 month s, was there a time when you were not able to pay the mortgage or rent on time? Yes [facility] End: 08-18-2024 History of tobacco use Current smoker [facility] Goals Date Patient Goal Desired Activity /State Personal health goal Functional Status Date Assessment Result Facility 11-13-2023 Functional Status Standard Safet y ID band on, Allergy Band on, Call device within reach, Bed in low position, Wheels locked, Phone within reach, personal items within reach, Safety level maintained [facility] 06-10-2023 Functional Status Independent [place] 06-10-2023 Functional Status Independent [place] 03-30-2023 Functional Status ID band on, Allergy Band on, Call device within reach, Bed in low position, Wheels locked, Upper/Half-Length side-rails up, Phone within reach, Bedside Cart Locked [facility] 10-15-2022 Functional Status Independent [place] 10-15-2022 Functional Status Standard Safet y ID band on, Allergy Band on, Call device within reach, Bed in low position, Wheels locked, Safety level maintained [facility] 09-11-2021 Functional Status None [place] 09-11-2021 Functional Status Room check performed [facility] 09-11-2021 Functional Status 13 [facility]pal [facility] 09-11-2021 Functional Status Demonstrates C orrect Call Light Use Yes [facility] 09-11-2021 Functional [facility] Status bilateral knee high [facility] 09-10-2021 Functional Status Multilevel home [facility] 09-10-2021 Functional Status [place] 09-10-2021 Functional Status [place] 09-10-2021 Functional Status Maintained, More than 8 hours [facility] 2014 Are you deaf, or do you have serious difficulty hearing No 2014 11:29 AM Mari Glez Cma No [facility] 2014 Are you blind, or do you have serious difficulty seeing, even when wearing glasses No 2014 11:29 AM Mari Glez Cma No [facility] 2014 Do you have serious difficulty walking or climbing stairs No 2014 11:29 AM Mari Glez Cma No [facility] 2014 Do you have difficul ty dressing or bathing No 2014 11:29 AM Mari Glez Cma No [facility] 2014 Because of a physica l, mental, or emotional condition, do you have difficulty doing errands alone such as visiting a physician's office or shopping No 2014 11:29 AM Mari Glez Cma No [facility] Mental Status Date Assessment Result Facility 11-14-2024 Cognitive function Voice/Name [facility] Work Phone: 11-13-2023 Mental Status Orientation Oriented x 4 [facility] 06-10-2023 Mental Status Orientation Oriented x 4 [facility] 06-10-2023 Mental Status [facility] 03-30-2023 Mental Status Oriented x 4 [facility] 10-15-2022 Mental Status Orientation Oriented x 4 [facility] 10-15-2022 Mental Status [facility] 09-11-2021 Mental Status Orientation Asse ssment Oriented x 4 [facility] 09-11-2021 Mental Status Oriented x 4 [facility] 09-11-2021 Mental Status [facility] 09-10-2021 Mental Status [facility] 2014 Because of a physica l, mental, or emotional condition, do you have serious difficulty concentrating, remembering, or making decisions No 2014 11:29 AM Mari Glez Cma No [facility] Clinical Notes 03-11-2021 to 02-23-2025 Patient InstructionsSuLin pelaez APRN.CNP - 12/26/2024 8:19 AM EDTTelephone Lakisha Godoy RN - 12/15/2024 3:02 PM EDTPatient Instructions Note Date & Type Note Facility 02-23-2025 Note HNO ID: [id number] Author: LIN CISNEROS APRN.CNP Service: ? Author Type: Nurse Practitioner Type: Progress Notes Filed: 02/23/2025 08:37 Note Text: This is a 49 year old female who presents today with: Patient presents with: Covid Follow Up HISTORY OF PRESENT ILLNESS: Brittnee Marie is a 49 year old female. Patient presents with: Covid Follow Up The patient is a 49-year-old female presenting for evaluation of acute onset fever, chills, nonproductive cough, nasal congestion, and severe headache. Brittnee Marie is a 49-year-old female presenting for evaluation of persistent symptoms including temperature dysregulation, cough, and headaches. Temperature Dysregulation: - Experiences alternating sensations of being in the freezer and in the oven. - Chills at bedtime, even with an electric blanket. Cough: - Persistent cough, non-productive. - Episodes of tachycardia during severe coughing spells. - Taking Mucinex. Headaches: - Severe headaches, described as freaking headaches. - Headaches are intermittent, with no noted improvement. Rhinorrhea and Nasal Congestion: - Alternating episodes of rhinorrhea and nasal congestion. Dyspnea: - Mild dyspnea reported. Nausea: - Occasional nausea without emesis. General Well-being: - Describes fluctuating symptoms, feeling better at times and then feeling like the wind just been knocked out of me. - Maintaining adequate oral intake. - is also currently ill. PAST MEDICAL HISTORY: PAST MEDICAL HISTORY Diagnosis Date Anxiety Bulging disc neck c6 Depression Migraine Pneumothorax, spontaneous, tension Prolapse, disk Neck Scoliosis Neck PAST SURGICAL HISTORY Procedure Laterality Date APPENDECTOMY 04/20/2002 COLONOSCOPY FLX DX W/COLLJ SPEC WHEN PFRMD 05/17/2014 Colonoscopy EGD W/O [facility] SPEC VARICIES INJ 03/11/2024 Dr. Schmidt, [facility]; [place] Grade A erosive esophagitis with bleeding (biopsied), erythematous mucosa in gastric body (biopsied) LIG/TRNSXJ FLP TUBE ABDL/VAG APPR UNI/BI 04/20/1994 Tubal ligation NECK SURGERY HX 08/2021 [facility] -- has hardware in neck OOPHORECTOMY PARTIAL/TOTAL UNI/BI 04/20/2009 Right. Endometriosis noted at that time per patient PAST SURGICAL HISTORY OF 04/20/2003 left lung -[facility]arpal PAST SURGICAL HISTORY OF cervical /lumbar spine pain injections ALLERGIES Tape [Adhesive Tape (Rosins)] MEDICATIONS Current Outpatient Medications Medication Sig guaiFENesin (MUCINEX) 600 mg 12 hr tablet Take 1 tablet by mouth two times a day. omeprazole (PRILOSEC) 40 mg capsule Take 1 capsule by mouth two times a day. traZODone (DESYREL) 50 mg tablet Take 1 tablet by mouth daily at bedtime. metoprolol succinate ER (TOPROL XL) 25 mg 24 hr tablet Take 0.5 tablets by mouth once daily. sertraline (ZOLOFT) 50 mg tablet Take 1 tablet by mouth once daily. methylPREDNISolone (MEDROL, CURRY,) 4 mg Dose-Pack Take as instructed per package. No current facility-administered medications for this visit. FAMILY HISTORY Problem Relation Age of Onset No Known Problems Mother no personal ca, but reports cancer runs through that family (? leukemia). No Known Problems Father Diabetes Maternal Grandmother other (htn) Maternal Grandmother Cancer Maternal Grandfather lung other (old age) Paternal Grandmother SOCIAL HISTORY[1] REVIEW OF SYSTEMS Constitutional: (+) chills Head: (+) headaches Ears/Nose/Mouth/Throat: (+) nasal congestion, (+) rhinorrhea Cardiovascular: (+) palpitations, (-) chest pain Respiratory: (+) cough, (+) dyspnea, (-) sputum production Gastrointestinal: (-) nausea, (-) vomiting, (-) diarrhea Skin: (-) rash, (-) pruritus EXAM: BP 100/72 (BP Site: Left Arm, BP Position: Sitting) Pulse 68 Temp 36.6 ?C (97.9 ?F) (Left Tympanic) Wt 71.7 kg (158 lb) LMP (LMP Unknown) SpO2 99% BMI 27.99 kg/m? PHYSICAL EXAM: GENERAL: NAD, alert and oriented SKIN: unremarkable, no rash or skin lesions. HEAD: normocephalic NOSE/SINUSES: Nares boggy and smooth, pink. Septum midline. Stuffy nose noted. OROPHARYNX: lips, mucosa, and tongue normal, good dentition. No oral lesions noted. NECK: Supple, no lymphadenopathy, normal thyroid, no carotid bruits. LUNGS: Clear to auscultation bilaterally, no wheezes/rhonchi/rales. Breath sounds slightly diminished. HEART: Regular rate and rhythm, no murmurs. No ectopy. EXTREMITIES: Normal, No deformities, No skin discoloration, No edema. NEURO: Awake, alert and oriented x3, cranial nerves II-XII grossly intact, normal gait, no involuntary motions LABS: ASSESSMENT/PLAN: 1. COVID-19 (U07.1) - Persistent symptoms include severe headaches, cough, rhinorrhea, and intermittent dyspnea. - Lungs clear to auscultation, though breath sounds are slightly diminished. - Continue Mucinex as currently taking. - Provided work slip for last Thursday. - Tessalon 3 x day as needed - Flonase nasal spray fo (more content not included)... [facility] 02-17-2025 Note HNO ID: [id number] Author: LIN CISNEROS APRN.[employer] MANAGEMENT ASSOCIATE Service: ? Author Type: Nurse Practitioner Type: Progress Notes Filed: 02/17/2025 10:00 Note Text: I have communicated my name and active licensure. The patient's identity and physical location were verified at the time of this visit. Either the patient or their legal procurement representative has been informed of the risks and benefits of -- and alternatives to -- treatment through a remote evaluation and consents to proceed with the evaluation remotely. Subjective Brittnee Marie is a 49 year old female. COVID-positive Daughter tested positive. Pt. tested positive. Sick for a day or two. Cough for 3-4 days. Body aching. No Shortness of Breath. No chest pain. Does not know if fever. + Chills. Little headache. + Sore throat No rash No diarrhea Cough- greenish yellow mucus Stuffy nose Objective LMP (LMP Unknown) GENERAL: alert and appropriate, in no distress, well-hydrated, well nourished, appears tired, and coughs occasionally HEAD: normocephalic, no abnormality or lesion noted NOSE: rhinorrhea noted and stuffiness Assessment AND Plan COVID-19 Mucinex 600 mg twice daily each dose with a full glass of water Medrol taper for inflammation, body aches, open her airways Follow-up midweek next week Patient told that if she develops chest pain or shortness of breath, go straight to the emergency room. I have communicated my name and active licensure. The patient's identity and physical location were verified at the time of this visit. Either the patient or their legal procurement representative has been informed of the risks and benefits of -- and alternatives to -- treatment through a remote evaluation and consents to proceed with the evaluation remotely. Visit was conducted via [employer] Patient Location: Patient Home or Place of Residence [facility] 12-26-2024 Instructions Lin Cisneros APRN.CNP - 12/26/2024 8:33 AM EDT - Take omeprazole on an empty stomach; your refill has been adjusted to once daily. Once your heartburn is controlled, you may taper to every other day to help protect your bone health. - Continue your current anxiety medication regimen, as it has helped you manage symptoms and sleep. - Maintain your existing plan for chest discomfort and palpitations; no changes are needed at this time. - Your blood pressure was stable--100/70 sitting and 100/68 standing--so no adjustments to your blood pressure management are required unless you develop new symptoms. documented in this encounter [facility] 12-26-2024 Note HNO ID: [id number] Author: LIN CISNEROS APRN.CNP Service: ? Author Type: Nurse Practitioner Type: Progress Notes Filed: 12/26/2024 08:33 Note Text: This is a 49 year old female who presents today with: Patient presents with: Follow Up: 6 week anxiety and SVT follow up HISTORY OF PRESENT ILLNESS: Brittnee Marie is a 49 year old female. Patient presents with: Follow Up: 6 week anxiety and SVT follow up The patient is a 49-year-old female with GERD and anxiety disorder, presenting for evaluation of chest pain, dyspnea, and palpitations. Chest Pain: - Brittnee Marie has persistent chest pain. - Previously managed with omeprazole BID; currently out of medication. - Denies significant chest heaviness or diaphoresis. Dyspnea: - Brittnee denies significant dyspnea. Palpitations: - Intermittent palpitations; describes sensation of heart racing. Anxiety: - Brittnee reports improvement in anxiety symptoms. - Able to go places without significant anxiety. - Previously experienced severe anxiety, especially when late for work. - Currently sleeping well; denies excessive worrying. Fatigue: - Brittnee reports increased fatigue recently. - Suspects low blood pressure may be contributing to fatigue. PAST MEDICAL HISTORY: PAST MEDICAL HISTORY Diagnosis Date Anxiety Bulging disc neck c6 Depression Migraine Pneumothorax, spontaneous, tension Prolapse, disk Neck Scoliosis Neck PAST SURGICAL HISTORY Procedure Laterality Date APPENDECTOMY 04/20/2002 COLONOSCOPY FLX DX W/COLLJ SPEC WHEN PFRMD 05/17/2014 Colonoscopy EGD W/O [facility] SPEC VARICIES INJ 03/11/2024 Dr. Schmidt, [facility]; [place] Grade A erosive esophagitis with bleeding (biopsied), erythematous mucosa in gastric body (biopsied) LIG/TRNSXJ FLP TUBE ABDL/VAG APPR UNI/BI 04/20/1994 Tubal ligation NECK SURGERY HX 08/2021 [facility] -- has hardware in neck OOPHORECTOMY PARTIAL/TOTAL /BI 04/20/2009 Right. Endometriosis noted at that time per patient PAST SURGICAL HISTORY OF 04/20/2003 left lung -[facility] PAST SURGICAL HISTORY OF cervical /lumbar spine pain injections ALLERGIES Tape [Adhesive Tape (Rosins)] MEDICATIONS Current Outpatient Medications Medication Sig traZODone (DESYREL) 50 mg tablet Take 1 tablet by mouth daily at bedtime. omeprazole (PRILOSEC) 40 mg capsule Take 40 mg by mouth once daily. metoprolol succinate ER (TOPROL XL) 25 mg 24 hr tablet Take 0.5 tablets by mouth once daily. sertraline (ZOLOFT) 50 mg tablet Take 1 tablet by mouth once daily. No current facility-administered medications for this visit. FAMILY HISTORY Problem Relation Age of Onset No Known Problems Mother no personal ca, but reports cancer runs through that family (? leukemia). No Known Problems Father Diabetes Maternal Grandmother other (htn) Maternal Grandmother Cancer Maternal Grandfather lung other (old age) Paternal Grandmother SOCIAL HISTORY[1] REVIEW OF SYSTEMS Chest Pain: - Brittnee Marie has persistent chest pain. - Previously managed with omeprazole BID; currently out of medication. - Denies significant chest heaviness or diaphoresis. Dyspnea: - Brittnee denies significant dyspnea. Palpitations: - Intermittent palpitations; describes sensation of heart racing. Anxiety: - Brittnee reports improvement in anxiety symptoms. - Able to go places without significant anxiety. - Previously experienced severe anxiety, especially when late for work. - Currently sleeping well; denies excessive worrying. Fatigue: - Brittnee reports increased fatigue recently. - Suspects low blood pressure may be contributing to fatigue. ROS: Constitutional: (+) fatigue Cardiovascular: (+) chest pain, (+) chest heaviness, (+) palpitations Respiratory: (+) shortness of breath Skin: (+) diaphoresis Psychiatric: (+) anxiety, (-) sleep disturbance EXAM: BP 102/58 Pulse 66 Wt 73.5 kg (162 lb) LMP (LMP Unknown) SpO2 98% BMI 28.70 kg/m? PHYSICAL EXAM: GENERAL: NAD, alert and oriented. SKIN: Unremarkable, no rash or skin lesions. HEAD: Normocephalic. LUNGS: Clear to auscultation bilaterally, no wheezes/rhonchi/rales. HEART: Regular rate and rhythm, no murmurs. No ectopy. EXTREMITIES: Normal, no deformities, no skin discoloration, no edema. NEURO: Awake, alert and oriented x3, cranial nerves II-XII grossly intact, normal gait, no involuntary motions. LABS: ASSESSMENT/PLAN: 1. Gastroesophageal reflux disease without esophagitis (K21.9) - GERD symptoms improving; previously on omeprazole BID, but ran out of medication. - Restart omeprazole; advised to take on an empty stomach. - Educated on risks of long-term PPI use, including decreased calcium absorption and potential for osteoporosis; advised to reduce to once daily if possible, and to every other day if symptoms allow. 2. SVT (supraventricular tachycardia) (HCC) (I47.10) - Palpitations continue intermittently; no signific (more content not included)... [facility] 12-26-2024 History of Presen t illness Narrative This is a 49 year old female who presents today with: Patient presents with: Follow Up: 6 week anxiety and SVT follow up HISTORY OF PRESENT ILLNESS: Brittnee Marie is a 49 year old female. Patient presents with: Follow Up: 6 week anxiety and SVT follow up The patient is a 49-year-old female with GERD and anxiety disorder, presenting for evaluation of chest pain, dyspnea, and palpitations. Chest Pain: - Brittnee Marie has persistent chest pain. - Previously managed with omeprazole BID; currently out of medication. - Denies significant chest heaviness or diaphoresis. Dyspnea: - Brittnee denies significant dyspnea. Palpitations: - Intermittent palpitations; describes sensation of heart racing. Anxiety: - Brittnee reports improvement in anxiety symptoms. - Able to go places without significant anxiety. - Previously experienced severe anxiety, especially when late for work. - Currently sleeping well; denies excessive worrying. Fatigue: - Brittnee reports increased fatigue recently. - Suspects low blood pressure may be contributing to fatigue. PAST MEDICAL HISTORY: PAST MEDICAL HISTORY Diagnosis Date Anxiety Bulging disc neck c6 Depression Migraine Pneumothorax, spontaneous, tension Prolapse, disk Neck Scoliosis Neck PAST SURGICAL HISTORY Procedure Laterality Date APPENDECTOMY 04/20/2002 COLONOSCOPY FLX DX W/COLLJ SPEC WHEN PFRMD 05/17/2014 Colonoscopy EGD W/O [facility] SPEC VARICIES INJ 03/11/2024 Dr. Schmidt, [facility]; [place] Grade A erosive esophagitis with bleeding (biopsied), erythematous mucosa in gastric body (biopsied) LIG/TRNSXJ FLP TUBE ABDL/VAG APPR /BI 04/20/1994 Tubal ligation NECK SURGERY HX 08/2021 [facility] -- has hardware in neck OOPHORECTOMY PARTIAL/TOTAL UNI/BI 04/20/2009 Right. Endometriosis noted at that time per patient PAST SURGICAL HISTORY OF 04/20/2003 left lung -[facility] PAST SURGICAL HISTORY OF cervical /lumbar spine pain injections ALLERGIES Tape [Adhesive Tape (Rosins)] MEDICATIONS Current Outpatient Medications Medication Sig traZODone (DESYREL) 50 mg tablet Take 1 tablet by mouth daily at bedtime. omeprazole (PRILOSEC) 40 mg capsule Take 40 mg by mouth once daily. metoprolol succinate ER (TOPROL XL) 25 mg 24 hr tablet Take 0.5 tablets by mouth once daily. sertraline (ZOLOFT) 50 mg tablet Take 1 tablet by mouth once daily. No current facility-administered medications for this visit. FAMILY HISTORY Problem Relation Age of Onset No Known Problems Mother no personal ca, but reports cancer runs through that family (? leukemia). No Known Problems Father Diabetes Maternal Grandmother other (htn) Maternal Grandmother Cancer Maternal Grandfather lung other (old age) Paternal Grandmother SOCIAL HISTORY[1] REVIEW OF SYSTEMS Chest Pain: - Brittnee Marie has persistent chest pain. - Previously managed with omeprazole BID; currently out of medication. - Denies significant chest heaviness or diaphoresis. Dyspnea: - Brittnee denies significant dyspnea. Palpitations: - Intermittent palpitations; describes sensation of heart racing. Anxiety: - Brittnee reports improvement in anxiety symptoms. - Able to go places without significant anxiety. - Previously experienced severe anxiety, especially when late for work. - Currently sleeping well; denies excessive worrying. Fatigue: - Brittnee reports increased fatigue recently. - Suspects low blood pressure may be contributing to fatigue. ROS: Constitutional: (+) fatigue Cardiovascular: (+) chest pain, (+) chest heaviness, (+) palpitations Respiratory: (+) shortness of breath Skin: (+) diaphoresis Psychiatric: (+) anxiety, (-) sleep disturbance EXAM: BP 102/58 Pulse 66 Wt 73.5 kg (162 lb) LMP (LMP Unknown) SpO2 98% BMI 28.70 kg/m PHYSICAL EXAM: GENERAL: NAD, alert and oriented. SKIN: Unremarkable, no rash or skin lesions. HEAD: Normocephalic. LUNGS: Clear to auscultation bilaterally, no wheezes/rhonchi/rales. HEART: Regular rate and rhythm, no murmurs. No ectopy. EXTREMITIES: Normal, no deformities, no skin discoloration, no edema. NEURO: Awake, alert and oriented x3, cranial nerves II-XII grossly intact, normal gait, no involuntary motions. LABS: ASSESSMENT/PLAN: 1. Gastroesophageal reflux disease without esophagitis (K21.9) - GERD symptoms improving; previously on omeprazole BID, but ran out of medication. - Restart omeprazole; advised to take on an empty stomach. - Educated on risks of long-term PPI use, including decreased calcium absorption and potential for osteoporosis; advised to reduce to once daily if possible, and to every other day if symptoms allow. 2. SVT (supraventricular tachycardia) (HCC) (I47.10) - Palpitations continue intermittently; no significant chest heaviness, diaphoresis, or dyspnea. - Orthostatic BP measurements stable (100/70 mmHg sitting, 100/68 mmHg standing); no changes to current management. - Tolerating metoprolol ok at low dose - Discussed valsalva maneuver if needed Discussed treatment plan and patient voices understanding. Patient's questions answered appropriately. Medications and potential side effects were discussed and patient voices understanding. Return to the office as scheduled or as needed for worsening/no improvement. Lin Cisneros APRN.CNP [1] Social History Tobacco Use Smoking status: Former Current packs/day: 0.00 Average packs/day: 0.3 packs/day for 22.0 years (5.5 ttl pk-yrs) Types: Cigarettes Quit date: 08/2024 Years since quittin.3 Smokeless tobacco: Never Vaping Use Vaping status: Never Used Substance Use Topics Alcohol use: Yes Comment: very rare Drug use: No documented in this encounter [facility] 12-15-2024 Telephone encounter Note Patient called and notified of below. Voices understanding. Lakisha Bruce RN [facility] 12-15-2024 Miscellaneous Notes Patient called and notified of below. Voices understanding. Lakisha Bruce RN Trazodone sent. It looks like GI is prescribing the omeprazole. Humera Garcia APRN.KELLY The patient has been identified by name and date of : Yes Caregiver verified no other encounters exist for this prescription request: Yes Caregiver confirmed with patient/requestor that no other refills are due, in the near future, with this provider at this time: Yes The last office visit in the department: 11/17/2024 Does the patient have a future office visit with this provider/department: Yes 12/26/2024 Requested Prescriptions Pending Prescriptions Disp Refills traZODone (DESYREL) 50 mg tablet Sig: Take 1 tablet by mouth daily at bedtime. omeprazole (PRILOSEC) 40 mg capsule Sig: Take 1 capsule by mouth two times a day. Lakisha Bruce RN December 14, 2024 1:28 PM documented in this encounter [facility] 12-14-2024 Telephone encounter Note Trazodone sent. It looks like GI is prescribing the omeprazole. Humera Garcia APRN.KELLY [facility] 12-14-2024 Telephone encounter Note See Telephone Encounter [facility] 12-14-2024 Miscellaneous Notes See Telephone Encounter documented in this encounter [facility] 12-14-2024 Telephone encounter Note The patient has been identified by name and date of : Yes Caregiver verified no other encounters exist for this prescription request: Yes Caregiver confirmed with patient/requestor that no other refills are due, in the near future, with this provider at this time: Yes The last office visit in the department: 11/17/2024 Does the patient have a future office visit with this provider/department: Yes 12/26/2024 Requested Prescriptions Pending Prescriptions Disp Refills traZODone (DESYREL) 50 mg tablet Sig: Take 1 tablet by mouth daily at bedtime. omeprazole (PRILOSEC) 40 mg capsule Sig: Take 1 capsule by mouth two times a day. Lakisha Bruce RN December 14, 2024 1:28 PM [facility] 11-17-2024 Instructions Lin Cisneros APRN.CNP - 11/17/2024 8:37 AM EDT - Take metoprolol extended-release 12.5 mg once daily: use your pill cutter to split a 25 mg tablet in half and take one half each morning. - Begin sertraline once daily: take in the morning; if it causes drowsiness, you may switch to taking it at bedtime. - Follow up in about 6 weeks to assess how you re doing on these medications and plan any next steps. documented in this encounter [facility] 11-17-2024 Note HNO ID: [id number] Author: LIN CISNEROS APRN.KELLY Service: ? Author Type: Nurse Practitioner Type: Progress Notes Filed: 11/17/2024 08:38 Note Text: This is a 49 year old female who presents today with: Patient presents with: ER F/U: [facility] ER 11/14/24 HISTORY OF PRESENT ILLNESS: Brittnee Marie is a 49 year old female. Patient presents with: ER F/U: [facility] ER 11/14/24 Patient presents for follow-up on ER visit to [facility] for chest pain on November 14: Pain was described as burning, heaviness, and sharp. Positive for diaphoresis, shortness of breath, lightheadedness and palpitations. No nausea vomiting, cough, fever, or acid reflux. Pain came on gradually started having some shortness of breath and lightheadedness. Pain did radiate into her left arm. Feel like an elephant sitting on her chest. Sharp and burning. Nothing made it better or worse. She does have a history of tobacco use, family history of heart attack less than or equal to 55. No recent travel. History of supraventricular tachycardia, tension pneumothorax, migraines, anxiety depression, Crohn's, and heartburn. Blood pressure 148/98, heart rate 114, respirations 16, saturation 99%. WBC 7.4, hemoglobin 13.1, hematocrit 38.4, platelet count 297 Differential is normal Sodium 140, potassium 3.7, BUN 12, creatinine 0.72, glucose 93 Calcium 9.3 Troponin less than 6 Chest x-ray no acute process EKG sinus rhythm with a rate of 73, TN interval, QRS, and QTc were all normal. [place] normal. No ST changes. EKG unchanged from April. Instructed to follow-up with primary care PAST MEDICAL HISTORY: PAST MEDICAL HISTORY Diagnosis Date Anxiety Bulging disc neck c6 Depression Migraine Pneumothorax, spontaneous, tension Prolapse, disk Neck Scoliosis Neck PAST SURGICAL HISTORY Procedure Laterality Date APPENDECTOMY 04/20/2002 COLONOSCOPY FLX DX W/COLLJ SPEC WHEN PFRMD 05/17/2014 Colonoscopy EGD W/O [facility] SPEC VARICIES INJ 03/11/2024 Dr. Schmidt, [facility]; [place] Grade A erosive esophagitis with bleeding (biopsied), erythematous mucosa in gastric body (biopsied) LIG/TRNSXJ FLP TUBE ABDL/VAG APPR UNI/BI 04/20/1994 Tubal ligation NECK SURGERY HX 08/2021 [facility] -- has hardware in neck OOPHORECTOMY PARTIAL/TOTAL UNI/BI 04/20/2009 Right. Endometriosis noted at that time per patient PAST SURGICAL HISTORY OF 04/20/2003 left lung -[facility] PAST SURGICAL HISTORY OF cervical /lumbar spine pain injections ALLERGIES Tape [Adhesive Tape (Rosins)] MEDICATIONS Current Outpatient Medications Medication Sig omeprazole (PRILOSEC) 40 mg capsule Take 40 mg by mouth once daily. traZODone (DESYREL) 50 mg tablet Take 50 mg by mouth daily at bedtime. propranolol (INDERAL) 10 mg tablet Take 1 tablet by mouth three times a day. No current facility-administered medications for this visit. FAMILY HISTORY Problem Relation Age of Onset No Known Problems Mother no personal ca, but reports cancer runs through that family (? leukemia). No Known Problems Father Diabetes Maternal Grandmother other (htn) Maternal Grandmother Cancer Maternal Grandfather lung other (old age) Paternal Grandmother Social History Tobacco Use Smoking status: Former Current packs/day: 0.00 Average packs/day: 0.3 packs/day for 22.0 years (5.5 ttl pk-yrs) Types: Cigarettes Quit date: 08/2024 Years since quittin.2 Smokeless tobacco: Never Vaping Use Vaping status: Never Used Substance Use Topics Alcohol use: Yes Comment: very rare Drug use: No REVIEW OF SYSTEMS Constitutional: (+) weight gain Ears/Nose/Mouth/Throat: (+) pulsatile tinnitus Cardiovascular: (+) chest pain, (+) palpitations, (+) lower extremity swelling Respiratory: (+) wheezing, (+) shortness of breath, (-) orthopnea Psychiatric: (+) anxiety, (+) insomnia EXAM: BP 116/74 Pulse 71 Wt 74.8 kg (165 lb) LMP (LMP Unknown) SpO2 97% BMI 29.23 kg/m? PHYSICAL EXAM: GENERAL: NAD, alert and oriented. SKIN: Unremarkable, no rash or skin lesions. HEAD: Normocephalic. LUNGS: Clear to auscultation bilaterally, no wheezes/rhonchi/rales. HEART: Regular rate and rhythm, no murmurs. No ectopy. EXTREMITIES: Normal, no deformities, no skin discoloration, no edema. NEURO: Awake, alert and oriented x3, cranial nerves II-XII grossly intact, normal gait, no involuntary motions. MOOD: good eye contact. Appropriate. LABS: Imaging: - Stress Echocardiogram: - Heart function was good and strong - No structural abnormalities - Normal blood flow ASSESSMENT/PLAN: 1. STEPHANIE (generalized anxiety disorder) (F41.1) 2. Encounter for screening examination for other mental health and behavioral disorders (Z13.39) - Anxiety attacks with chest pain and palpitations mimicking cardiac symptoms; recent ER visit attributed symptoms to anxiety. - Start sertraline 50 mg once daily; advised to take in the morning, but may switch to evening if (more content not included)... [facility] 11-17-2024 History of Presen t illness Narrative This is a 49 year old female who presents today with: Patient presents with: ER F/U: [facility] ER 11/14/24 HISTORY OF PRESENT ILLNESS: Brittnee Marie is a 49 year old female. Patient presents with: ER F/U: [facility] ER 11/14/24 Patient presents for follow-up on ER visit to [facility] for chest pain on November 14: Pain was described as burning, heaviness, and sharp. Positive for diaphoresis, shortness of breath, lightheadedness and palpitations. No nausea vomiting, cough, fever, or acid reflux. Pain came on gradually started having some shortness of breath and lightheadedness. Pain did radiate into her left arm. Feel like an elephant sitting on her chest. Sharp and burning. Nothing made it better or worse. She does have a history of tobacco use, family history of heart attack less than or equal to 55. No recent travel. History of supraventricular tachycardia, tension pneumothorax, migraines, anxiety depression, Crohn's, and heartburn. Blood pressure 148/98, heart rate 114, respirations 16, saturation 99%. WBC 7.4, hemoglobin 13.1, hematocrit 38.4, platelet count 297 Differential is normal Sodium 140, potassium 3.7, BUN 12, creatinine 0.72, glucose 93 Calcium 9.3 Troponin less than 6 Chest x-ray no acute process EKG sinus rhythm with a rate of 73, TN interval, QRS, and QTc were all normal. [place] normal. No ST changes. EKG unchanged from April. Instructed to follow-up with primary care PAST MEDICAL HISTORY: PAST MEDICAL HISTORY Diagnosis Date Anxiety Bulging disc neck c6 Depression Migraine Pneumothorax, spontaneous, tension Prolapse, disk Neck Scoliosis Neck PAST SURGICAL HISTORY Procedure Laterality Date APPENDECTOMY 04/20/2002 COLONOSCOPY FLX DX W/COLLJ SPEC WHEN PFRMD 05/17/2014 Colonoscopy EGD W/O [facility] SPEC VARICIES INJ 03/11/2024 Dr. Schmidt, [facility]; [place] Grade A erosive esophagitis with bleeding (biopsied), erythematous mucosa in gastric body (biopsied) LIG/TRNSXJ FLP TUBE ABDL/VAG APPR UNI/BI 04/20/1994 Tubal ligation NECK SURGERY HX 08/2021 [facility] -- has hardware in neck OOPHORECTOMY PARTIAL/TOTAL UNI/BI 04/20/2009 Right. Endometriosis noted at that time per patient PAST SURGICAL HISTORY OF 04/20/2003 left lung -[facility] PAST SURGICAL HISTORY OF cervical /lumbar spine pain injections ALLERGIES Tape [Adhesive Tape (Rosins)] MEDICATIONS Current Outpatient Medications Medication Sig omeprazole (PRILOSEC) 40 mg capsule Take 40 mg by mouth once daily. traZODone (DESYREL) 50 mg tablet Take 50 mg by mouth daily at bedtime. propranolol (INDERAL) 10 mg tablet Take 1 tablet by mouth three times a day. No current facility-administered medications for this visit. FAMILY HISTORY Problem Relation Age of Onset No Known Problems Mother no personal ca, but reports cancer runs through that family (? leukemia). No Known Problems Father Diabetes Maternal Grandmother other (htn) Maternal Grandmother Cancer Maternal Grandfather lung other (old age) Paternal Grandmother Social History Tobacco Use Smoking status: Former Current packs/day: 0.00 Average packs/day: 0.3 packs/day for 22.0 years (5.5 ttl pk-yrs) Types: Cigarettes Quit date: 08/2024 Years since quittin.2 Smokeless tobacco: Never Vaping Use Vaping status: Never Used Substance Use Topics Alcohol use: Yes Comment: very rare Drug use: No REVIEW OF SYSTEMS Constitutional: (+) weight gain Ears/Nose/Mouth/Throat: (+) pulsatile tinnitus Cardiovascular: (+) chest pain, (+) palpitations, (+) lower extremity swelling Respiratory: (+) wheezing, (+) shortness of breath, (-) orthopnea Psychiatric: (+) anxiety, (+) insomnia EXAM: BP 116/74 Pulse 71 Wt 74.8 kg (165 lb) LMP (LMP Unknown) SpO2 97% BMI 29.23 kg/m PHYSICAL EXAM: GENERAL: NAD, alert and oriented. SKIN: Unremarkable, no rash or skin lesions. HEAD: Normocephalic. LUNGS: Clear to auscultation bilaterally, no wheezes/rhonchi/rales. HEART: Regular rate and rhythm, no murmurs. No ectopy. EXTREMITIES: Normal, no deformities, no skin discoloration, no edema. NEURO: Awake, alert and oriented x3, cranial nerves II-XII grossly intact, normal gait, no involuntary motions. MOOD: good eye contact. Appropriate. LABS: Imaging: - Stress Echocardiogram: - Heart function was good and strong - No structural abnormalities - Normal blood flow ASSESSMENT/PLAN: 1. STEPHANIE (generalized anxiety disorder) (F41.1) 2. Encounter for screening examination for other mental health and behavioral disorders (Z13.39) - Anxiety attacks with chest pain and palpitations mimicking cardiac symptoms; recent ER visit attributed symptoms to anxiety. - Start sertraline 50 mg once daily; advised to take in the morning, but may switch to evening if sedation occurs. - Discussed that metoprolol may also provide some benefit for anxiety. - Follow-up in 6 weeks to reassess anxiety symptoms and medication effectiveness. 3. SVT (supraventricular tachycardia) (HCC) (I47.10) - Recent stress echo demonstrated good cardiac function; no structural abnormalities identified. - Previously on propranolol TID for tachycardia; discontinued by cardiology and switched to metoprolol 25 mg BID, which patient self-discontinued due to sedation. - Advised to resume metoprolol at a reduced dose of 12.5 mg once daily; instructed to use pill cutter to achieve correct dose. - Educated on the importance of metoprolol for heart rate control and prevention of SVT episodes. Discussed treatment plan and patient voices understanding. Patient's questions answered appropriately. Medications and potential side effects were discussed and patient voices understanding. Return to the office as scheduled or as needed for worsening/no improvement. Lin Cisneros APRN.CNP documented in this encounter [facility] 11-14-2024 Radiology Diagnostic study note [facility] Imaging Services [address] [place] [address] Chest 1 View (Portable) MR#: [id number] Acct: [id number] Name: BRITTNEE MARIE Rep #: [id number] : 1975 F 49 From: Mallory Currie MD PCP: DIVINE Dempsey Status: REG E R Study:Chest 1 View (Portable) Date of Exam: 11/14/24 Exam# [id number] Ordering Dr: Sulaiman Hoffman DO PROCEDURE: CHEST 1 VIEW (PORTABLE) 11/14/2024 REASON FOR EXAM: CHEST PAIN TECHNIQUE: Frontal view of the chest. COMPARISON: None FINDINGS: Heart size and mediastinal configuration are within normal limits. There is no focal infiltrate or consolidation. There is no pneumothorax or effusion. There is no acute bony abnormality. Aortic calcifications are visible. Hardware is noted in the cervical region. RAD/Chest 1 View (Portable) IMPRESSION: No acute process is identified in the chest. Reading Location: [facility] CC: DIVINE Garcia; Dr. Sulaiman Hoffman DO ~ Fly Frame Tender: Signed [facility] 09-13-2024 Note Patient Outreach (FA MPWS) BRITTNEE MARIE ([id number]) 1975 F Date Time Provider Department 09/13/24 HUMERA GARCIA During your visit today, we recorded the following information about you: Allergies As of Date: 09/13/2024 Noted Allergy Reaction OXYCODONE-ACETAMINOPHEN 01/14/2013 8 - GI Upset 4 - Hives DARVOCET A500 (PROPOXYPHENE N-KODY*01/14/2013 16 - Unknown FLEXERIL (CYCLOBENZAPRINE HCL) 01/14/2013 8 - GI Upset TAPE (ADHESIVE TAPE (ROSINS)) 01/14/2013 7 - Swelling Comments: paper tape ok TOPIRAMATE 01/14/2013 8 - GI Upset Date Reviewed: 07/22/2024 Reviewed by: Maru Kohler MA - Fully Assessed Visit Diagnosis:Encounter for screening mammogram for breast cancer [Z12.31] Order(s):[facility] SCREENING W RIDDHI [[id number]] Order #: [id number] FUTURE Prescriptions as of 10/14/2024 - propranolol (INDERAL) 10 mg tablet Take 1 tablet by mouth three times a day. Problem List As Of Date 09/13/2024 Noted Resolved Neck pain on right side [M54.2] 01/14/2013 Chronic headaches [R51.9, G89.29] 02/23/2013 Depression [F32.A] 02/23/2013 Cervical radiculitis [M54.12] 02/21/2014 Chronic pain [G89.29] 05/10/2014 Screening for colon cancer [Z12.11] 11/26/2023 Encounter Status:Closed by ShareDeskAWAUSER on 10/14/24 [facility] 09-02-2024 Progress note [facility] 09-02-2024 Progress note Note Date/Time September 02, 2024 12:09pm [facility] [place] [id number] [place] [address] OFFICE VISIT Date of Service: 09/02/24 MR#: [id number] Acct: [id number] Name: FRANKBRITTNEE BRAR Rep #: [id number] : 1975 Provider: Dr. Monico Trinidad MD Age/Sex: 49/F Location: [facility] Status: Signed HPI HPI History of Present Illness Surgical H&P: No Details: # HISTORY OF PRESENT ILLNESS The patient presents for evaluation of tachycardia. She reports experiencing episodes of rapid heart rate, which she monitors using a blood pressure cuff that measures her pulse. The episodes have been occurring for some time, but have gradually worsened. She describes the frequency as a couple of times per week, with each episode lasting several minutes, though subjectively feeling likedays. The episodes occur randomly, without any identifiable triggers such as stress, dehydration, or food intake. The patient notes that the episodes have begun to wake her from sleep, and occur regardless of her position (sitting, lying down). The patient was prescribed Propranolol 10 mg three times daily approximately onemonth ago by her primary care physician, Dr. Pickard, after presenting to her office during an episode of tachycardia. The patient reports that the medicationhas provided slight relief. She states that during the episodes, her stomach swells. She also endorses lightheadedness and swelling in her legs. The patient was seen in the emergency department May 03, 2024, complaining of sharp intermittent chest pain, lightheadedness, and palpitations. On May 18, 2024, the patient underwent tilt table testing, which demonstrated orthostatic hypotension, with a supine blood pressure of 116/69, dropping with orthostatic stress plus nitroglycerin challenge, and a peak heart rate of 130 bpm at 20 minutes. On June 22, 2024, the patient's PCP noted complaints of palpitations and tachycardia with heart rates up to 200 bpm while seated and subsequently initiated Propranolol. The patient had a Holter monitor from May to June, which captured a maximum heart rate of 144 bpm in May. A stress test and echocardiogram wereperformed on July 19, which were unremarkable. An EKG on May 03, 2024, showed sinus rhythm at 85 bpm with normal conduction intervals. # REVIEW OF SYSTEMS CARDIOVASCULAR: Palpitations, positive GASTROINTESTINAL: Abdominal pain, positive NEUROLOGICAL: Dizziness, positive PSYCHIATRIC: Anxiety, positive MUSCULOSKELETAL: Back pain, positive # PHYSICAL EXAMINATION RESPIRATORY: Respiratory effort normal, lungs clear to auscultation CARDIAC: Regular rate and rhythm # ASSESSMENT AND PLAN Problem: Tachycardia Plan: Patient was seen for evaluation of tachycardia. History reviewed, noting episodes of heart racing with rates up to 190 bpm, as captured on previous Holter monitor, occurring a couple of times per week, lasting minutes, and occasionally waking her from sleep. The episodes are random, without clear triggers. Review of telemetry transmission suggest atrial tachycardia or multifocal atrialtachycardia as an etiology. Symptoms are nonsustained to suggest atrial fibrillation nor the need for anticoagulation. Prior echocardiogram and stress test results reviewed and were unremarkable. Propranolol 10 mg three times daily, started approximately one month ago by PCP,provided minimal relief. Given the side effect profile and dosing frequency of Propranolol, the patient was transitioned to Metoprolol once daily for improved tolerability and convenience. Patient was instructed to continue Propranolol until the Metoprolol prescription is filled and to discontinue Propranolol once starting Metoprolol. Patient was instructed to start Metoprolol in the morning initially, but if fatigue occurs, to switch to evening dosing. Patient was advised that the goal is to reduce the frequency and intensity of the tachycardia episodes and that it may take 2-4 months to see maximal benefit.Patient was counseled regarding potential side effects of Metoprolol, including fatigue, and the importance of adherence to the medication regimen. Patient was educated regarding lifestyle modifications, including avoiding caffeine and excessive alcohol intake, and staying well-hydrated. Patient was educated that if there is lightheadedness or dizziness, this is due to the ineffective pumpingof blood from the heart. Follow-up appointment scheduled in 3 months to assess response to Metoprolol and to discuss further management options if needed. 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: No Accompanied by: Self Is patient in pain?: No Allergies adhesive tape Allergy (Unknown, Verified 09/02/24 11:34) Unknown iodine Adverse Reaction (Verified 09/02/24 11:34) Upset Stomach Medications ?Medication ?Instructions ?Recorded ?Confirmed ?Type acetaminophen 325 mg tablet 1 - 2 tab PO Q4H PRN PRN P ain 04/05/14 09/02/24 History (Tylenol) omeprazole 40 mg capsule,delayed 40 mg PO BID #60 caps 01/20/24 09/02/24 Rx release trazodone 50 mg tablet 50 mg PO QHS PRN 08/30/24 History metoprolol succinate 25 mg 25 mg PO QDAY #90 tabs 08/1809/02/24 Rx tablet,extended release 24 hr Ejection fraction %: 56 Have you fallen in the past year?: No PFSH Medical History Anxiety Anxiety and depression Depression Endometriosis Gastric reflux Heartburn History of Crohn's disease Hx of migraines Low iron Post-menopausal Smoker SVT (supraventricular tachycardia) Tension pneumothorax, spontaneous Wears dentures Surgical History History of appendectomy History of colonoscopy (03/11/24) History of esophagogastroduodenoscopy (EGD) (03/11/24) History of lung surgery History of oophorectomy History of tubal ligation S/P cervical disc replacement Family History Grandmother Diabetes Hypertension Grandfather Lung cancer Other Cancer Social History household members: spouse and children housing: house current occupational status: employed Smoking Status: Current every day smoker tobacco type: cigarettes alcohol intake: current substance use type: does not use caffeine: Yes Type: carbonated beverages Number of servings: 3 ROS Const Const: Positive for fatigue and weakness; Negative for headache(s) or weight gain Eyes Eyes: Positive for change in vision ENT ENT: Positive for dizziness; Negative for headache(s), Nosebleed/epistaxis or balance problems Cardio Chest Pain: Yes Frequency: weekly Character: other (pressure) Location: mid sternal Exacerbation: exercise Relieving: other (time) Palpitations: Yes feels like its: fast and pounding Edema: Bilateral (BLE) Muscle aches with walking: None Resp Respiratory: Negative for SOB with activity, SOB at rest or SOB orthopneaundefinedSOB lying down GI GI: Positive for heartburn (medicated); Negative nausea or vomiting Musc Musc: Positive for muscle weakness; Negative for muscle aches/ myalgia, joint pain or balance problems Neuro Neuro: Positive for dizziness, lightheadedness, near syncope and weakness; Negative for syncope or headache(s) Endo Endo: Positive for fatigue Supplemental Info Supplemental Information Stress Echo Treadmill 07/19/2024 CONCLUSIONS: - Exam indication: Palpitations - The exercise stress echo was non-diagnostic due to sub-optimal heart rate response at 72 % of MPHR (3.2 METS). No regional wall motion abnormality seen at heart rate achieved. - The left ventricle is normal in size. Left ventricular systolic function is normal. EF = 56 ? 5% (2D biplane) - Normal left ventricular diastolic function. - The right ventricle is normal in size. - There are no significant valvular abnormalities. - Estimated right ventricular systolic pressure is not reported due to an insufficient tricuspid regurgitation signal. Estimated right atrial pressure is not included as the IVC was not seen. - The patient has not had a prior CC echocardiographic exam for comparison. [employer] ?06/04/2024-06/18/2024 IRHYTHM FINDINGS: Patient had a min HR of 58 bpm, max HR of 190 bpm, and avg HR of 87 bpm. Predominant underlying rhythm was Sinus Rhythm. 9 non-sustained SupraventricularTachycardia runs occurred, the run with the fastest interval lasting 5 beats with a max rate of 190 bpm, the longest lasting 16 beats with an avg rate of 161bpm. Isolated SVEs were rare (<1.0%), SVE Couplets were rare (<1.0%), and no SVETriplets were present. Isolated VEs were rare (<1.0%), and no VE Couplets or VETriplets were present. ? Symptoms correlate with sinus rhythm, sinus tachycardia. Cardiac Tilt Table Test 05/18/2024 Procedure Comments: Patient was brought to the noninvasive lab in the postabsorptive state and informed consent was obtained. Initial EKG was obtained demonstrating sinus rhythm with a rate of 83 bpm blood pressure was 111/69 mmHg. The patient was then put into the 70 degree head upright tilt position for 20 minutes continuousEKG monitoring was performed. The initial heart rate went up to 104 bpm. Bloodpressures remained stable. After 20 minutes the patient was then put in the recumbent position. Patient had complained of mild dizziness and feeling tired. In the recumbent position the patient was given sublingual nitroglycerin and then put back in the head upright tilt position. Heart rate went up from 106 bpm with a blood pressure 110/80 to a peak of 130 bpm. Patient subsequently became flushed tachycardic symptomatic with heart racing and dropped her blood pressure and needed to be put in the recumbent position. Patient subsequently started feeling better with a heart rate improving to 85 bpm and a blood pressure 109/79 mmHg. No EKG changes were noted. Summary: The above is suggestive of likely orthostatic hypotension exacerbated by nitroglycerin. ? Assessment and Plan Assessment and Plan Orders: Orders 12 Lead EKG performed by BMS Today I47.10 - Supraventricular tachycardia, unspecified Medications: New metoprolol succinate ER 25 mg PO QDAY 90 tabs 3RF Discontinued propranolol Discontinued Reason: Order Changed 10 mg PO TID Patient Instructions: # PATIENT INSTRUCTIONS Okay, here are your instructions from Dr. Fulton. It was nice meeting you today. What's Going On It looks like you have something called tachycardia. This means your heart sometimes beats too fast. We think the top part of your heart is misfiring. It'slike a little spot on your heart is causing it to race at the wrong times. This isn't dangerous, but it's annoying and can make you feel bad. When your heart beats too fast, it doesn't pump blood well. This can make you feel dizzy, lightheaded, and cause swelling in your legs. We want to calm your heart down soit works better and you feel better! Medicine Changes Right now, you're taking a medicine called Propranolol three times a day. It sounds like it's helping a little bit. I'm going to switch you to a new medicinecalled Metoprolol. It's in the same family as Propranolol, but you only have to take it once a day, which is easier. * Metoprolol: Take one pill each day. You can try taking it in the morningfirst. If it makes you feel tired, switch to taking it at night before you go tobed. Don't stop taking the Propranolol until you have the new prescription, and then stop the Propranolol. Don't take them both at the same time. Metoprolol helps to keep your heart from racing so much. A side effect of Metoprolol is tiredness. If you feel more tired when you start taking it, give it a week or so. See if the tiredness gets better, or if having fewer episodes of tachycardia makes it worth it. If you're too tired, let me know, and we can discuss other options. We don't want you to feel worse! Things to Watch Out For * Side Effects: Let me know if you feel very tired on the new medicine. * Dizziness or Lightheadedness: If you feel dizzy or lightheaded, sit downright away. * Swelling: If the swelling in your legs gets worse, let me know. If you have any chest pain, shortness of breath, or feel like you might pass out, call 911 right away. Other Things to Do There is nothing else you need to do at this time. Your heart muscle, valves, and plumbing are all good, based on your recent tests. Follow-Up I want to see you again in about two to four months. This will give the medicinetime to work, and we can see how you're feeling. We can then decide if we need to make any changes. I know this can be a little scary, but we're going to work together to get you feeling better! Coding Level of Care Code Off vis,est,level 5 Coding Level of Care Code Off vis,est,level 5 Clinical Quality Measures Falls Risk Screening/Assistive Devices Have you fallen in the past year?: No Cardiac Ejection fraction %: 56 09/02/24 1209 <Electronically signed by Arsh garcia MD> Date _ Arsh Trinidad MD Cosigner Signature: Date (if applicable) CC: DIVINE Garcia ~ [employer] Work Phone: 1(801) 315-624904-21-2025 Telephone encounter Note* Telephone Encounter - Humera Garcia APRN.CNP - 08/08/2024 8:44 AM EDT Agree w/ plan. [facility] Work Phone: 1(294) 390-428004-21-2025 Miscellaneous Notes* Telephone Encounter - Humera Garcia APRN.CNP - 08/08/2024 8:44 AM EDT Agree w/ plan. * Telephone Encounter - Casandra Wasserman RN - 08/08/2024 8:10 AM EDT Pt reports she is having severe CP since last night at 5 pm. Describes as pressure, like someone issitting on her chest, in center of chest to left side. Radiates to neck. SOB. Dizziness. Protocol recommends call 911. Pt agreeable. Reason for Disposition [1] Chest pain lasts > 5 minutes AND [2] described as crushing, pressure-like, or heavy Answer Assessment - Initial Assessment Questions 1. LOCATION: Center of chest to the left. 2. RADIATION: Radiates into neck. 3. ONSET: Last night started around 5 pm Constant since started. Gets worse on exertion 5. DURATION: Constant since 5 pm yesterday 6. SEVERITY: Severe pain. Excruciating. Pressure feels like someone is sitting on her chest. 7. CARDIAC RISK FACTORS: POTS, and something else with heart 8. PULMONARY RISK FACTORS: Left lung collapsed many years ago but nothing since then. 9. CAUSE: No idea 10. OTHER SYMPTOMS: SOB. Hurts to take deep breath. Dizziness comes and goes. 11. : No Protocols used: Chest [id number] documented in [facility] Telephone encounter Note * Telephone Encounter - Casandra Wasserman, NAI - 08/08/2024 8:10 AM EDT Pt reports she is having severe CP since last night at 5 pm. Describes as pressure, like someone issitting on her chest, in center of chest to left side. Radiates to neck. SOB. Dizziness. Protocol recommends call 911. Pt agreeable. Reason for Disposition [1] Chest pain lasts > 5 minutes AND [2] described as crushing, pressure-like, or heavy Answer Assessment - Initial Assessment Questions 1. LOCATION: Center of chest to the left. 2. RADIATION: Radiates into neck. 3. ONSET: Last night started around 5 pm Constant since started. Gets worse on exertion 5. DURATION: Constant since 5 pm yesterday 6. SEVERITY: Severe pain. Excruciating. Pressure feels like someone is sitting on her chest. 7. CARDIAC RISK FACTORS: POTS, and something else with heart 8. PULMONARY RISK FACTORS: Left lung collapsed many years ago but nothing since then. 9. CAUSE: No idea 10. OTHER SYMPTOMS: SOB. Hurts to take deep breath. Dizziness comes and goes. 11. : No Protocols used: Chest [id number] [facility]04-08-2025 Telephone encounter Note* Telephone Encounter - Maru Kohler MA - 07/26/2024 11:40 AM EDT Kaylyn notified of EP referral [facility]04-08-2025 Miscellaneous Notes* Telephone Encounter - Maru Kohler MA - 07/26/2024 11:40 AM EDT Kaylyn notified of EP referral * Telephone Encounter - Lin Cisneros APRN.[employer] - 07/26/2024 11:18 AM EDT EP (Dr. Trinidad) - pt. Has SVT- symptomatic. Seen on Event recorder. Stress echo normal. No valve issues, EF 72% No wall motion abnormality * Telephone Encounter - Karey Manuel RN - 07/26/2024 10:52 AM EDT Kaylyn with [facility] calling regarding referral that was placed by Kal Cisneros CNP. Kaylyn states the referral states for pt to see Dr. Trinidad, who works in Electrophysiology. Kaylyn asking if provider wishes for patient to be seen by Cardiology first, or seen by Electrophysiology? Please call Kaylyn with reply at [phone]. Karey Manuel RN documented in this [facility]04-[facility]-2025 Telephone encounter Note * Telephone Encounter - Lin Cisneros APRN.CNP - 07/26/2024 11:18 AM EDT EP (Dr. Trinidad) - pt. Has SVT- symptomatic. Seen on Event recorder. Stress echo normal. No valve issues, EF 72% No wall motion abnormality [facility]04-08-2025 Telephone encounter Note* Telephone Encounter - Karey Manuel RN - 07/26/2024 10:52 AM EDT Kaylyn with [facility] calling regarding referral that was placed by Kal Cisneros CNP. Kaylyn states the referral states for pt to see Dr. Trinidad, who works in Electrophysiology. Kaylyn asking if provider wishes for patient to be seen by Cardiology first, or seen by Electrophysiology? Please call Kaylyn with reply at [phone]. Karey Manuel RN [facility]04-04-2025 Instructions* Patient Instructions* Lin Cisneros APRN.CNP - 07/22/2024 4:38 PM EDT 1) Consult Dr. Trinidad- EP cardiology at [facility]- ax stress echo and event monitor along with recent labs 2) Follow up in 6 months documented in this encounterK[facility]04-04-2025 NoteHNO ID: [id number] Author: LIN CISNEROS APRN.CNP Service: ? Author Type: Nurse Practitioner Type: Progress Notes Filed: 07/22/2024 16:39 Note Text: This is a 48 year old female who presents today with: Patient presents with: Tachycardia: 2 week medication follow up HISTORY OF PRESENT ILLNESS: Brittnee Marie is a 48 year old female. Patient presents with: Tachycardia: 2 week medication follow up Chest pain that is intermittent. Mid sternal. Lasts only a couple minutes. Sometimes takes her breath away. Sometimes a severe heartburn that takes her breath away when she lays down. Wakes her up at night. Heart starts racing and she gets hot. Then slows down and she gets cold. Sometimes nausea, no vomiting Appetite comes and goes No pain in jaw, neck, between shoulder blades Alleviated not at all Aggravated- lying down and extreme exertion Pain is a 10/10 Palpations last minutes to 2 - 3 min. Trazodone helps her sleep PAST MEDICAL HISTORY: PAST MEDICAL HISTORY Diagnosis Date Anxiety Bulging disc neck c6 Depression Migraine Pneumothorax, spontaneous, tension Prolapse, disk Neck Scoliosis Neck PAST SURGICAL HISTORY Procedure Laterality Date APPENDECTOMY 04/20/2002 COLONOSCOPY FLX DX W/COLLJ SPEC WHEN PFRMD 05/17/2014 Colonoscopy EGD W/O [facility] SPEC VARICIES INJ 03/11/2024 Dr. Schmidt, [facility]; [place] Grade A erosive esophagitis with bleeding (biopsied), erythematous mucosa in gastric body (biopsied) LIG/TRNSXJ FLP TUBE ABDL/VAG APPR UNI/BI 04/20/1994 Tubal ligation NECK SURGERY HX 08/2021 [facility] -- has hardware in neck OOPHORECTOMY PARTIAL/TOTAL UNI/BI 04/20/2009 Right. Endometriosis noted at that time per patient PAST SURGICAL HISTORY OF 04/20/2003 left lung -[facility] PAST SURGICAL HISTORY OF cervical /lumbar spine pain injections ALLERGIES Oxycodone-Acetaminophen, Darvocet A500 [Propoxyphene N-Acetaminophen], Flexeril [Cyclobenzaprine Hcl], Tape [Adhesive Tape (Rosins)], and Topiramate MEDICATIONS Current Outpatient Medications Medication Sig propranolol (INDERAL) 10 mg tablet Take 1 tablet by mouth three times a day. traZODone (DESYREL) 50 mg tablet Take 1 tablet by mouth at bedtime as needed for sedation. No current facility-administered medications for this visit. FAMILY HISTORY Problem Relation Age of Onset No Known Problems Mother no personal ca, but reports cancer runs through that family (? leukemia). No Known Problems Father Diabetes Maternal Grandmother other (htn) Maternal Grandmother Cancer Maternal Grandfather lung other (old age) Paternal Grandmother Social History Tobacco Use Smoking status: Every Day Current packs/day: 0.25 Average packs/day: 0.3 packs/day for 22.0 years (5.5 ttl pk-yrs) Types: Cigarettes Smokeless tobacco: Never Vaping Use Vaping status: Never Used Substance Use Topics Alcohol use: Yes Comment: very rare Drug use: No EXAM: BP 104/66 Pulse 67 Temp 36.7 ?C (98 ?F) (Left Tympanic) Wt 71.7 kg (158 lb) LMP (LMP Unknown) SpO2 97% BMI 27.99 kg/m? PHYSICAL EXAM: Physical Exam Vitals reviewed. Constitutional: Appearance: Normal appearance. Cardiovascular: Rate and Rhythm: Normal rate and regular rhythm. Pulses: Normal pulses. Heart sounds: Normal heart sounds. Pulmonary: Effort: Pulmonary effort is normal. Breath sounds: Normal breath sounds. Musculoskeletal: General: Normal range of motion. Comments: Moves all ext. Without difficulty, walks w/o assistive device Skin: General: Skin is warm and dry. Neurological: Mental Status: She is alert and oriented to person, place, and time. Psychiatric: Mood and Affect: Mood normal. Behavior: Behavior normal. LABS: ASSESSMENT/PLAN: 1. SVT (supraventricular tachycardia) (HCC) - ICD9: 427.89, ICD10: I47.10 Will refer locally to Dr. Trinidad - CONSULT TO CARDIOLOGY Discussed treatment plan and patient voices understanding. Patient's questions answered appropriately. Medications and potential side effects were discussed and patient voices understanding. Return to the office as scheduled or as needed for worsening/no improvement. Lin Cisneros APRN.[facility]04-04-2025 History of Present illness Narrative* Lin Cisneros APRN.KELLY - 07/22/2024 4:21 PM EDT This is a 48 year old female who presents today with: Patient presents with: Tachycardia: 2 week medication follow up HISTORY OF PRESENT ILLNESS: Brittnee Marie is a 48 year old female. Patient presents with: Tachycardia: 2 week medication follow up Chest pain that is intermittent. Mid sternal. Lasts only a couple minutes. Sometimes takes her breath away. Sometimes a severe heartburn that takes her breath away when she lays down. Wakes her up atnight. Heart starts racing and she gets hot. Then slows down and she gets cold. Sometimes nausea, no vomiting Appetite comes and goes No pain in jaw, neck, between shoulder blades Alleviated not at all Aggravated- lying down and extreme exertion Pain is a 10/10 Palpations last minutes to 2 - 3 min. Trazodone helps her sleep PAST MEDICAL HISTORY: PAST MEDICAL HISTORY Diagnosis Date Anxiety Bulging disc neck c6 Depression Migraine Pneumothorax, spontaneous, tension Prolapse, disk Neck Scoliosis Neck PAST SURGICAL HISTORY Procedure Laterality Date APPENDECTOMY 04/20/2002 COLONOSCOPY FLX DX W/COLLJ SPEC WHEN PFRMD 05/17/2014 Colonoscopy EGD W/O [facility] SPEC VARICIES INJ 03/11/2024 Dr. Schmidt, [facility]; [place] Grade A erosive esophagitis with bleeding (biopsied), erythematous mucosa in gastric body (biopsied) LIG/TRNSXJ FLP TUBE ABDL/VAG APPR UNI/BI 04/20/1994 Tubal ligation NECK SURGERY HX 08/2021 [facility] -- has hardware in neck OOPHORECTOMY PARTIAL/TOTAL UNI/BI 04/20/2009 Right. Endometriosis noted at that time per patient PAST SURGICAL HISTORY OF 04/20/2003 left lung -[facility] PAST SURGICAL HISTORY OF cervical /lumbar spine pain injections ALLERGIES Oxycodone-Acetaminophen, Darvocet A500 [Propoxyphene N-Acetaminophen], Flexeril [Cyclobenzaprine Hcl], Tape [Adhesive Tape (Rosins)], and Topiramate MEDICATIONS Current Outpatient Medications Medication Sig propranolol (INDERAL) 10 mg tablet Take 1 tablet by mouth three times a day. traZODone (DESYREL) 50 mg tablet Take 1 tablet by mouth at bedtime as needed for sedation. No current facility-administered medications for this visit. FAMILY HISTORY Problem Relation Age of Onset No Known Problems Mother no personal ca, but reports cancer runs through that family (? leukemia). No Known Problems Father Diabetes Maternal Grandmother other (htn) Maternal Grandmother Cancer Maternal Grandfather lung other (old age) Paternal Grandmother Social History Tobacco Use Smoking status: Every Day Current packs/day: 0.25 Average packs/day: 0.3 packs/day for 22.0 years (5.5 ttl pk-yrs) Types: Cigarettes Smokeless tobacco: Never Vaping Use Vaping status: Never Used Substance Use Topics Alcohol use: Yes Comment: very rare Drug use: No EXAM: BP 104/66 Pulse 67 Temp 36.7 C (98 F) (Left Tympanic) Wt 71.7 kg (158 lb) LMP (LMP Unknown) SpO2 97% BMI 27.99 kg/m PHYSICAL EXAM: Physical Exam Vitals reviewed. Constitutional: Appearance: Normal appearance. Cardiovascular: Rate and Rhythm: Normal rate and regular rhythm. Pulses: Normal pulses. Heart sounds: Normal heart sounds. Pulmonary: Effort: Pulmonary effort is normal. Breath sounds: Normal breath sounds. Musculoskeletal: General: Normal range of motion. Comments: Moves all ext. Without difficulty, walks w/o assistive device Skin: General: Skin is warm and dry. Neurological: Mental Status: She is alert and oriented to person, place, and time. Psychiatric: Mood and Affect: Mood normal. Behavior: Behavior normal. LABS: ASSESSMENT/PLAN: 1. SVT (supraventricular tachycardia) (HCC) - ICD9: 427.89, ICD10: I47.10 Will refer locally to Dr. Trinidad - CONSULT TO CARDIOLOGY Discussed treatment plan and patient voices understanding. Patient's questions answered appropriately. Medications and potential side effects were discussed and patient voices understanding. Return to the office as scheduled or as needed for worsening/no improvement. Lin Cisneros APRN.KELLY documented [facility] Instructions* Patient Instructions* Lin Cisneros APRN.CNP - 07/11/2024 4:41 PM EDT 1) Propranolol 10 mg 3 x day- if dizzy, cut back to 2 x day- take with salty 2) Trazodone 50 mg at bedtime for sleep 3) Follow up in 2 weeks documented in this encounterK[facility]-24-2025 NoteHNO ID: [id number] Author: LIN CISNEROS APRN.CNP Service: ? Author Type: Nurse Practitioner Type: Progress Notes Filed: 07/11/2024 16:43 Note Text: This is a 48 year old female who presents today with: Patient presents with: Chest Pain HISTORY OF PRESENT ILLNESS: Brittnee Marie is a 48 year old female. Patient presents with: Chest Pain Chest pain that started last evening around 9:30 while resting. Intermittent through the night and today. Sometimes feels like she is SOB. Heaviness mid-sternal. Heart starts racing and she gets hot. Then slows down and she gets cold. No N/V No appetite No pain in jaw, neck, between shoulder blades Alleviated not at all Aggravated- activity Pain is a 9/10 Palpations last minutes to 30 min. Pain lasts hours Hasn't slept because eof the pain Had Covid when it first came out Cut back on smoking-did not quit PAST MEDICAL HISTORY: PAST MEDICAL HISTORY Diagnosis Date Anxiety Bulging disc neck c6 Depression Migraine Pneumothorax, spontaneous, tension Prolapse, disk Neck Scoliosis Neck PAST SURGICAL HISTORY Procedure Laterality Date APPENDECTOMY 04/20/2002 COLONOSCOPY FLX DX W/COLLJ SPEC WHEN PFRMD 05/17/2014 Colonoscopy EGD W/O [facility] SPEC VARICIES INJ 03/11/2024 Dr. Schmidt, [facility]; [place] Grade A erosive esophagitis with bleeding (biopsied), erythematous mucosa in gastric body (biopsied) LIG/TRNSXJ FLP TUBE ABDL/VAG APPR UNI/BI 04/20/1994 Tubal ligation NECK SURGERY HX 08/2021 [facility] -- has hardware in neck OOPHORECTOMY PARTIAL/TOTAL UNI/BI 04/20/2009 Right. Endometriosis noted at that time per patient PAST SURGICAL HISTORY OF 04/20/2003 left lung -[facility] PAST SURGICAL HISTORY OF cervical /lumbar spine pain injections ALLERGIES Oxycodone-Acetaminophen, Darvocet A500 [Propoxyphene N-Acetaminophen], Flexeril [Cyclobenzaprine Hcl], Tape [Adhesive Tape (Rosins)], and Topiramate MEDICATIONS Current Outpatient Medications Medication Sig GAVILYTE-G 236-22.74-6.74 -5.86 gram suspension TAKE 4000 ML BY MOUTH ONE TIME ONLY FOR 1 DOSE. REFER TO PRINTED PREP INSTRUCTIONS FROM PROVIDER (Patient not taking: Reported on 12/30/2023) varenicline (CHANTIX) 1 mg tablet TAKE 1 TABLET BY MOUTH TWICE A DAY WITH FOOD omeprazole (PRILOSEC) 20 mg capsule Take 1 capsule by mouth daily before breakfast. 1/2 hr before meal. varenicline (CHANTIX STARTING MONTH BOX) 0.5 mg (11)- 1 mg (42) tablet Take 0.5 mg by mouth once daily on Days 1 through 3, THEN 0.5 mg twice daily on Days 4 through 7, THEN 1 mg twice daily on Day 8 and thereafter (Patient not taking: Reported on 12/30/2023) hydrOXYzine HCl (ATARAX) 10 mg tablet Take 1 tablet by mouth three times a day as needed. No current facility-administered medications for this visit. FAMILY HISTORY Problem Relation Age of Onset No Known Problems Mother no personal ca, but reports cancer runs through that family (? leukemia). No Known Problems Father Diabetes Maternal Grandmother other (htn) Maternal Grandmother Cancer Maternal Grandfather lung other (old age) Paternal Grandmother Social History Tobacco Use Smoking status: Every Day Current packs/day: 0.25 Average packs/day: 0.3 packs/day for 22.0 years (5.5 ttl pk-yrs) Types: Cigarettes Smokeless tobacco: Never Vaping Use Vaping status: Never Used Substance Use Topics Alcohol use: Yes Comment: very rare Drug use: No EXAM: Pulse (P) 88 Wt (P) 69.4 kg (153 lb) LMP (LMP Unknown) SpO2 (P) 97% BMI (P) 27.10 kg/m? PHYSICAL EXAM: Physical Exam Vitals reviewed. Constitutional: Appearance: Normal appearance. HENT: Head: Normocephalic. Cardiovascular: Rate and Rhythm: Normal rate and regular rhythm. Pulses: Normal pulses. Heart sounds: Normal heart sounds. Pulmonary: Effort: Pulmonary effort is normal. Breath sounds: Normal breath sounds. Abdominal: General: Bowel sounds are normal. Palpations: Abdomen is soft. Musculoskeletal: Right lower leg: No edema. Left lower leg: No edema. Skin: General: Skin is warm and dry. Neurological: Mental Status: She is alert and oriented to person, place, and time. LABS: ASSESSMENT/PLAN: 1. Tachycardia - ICD9: 785.0, ICD10: R00.0 (primary diagnosis) Being evaluated for POTS - PROPRANOLOL 10 MG TABLET 3 x day since ER only comes in 60 mg starting 2. Chest pain, unspecified type - ICD9: 786.50, ICD10: R07.9 Atypical chest pain, symptoms are not consistent with cardiac ischemia due to nonexertional nature of symptom possible etiology include valvular heart disease vs POTS Start with low dose intermittent beta-jean paul - PROPRANOLOL 10 MG TABLET 3 x day with liquid IV or Gatorade - Off work today and tomorrow 3. Chronic insomnia - ICD9: 780.52, ICD10: F51.04 Restart trazodone - TRAZODONE 50 MG TABLET Discussed treatment plan and patient voices understanding. Patient's questions answered appropriately. Medic (more content not included)...[facility]03-24-2025 History of Present illness Narrative* Lin Cisneros APRN.[facility] - 07/11/2024 4:15 PM EDT This is a 48 year old female who presents today with: Patient presents with: Chest Pain HISTORY OF PRESENT ILLNESS: Brittnee Marie is a 48 year old female. Patient presents with: Chest Pain Chest pain that started last evening around 9:30 while resting. Intermittent through the night and today. Sometimes feels like she is SOB. Heaviness mid-sternal. Heart starts racing and she gets hot. Then slows down and she gets cold. No N/V No appetite No pain in jaw, neck, between shoulder blades Alleviated not at all Aggravated- activity Pain is a 9/10 Palpations last minutes to 30 min. Pain lasts hours Hasn't slept because eof the pain Had Covid when it first came out Cut back on smoking-did not quit PAST MEDICAL HISTORY: PAST MEDICAL HISTORY Diagnosis Date Anxiety Bulging disc neck c6 Depression Migraine Pneumothorax, spontaneous, tension Prolapse, disk Neck Scoliosis Neck PAST SURGICAL HISTORY Procedure Laterality Date APPENDECTOMY 04/20/2002 COLONOSCOPY FLX DX W/COLLJ SPEC WHEN PFRMD 05/17/2014 Colonoscopy EGD W/O [facility] SPEC VARICIES INJ 03/11/2024 Dr. Schmidt, [facility]; [place] Grade A erosive esophagitis with bleeding (biopsied), erythematous mucosa in gastric body (biopsied) LIG/TRNSXJ FLP TUBE ABDL/VAG APPR /BI 04/20/1994 Tubal ligation NECK SURGERY HX 08/2021 [facility] -- has hardware in neck OOPHORECTOMY PARTIAL/TOTAL UNI/BI 04/20/2009 Right. Endometriosis noted at that time per patient PAST SURGICAL HISTORY OF 04/20/2003 left lung -[facility] PAST SURGICAL HISTORY OF cervical /lumbar spine pain injections ALLERGIES Oxycodone-Acetaminophen, Darvocet A500 [Propoxyphene N-Acetaminophen], Flexeril [Cyclobenzaprine Hcl], Tape [Adhesive Tape (Rosins)], and Topiramate MEDICATIONS Current Outpatient Medications Medication Sig GAVILYTE-G 236-22.74-6.74 -5.86 gram suspension TAKE 4000 ML BY MOUTH ONE TIME ONLY FOR 1 DOSE. REFER TO PRINTED PREP INSTRUCTIONS FROM PROVIDER (Patient not taking: Reported on 12/30/2023) varenicline (CHANTIX) 1 mg tablet TAKE 1 TABLET BY MOUTH TWICE A DAY WITH FOOD omeprazole (PRILOSEC) 20 mg capsule Take 1 capsule by mouth daily before breakfast. 1/2 hr before meal. varenicline (CHANTIX STARTING MONTH BOX) 0.5 mg (11)- 1 mg (42) tablet Take 0.5 mg by mouth once daily on Days 1 through 3, THEN 0.5 mg twice daily on Days 4 through 7, THEN 1 mg twice daily on Day 8and thereafter (Patient not taking: Reported on 12/30/2023) hydrOXYzine HCl (ATARAX) 10 mg tablet Take 1 tablet by mouth three times a day as needed. No current facility-administered medications for this visit. FAMILY HISTORY Problem Relation Age of Onset No Known Problems Mother no personal ca, but reports cancer runs through that family (? leukemia). No Known Problems Father Diabetes Maternal Grandmother other (htn) Maternal Grandmother Cancer Maternal Grandfather lung other (old age) Paternal Grandmother Social History Tobacco Use Smoking status: Every Day Current packs/day: 0.25 Average packs/day: 0.3 packs/day for 22.0 years (5.5 ttl pk-yrs) Types: Cigarettes Smokeless tobacco: Never Vaping Use Vaping status: Never Used Substance Use Topics Alcohol use: Yes Comment: very rare Drug use: No EXAM: Pulse (P) 88 Wt (P) 69.4 kg (153 lb) LMP (LMP Unknown) SpO2 (P) 97% BMI (P) 27.10 kg/m PHYSICAL EXAM: Physical Exam Vitals reviewed. Constitutional: Appearance: Normal appearance. HENT: Head: Normocephalic. Cardiovascular: Rate and Rhythm: Normal rate and regular rhythm. Pulses: Normal pulses. Heart sounds: Normal heart sounds. Pulmonary: Effort: Pulmonary effort is normal. Breath sounds: Normal breath sounds. Abdominal: General: Bowel sounds are normal. Palpations: Abdomen is soft. Musculoskeletal: Right lower leg: No edema. Left lower leg: No edema. Skin: General: Skin is warm and dry. Neurological: Mental Status: She is alert and oriented to person, place, and time. LABS: ASSESSMENT/PLAN: 1. Tachycardia - ICD9: 785.0, ICD10: R00.0 (primary diagnosis) Being evaluated for POTS - PROPRANOLOL 10 MG TABLET 3 x day since ER only comes in 60 mg starting 2. Chest pain, unspecified type - ICD9: 786.50, ICD10: R07.9 Atypical chest pain, symptoms are not consistent with cardiac ischemia due to nonexertional nature of symptom possible etiology include valvular heart disease vs POTS Start with low dose intermittent beta-jean paul - PROPRANOLOL 10 MG TABLET 3 x day with liquid IV or Gatorade - Off work today and tomorrow 3. Chronic insomnia - ICD9: 780.52, ICD10: F51.04 Restart trazodone - TRAZODONE 50 MG TABLET Discussed treatment plan and patient voices understanding. Patient's questions answered appropriately. Medications and potential side effects were discussed and patient voices understanding. Return to the office as scheduled or as needed for worsening/no improvement. Lin Cisneros APRN.RECORDS MANAGEMENT ASSOCIATE documented in this encounterK[facility]-18[facility] History of Present illness Narrative* Jared Nazario MD - 07/05/2024 9:00 AM EDT Images from the original note were not included. [facility] Department of Cardiovascular Medicine SECTION OF REGIONAL CARDIOLOGY OUTPATIENT VISIT DATE July 05, 2024 OUTPATIENT VISIT TYPE NEW CONSULTATION PRIMARY CARE PHYSICIAN: Humera Garcia [address] [place] [address] CHIEF COMPLAINT: Palpitations HISTORY OF PRESENT ILLNESS: Ms. Marie is a pleasant 48 year old female here for cardiovascular evaluation. She has a history of STEPHANIE. She was recently seen in the neuromuscular clinic where she described episodes of heart racing that is intermittent in nature and hypertension. She has also previously had some episodes of chest pains. She has also previously had some syncopal episodes as well. She states that this recently started that she went to see a GI doctor for bloating and she underwent a colonoscopy and was told her heart is not producing enough blood flow from what he could see.She was told that she might have POTS. Family Hx: None contributory Smoking: Half a Pack a day. Caffeine: 3 bottles of 16 ounces pop a day. The following portions of the patient's history were reviewed and updated as appropriate, allergies, current medications, past medical, social, surgical, and family history and problem list. PAST MEDICAL HISTORY Diagnosis Date Anxiety Bulging disc neck c6 Depression Migraine Pneumothorax, spontaneous, tension Prolapse, disk Neck Scoliosis Neck PAST SURGICAL HISTORY Procedure Laterality Date APPENDECTOMY 04/20/2002 COLONOSCOPY FLX DX W/COLLJ SPEC WHEN PFRMD 05/17/2014 Colonoscopy EGD W/O [facility] SPEC VARICIES INJ 03/11/2024 Dr. Schmidt, [facility]; [place] Grade A erosive esophagitis with bleeding (biopsied), erythematous mucosa in gastric body (biopsied) LIG/TRNSXJ FLP TUBE ABDL/VAG APPR /04/20/1994 Tubal ligation NECK SURGERY HX 08/2021 [facility] -- has hardware in neck OOPHORECTOMY PARTIAL/TOTAL /BI 04/20/2009 Right. Endometriosis noted at that time per patient PAST SURGICAL HISTORY OF 04/20/2003 left lung -Harpal PAST SURGICAL HISTORY OF cervical /lumbar spine pain injections FAMILY HISTORY Problem Relation Age of Onset No Known Problems Mother no personal ca, but reports cancer runs through that family (? leukemia). No Known Problems Father Diabetes Maternal Grandmother other (htn) Maternal Grandmother Cancer Maternal Grandfather lung other (old age) Paternal Grandmother Social History Tobacco Use Smoking status: Every Day Current packs/day: 0.25 Average packs/day: 0.3 packs/day for 22.0 years (5.5 ttl pk-yrs) Types: Cigarettes Smokeless tobacco: Never Vaping Use Vaping status: Never Used Substance Use Topics Alcohol use: Yes Comment: very rare Drug use: No ALLERGIES Allergen Reactions Oxycodone-Acetamino* GI Upset, Hives Darvocet A500 [Prop* Unknown Flexeril [Cyclobenz* GI Upset Tape [Adhesive Tape* Swelling paper tape ok Topiramate GI Upset CURRENT MEDICATIONS: GAVILYTE-G 236-22.74-6.74 -5.86 gram suspension TAKE 4000 ML BY MOUTH ONE TIME ONLY FOR 1 DOSE. REFER TO PRINTED PREP INSTRUCTIONS FROM PROVIDER (Patient not taking: Reported on 12/30/2023) varenicline (CHANTIX) 1 mg tablet TAKE 1 TABLET BY MOUTH TWICE A DAY WITH FOOD omeprazole (PRILOSEC) 20 mg capsule Take 1 capsule by mouth daily before breakfast. 1/2 hr before meal. varenicline (CHANTIX STARTING MONTH BOX) 0.5 mg (11)- 1 mg (42) tablet Take 0.5 mg by mouth once daily on Days 1 through 3, THEN 0.5 mg twice daily on Days 4 through 7, THEN 1 mg twice daily on Day 8and thereafter (Patient not taking: Reported on 12/30/2023) hydrOXYzine HCl (ATARAX) 10 mg tablet Take 1 tablet by mouth three times a day as needed. I have personally interviewed, confirmed and edited the above information if obtained by others. Physical Exam LMP (LMP Unknown) Gen: alert, no acute distress HEENT: normocephalic, atraumatic, no rinorrhea, no congestion, normal hearing, EOMI, no eye discharge Heart: no murmurs, S1/S2+, regular rate and rhythm Lungs: no wheezing, no rales, symmetric expansion, nonlabored Abdomen: soft, nontender, nondistended Musculoskeletal: no edema, nontender Neurological: no focal deficits, alert, oriented Psychatric: cooperative, appropriate Pertinent Diagnostics/Labs/Data reviewed (ECGs and echo listed personally reviewed today or prior) and include: Last EKG Result Conclusion ECG COMPLETE Collected: 05/31/2024 3:45 PM (Final result) Impression: NORMAL SINUS RHYTHM NORMAL ECG Confirmed by AGNES RODRIGUEZ MD ([id number]) on 06/16/2024 9:27:58 PM Assessment & Plan Atypical Chest Pains Palpitations Impression: This is a 48 yo female with a PMHx of STEPHANIE Zio: Not yet in Echo: Not yet done Plan: - Vitals today: BP of 114/74 and a HR of 79 - Not currently on any cardiac medications - Will send for a stress echo for now - She will try to work on dieting for now and will repeat the lipid panel. Current Outpatient Medications on File Prior to Visit Medication Sig GAVILYTE-G 236-22.74-6.74 -5.86 gram suspension TAKE 4000 ML BY MOUTH ONE TIME ONLY FOR 1 DOSE. REFER TO PRINTED PREP INSTRUCTIONS FROM PROVIDER (Patient not taking: Reported on 12/30/2023) varenicline (CHANTIX) 1 mg tablet TAKE 1 TABLET BY MOUTH TWICE A DAY WITH FOOD omeprazole (PRILOSEC) 20 mg capsule Take 1 capsule by mouth daily before breakfast. 1/2 hr before meal. varenicline (CHANTIX STARTING MONTH BOX) 0.5 mg (11)- 1 mg (42) tablet Take 0.5 mg by mouth once daily on Days 1 through 3, THEN 0.5 mg twice daily on Days 4 through 7, THEN 1 mg twice daily on Day 8and thereafter (Patient not taking: Reported on 12/30/2023) hydrOXYzine HCl (ATARAX) 10 mg tablet Take 1 tablet by mouth three times a day as needed. No current facility-administered medications on file prior to visit. Return in 3 months with communication in between if symptoms or changes occur. Thank you, CONTACT INFORMATION: Jared Nazario MD Cardiovascular Medicine Staff Interventional Cardiology Staff [facility] [id number] [place] [address] documented in this encounterK[facility]tering [facility]03-18-2025 NoteHNO ID: [id number] Author: JARED NAZARIO MD Service: ? Author Type: Physician Type: Progress Notes Filed: 07/05/2024 09:41 Note Text: [facility] Department of Cardiovascular Medicine SECTION OF REGIONAL CARDIOLOGY OUTPATIENT VISIT DATE July 05, 2024 OUTPATIENT VISIT TYPE NEW CONSULTATION PRIMARY CARE PHYSICIAN: Humera Garcia [address] [place] [address] CHIEF COMPLAINT: Palpitations HISTORY OF PRESENT ILLNESS: Ms. Marie is a pleasant 48 year old female here for cardiovascular evaluation. She has a history of STEPHANIE. She was recently seen in the neuromuscular clinic where she described episodes of heart racing that is intermittent in nature and hypertension. She has also previously had some episodes of chest pains. She has also previously had some syncopal episodes as well. She states that this recently started that she went to see a GI doctor for bloating and she underwent a colonoscopy and was told her heart is not producing enough blood flow from what he could see. She was told that she might have POTS. Family Hx: None contributory Smoking: Half a Pack a day. Caffeine: 3 bottles of 16 ounces pop a day. The following portions of the patient's history were reviewed and updated as appropriate, allergies, current medications, past medical, social, surgical, and family history and problem list. PAST MEDICAL HISTORY Diagnosis Date Anxiety Bulging disc neck c6 Depression Migraine Pneumothorax, spontaneous, tension Prolapse, disk Neck Scoliosis Neck PAST SURGICAL HISTORY Procedure Laterality Date APPENDECTOMY 04/20/2002 COLONOSCOPY FLX DX W/COLLJ SPEC WHEN PFRMD 05/17/2014 Colonoscopy EGD W/O [facility] SPEC VARICIES INJ 03/11/2024 Dr. Schmidt, [facility]; [place] Grade A erosive esophagitis with bleeding (biopsied), erythematous mucosa in gastric body (biopsied) LIG/TRNSXJ FLP TUBE ABDL/VAG APPR /BI 04/20/1994 Tubal ligation NECK SURGERY HX 08/2021 [facility] -- has hardware in neck OOPHORECTOMY PARTIAL/TOTAL UNI/BI 04/20/2009 Right. Endometriosis noted at that time per patient PAST SURGICAL HISTORY OF 04/20/2003 left lung -Harpal PAST SURGICAL HISTORY OF cervical /lumbar spine pain injections FAMILY HISTORY Problem Relation Age of Onset No Known Problems Mother no personal ca, but reports cancer runs through that family (? leukemia). No Known Problems Father Diabetes Maternal Grandmother other (htn) Maternal Grandmother Cancer Maternal Grandfather lung other (old age) Paternal Grandmother Social History Tobacco Use Smoking status: Every Day Current packs/day: 0.25 Average packs/day: 0.3 packs/day for 22.0 years (5.5 ttl pk-yrs) Types: Cigarettes Smokeless tobacco: Never Vaping Use Vaping status: Never Used Substance Use Topics Alcohol use: Yes Comment: very rare Drug use: No ALLERGIES Allergen Reactions Oxycodone-Acetamino* GI Upset, Hives Darvocet A500 [Prop* Unknown Flexeril [Cyclobenz* GI Upset Tape [Adhesive Tape* Swelling paper tape ok Topiramate GI Upset CURRENT MEDICATIONS: GAVILYTE-G 236-22.74-6.74 -5.86 gram suspension TAKE 4000 ML BY MOUTH ONE TIME ONLY FOR 1 DOSE. REFER TO PRINTED PREP INSTRUCTIONS FROM PROVIDER (Patient not taking: Reported on 12/30/2023) varenicline (CHANTIX) 1 mg tablet TAKE 1 TABLET BY MOUTH TWICE A DAY WITH FOOD omeprazole (PRILOSEC) 20 mg capsule Take 1 capsule by mouth daily before breakfast. 1/2 hr before meal. varenicline (CHANTIX STARTING MONTH BOX) 0.5 mg (11)- 1 mg (42) tablet Take 0.5 mg by mouth once daily on Days 1 through 3, THEN 0.5 mg twice daily on Days 4 through 7, THEN 1 mg twice daily on Day 8 and thereafter (Patient not taking: Reported on 12/30/2023) hydrOXYzine HCl (ATARAX) 10 mg tablet Take 1 tablet by mouth three times a day as needed. I have personally interviewed, confirmed and edited the above information if obtained by others. Physical Exam LMP (LMP Unknown) Gen: alert, no acute distress HEENT: normocephalic, atraumatic, no rinorrhea, no congestion, normal hearing, EOMI, no eye discharge Heart: no murmurs, S1/S2+, regular rate and rhythm Lungs: no wheezing, no rales, symmetric expansion, nonlabored Abdomen: soft, nontender, nondistended Musculoskeletal: no edema, nontender Neurological: no focal deficits, alert, oriented Psychatric: cooperative, appropriate Pertinent Diagnostics/Labs/Data reviewed (ECGs and echo listed personally reviewed today or prior) and include: Last EKG Result Conclusion ECG COMPLETE Collected: 05/31/2024 3:45 PM (Final result) Impression: NORMAL SINUS RHYTHM NORMAL ECG Confirmed by AGNES RODRIGUEZ MD ([id number]) on 06/16/2024 9:27:58 PM Assessment AND Plan Atypical Chest Pains Palpitations Impression: This is a 48 yo female with a PMHx of STEPHANIE Zio: Not yet in Echo: Not yet done Plan: - Nakita (more content not included)...[facility]02-11-2025 Instructions* Patient Instructions* Irma Clark, DIAGNOSTIC ASSISTANT.[facility] - 05/31/2024 2:55 PM EST 1) Labs 2) ECG today 3) athletic monitor (will come in mail) 4) Echo 5) Consults: -Cardiology -GI 6) Let me know if syncope recurs 7) Recommend no driving until seen / cleared by cardiology. 8) May consider repeat tilt testing after consults if clinically indicated SYNCOPE - No driving if symptoms occur while driving - No driving for one month following an episode of syncope (ACC/AHA Syncope guidelines 2017) - If syncope occurse more than six times in one year, then no private driving until symptoms are controlled (ACC/AHA Syncope Guidelines 2017) The patient should maintain the following precautions while symptoms are active: They should avoid all activities that may be hazardous to themselves or others in the context of loss of consciousness or falls. These include but are not limited to no riding bicycles in traffic, nooperating dangerous machinery, no engaging in activities at dangerous heights including using ladders, no taking baths unattended, no swimming, engaging in activities near fire unattended, caution oravoidance of cooking or using potentially dangerous objects such as knives. documented in this encounterK[facility]02-11-2025 History of Present illness Narrative* Irma Clark APRN.CNP - 05/31/2024 2:00 PM EST Images from the original note were not included. [facility] New Patient Evaluation Chief Complaint/Issues: Brittnee Marie is a 48 year old female seen in the [facility] for: New patient Chest pain HPI: Accompanied by , Chris. A few years ago started to notice occasional heart racing. Heart racing was non- positional, not related to activity or standing. The heart racing is still intermittent. Recently had HR >200s bpm while seated and resting, started to feel dizzy and lightheaded, may see black spots. Her BP was highfor her with that episode, something like 150/110 mmHg. Gets heart racing episodes about once per month. About 1 year ago, developed heart burn. Reports the heart burn feels like a pain in the middle of her chest. Reports she also has chest pressure, like someone is sitting on her chest. Describes like a fiery burning sensation. Not correlated with meal times, can wake her up at night. She does have belching with this. She feels like her heart is going to explode from the pain. Sometimes laying on her R side increases her chest pains. Going up stairs causes chest pain. She has never had an Echo orstress test. She did have an EKG in the hospital. In the last 6 months developed new symptoms of stomach swelling. Her stomach swelling comes and goes, not related to the heart pain or racing. Reports she looks 9 months . She had an upper and lower scope done, and was told the only abnormality was a lack of blood flow to her colon. She didhave ultrasounds of the belly and MRIs completed. No constipation or diarrhea, but has soft stools. No color change to the stool. No vomiting. No urine changes. No weight loss, has actually gained 25-30 pounds in the last year. She is eating her normal diet, maybe a little more than usual. She went to see Dr. Schmidt at [facility], a GI specialist. He found that her blood flow from her heart was not supplying her colon. Reports GI said they think she has issues with her heart causing her GI issues, or worried about adrenal insufficiency. She had a tilt table test ordered, after which time she was referred her to me. Reports she is always freezing. Sometimes she gets a hot flash, and feels like she walked in fire. Reports about 1 month ago, had a fainting spell at work. She went to the ER, was found to have verylow potassium. Reports she had come back from lunch. She was feeling off that morning, having heartburn / chest pain. She was so uncomfortable she wasn't able to eat. She started to feel dizzy, lightheaded, and mild heart racing. She passed out, and remembers waking up in the ER. Unsure how long she was unresponsive, was told she was awake but wasn't aware of her surroundings. No incontinence, no mouth maceration. After coming to, she was confused for some time. Did not remember getting to thehospital. After waking up, had ongoing chest pain and some SOB. [place] extremely fatigued. PMH PAST MEDICAL HISTORY Diagnosis Date Anxiety Bulging disc neck c6 Depression Migraine Pneumothorax, spontaneous, tension Prolapse, disk Neck Scoliosis Neck PAST SURGICAL HISTORY Procedure Laterality Date APPENDECTOMY 04/20/2002 COLONOSCOPY FLX DX W/COLLJ SPEC WHEN PFRMD 05/17/2014 Colonoscopy EGD W/O [facility] SPEC VARICIES INJ 03/11/2024 Dr. Schmidt, [facility]; [place] Grade A erosive esophagitis with bleeding (biopsied), erythematous mucosa in gastric body (biopsied) LIG/TRNSXJ FLP TUBE ABDL/VAG APPR UNI/BI 04/20/1994 Tubal ligation NECK SURGERY HX 08/2021 [facility] -- has hardware in neck OOPHORECTOMY PARTIAL/TOTAL UNI/BI 04/20/2009 Right. Endometriosis noted at that time per patient PAST SURGICAL HISTORY OF 04/20/2003 left lung -Harpal PAST SURGICAL HISTORY OF cervical /lumbar spine pain injections ALLERGIES Allergen Reactions Oxycodone-Acetamino* GI Upset, Hives Darvocet A500 [Prop* Unknown Flexeril [Cyclobenz* GI Upset Tape [Adhesive Tape* Swelling paper tape ok Topiramate GI Upset Social History Tobacco Use Smoking status: Every Day Current packs/day: 0.25 Average packs/day: 0.3 packs/day for 22.0 years (5.5 ttl pk-yrs) Types: Cigarettes Smokeless tobacco: Never Vaping Use Vaping status: Never Used Substance Use Topics Alcohol use: Yes Comment: very rare Drug use: No FAMILY HISTORY Problem Relation Age of Onset No Known Problems Mother no personal ca, but reports cancer runs through that family (? leukemia). No Known Problems Father Diabetes Maternal Grandmother other (htn) Maternal Grandmother Cancer Maternal Grandfather lung other (old age) Paternal Grandmother ROS Review of Systems Autonomic Screening Do you become dizzy or lightheaded with standing? yes Do you notice your heart racing (tachycardia) with postural change? yes sometimes if she stands quickly. Feels different than her seated heart racing symptoms. Do you have syncope? yes Autonomic check list: YES (Y) or NO (N) Dry mouth: yes Dry eyes: no Change in sweat: no Constipation: no Abdominal Bloating with shortly after eating: no Fluctuation of diarrhea and constipation: no Urination: no Change in taste: no Challenge swallowing foods: no Skin changes of blue or redness to distal limbs: no Fainting /near syncope/syncope: yes Temperature Regulation: yes Bright lights: at night time when driving Numbness / tingling: yes R hand sometimes numb and tingling. Hx of head/neck trauma? No Hx of severe viral illness? No Hx of autoimmune disease? No Current management of orthostatic condition Diet: Standard Exercise: No formal Water: Not much, drinking Pepper Alcohol intake: None, no heavy drinking hx Medications Current Outpatient Medications on File Prior to Visit Medication Sig GAVILYTE-G 236-22.74-6.74 -5.86 gram suspension TAKE 4000 ML BY MOUTH ONE TIME ONLY FOR 1 DOSE. REFER TO PRINTED PREP INSTRUCTIONS FROM PROVIDER (Patient not taking: Reported on 12/30/2023) varenicline (CHANTIX) 1 mg tablet TAKE 1 TABLET BY MOUTH TWICE A DAY WITH FOOD omeprazole (PRILOSEC) 20 mg capsule Take 1 capsule by mouth daily before breakfast. 1/2 hr before meal. varenicline (CHANTIX STARTING MONTH BOX) 0.5 mg (11)- 1 mg (42) tablet Take 0.5 mg by mouth once daily on Days 1 through 3, THEN 0.5 mg twice daily on Days 4 through 7, THEN 1 mg twice daily on Day 8and thereafter (Patient not taking: Reported on 12/30/2023) hydrOXYzine HCl (ATARAX) 10 mg tablet Take 1 tablet by mouth three times a day as needed. No current facility-administered medications on file prior to visit. Relevant Work Up To Date Labs (OSH, see scanned docs) ACTH, cortisol WNL Aldosterone, renin WNL Hgb A1C WNL B12 WNL Sed WNL CRP: --- ECG 12/15/2019 Diagnosis: NORMAL SINUS RHYTHM NORMAL ECG --- OSH Tilt 05/18/2024 --- OSH EGD 03/11/2024 --- General Examination: BP 129/82 (BP Position: Standing) Pulse 91 Ht 160 cm (5' 3) Wt 70.5 kg (155 lb 6.8 oz) LMP(LMP Unknown) SpO2 98% BMI 27.53 kg/m 05/31/24 1353 05/31/24 1446 05/31/24 1447 05/31/24 1448 BP: 112/75 129/82 Orthostatic BP: 133/80 123/82 BP Site: Left Arm BP Position: Sitting Supine Standing Standing BP Cuff Size: Regular Adult Pulse: 86 91 Orthostatic Pulse: 78 90 SpO2: 98% Weight: 70.5 kg (155 lb 6.8 oz) Height: 160 cm (5' 3) Neurological Examination: Cognition The patient is alert and oriented. Lucid and organized in conversation. Able to provide detailed medical hx. Speech Speech is normal in fluency, volume, and clarity. No dysarthria. Content and syntax are coherent. Comprehension: Able to follow several step commands. Cranial Nerves PERRLA No ptosis. Visual serra are full to confrontation. Extraocular movements are intact. Smooth saccades and pursuits. No nystagmus. Facial motor exam is strong and symmetric. Equal sensation of trigeminal nerve - V1,V2, and V3. Soft palate elevation is symmetric, tongue is in midline, no tongue fasciculation. Neck range of motion is full. Trapezius Strength is symmetric, graded 5/5. Tone and Bulk Tone and bulk is normal and preserved bilaterally of arms. Tone and bulk is normal and preserved bilaterally of legs. No apparent muscle atrophy. No pes cavus or hammer toes. Strength Right Left Shoulder Abduction 5/5 5/5 Elbow Flexion 5/5 5/5 Elbow Extension 5/5 5/5 Wrist Flexion 5/5 5/5 Wrist Extension 5/5 5/5 Finger Extension 5/5 5/5 Finger Flexion 5/5 5/5 Finger Abduction 5/5 5/5 Hip Flexion 5/5 5/5 Hip Adduction 5/5 5/5 Hip Abduction 5/5 5/5 Knee Flexion 5/5 5/5 Knee Extension 5/5 5/5 Ankle Dorsiflexion 5/5 5/5 Ankle Plantarflexion 5/5 5/5 Movement/Coordination Finger-to- nose-finger and [id number] intact bilaterally. No evidence of ataxia arms. No limb dysmetria of arms and legs. Rapid alternating movements of pronation and supination, finger and hand tapping intact. No rigidity, cog wheeling, or bradykinesia. No tremors. No extrapyramidal findings or dystonia. Sensation Intact to light touch, pinprick, and temperature sensation at toes and fingers, bilaterally. Normal proprioception (toe position and thumb). Normal finger vibration and toe vibration. Reflexes Right Left Bicep 2-/4 2-/4 Tricep 2/4 2/4 Brachioradialis 2-/4 2-/4 Patella 2/4 2/4 Ankle 2-/4 2-/4 No Clonus. Negative Babinski (toes curl down). Cohen sign not present. Gait Able to stand without upper body assistance. Normal station and stride. No festination or retropulsion. Good arm swing and body turn. Normal toe, heel, and tandem walk. Romberg's sign is negative. Subjective Patient-Entered Data: Composite Autonomic Symptom Score (COMPASS-31) Orthostatic Intolerance Orthostatic Intolerance Score: 36 (out of a weighted maximum of 40) Vasomotor Vasomotor Score: 0 (out of a weighted maximum of 5) Secretomotor Secretomotor Score: 4 (out of a weighted maximum of 15) GI GI Score: 9 (out of a weighted maximum of 25) Bladder Bladder Score: 2 (out of a weighted maximum of 10) Pupillomotor Pupillomotor Score: 3 (out of a weighted maximum of 5) COMPASS 31 Total Score: 54 (out of a weighted maximum of 100) COMPASS-31 Past Scores No data to display NM Treatment and Fall Risk PROMIS-10 05/31/2024 11/10/2023 PROMIS 10 Health, in general Poor Fair Quality of life, in general Excellent Very good Physical health, in general Poor Poor Mental health, in general Fair Fair Social activities satisfaction Fair Very good Performing ADL's Moderately Mostly Social role satisfaction Fair Good Pain, on average 7 0 - No Pain Fatigue, on average Mild Mild Emotional problems Sometimes Sometimes PHYSICAL Score 34.9 (Poor) 44.9 (Good) MENTAL Score 43.5 (Good) 45.8 (Good) PHQ-9 05/31/2024 11/10/2023 PHQ-9 All Questions Little interest or pleasure in doing things: 0 1 Feeling down, depressed, or hopeless: 0 1 Trouble falling or staying asleep, or sleeping too much 1 3 Feeling tired or having little energy 1 1 Poor appetite or overeating 2 0 Feeling bad about yourself - or that you are a failure or have let yourself or your family down 0 1 Trouble concentrating on things, such as reading the newspaper or watching television 1 0 Moving or speaking so slowly that other people could have noticed. Or the opposite - being so fidgety or restless that you have been moving around a lot more than usual 0 0 Thoughts that you would be better off , or of hurting yourself in some way 0 0 PHQ-9 Score 5 7 (0-4) minimal depression (5-9) mild depression (10-14) moderate depression (15-19) moderately severe depression (20-27) severe depression STEPHANIE-7 05/31/2024 11/10/2023 STEPHANIE-7 All Questions Feeling nervous, anxious, or on edge Several days Several days Not being able to stop or control worrying Several days Nearly Everyday Worrying too much about different things Nearly Everyday Nearly Everyday Trouble relaxing More than half the days Several days Being so restless that it is hard to sit still More than half the days More than half the days Becoming easily annoyed or irritable Several days Several days Feeling afraid, as if something awful might happen Several days Nearly Everyday STEPHANIE-7 Score 11 14 (0-5) mild anxiety (6-10) moderate anxiety (11-15) moderately severe anxiety (16-21) severe anxiety Sleep 05/31/2024 -- What is your average total sleep time per night over the past 4 weeks? 7 Hours What is your average total sleep time during the day over the past 4 weeks? 7 Hours Have you been diagnosed with sleep apnea? No Snore Loudly Yes Tired, fatigued or sleepy in daytime Yes Stop breathing or choking/gasping during sleep No High blood pressure No Probability of moderate-severe sleep apnea (%) SAPS V2 16 (Sleep study not recommended) 05/31/2024 Insomnia Severity Index Difficulty falling asleep 4 Difficulty staying asleep 2 Problem waking up too early 3 Satisfied/dissatisfied with current sleep pattern 1 Sleep interferes with daily functions 2 Sleep problems noticeable to others 2 Worried/distressed about current sleep problems 1 Score 15 Assessment & Plan 05/31/2024 - Neuromuscular, Irma Clark APRN.RECORDS MANAGEMENT ASSOCIATE ASSESSMENT Brittnee Marie is a 48 year old here today for initial evaluation. Brittnee Marie has a has a past medical history of Anxiety, Bulging disc, Depression, Migraine, Pneumothorax (spontaneous, tension), and Scoliosis. Here today for evaluation of multiple symptoms. Endorses tachycardia starting in the last few years. Tachycardia is non- positional and non-exertional. Endorses HRs as high as 200s bpm while seated, with associated elevated BP at times. She may feel lightheaded and pre-syncopal during these episodes. Also reports development of chest pain described as heart burn ~1 year ago. Pain is mid-sternal, burning, aching, with heaviness and pressure. Laying on the R side may worsen, does have associated belching. Chest pain is often worsened by exertion. During the same time frame, endorses swelling of her abdomen, which is intermittent. Denies associated constipation, diarrhea, nasuea, vomiting. Has gained 25-30 lbs in the last year. Underwent OSH EGD 02/2024, on my review demonstrating erosive bleeding esophagitis, erythematous gastric body. Giovanny garcia was told her colon was not receiving enough blood perfusion. She did have a single syncopal episode recently, with prodromal chest pain and lightheadedness. Wasreportedly in and out of consciousness until arrival to ED. No seizure signs. She has occasional orthostatic lightheadedness, but is not drinking any water. Advised on increasing her hydration. Other complaints including feeling cold, labs ordered. Underwent OSH tilt, reportedly diagnostic for OH, though nitro was administered, and minute by minute data is not available. ACTH and cortisol were WNL. Orthostatic VS today are WNL and neurologic exam is non-focal. We discuss the etiology of her symtpoms is unclear, but I do not have a high suspicion for autonomic dysfunction such as OH or POTS, as her symptoms are non- positional. For the tachycardia, has not undergone any cardiac monitoring for arryhtmia, ordered today. ECG ordered today as well as Echo for the chest pain. PLAN 1) Labs 2) ECG today 3) athletic monitor (will come in mail) 4) Echo 5) Consults: -Cardiology -GI 6) Let me know if syncope recurs 7) Recommend no driving until seen / cleared by cardiology. 8) May consider repeat tilt testing after consults if clinically indicated Return After consults. I spent a total of 75 minutes on the date of the service which included preparing to see the patient, [id number] patient care, completing clinical documentation, obtaining and/or reviewing separately obtained history, performing a medically appropriate examination, counseling and educating the pat ient/family/caregiver, and ordering medications, tests, or procedures. Irma Clark APRN.CNP Neuromuscular Medicine [address] [place] [address]. [id number] Appointment: [phone] CONSULT: Consultation requested by Dr. Schmidt. My final recommendations will be communicated back to the requesting physician by way of shared Medical record or letter to requesting physician via US mail. documented in this encounterK[facility] NoteHNO ID: [id number] Author: IRMA CLARK APRN.CNP Service: ? Author Type: Nurse Practitioner Type: Progress Notes Filed: 05/31/2024 15:22 Note Text: [facility] New Patient Evaluation Chief Complaint/Issues: Brittnee S Frank is a 48 year old female seen in the [facility] for: New patient Chest pain HPI: Accompanied by , Chris. A few years ago started to notice occasional heart racing. Heart racing was non-positional, not related to activity or standing. The heart racing is still intermittent. Recently had HR >200s bpm while seated and resting, started to feel dizzy and lightheaded, may see black spots. Her BP was high for her with that episode, something like 150/110 mmHg. Gets heart racing episodes about once per month. About 1 year ago, developed heart burn. Reports the heart burn feels like a pain in the middle of her chest. Reports she also has chest pressure, like someone is sitting on her chest. Describes like a fiery burning sensation. Not correlated with meal times, can wake her up at night. She does have belching with this. She feels like her heart is going to explode from the pain. Sometimes laying on her R side increases her chest pains. Going up stairs causes chest pain. She has never had an Echo or stress test. She did have an EKG in the hospital. In the last 6 months developed new symptoms of stomach swelling. Her stomach swelling comes and goes, not related to the heart pain or racing. Reports she looks 9 months . She had an upper and lower scope done, and was told the only abnormality was a lack of blood flow to her colon. She did have ultrasounds of the belly and MRIs completed. No constipation or diarrhea, but has soft stools. No color change to the stool. No vomiting. No urine changes. No weight loss, has actually gained 25-30 pounds in the last year. She is eating her normal diet, maybe a little more than usual. She went to see Dr. Schmidt at [facility], a GI specialist. He found that her blood flow from her heart was not supplying her colon. Reports GI said they think she has issues with her heart causing her GI issues, or worried about adrenal insufficiency. She had a tilt table test ordered, after which time she was referred her to me. Reports she is always freezing. Sometimes she gets a hot flash, and feels like she walked in fire. Reports about 1 month ago, had a fainting spell at work. She went to the ER, was found to have very low potassium. Reports she had come back from lunch. She was feeling off that morning, having heart burn / chest pain. She was so uncomfortable she wasn't able to eat. She started to feel dizzy, lightheaded, and mild heart racing. She passed out, and remembers waking up in the ER. Unsure how long she was unresponsive, was told she was awake but wasn't aware of her surroundings. No incontinence, no mouth maceration. After coming to, she was confused for some time. Did not remember getting to the hospital. After waking up, had ongoing chest pain and some SOB. [place] extremely fatigued. PMH PAST MEDICAL HISTORY Diagnosis Date Anxiety Bulging disc neck c6 Depression Migraine Pneumothorax, spontaneous, tension Prolapse, disk Neck Scoliosis Neck PAST SURGICAL HISTORY Procedure Laterality Date APPENDECTOMY 04/20/2002 COLONOSCOPY FLX DX W/COLLJ SPEC WHEN PFRMD 05/17/2014 Colonoscopy EGD W/O [facility] SPEC VARICIES INJ 03/11/2024 Dr. Schmidt, [facility]; [place] Grade A erosive esophagitis with bleeding (biopsied), erythematous mucosa in gastric body (biopsied) LIG/TRNSXJ FLP TUBE ABDL/VAG APPR UNI/BI 04/20/1994 Tubal ligation NECK SURGERY HX 08/2021 [facility] -- has hardware in neck OOPHORECTOMY PARTIAL/TOTAL UNI/BI 04/20/2009 Right. Endometriosis noted at that time per patient PAST SURGICAL HISTORY OF 04/20/2003 left lung -Harpal PAST SURGICAL HISTORY OF cervical /lumbar spine pain injections ALLERGIES Allergen Reactions Oxycodone-Acetamino* GI Upset, Hives Darvocet A500 [Prop* Unknown Flexeril [Cyclobenz* GI Upset Tape [Adhesive Tape* Swelling paper tape ok Topiramate GI Upset Social History Tobacco Use Smoking status: Every Day Current packs/day: 0.25 Average packs/day: 0.3 packs/day for 22.0 years (5.5 ttl pk-yrs) Types: Cigarettes Smokeless tobacco: Never Vaping Use Vaping status: Never Used Substance Use Topics Alcohol use: Yes Comment: very rare Drug use: No FAMILY HISTORY Problem Relation Age of Onset No Known Problems Mother no personal ca, but reports cancer runs through that family (? leukemia). No Known Problems Father Diabetes Maternal Grandmother other (htn) Maternal Grandmother Cancer Maternal Grandfather lung other (old age) Paternal Grandmother ROS Review of Systems Autonomic Screening Do you become dizzy or lightheaded with standing? (more content not included)... [facility]02-11-2025 NoteHNO ID: [id number] Author: HOMA FERMIN MD Service: ? Author Type: Resource Type: Procedures Filed: 07/12/2024 15:46 Note Text: Patient Name: Brittnee Marie : 1975 Ordering Provider: IRMA TORRES Indication: R55 Syncope and collapse Type of Monitor: Extended Monitoring-Zio Patch Enrollment Dates: 06/04/2024-06/18/2024 IRHYTHM FINDINGS: Patient had a min HR of 58 bpm, max HR of 190 bpm, and avg HR of 87 bpm. Predominant underlying rhythm was Sinus Rhythm. 9 non-sustained Supraventricular Tachycardia runs occurred, the run with the fastest interval lasting 5 beats with a max rate of 190 bpm, the longest lasting 16 beats with an avg rate of 161 bpm. Isolated SVEs were rare (<1.0%), SVE Couplets were rare (<1.0%), and no SVE Triplets were present. Isolated VEs were rare (<1.0%), and no VE Couplets or VE Triplets were present. Symptoms correlate with sinus rhythm, sinus tachycardia. Independently reviewed and verified Homa Fermin MD July 12, 2024 3:46 PM SVE = supraventricular ectopic (PAC) VE = ventricular ectopic (PVC)[facility]02-03-2025 Telephone encounter Note* Telephone Encounter - Sho Huertas - 05/23/2024 11:20 AM EST Referral source: Nhan Schmidt DO ([facility]) Reason for visit: POTS eval for dizziness, nausea abnormal tilt table test External records: Sent with referral. Uploaded to chart. Financial clearance: Not required to schedule [facility]-03-[facility] Miscellaneous Notes* Telephone Encounter - Sho Huertas - 05/23/2024 11:20 AM EST Referral source: Nhan Schmidt DO ([facility]) Reason for visit: POTS eval for dizziness, nausea abnormal tilt table test External records: Sent with referral. Uploaded to chart. Financial clearance: Not required to schedule documented in this encounterK[facility]11-22-2024 [facility] Medical Records Department [address] [facility] [facility] [place] [address] History Physical Exam 03/11/24 1412 MR#: [id number] Acct: [id number] Name: BRITTNEE MARIE Rep #: [id number] : 1975 48 From: Nhan Schmidt DO PCP: DIVINE Dempsey Status:[facility] Location: [place] [address] History and Physical Date of Admission: 03/11/24 Chief Complaint: abdominal pain and bloating Details: BRITTNEE MARIE, is a 48 F who presents to the office today for establishment with [facility] for complaints of severe mid- to lower abdominal pain and bloating with diarrhea. She reports the bloating started about 4 months ago, but has been gradually getting worse to the point of being unbearable. She states that she has had extensive workup by her CENTER CONSULTANT of [facility], but they said there's nothing wrong with you. She reports a recent emergency room visit at [facility] for the abdominal pain; they repeated an abd/pelvis CT w/IV contrast that resulted no acute process but upon visualization of the scan, her stomach is enlarged with gas and includes extensive involvement of her intestines, with a large pocket of gas noted in the ascending colon. She reports that she can literally feel the gas bubbles moving around. She rates her abdominal pain as 10/10, with sharp stabbing pains that cause tingling; pain starts in her back and radiates forward to wrap around abdomen and down to her inner thighs with no loss of sensation. She denies difficulty chewing and swallowing. Reports heartburn and nausea, minimal emesis. She reports quite a bit of her pain is relieved with a BM of diarrhea. Denies hematochezia and melena. She reports loose fitting upper dentures, carbonated drink consumption, and gum chewing. She states that she stopped taking the simethicone and omeprazole because she felt they weren't doing anything. She denies fever, chills, and change in water source. ROS Const Constitutional: Positive for anorexia, body ache, fatigue, decreased energy, weakness, abnormal sleep pattern and change in appetite Eyes Eyes: No blurry vision or change in vision ENT ENT: No abnormal hearing or difficulty swallowing Resp Respiratory: No cough Cardio Cardiology: Positive for leg pain with exertion; No chest pain at rest or chest pain with exertion Gastro GI: Positive for abdominal pain, belching, bloating, change in bowel habits, cramping, diarrhea, heartburn, excessive flatus and nausea/dyspepsia; No change in stool character, coffee ground emesis, constipation, difficulty swallowing, feeling full early, incontinent of stools, Vomiting blood/hematemesis, Blood in stool, loose stools, Black,tarry stools, pain with swallowing or vomiting Genitourinary-Female: No difficulty urinating Musc Musculoskeletal: Positive for abnormal gait and leg pain with exertion Skin Skin: No yellowing of the eye or itchy eyes Neuro Neurology: Positive for abnormal gait and weakness; No abnormal hearing Psych Psychiatric: Positive for abnormal sleep pattern and Positive for change in appetite Endo Endocrine: Positive for fatigue; No cold intolerance or heat intolerance Aller/Imm Allergy/Immunologic: No food intolerance or itchy eyes Felipe/Lymp Hematologic/Lymphatic: No easy bleeding or easy bruising Exam Const General: cooperative and acute distress moderate (guarding of abdomen with facial grimacing) Orientation: alert [facility] Head: normal to inspection Ears: hearing grossly normal bilaterally Nose: external nose normal Face and sinus: normal facial exam and face symmetric Mouth: oral mucosae normal Teeth and gingiva: dentures Eyes General: appearance normal, both eyes and all related structures Sclera: sclerae normal Neck Neck: full ROM Neck mass: No Chest Chest palpation inspection: normal inspection of the chest Resp Effort Inspection: normal respiratory effort, able to speak in complete sentences and symmetric chest movement GI Inspection: distended Auscultation: hypoactive bowel sounds Percussion: tympanic to percussion Palpation: soft, guarding and tender Musc Musculoskeletal: No joint tenderness Skin General: no rashes or lesions noted Neuro General: patient alert, patient awake and patient oriented x3 Cognition: normal cognition Speech: speech normal Gait: normal gait Motor: muscle tone normal throughout Sensory Exam: no sensory deficits noted Extrem General: normal to inspection and full ROM Psych Appearance: grossly normal Mental Status: mental status grossly normal Mood: anxious mood Affect: anxious affect Speech and Movement: speech and movement normal Attitude: cooperative Thought Process: normal Assessment and Plan Assessment and Plan (1) Irritable bowel syndrome with diarrhea: Status: Acute Plan: BRITTNEE MARIE, is a 48 F who presents to the office today (more content not included)...[facility]10-23-2024 Telephone encounter Note* Telephone Encounter - Humera Garcia APRN.CNP - 02/10/2024 5:11 PM EDT Noted Humera Garcia APRN.CNP [facility]10-23-2024 Miscellaneous Notes* Telephone Encounter - Humera Garcia APRN.CNP - 02/10/2024 5:11 PM EDT Noted Humera Garcia APRN.CNP * Telephone Encounter - Liz Finn MA - 02/10/2024 8:49 AM EDT Spoke to patient who will call back to schedule CT. Patient did not schedule with pelvic pain clinic due to after seeing Dr. Staley was seen by Dr. Schmidt who diagnosed her with crohns and said thatis source of her pain. Liz Finn MA * Telephone Encounter - Humera Garcia APRN.CNP - 02/09/2024 5:[address] of the chest ordered. She should be able to get this scheduled. I'll let her know when I receivethe results of this imaging. It looks like she was seen by DE IONIZER OPERATOR and had referral placed for pelvic pain clinic and had an order placed for an MRI of the abdomin/pelvis. Has this been scheduled? * Telephone Encounter - Eusebia Bernal - 02/09/2024 3:58 PM EDT Patient returned call and received provider's message. Patient was previously scheduled for a follow up and annual PAP with provider on 02/22/24. No sooner availability with provider outside of patient's work hours (can only schedule after 5:00 pm). Scheduled additional visit for 03/14/24. Please notify patient if review of chest CT can be performed during 02/22/24 visit and 03/14/24 appointment can be cancelled or if provider is wanting to interchange reasons for visits. Patient reports that she has had no reaction to contrast or lodine, please remove from allergy list. * Telephone Encounter - Aniceto Morrison LPN - 02/09/2024 2:17 PM EDT LM to return call to office. Aniceto Morrison LPN * Telephone Encounter - Humera Garcia APRN.CNP - 02/09/2024 1:49 PM EDT Can please let patient know that I received a noticed that when she had the CT scan in the ER, theydid see some lung nodules they recommended that we follow-up and get an additional CT scan of just the chest. She has an allergy listed to Iodine. It is listed as GI upset, is that correct? I can see one location where it is listed as the topical iodine. What is the reaction? Did she have any reaction to thedye that she had when she had the abdominal CT? documented in this encounterK[facility]10-23-2024 Telephone encounter Note * Telephone Encounter - Liz Finn MA - 02/10/2024 8:49 AM EDT Spoke to patient who will call back to schedule CT. Patient did not schedule with pelvic pain clinic due to after seeing Dr. Staley was seen by Dr. Schmidt who diagnosed her with crohns and said thatis source of her pain. Liz Finn MA [facility]10-22-2024 Telephone encounter Note* Telephone Encounter - Humera Garcia APRN.CNP - 02/09/2024 5:[address] of the chest ordered. She should be able to get this scheduled. I'll let her know when I receivethe results of this imaging. It looks like she was seen by DE IONIZER OPERATOR and had referral placed for pelvic pain clinic and had an order placed for an MRI of the abdomin/pelvis. Has this been scheduled? [facility] Telephone encounter Note* Telephone Encounter - Eusebia Bernal - 02/09/2024 3:58 PM EDT Patient returned call and received provider's message. Patient was previously scheduled for a follow up and annual PAP with provider on 02/22/24. No sooner availability with provider outside of patient's work hours (can only schedule after 5:00 pm). Scheduled additional visit for 03/14/24. Please notify patient if review of chest CT can be performed during 02/22/24 visit and 03/14/24 appointment can be cancelled or if provider is wanting to interchange reasons for visits. Patient reports that she has had no reaction to contrast or lodine, please remove from allergy list. [facility]-22-[facility] Telephone encounter Note* Telephone Encounter - Aniceto Morrison LPN - 02/09/2024 2:17 PM EDT LM to return call to office. Aniceto Morrison LPN [facility]10-22-2024 Telephone encounter Note* Telephone Encounter - Humera Garcia APRN.KELLY - 02/09/2024 1:49 PM EDT Can please let patient know that I received a noticed that when she had the CT scan in the ER, theydid see some lung nodules they recommended that we follow-up and get an additional CT scan of just the chest. She has an allergy listed to Iodine. It is listed as GI upset, is that correct? I can see one location where it is listed as the topical iodine. What is the reaction? Did she have any reaction to thedye that she had when she had the abdominal CT? [facility]09-19-[facility] History of Present illness Narrative* Trini Higginbotham MD - 01/07/2024 1:06 PM EDT Pediatric Nephrologist offered: Patient declines. Brittnee Marie is a 48 year old female who presents for follow up pelvic pain. Saw Dr. Staley last week. HPI: She reports abdominal swelling and distension for weeks that comes and goes. Abdominal pain for a few months and the pain is diffuse. Has difficulty eating. Has a good appetite but feels nauseated after eating and full. No vomiting. Last BM this morning and normal BM for her. Passing gas. No urinary symptoms. No vaginal bleeding. No vaginal discharge. Reports history of right oophorectomy. She does not remember having an IUD placed but states it is on imaging. Reports no periods for 14 years. She is worried about an ovarian cyst as she says imaging before her oophorectomy did not show a cyst, and she went for diagnostic laparoscopy and she had cysts on the ovary. Had colonoscopy last month with Dr. Coronado. Had pelvic US with possible adenomyosis. CTAP with no acute process. Patient reports history of endometriosis at time of right oophorectomy. OB History T2 L2 SAB0 IAB0 Ectopic0 Multiple1 Live Births0 Comment: One was twin- lost one of the twins at 20 weeks gestation Academic Assistant History LMP: LMP Unknown, Postmenopausal Age at Menarche: Age at First : Age at Menopause: Academic Assistant History Comments: Sexual Activity: Yes; Male Contraception: Tubal Ligation PAST MEDICAL HISTORY Diagnosis Date Anxiety Bulging disc neck c6 Depression Migraine Pneumothorax, spontaneous, tension Prolapse, disk Neck Scoliosis Neck PAST SURGICAL HISTORY Procedure Laterality Date APPENDECTOMY 04/20/2002 COLONOSCOPY FLX DX W/COLLJ SPEC WHEN PFRMD 05/17/2014 Colonoscopy LIG/TRNSXJ FLP TUBE ABDL/VAG APPR UNI/BI 04/20/1994 Tubal ligation NECK SURGERY HX 08/2021 [facility] -- has hardware in neck OOPHORECTOMY PARTIAL/TOTAL UNI/BI 04/20/2009 Right. Endometriosis noted at that time per patient PAST SURGICAL HISTORY OF 04/20/2003 left lung -[facility]al PAST SURGICAL HISTORY OF cervical /lumbar spine pain injections FAMILY HISTORY Problem Relation Age of Onset No Known Problems Mother no personal ca, but reports cancer runs through that family (? leukemia). No Known Problems Father Diabetes Maternal Grandmother other (htn) Maternal Grandmother Cancer Maternal Grandfather lung other (old age) Paternal Grandmother Social History Tobacco Use Smoking status: Every Day Current packs/day: 0.25 Average packs/day: 0.3 packs/day for 22.0 years (5.5 ttl pk-yrs) Types: Cigarettes Smokeless tobacco: Never Vaping Use Vaping status: Never Used Substance Use Topics Alcohol use: Yes Comment: very rare Drug use: No Current Outpatient Medications Medication Sig varenicline (CHANTIX) 1 mg tablet TAKE 1 TABLET BY MOUTH TWICE A DAY WITH FOOD omeprazole (PRILOSEC) 20 mg capsule Take 1 capsule by mouth daily before breakfast. 1/2 hr before meal. hydrOXYzine HCl (ATARAX) 10 mg tablet Take 1 tablet by mouth three times a day as needed. GAVILYTE-G 236-22.74-6.74 -5.86 gram suspension TAKE 4000 ML BY MOUTH ONE TIME ONLY FOR 1 DOSE. REFER TO PRINTED PREP INSTRUCTIONS FROM PROVIDER (Patient not taking: Reported on 12/30/2023) varenicline (CHANTIX STARTING MONTH BOX) 0.5 mg (11)- 1 mg (42) tablet Take 0.5 mg by mouth once daily on Days 1 through 3, THEN 0.5 mg twice daily on Days 4 through 7, THEN 1 mg twice daily on Day 8and thereafter (Patient not taking: Reported on 12/30/2023) No current facility-administered medications for this visit. Allergies As of Date: 01/07/2024 Allergen Noted Reaction OXYCODONE-ACETAMINOPHEN 01/14/2013 GI Upset and Hives DARVOCET A500 [PROPOXYPHENE N-KODY*01/14/2013 Unknown FLEXERIL [CYCLOBENZAPRINE HCL] 01/14/2013 GI Upset IODINE 01/14/2013 GI Upset TAPE [ADHESIVE TAPE (ROSINS)] 01/14/2013 Swelling TOPIRAMATE 01/14/2013 GI Upset Fully Assessed 01/07/2024 REVIEW OF SYSTEMS Abdomen: No vomiting, diarrhea, or constipation. Bladder: No dysuria, gross hematuria, urinary frequency, urinary urgency, or incontinence. Expanded ROS: No fevers, chills. Allergies and current medication updated:Yes SENSITIVE EXAM: The sensitive examination was discussed with the Patient or Patient's Authorized Security Systems Technician. As applicable, any other physician, advance practice provider, medical student, or other health professional student that will be observing or involved in the sensitive examination for educational or training purposes was discussed with the Patient or Authorized Security Systems Technician. The Patient or Authorized Security Systems Technician has agreed to proceed with the sensitive examination. (Sensitive examination includes inspection and/or palpation of the breasts, pelvis, prostate and anorectal regions). EXAM: BP 120/80 Wt 153 lb 9.6 oz (69.7kg) GENERAL: pleasant, female in no apparent distress HEENT: Normocephalic and atraumatic NECK: full range of motion DERMATOLOGY: Normal, without lesions, non-icteric, and non-hirsute BREAST: deferred CHEST: Normal inspiratory effort ABDOMEN: soft, no masses, and softly distended, non acute, diffuse moderate tenderness PELVIC: external genitalia normal, normal Bartholin's glands, urethra, Kinder's glands, no vulvar lesions, no cervical lesions, good vaginal support, physiologic discharge present, normal appearing perineal body and perianal region, IUD strings visible BIMANUAL: uterus normal size, shape and consistency, no adnexal masses, and non-tender NEURO: exam grossly non-focal EXTREMITIES: normal ASSESSMENT AND PLAN: Encounter Diagnosis ICD-10-CM 1. Generalized abdominal pain R10.84 2. Abdominal bloating R14.0 3. History of endometriosis Z87.42 4. History of ovarian cyst Z87.42 Patient is distended on exam with diffuse tenderness. Non acute abdomen. Discussed reasons to go into the ER. Unclear etiology for pain at this time? She reports a history of endometriosis and an ovarian cyst in the past, so will check an MRI. Consult to pelvic pain clinic. Will route chart to PCP as well given generalized bloating and pain. Completed test, blood work, pelvic US, and CTAP. Trini Higginbotham DO Medical Decision Making: Problems: Moderate: New problem with uncertain prognosis Data: Unique test(s) ordered: 1 Risk: Low: Low risk from testing/treatment Medical Decision Making Level: 3 - Low documented in this encounterK[facility] Telephone encounter Note * Telephone Encounter - Desirae Patrick RN - 01/06/2024 11:45 AM EDT Patient called and sooner appointment given. Desirae Patrick RN [facility] Miscellaneous Notes* Telephone Encounter - Desirae Patrick RN - 01/06/2024 11:45 AM EDT Patient called and sooner appointment given. Desirae Patrick RN * Telephone Encounter - Joie Guadalupe - 01/06/2024 10:46 AM EDT Patient calling in to report she is having more pelvic pain. She wanted a sooner appt to see eitherChi or Manuel. She is currently scheduled for 01/11/24 at 11:20 am, and on the wait list. Please review and advise if her pelvic pain needs triaged. Joie Guadalupe January 06, 2024 10:48 AM documented in this encounterK[facility]09-18-2024 Telephone encounter Note * Telephone Encounter - Neyda Guadalupemegan Wasserman - 01/06/2024 10:46 AM EDT Patient calling in to report she is having more pelvic pain. She wanted a sooner appt to see eitherChi or Manuel. She is currently scheduled for 01/11/24 at 11:20 am, and on the wait list. Please review and advise if her pelvic pain needs triaged. Joie Lux Guadalupe January 06, 2024 10:48 AM [facility] History of Present illness Narrative* Pietro Staley MD - 12/30/2023 8:45 AM EDT Pediatric Nephrologist offered: Patient accepts, visit chaperoned by Isabel Mena Ma. Brittnee Marie is a 48 year old female who presents for problem visit for evaluation of bilateralpelvic pain for ~ 12 mo. Evaluation delayed due to insurance issues. ~ 2003 right oophorectomy for pain. Menses stopped at that poin and IUD of uncertain type place later. Pelvic ultrasound ordered for evaluation of pelvic pain that suggests potential adenomyosis.. Discomfort associated with bloating and no associated GI complaints. Recent normal colonoscopy Dr. Manju Coronado - normal. 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 LMP: LMP Unknown, None Age at Menarche: Age at First : Age at Menopause: Academic Assistant History Comments: Sexual Activity: Yes; Male Contraception: Tubal Ligation PAST MEDICAL HISTORY No date: Anxiety No date: Bulging disc Comment: neck c6 No date: Depression No date: Migraine No date: Pneumothorax, spontaneous, tension No date: Prolapse, disk Comment: Neck No date: Scoliosis Comment: Neck PAST SURGICAL HISTORY 04/20/2002: APPENDECTOMY 05/17/2014: COLONOSCOPY FLX DX W/COLLJ SPEC WHEN PFRMD Comment: Colonoscopy 04/20/1994: LIG/TRNSXJ FLP TUBE ABDL/VAG APPR UNI/BI Comment: Tubal ligation 08/2021: NECK SURGERY HX Comment: [facility] -- has hardware in neck 04/20/2009: OOPHORECTOMY PARTIAL/TOTAL UNI/BI Comment: right 04/20/2003: PAST SURGICAL HISTORY OF Comment: left lung -[facility] No date: PAST SURGICAL HISTORY OF Comment: cervical /lumbar spine pain injections FAMILY HISTORY Problem Relation Age of Onset No Known Problems Mother no personal ca, but reports cancer runs through that family (? leukemia). No Known Problems Father Diabetes Maternal Grandmother other (htn) Maternal Grandmother Cancer Maternal Grandfather lung other (old age) Paternal Grandmother Social History Tobacco Use Smoking status: Every Day Current packs/day: 0.25 Average packs/day: 0.3 packs/day for 22.0 years (5.5 ttl pk-yrs) Types: Cigarettes Smokeless tobacco: Never Vaping Use Vaping status: Never Used Substance Use Topics Alcohol use: Yes Comment: very rare Drug use: No Current Outpatient Medications Medication Sig varenicline (CHANTIX) 1 mg tablet TAKE 1 TABLET BY MOUTH TWICE A DAY WITH FOOD omeprazole (PRILOSEC) 20 mg capsule Take 1 capsule by mouth daily before breakfast. 1/2 hr before meal. hydrOXYzine HCl (ATARAX) 10 mg tablet Take 1 tablet by mouth three times a day as needed. GAVILYTE-G 236-22.74-6.74 -5.86 gram suspension TAKE 4000 ML BY MOUTH ONE TIME ONLY FOR 1 DOSE. REFER TO PRINTED PREP INSTRUCTIONS FROM PROVIDER (Patient not taking: Reported on 12/30/2023) varenicline (CHANTIX STARTING MONTH BOX) 0.5 mg (11)- 1 mg (42) tablet Take 0.5 mg by mouth once daily on Days 1 through 3, THEN 0.5 mg twice daily on Days 4 through 7, THEN 1 mg twice daily on Day 8and thereafter (Patient not taking: Reported on 12/30/2023) No current facility-administered medications for this visit. Allergies As of Date: 12/30/2023 Allergen Noted Reaction OXYCODONE-ACETAMINOPHEN 01/14/2013 GI Upset and Hives DARVOCET A500 [PROPOXYPHENE N-KODY*01/14/2013 Unknown FLEXERIL [CYCLOBENZAPRINE HCL] 01/14/2013 GI Upset IODINE 01/14/2013 GI Upset TAPE [ADHESIVE TAPE (ROSINS)] 01/14/2013 Swelling TOPIRAMATE 01/14/2013 GI Upset Fully Assessed 12/30/2023 REVIEW OF SYSTEMS Abdomen: No bloating, early satiety, indigestion, or increased flatulence. No abdominal pain, nausea, vomiting, diarrhea, or constipation. Bladder: No dysuria, gross hematuria, urinary frequency, urinary urgency, or incontinence. Breast: No breast lumps, nipple d/c, overlying skin changes, redness or skin retraction. Expanded ROS: N/A Allergies and current medication updated:Yes EXAM: BP 118/60 Wt 154 lb (69.9kg) GENERAL: pleasant, female in no apparent distress, in mild distress ABDOMEN: Moderate tenderness in Generalized, rebound Present, guarding Present, and firm PELVIC: external genitalia normal, normal Bartholin's glands, urethra, Kinder's glands, no vulvar lesions, no cervical lesions, good vaginal support, physiologic discharge present, normal appearing perineal body and perianal region, IUD strings visible BIMANUAL: uterus normal size, shape and consistency, retroverted, no adnexal masses, and non-tender ASSESSMENT AND PLAN: Encounter Diagnosis ICD-10-CM 1. Pelvic pain R10.2 diffusely tender abdomen with some rebound that comes and goes multiple time in a months 5 cm uterus with evidence of adenomyosis STI culturesd submitted. Need surgical consultation Abdominal-pelvic CT w and w/o contrAAT SAMIRA Pietro Staley MD FTFT > 50 min, Rev. [facility] record and arrange f//u, consult colleagues documented in this encounterK[facility]08-20-2024 Telephone encounter Note * Telephone Encounter - Aniceto Morrison LPN - 12/08/2023 12:09 PM EDT Pt notified of results/provider instructions. She verbalized understanding. Please assist pt with scheduling appt with DE IONIZER OPERATOR. Aniceto Morrison LPN [facility]-20-[facility]24 Miscellaneous Notes* Telephone Encounter - Aniceto Morrison LPN - 12/08/2023 12:09 PM EDT Pt notified of results/provider instructions. She verbalized understanding. Please assist pt with scheduling appt with DE IONIZER OPERATOR. Aniceto Morrison LPN * Telephone Encounter - Humera Garcia APRN.CNP - 12/08/2023 7:53 AM EDT Can please let patient know that I received her ultrasound results. It does confirm that she has anIUD. There is also a fibroid present, which is a benign growth. The lining of the uterus is not smooth, so this can be associated with adenomyosis, which is also benign, but can cause worsening cramps an periods. Lets have her follow-up with DE IONIZER OPERATOR to get their intake on her symptoms. Referral placed. Please help schedule. Humera Garcia APRN.CNP documented in this encounterK[facility]08-20-2024 Telephone encounter Note * Telephone Encounter - Humera Garcia APRN.CNP - 12/08/2023 7:53 AM EDT Can please let patient know that I received her ultrasound results. It does confirm that she has anIUD. There is also a fibroid present, which is a benign growth. The lining of the uterus is not smooth, so this can be associated with adenomyosis, which is also benign, but can cause worsening cramps an periods. Lets have her follow-up with DE IONIZER OPERATOR to get their intake on her symptoms. Referral placed. Please help schedule. Humera Garcia APRN.CNP [facility] History of Present illness Narrative* Ivett Naqvi RT(R) - 12/04/2023 7:00 AM EDT Radiology Service Progress Note PATIENT NAME: Brittnee Marie DATE OF SERVICE: December 04, 2023 TIME: 9:32 AM PATIENT IDENTITY VERIFICATION COMPLETED USING TWO (2) IDENTIFIERS: Name and Date of confirmedby patient verbally. FALL SCREENING: Has the patient had 2 falls in the last year or 1 fall with injury or currently using an Ambulatory Assistive Device (Walker, Cane, Wheelchair, Crutches, etc.)? No PATIENT GENDER DATA: Female. status: : No status: N/A PATIENT RELEVANT IMPLANT DATA REVIEWED: Not Applicable PATIENT PRESENTS WITH AN IMPLANTABLE OR ATTACHED HR DIRECTOR: No RADIOLOGY DEPARTMENT: Ultrasound PERIPHERAL IV DATA: Not applicable SIGNED BY: Ivett Naqvi Rdms December 04, 2023 9:32 AM documented in this encounterK[facility]08-12-2024 Instructions* Patient Instructions* Humera Garcia APRN.CNP - 11/30/2023 9:28 AM EDT Get the ultrasounds. (Pelvis and bladder). Schedule the echocardiogram. I'll let you know when I receive the results. documented in this encounterK[facility]08-12-2024 History of Present illness Narrative* Humera Garcia APRN.CNP - 11/30/2023 8:14 AM EDT This is a 48 year old female who presents today with: Patient presents with: Recheck: Follow up abd bloating, pain, fatigue; c- scope completed, will finish atb today. HISTORY OF PRESENT ILLNESS: Brittnee Marie is a 48 year old female. Patient presents with: Recheck: Follow up abd bloating, pain, fatigue; c- scope completed, will finish atb today. Pt presents today with ongoing complaints of bloating and abdominal pain. Started a little over two weeks ago. Woke with lower back pain and stomach was swollen. Came in to urgent care. Sent to ER. Went to [facility] -- told that her intestines were swollen. Advised to follow-up with primary care. Seen [facility] -- started two different antibiotics. Has 1 day left. Had colonoscopy -- advised normal. Eating/drinking doesn't affect the pain. No diarrhea/constipation. No hematochezia/melena. + flatus -- but per normal. Sometimes nausea. She did have a CT in the ER. IMPRESSION: No acute abnormality within abdomen or pelvis. Trace left pleural effusion. Small amount of pericardial fluid. Hyperattenuating pleural based densities in the left lower thorax. Is there a history of pleurodesis? If there is no history of pleurodesis, follow-up CT thorax is advised to guide management. She does have a hx of a left tension pneumo and had surgery. She also reports that she feels like she has trouble urinating initially in the morning. Feels like she is emptying completely. She denies any dysuria. Denies . Incidentally noted IUD on CT. Patient initially denies knowing of having an IUD. Discussed that it appears that it was placed in 2017. PAST MEDICAL HISTORY: PAST MEDICAL HISTORY No date: Anxiety No date: Bulging disc Comment: neck c6 No date: Depression No date: Migraine No date: Pneumothorax, spontaneous, tension No date: Prolapse, disk Comment: Neck No date: Scoliosis Comment: Neck PAST SURGICAL HISTORY 04/20/2002: APPENDECTOMY 05/17/2014: COLONOSCOPY FLX DX W/COLLJ SPEC WHEN PFRMD Comment: Colonoscopy 04/20/1994: LIG/TRNSXJ FLP TUBE ABDL/VAG APPR UNI/BI Comment: Tubal ligation 08/2021: NECK SURGERY HX Comment: [facility] -- has hardware in neck 04/20/2009: OOPHORECTOMY PARTIAL/TOTAL UNI/BI Comment: right 04/20/2003: PAST SURGICAL HISTORY OF Comment: left lung -[facility] No date: PAST SURGICAL HISTORY OF Comment: cervical /lumbar spine pain injections ALLERGIES Oxycodone-Acetaminophen, Darvocet A500 [Propoxyphene N-Acetaminophen], Flexeril [Cyclobenzaprine Hcl], Iodine, Tape [Adhesive Tape (Rosins)], and Topiramate MEDICATIONS Current Outpatient Medications Medication Sig GAVILYTE-G 236-22.74-6.74 -5.86 gram suspension TAKE 4000 ML BY MOUTH ONE TIME ONLY FOR 1 DOSE. REFER TO PRINTED PREP INSTRUCTIONS FROM PROVIDER varenicline (CHANTIX) 1 mg tablet TAKE 1 TABLET BY MOUTH TWICE A DAY WITH FOOD omeprazole (PRILOSEC) 20 mg capsule Take 1 capsule by mouth daily before breakfast. 1/2 hr before meal. varenicline (CHANTIX STARTING MONTH BOX) 0.5 mg (11)- 1 mg (42) tablet Take 0.5 mg by mouth once daily on Days 1 through 3, THEN 0.5 mg twice daily on Days 4 through 7, THEN 1 mg twice daily on Day 8and thereafter hydrOXYzine HCl (ATARAX) 10 mg tablet Take 1 tablet by mouth three times a day as needed. No current facility-administered medications for this visit. FAMILY HISTORY Problem Relation Age of Onset No Known Problems Mother no personal ca, but reports cancer runs through that family (? leukemia). No Known Problems Father Diabetes Maternal Grandmother other (htn) Maternal Grandmother Cancer Maternal Grandfather lung other (old age) Paternal Grandmother Social History Tobacco Use Smoking status: Every Day Packs/day: 0.25 Years: 22.00 Additional pack years: 0.00 Total pack years: 5.50 Types: Cigarettes Smokeless tobacco: Never Vaping Use Vaping Use: Never used Substance Use Topics Alcohol use: Yes Comment: very rare Drug use: No EXAM: BP 120/72 Pulse 71 Resp 16 Wt 69.4 kg (153 lb) LMP (LMP Unknown) SpO2 97% BMI 27.10 kg/m PHYSICAL EXAM: General Appearance: Well appearing, alert, in no acute distress, well-hydrated, well nourished.. Skin: Skin color, texture, turgor normal, no suspicious rashes or lesions. Head: Normocephalic, no masses, lesions, tenderness or abnormalities. Eyes: Anicteric sclera. Extraocular movements are intact. . Lungs: Lungs clear to auscultation. No wheezing, rhonchi, rales.. Heart: RRR without murmur, gallop, or rubs. No ectopy. Abdomen: Abdomen soft, non-tender. Bowel sounds normal. + bloating. No masses, organomegaly. No rebound/guarding. Neurologic: Gait normal. ASSESSMENT/PLAN: 1. Pelvic pain - ICD9: [id number], ICD10: R10.2 (primary diagnosis) Urine preg negative. Will get pelvic ultrasound. Likely will need follow-up with kitchen steward for IUD removal. Will also get us kidney/bladder. Send urine for culture. - US FEMALE PELVIS TRANSVAG - URINE CULTURE - US KIDNEY/BLADDER - URINALYSIS, WITH MICROSCOPIC - UA DIP,URINE HCG (POC) 2. Abnormal CT scan - ICD9: 793.99, ICD10: R93.89 Will get echo to better eval of pericardial fluid. - ECHO - PERFLUTREN LIPID MICROSPHERES 1.1 MG/ML INJECTION IN NS 10 ML - SODIUM CHLORIDE 0.9 % (FLUSH) INJECTION SYRINGE Discussed treatment plan and patient voices understanding. Patient's questions answered appropriately. Medications and potential side effects were discussed and patient voices understanding. Return to the office as scheduled or as needed for worsening/no improvement. Humera Garcia APRN.RECORDS MANAGEMENT ASSOCIATE documented in this encounterKet[facility]08-09-2024 Telephone encounter Note * Telephone Encounter - Danya Solis RN - 11/27/2023 11:43 AM EDT Pt states no she isn't feeling sick or having a reaction to the antibiotics. She said Dr Coronado told her to call before taking anymore antibiotics because she didn't see any infection. Pt will completethe 5 days. [facility]08-[facility] Miscellaneous Notes* Telephone Encounter - Danya Solis RN - 11/27/2023 11:43 AM EDT Pt states no she isn't feeling sick or having a reaction to the antibiotics. She said Dr Coronado told her to call before taking anymore antibiotics because she didn't see any infection. Pt will completethe 5 days. * Telephone Encounter - Maru Kohler MA - 11/27/2023 11:35 AM EDT Left message for patient to return call. Maru Kohler Ma * Telephone Encounter - Lin Cisneros APRN.CNP - 11/27/2023 11:24 AM EDT There is no report available on C scope. I would like her to complete the [address] showed colon was swollen, trying to reduce inflammation. Is she having a reaction to them? Feeling sick? * Telephone Encounter - Humera Garcia APRN.KELLY - 11/27/2023 10:20 AM EDT It looks like patient was seen by Kal Cisneros on 11/23 for this issue. Will defer to her recommendations. * Telephone Encounter - Keerthi Arce LPN - 11/27/2023 9:56 AM EDT Pt was seen and had a colonoscopy done 11-26-23. Dr. Mo did not see any infection. Pt is asking if she needs to continue on ATBs. Please advise pt. Pt was also instructed by Dr. Coronado to FU with PCP on stomach issues. Apt has been booked with pcp/team for 11-30-23. Again advise pt on taking the ATBs.Does not want to take if she does not need to. Keerthi Arce LPN . documented in this encounterK[facility]08-09-2024 Telephone encounter Note * Telephone Encounter - Maru Kohler MA - 11/27/2023 11:35 AM EDT Left message for patient to return call. Maru Kohler Ma [facility]08-09-2024 Telephone encounter Note* Telephone Encounter - Lin Cisneros APRN.CNP - 11/27/2023 11:24 AM EDT There is no report available on C scope. I would like her to complete the [address] showed colon was swollen, trying to reduce inflammation. Is she having a reaction to them? Feeling sick? [facility] Telephone encounter Note* Telephone Encounter - Humera Garcia APRN.KELLY - 11/27/2023 10:20 AM EDT It looks like patient was seen by Kal Cisneros on 11/23 for this issue. Will defer to her recommendations. [facility] Telephone encounter Note* Telephone Encounter - Keerthi Arce LPN - 11/27/2023 9:56 AM EDT Pt was seen and had a colonoscopy done 11-26-23. Dr. Mo did not see any infection. Pt is asking if she needs to continue on ATBs. Please advise pt. Pt was also instructed by Dr. Coronado to FU with PCP on stomach issues. Apt has been booked with pcp/team for 11-30-23. Again advise pt on taking the ATBs.Does not want to take if she does not need to. Keerthi Arce LPN . [facility]08-06-2024 Instructions* Patient Instructions* Lin Cisneros APRN.CNP - 11/24/2023 10:01 AM EDT - Please schedule well woman check - Proceed with C scope - Tramadol 50 mg every 8 hours as needed for pain - Cipro 500 mg 2 x day for 5 days - Flagyl 500 mg every 8 hours for 5 days - See Humera in Feb. As scheduled documented in this encounterKettering [facility]08-06-2024 History of Present illness Narrative* Lin Cisneros APRN.CNP - 11/24/2023 9:36 AM EDT This is a 48 year old female who presents today with: Patient presents with: ER F/U: [facility] 11/13/23 HISTORY OF PRESENT ILLNESS: Brittnee Marie is a 48 year old female. Patient presents with: ER F/U: [facility] 11/13/23 Went to [facility], told she has intestines were swollen on CT scan. No blockage. It went down but only to return again yesterday. Mid-abdominal radiating through to back. Low back is severe pain. Upon rising, bladder feels full but cannot urinate. Once up, able to void. No fever chills. Had BM yesterday. Normal. Feels nauseated. No vomiting. Hx of right ovary removed for multiple cysts. Scheduled for C scope . Dr. Coronado put her on probiotic. Quit those. Overdue for Pap. PAST MEDICAL HISTORY: PAST MEDICAL HISTORY No date: Anxiety No date: Bulging disc Comment: neck c6 No date: Depression No date: Migraine No date: Pneumothorax, spontaneous, tension No date: Prolapse, disk Comment: Neck No date: Scoliosis Comment: Neck PAST SURGICAL HISTORY 04/20/2002: APPENDECTOMY 05/17/2014: COLONOSCOPY FLX DX W/COLLJ SPEC WHEN PFRMD Comment: Colonoscopy 04/20/1994: LIG/TRNSXJ FLP TUBE ABDL/VAG APPR UNI/BI Comment: Tubal ligation 08/2021: NECK SURGERY HX Comment: [facility] -- has hardware in neck 04/20/2009: OOPHORECTOMY PARTIAL/TOTAL UNI/BI Comment: right 04/20/2003: PAST SURGICAL HISTORY OF Comment: left lung -[facility] No date: PAST SURGICAL HISTORY OF Comment: cervical /lumbar spine pain injections ALLERGIES Oxycodone-Acetaminophen, Darvocet A500 [Propoxyphene N-Acetaminophen], Flexeril [Cyclobenzaprine Hcl], Iodine, Tape [Adhesive Tape (Rosins)], and Topiramate MEDICATIONS Current Outpatient Medications Medication Sig varenicline (CHANTIX) 1 mg tablet TAKE 1 TABLET BY MOUTH TWICE A DAY WITH FOOD omeprazole (PRILOSEC) 20 mg capsule Take 1 capsule by mouth daily before breakfast. 1/2 hr before meal. varenicline (CHANTIX STARTING MONTH BOX) 0.5 mg (11)- 1 mg (42) tablet Take 0.5 mg by mouth once daily on Days 1 through 3, THEN 0.5 mg twice daily on Days 4 through 7, THEN 1 mg twice daily on Day 8and thereafter hydrOXYzine HCl (ATARAX) 10 mg tablet Take 1 tablet by mouth three times a day as needed. GAVILYTE-G 236-22.74-6.74 -5.86 gram suspension TAKE 4000 ML BY MOUTH ONE TIME ONLY FOR 1 DOSE. REFER TO PRINTED PREP INSTRUCTIONS FROM PROVIDER cimetidine (TAGAMET) 200 mg tablet Take 1 tablet by mouth four times daily. acetaminophen (TYLENOL) 325 mg tablet Take 1-2 tablets by mouth every 4 hours as needed for Pain. No current facility-administered medications for this visit. FAMILY HISTORY Problem Relation Age of Onset No Known Problems Mother no personal ca, but reports cancer runs through that family (? leukemia). No Known Problems Father Diabetes Maternal Grandmother other (htn) Maternal Grandmother Cancer Maternal Grandfather lung other (old age) Paternal Grandmother Social History Tobacco Use Smoking status: Every Day Packs/day: 0.25 Years: 22.00 Additional pack years: 0.00 Total pack years: 5.50 Types: Cigarettes Smokeless tobacco: Never Vaping Use Vaping Use: Never used Substance Use Topics Alcohol use: Yes Comment: very rare Drug use: No REVIEW OF SYSTEMS GENERAL: No weight loss, + malaise, no fevers/chills HEENT: Negative for frequent or significant headaches.. Left side of neck hurts to swallow NECK: Negative for lumps, goiter, pain and significant neck swelling RESPIRATORY: Negative for cough, hemoptysis, wheezing, dyspnea or shortness of breath CARDIOVASCULAR: Negative for chest pain, leg swelling, orthopnea, + usual palpitations for anxiety GI: + nausea, no vomiting or diarrhea/constipation. No hematochezia/melena. No heartburn or reflux symptoms with PPI. Feels bloated & belching : No history of dysuria, frequency or incontinence MUSCULOSKELETAL: Negative for joint pain or swelling except severe low back pain SKIN: Negative for lesions, rash, and itching EXAM: BP 100/68 Pulse 80 Temp 36.3 C (97.3 F) (Tympanic) Wt 69.4 kg (153 lb) LMP (LMP Unknown) SpO2 95% BMI 27.10 kg/m PHYSICAL EXAM: Physical Exam Vitals reviewed. Constitutional: Appearance: Normal appearance. HENT: Head: Normocephalic. Cardiovascular: Rate and Rhythm: Normal rate and regular rhythm. Pulses: Normal pulses. Heart sounds: Normal heart sounds. Pulmonary: Effort: Pulmonary effort is normal. Breath sounds: Normal breath sounds. Abdominal: General: There is distension. Palpations: Abdomen is soft. Tenderness: There is abdominal tenderness. There is guarding and rebound. Comments: RLQ pain- had appendectomy Musculoskeletal: General: Normal range of motion. Comments: Moving very slowly d/t severe sacral pain Skin: General: Skin is warm and dry. Neurological: Mental Status: She is alert. LABS: CBC, CMP, urine all normal ASSESSMENT/PLAN: 1. Sacral pain - ICD9: 724.6, ICD10: M53.3 (primary diagnosis) Related to abdominal pain and bloating - Needs well woman check - Treat with tramadol 3 x day for 5 days only 2. Periumbilical abdominal pain - ICD9: 789.05, ICD10: R10.33 Etiology unclear- does not have an appendix - Cipro 2 x day for 5 days - flagyl 500 mg 3 x day for 5 days - tramadol - proceed with prep for Cscope - if pain worsens, go to ER - off work through Discussed treatment plan and patient voices understanding. Patient's questions answered appropriately. Medications and potential side effects were discussed and patient voices understanding. Return to the office as scheduled or as needed for worsening/no improvement. Lin Cisneros APRN.KELLY [facility] Discharge instructions Patient Education 11/13/2023 11:50:59 Abdominal Pain, Unknown Cause, (Female) Unknown Causes of Abdominal Pain (Female) The exact cause of your belly (abdominal) pain is not clear. This does not mean that this is something to worry about. Everyone likes to know the exact cause of the problem. But sometimes with belly pain, there is no clear-cut cause, and this could be a good thing. The good news is that your symptoms can be treated, and you will feel better. Your condition does not seem serious now. But sometimes the signs of a serious problem may take more time to appear. For this reason, it is important for you to watch for any new symptoms, problems, or worsening of your condition. Over the next few days, the abdominal pain may come and go. Or it may be constant. Other common symptoms can include nausea and vomiting. Sometimes it can be difficult to tell if you feel nauseous. You may just feel bad and not connect that feeling to nausea. Constipation, diarrhea, and a fever maygo along with the pain. The pain may continue even if treated correctly over the following days. Depending on how things go, sometimes the cause can become clear and may need more or different treatment. Additional evaluations, medicines, or tests may also be needed. Home care Your healthcare provider may prescribe medicine for pain, symptoms, or an infection. Follow the healthcare provider's instructions for taking these medicines. General care Rest as much as you can until your next exam. No strenuous activities. Try to find positions that ease discomfort. A small pillow placed on the abdomen may help relieve pain. Something warm on your abdomen (such as a heating pad) may help, but be careful not to burn yourself. Diet Don t force yourself to eat, especially if having cramps, vomiting, or diarrhea. Water is important so you don't get dehydrated. Soup may also be good. Sports drinks may also help,especially if they are not too acidic. Don't drink sugary drinks as this can make things worse. Take liquids in small amounts. Don t guzzle them. Caffeine sometimes makes the pain and cramping worse. Don t take dairy products if you have vomiting or diarrhea. Don't eat large amounts at a time. Wait a few minutes between bites. Eat a diet low in fiber (called a low-residue diet). Foods allowed include refined breads, white rice, fruit and vegetable juices without pulp, tender meats. These foods will pass more easily throughthe intestine. Don t have whole-grain foods, whole fruits and vegetables, meats, seeds and nuts, fried or fatty foods, dairy, alcohol and spicy foods until your symptoms go away. Follow-up care Follow up with your healthcare provider, or as advised, if your pain does not begin to improve in the next 24 hours. Call 911 Call 911 if any of these occur: Trouble breathing Confusion Fainting or loss of consciousness Rapid heart rate Seizure When to seek medical advice Call your healthcare provider right away if any of these occur: Pain gets worse or moves to the right lower abdomen New or worsening vomiting or diarrhea Swelling of the abdomen Unable to pass stool for more than 3 days Fever of 100.4 F (38 C) or higher, or as directed by your healthcare provider. Blood in vomit or bowel movements (dark red or black color) Yellow color of eyes and skin (jaundice) Weakness, dizziness Chest, arm, back, neck, or jaw pain Unexpected vaginal bleeding or missed period Can't keep down liquids or water and you are getting dehydrated 2116-6803 [employer] [address] [place] [address]. All rights reserved. This information is not intended as a substitute for professional medical care. Always follow yourhealthcare professional's instructions. Follow Up Care 11/13/2023 08:53:14 With:HUMERA GARCIA APRN-[employer] Address: [address] [place] [phone] When:2-4 days [facility] 07-26-2024 Note Discharge Instructions Thank you for allowing [facility] to assist you with your healthcare needs. The following is importantdischarge information regarding your hospital visit. Diagnosis from Today's Visit Abdominal pain What to Do Next Instructions from Your Care Team Discharge Return to Work, School, or Sports (Return to Work, School, or Sports) - Ordered -- 11/13/23, 11/15/23, May return to: work, 11/13/23 11:50:00 EDT Post Acute Orders No qualifying data available. You Need to Schedule the Following Appointments Follow Up with HUMERA GARCIA When:Within 2-4 days Where:[address] [place] [address]- [phone] Allergies Darvocet (Moderate) Percocet Tablets, hives Percocet 5/325 (Mild) hives, Hives Tape (Mild) welts, cooney Vicodin (Mild) Hives povidone iodine topical (Mild) welts, b urns Latex Lortab [place] topiramate Rash Medications Please ask your primary doctor or pharmacist before taking any other medication not listed, including over the counter drugs, herbal medications, vitamins and or supplements as they may interact withyour home medications. What How Much When Why Instructions Last Dose New hyoscyamine (Levsin 0.125 mg oral tablet) 1 tab(s) by mouth Four (4) times a day Printed Prescription Unchanged albuterol (albuterol MDI (90 mcg/ inh) CFC free inhalation aerosol) 2 puff(s) by inhalation Every 4 hours as needed for as needed for wheezing Acute bronchitis Unchanged cyclobenzaprine (cyclobenzaprine 10 mg oral tablet) 1 tab(s) by mouth Three (3) times a day as needed for for spasm Unchanged traMADol (traMADol 50 mg oral tablet) TAKE 1 TABLET BY MOUTH EVERY 6 HOURS NEEDED FOR PAIN FOR 7 DAYS. Please take this list to your next doctor s visit. Bring all medications you take, including over the counter medications, herbals and other supplements with you to your doctor s visit. Patients and families are reminded to discard old lists and to update any records with all medication providers or retail pharmacies. Medication Leaflets hyoscyamine (rafaela oh SYE a memarques) Anaspaz, Ed Spaz, Hyosyne, Levbid, Levsin, NuLev, Symax SR What is the most important information I should know about hyoscyamine? You should not use this medicine if you have urination problems, a stomach or bowel obstruction, severe ulcerative colitis, glaucoma, or myasthenia gravis. What is hyoscyamine? Hyoscyamine is used to treat many different stomach and intestinal disorders, including peptic ulcer and irritable bowel syndrome. It is also used to control muscle spasms in the bladder, kidneys, ordigestive tract, and to reduce stomach acid. Hyoscyamine is sometimes used to reduce tremors and rigid muscles in people with symptoms of Parkinson's disease. Hyoscyamine is also used as a drying agent to control excessive salivation, runny nose, or excessive sweating. Hyoscyamine may also be used for purposes not listed in this medication guide. What should I discuss with my healthcare provider before taking hyoscyamine? You should not use hyoscyamine if you are allergic to it, or if you have: a bladder obstruction or other urination problems; an enlarged prostate; a stomach or bowel obstruction (including paralytic ileus); severe ulcerative colitis, or toxic megacolon; glaucoma; or myasthenia gravis. Hyoscyamine is not approved for use by anyone younger than 2 years old. Tell your doctor if you have ever had: heart problems; high blood pressure; kidney disease; a colostomy or ileostomy; a thyroid disorder; or hiatal hernia with GERD (gastroesophageal reflux disease). It is not known whether this medicine will harm an unborn baby. Tell your doctor if you are or plan to become . It may not be safe to breast-feed while using this medicine. Ask your doctor about any risk. How should I take hyoscyamine? Follow all directions on your prescription label and read all medication guides or instruction sheets. Use the medicine exactly as directed. Always follow directions on the medicine label about giving this medicine to a child. Swallow an extended-release tablet whole and do not crush, chew, or break it. Measure liquid medicine carefully. Use the dosing syringe provided, or use a medicine dose-measuring device (not a kitchen spoon). Remove an orally disintegrating tablet from the package only when you are ready to take the medicine. Place the tablet on your tongue and allow it to dissolve. Swallow several times as the tablet dissolves. You may drink water after the pill has completely dissolved. Store at room temperature away from moisture and heat. What happens if I miss a dose? Take the medicine as soon as you can, but skip the missed dose if it is almost time for your next dose. Do not take two doses at one time. What happens if I overdose? Seek emergency medical attention or call the Poison Help line at . Overdose symptoms may include headache, dizziness, dry mouth, trouble swallowing, nausea, vomiting,blurred vision, hot dry skin, and feeling restless or nervous. What should I avoid while taking hyoscyamine? Avoid taking antacids at the same time you take hyoscyamine. Antacids can make it harder for your body to absorb hyoscyamine. If you use an antacid, take it after you have taken hyoscyamine and eatena meal. Drinking alcohol with this medicine can cause side effects. Avoid becoming overheated or dehydrated during exercise and in hot weather. Hyoscyamine can decrease sweating and you may be more prone to heat stroke. Avoid driving or hazardous activity until you know how this medicine will affect you. Your reactions could be impaired. What are the possible side effects of hyoscyamine? Get emergency medical help if you have signs of an allergic reaction: hives; difficult breathing; swelling of your face, lips, tongue, or throat. Stop using hyoscyamine and call your doctor at once if you have: anxiety, confusion, hallucinations, unusual thoughts or behavior; weakness, memory problems; slurred speech; problems with balance or muscle movement; diarrhea; o pounding heartbeats or fluttering in your chest. Common side effects may include: dizziness, drowsiness, feeling weak or tired; decreased sweating, decreased urination; blurred vision; rash; dry mouth, decreased sense of taste; stomach pain, nausea, vomiting, bloating; diarrhea, constipation; headache; sleep problems (insomnia); or impotence, loss of interest in sex, or trouble having an orgasm. This is not a complete list of side effects and others may occur. Call your doctor for medical advice about side effects. You may report side effects to FDA at 1-169-NZD-1240. What other drugs will affect hyoscyamine? Tell your doctor about all your other medicines, especially: an antidepressant; medicine to treat mental illness; cold or allergy medicine (Benadryl and others); medicine to treat or prevent nausea and vomiting; or an MAO inhibitor--isocarboxazid, linezolid, methylene blue injection, phenelzine, rasagiline, selegiline, tranylcypromine, and others. This list is not complete. Other drugs may affect hyoscyamine, including prescription and giqv-xba-ylykqpv medicines, vitamins, and herbal products. Not all possible drug interactions are listed here. Where can I get more information? Your pharmacist can provide more information about hyoscyamine. Remember, keep this and all other medicines out of the reach of children, never share your medicines with others, and use this medication only for the indication prescribed. Every effort has been made to ensure that the information provided by [employer]. ('[employer]') is accurate, up-to-date, and complete, but no guarantee is made to that effect. Drug information contained herein may be time sensitive. [employer] information has been compiled for use by healthcare practitioners and consumers in the [place] and therefore [employer] does not warrant that uses outside of the [place] are appropriate, unless specifically indicated otherwise. [employer] drug information does not endorse drugs, diagnose patients or recommend therapy. [employer] drug information isan informational resource designed to assist licensed healthcare practitioners in caring for their p atients and/or to serve consumers viewing this service as a supplement to, and not a substitute for, the expertise, skill, knowledge and judgment of healthcare practitioners. The absence of a warningfor a given drug or drug combination in no way should be construed to indicate that the drug or drug combination is safe, effective or appropriate for any given patient. [employer] does not assume any responsibility for any aspect of healthcare administered with the aid of information [employer] provides. The information contained herein is not intended to cover all possible uses, directions, precautions, warnings, drug interactions, allergic reactions, or adverse effects. If you have questions about the drugs you are taking, check with your doctor, nurse or pharmacist. Copyright 6824-2788 [employer]. Version: 7.01. Revision Date: 03/09/2018. Education Materials Unknown Causes of Abdominal Pain (Female) The exact cause of your belly (abdominal) pain is not clear. This does not mean that this is something to worry about. Everyone likes to know the exact cause of the problem. But sometimes with belly pain, there is no clear-cut cause, and this could be a good thing. The good news is that your symptoms can be treated, and you will feel better. Your condition does not seem serious now. But sometimes the signs of a serious problem may take more time to appear. For this reason, it is important for you to watch for any new symptoms, problems, or worsening of your condition. Over the next few days, the abdominal pain may come and go. Or it may be constant. Other common symptoms can include nausea and vomiting. Sometimes it can be difficult to tell if you feel nauseous. You may just feel bad and not connect that feeling to nausea. Constipation, diarrhea, and a fever maygo along with the pain. The pain may continue even if treated correctly over the following days. Depending on how things go, sometimes the cause can become clear and may need more or different treatment. Additional evaluations, medicines, or tests may also be needed. Home care Your healthcare provider may prescribe medicine for pain, symptoms, or an infection. Follow the healthcare provider's instructions for taking these medicines. General care Rest as much as you can until your next exam. No strenuous activities. Try to find positions that ease discomfort. A small pillow placed on the abdomen may help relieve pain. Something warm on your abdomen (such as a heating pad) may help, but be careful not to burn yourself. Diet Don t force yourself to eat, especially if having cramps, vomiting, or diarrhea. Water is important so you don't get dehydrated. Soup may also be good. Sports drinks may also help,especially if they are not too acidic. Don't drink sugary drinks as this can make things worse. Take liquids in small amounts. Don t guzzle them. Caffeine sometimes makes the pain and cramping worse. Don t take dairy products if you have vomiting or diarrhea. Don't eat large amounts at a time. Wait a few minutes between bites. Eat a diet low in fiber (called a low-residue diet). Foods allowed include refined breads, white rice, fruit and vegetable juices without pulp, tender meats. These foods will pass more easily throughthe intestine. Don t have whole-grain foods, whole fruits and vegetables, meats, seeds and nuts, fried or fatty foods, dairy, alcohol and spicy foods until your symptoms go away. Follow-up care Follow up with your healthcare provider, or as advised, if your pain does not begin to improve in the next 24 hours. Call 911 Call 911 if any of these occur: Trouble breathing Confusion Fainting or loss of consciousness Rapid heart rate Seizure When to seek medical advice Call your healthcare provider right away if any of these occur: Pain gets worse or moves to the right lower abdomen New or worsening vomiting or diarrhea Swelling of the abdomen Unable to pass stool for more than 3 days Fever of 100.4 F (38 C) or higher, or as directed by your healthcare provider. Blood in vomit or bowel movements (dark red or black color) Yellow color of eyes and skin (jaundice) Weakness, dizziness Chest, arm, back, neck, or jaw pain Unexpected vaginal bleeding or missed period Can't keep down liquids or water and you are getting dehydrated 6580-3179 [employer] [address] [place] [address]. All rights reserved. This information is not intended as a substitute for professional medical care. Always follow yourhealthcare professional's instructions. Additional Information VACCINATE! IT SAVES LIVES! Members of the community who have not yet received the COVID-19 vaccine and would like to receive it can visit one of [facility] vaccine clinics. There are many vaccine clinic locations within the [facility]. For locations and available times, please visit [email or web address] It is important to note that some COVID mobile vaccine clinics are held outdoors and may be canceled in rainy or stormy conditions. To learn more about pediatric vaccinations (ages 5-11), we invite you to visit the [facility] webpage. [email or web address] learn more about the COVID-19 vaccine, we invite you to visit the CDC website for a list of frequently asked questions. https://www.cdc.gov/coronavirus/2019-ncov/vaccines/faq.html [facility] [employer] [facility] Patient Portal Access Instructions: Stay connected with your healthcare team and access your personal medical information anytime with the [facility] [employer] Patient Portal. If you would like a full copy of your medical records please contact the [facility] Medical Records Department Thursday through Thursday between 8a.m. and 4:30p.m. Please follow the directions below to access the portal: 1.Access the email account you provided upon registration to the [facility].2.Look for an invitation email from [facility].3.Open the email and access the invitation link: Accept Invitation to [facility]4.Fill in the required serra to create your account. Sign into www.[employer] with your username and password that you created in the above steps to stay up to date. You can then view a summary of results, a summary of your visits, and the ability to download your summaries to your computer or send the information securely to a physician. Remember that your healthcare information is confidential, so carefully consider who you will allow to register on the [facility] Patient Portal for access to your information. You can also access the [facility] Patient Portal on the [employer]. Simply click on Health Records under [employer] and then click on the [facility] logo. HOW TO SAFELY DISPOSE OF PRESCRIPTION MEDICATIONS Please use one of the following methods to safely dispose of your unused medications. 1.Use a drug disposal kit: the drug disposal pouch allows you to safely discard your old and unuseddrugs. Ask your nurse to give you one when you are discharged.2.Visit a local take-back location: Many local pharmacies and police departments have programs that collect old and unwanted prescriptiondrugs. Call your local pharmacy or go to http://Jaman.SiBEAM/8K1Hg2k to find one close to you.3.Make use of household items: Use cat litter or old coffee grounds to dispose medications if other options arenot available. Mix your drugs with these household products, seal them in an airtight container andthrow it into the garbage. Call [facility]: [phone] to be sure your drugs can be disposed of in this way. Some medicines may require a different approach.4.Never flush your medications down the toilet. IF YOU HAVE BEEN PRESCRIBED AN OPIOIDS FOR PAIN If you have been prescribed an opioid (such as hydrocodone, oxycodone or morphine), it is critical to understand the possible side effects and risks of opioid pain medications. Even when taken as directed, opioids can have several side effects including: Tolerance, meaning you might need to take more of a medication for the same pain relief. Nausea, vomiting and/or constipation. Sleepiness, dizziness, dry mouth, confusion, depression or itching. Physical dependence, meaning you have withdrawal symptoms when a medication is stopped ? this can develop within a few days. KNOW YOUR RESPONSIBILITIES It is important to know exactly how much and how often to take the opioid pain medications you are prescribed. Never take opioids in higher amounts or more often than prescribed. Do not combine opioids with alcohol or other drugs that cause drowsiness, such as benzodiazepines, also known as benzos,including diazepam and alprazolam, muscle relaxants or sleep aids. Never sell or share prescriptionopioids. This is illegal. Store opioids in a secure place and out of reach of others (including children, family, friends and visitors). The last page(s) of this document has been signed and retained as a CHART COPY Signatures Patient Education Materials Abdominal Pain, Unknown Cause, (Female) Medication Leaflets hyoscyamine My discharge plan and instructions have been reviewed and explained to me and I,BRITTNEE MARIE understand my current condition and have read and understand these discharge instructions. I have received a written copy of the plan/instructions. If I have questions, I am aware that I should contactmy doctor. 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 Multiplanar reformatted images are provided for review. Automated exposure control, iterative reconstruction, and/or weight based adjustment of the mA/kV was utilized to reduce the radiation dose to as low as reasonably achievable. COMPARISON: Chest x-ray 10/15/2022 HISTORY: ORDERING SYSTEM PROVIDED HISTORY: Reason for Exam: pain FINDINGS: The included lung bases show bibasilar scarring or atelectasis. Calcified hyperdense pleuroparenchymal nodular densities seen in medial left costal pleural sinus measuring 3 cm and 3.3 cm in maximum dimension. Another calcified nodular pleural based density seen in left anteromedial costal pleural sulcus posterior to left ventricle. Atelectasis/scarring with bronchiectasis in the medial right middle lobe. Trace left pleural effusion and small amount of pericardial fluid.. The heart is normal in size. The liver, spleen, adrenal glands, and pancreas are within normal limits. The gallbladder is normal. The kidneys enhance symmetrically. No evidence of hydronephrosis bilaterally. The large and small bowel demonstrate no obstruction. The appendix is surgically absent. No free intraperitoneal fluid or gas is identified. The aorta is normal in caliber. There is mild atherosclerosis of the larger arteries. There is no lymphadenopathy. The pelvic structures are grossly unremarkable. Intrauterine device seen. No filling defects seen in the urinary bladder. The abdominal wall is unremarkable. There is no acute fracture or aggressive osseous lesion. IMPRESSION: No acute abnormality within abdomen or pelvis. Trace left pleural effusion. Small amount of pericardial fluid. Hyperattenuating pleural based densities in the left lower thorax. Is there a history of pleurodesis? If there is no history of pleurodesis, follow-up CT thorax is advised to guide management. . I have personally reviewed the images of this examination and agree with the resident's findings and interpretation. Interpreted by: Federico Mccormick MD Preliminary Report By: Christos Tierney Electronically signed By Federico Mccormick MD Dictated Date: 11/13/2023 10:27:24 AM Prelim Date: 11/13/2023 11:00:21 AM Sign Date: 11/13/2023 11:00:21 AM Ordering Provider: [facility]07-26-2024 History of Present illness Narrative* Bam Cooney APRN.RECORDS MANAGEMENT ASSOCIATE - 11/13/2023 8:23 AM EDT Nontoxic-appearing female presents urgent care chief complaint abdominal pain. Duration of [id number] hours. Associated symptoms worsening abdominal pain. Patient states it feels like she is extremely bloated. Presents today for evaluation. Rates pain 9 out of 10. When I did examine patient's abdomen she is extremely tender with palpation. Abdomen is extended. With imaging and symptoms I recommend patient be seen the ED for further evaluation care. Will be sent [facility]. Bam Cooney APRN.CNP [facility] Instructions* Patient Instructions* Humera Garcia APRN.CNP - 11/11/2023 4:01 PM EDT Continue same medications Complete colonoscopy with Dr. Coronado on 12/02 Follow up in 3 months with potential pap, let us know if you change your mind! documented in this encounterK[facility] History of Present illness Narrative* Humera Garcia APRN.CNP - 11/11/2023 3:46 PM EDT This is a 48 year old female who presents today with: Patient presents with: Follow Up: Medication HISTORY OF PRESENT ILLNESS: Brittnee Marie is a 48 year old female. Patient presents with: Follow Up: Medication Pt presents for 1 month follow up GERD: - pt taking omeprazole once a day - since starting there have been no episodes of heartburn/reflux symptoms Pt saw Dr. Coronado with Gen Surgery Pt was prescribed a probiotic daily Pt scheduled to get colonoscopy on 12/02 Dr. Coronado deferred EGD due to cessation of reflux symptoms since starting omeprazole Pt taking Chantix for smoking cessation Pt currently down to 6 cigarettes daily Previously was smoking 2 packs daily before starting the medication Anxiety: - pt taking hydroxyzine as needed for anxiety - per pt, it works - reluctant to take at work due to drowsiness PAST MEDICAL HISTORY: PAST MEDICAL HISTORY Diagnosis Date Anxiety Bulging disc neck c6 Depression Migraine Pneumothorax, spontaneous, tension Prolapse, disk Neck Scoliosis Neck PAST SURGICAL HISTORY Procedure Laterality Date APPENDECTOMY 04/20/2002 COLONOSCOPY FLX DX W/COLLJ SPEC WHEN PFRMD 05/17/2014 Colonoscopy LIG/TRNSXJ FLP TUBE ABDL/VAG APPR UNI/BI 04/20/1994 Tubal ligation NECK SURGERY HX 08/2021 [facility] -- has hardware in neck OOPHORECTOMY PARTIAL/TOTAL UNI/BI 04/20/2009 right PAST SURGICAL HISTORY OF 04/20/2003 left lung -Harpal PAST SURGICAL HISTORY OF cervical /lumbar spine pain injections ALLERGIES Darvocet A500 [Propoxyphene N-Acetaminophen], Flexeril [Cyclobenzaprine Hcl], Iodine, Percocet [Oxycodone-Acetaminophen], Tape [Adhesive Tape (Rosins)], and Topiramate MEDICATIONS Current Outpatient Medications Medication Sig cimetidine (TAGAMET) 200 mg tablet Take 1 tablet by mouth four times daily. varenicline (CHANTIX STARTING MONTH BOX) 0.5 mg (11)- 1 mg (42) tablet Take 0.5 mg by mouth once daily on Days 1 through 3, THEN 0.5 mg twice daily on Days 4 through 7, THEN 1 mg twice daily on Day 8and thereafter hydrOXYzine HCl (ATARAX) 10 mg tablet Take 1 tablet by mouth three times a day as needed. varenicline (CHANTIX) 1 mg tablet TAKE 1 TABLET BY MOUTH TWICE A DAY WITH FOOD omeprazole (PRILOSEC) 20 mg capsule Take 1 capsule by mouth daily before breakfast. 1/2 hr before meal. acetaminophen (TYLENOL) 325 mg tablet Take 1-2 tablets by mouth every 4 hours as needed for Pain. No current facility-administered medications for this visit. FAMILY HISTORY Problem Relation Age of Onset No Known Problems Mother no personal ca, but reports cancer runs through that family (? leukemia). No Known Problems Father Diabetes Maternal Grandmother other (htn) Maternal Grandmother Cancer Maternal Grandfather lung other (old age) Paternal Grandmother Social History Tobacco Use Smoking status: Every Day Packs/day: 0.50 Years: 22.00 Additional pack years: 0.00 Total pack years: 11.00 Types: Cigarettes Smokeless tobacco: Never Vaping Use Vaping Use: Never used Substance Use Topics Alcohol use: Yes Comment: very rare Drug use: No EXAM: BP 110/80 (BP Site: Right Arm, BP Position: Sitting, BP Cuff Size: Regular Adult) Pulse 77 Temp36.9 C (98.5 F) Resp 16 Wt 71.2 kg (157 lb) LMP 06/02/2016 BMI 27.81 kg/m PHYSICAL EXAM: General Appearance: Well appearing, alert, in no acute distress, well-hydrated, well nourished.. Skin: Skin color, texture, turgor normal, no suspicious rashes or lesions. Head: Normocephalic, no masses, lesions, tenderness or abnormalities. Eyes: Anicteric sclera. Extraocular movements are intact. . Lungs: Lungs clear to auscultation. No wheezing, rhonchi, rales.. Heart: RRR without murmur, gallop, or rubs. No ectopy. Extremities: No deformities, edema, skin discoloration, clubbing or cyanosis. Good capillary refill. . Neurologic: Gait normal. ASSESSMENT/PLAN: 1. Gastroesophageal reflux disease, unspecified whether esophagitis present - ICD9: 530.81, ICD10: K21.9 (primary diagnosis) - Discussed lifestyle modifications including losing weight, limiting caffeine, no meals three hours before sleep, and head of bed elevation - Continue treatment with Prilosec 20 mg QD - following with Dr. Coronado with General Surgery 2. STEPHANIE (generalized anxiety disorder) - ICD9: 300.02, ICD10: F41.1 - pt feels anxiety is stable on hydroxyzine prn 3. Smoking trying to quit - ICD9: 305.1, ICD10: Z72.0 - Cessation encouraged. - pt taking Chantix 1mg BID - pt down to 6 cigarettes daily from 2 packs daily before starting treatment. Discussed treatment plan and patient voices understanding. Patient's questions answered appropriately. Medications and potential side effects were discussed and patient voices understanding. Return to the office as scheduled or as needed for worsening/no improvement. Humera Garcia APRN.CNP The patient indicates understanding of these issues and agrees with the plan. documented in this encounterK[facility] Telephone encounter Note * Telephone Encounter - Lin Cisneros APRN.CNP - 11/06/2023 8:24 AM EDT The following approved medication requests have been transmitted electronically. Requested Prescriptions Pending Prescriptions Disp Refills varenicline (CHANTIX) 1 mg tablet [Pharmacy Med Name: VARENICLINE 1 MG TABLET] 168 tablet 1 Sig: TAKE 1 TABLET BY MOUTH TWICE A DAY WITH FOOD Lin Cisneros APRN.CNP [facility]07-19-2024 Miscellaneous Notes* Telephone Encounter - Lin Cisneros APRN.CNP - 11/06/2023 8:24 AM EDT The following approved medication requests have been transmitted electronically. Requested Prescriptions Pending Prescriptions Disp Refills varenicline (CHANTIX) 1 mg tablet [Pharmacy Med Name: VARENICLINE 1 MG TABLET] 168 tablet 1 Sig: TAKE 1 TABLET BY MOUTH TWICE A DAY WITH FOOD Lin Cisneros APRN.CNP documented in this encounterK[facility]07-15-2024 Instructions* Patient Instructions* Annmarie Coronado MD - 11/02/2023 4:16 PM EDT Images from the original note were not included. Bowel Preparation Instructions for: Golytely, Nulytely, Trilyte or Colyte (polyethylene glycol 3350and electrolytes) IF YOU DO NOT FOLLOW THESE DIRECTIONS, YOUR COLONOSCOPY WILL BE CANCELLED. Garcia Instructions: Your bowel must be empty so that your doctor can clearly view your colon. Follow all of the instructions in this handout EXACTLY as they are written. Do NOT eat any solid food the ENTIRE day before your colonoscopy. Drink only clear liquids. Buy your bowel preparation at least 5 days before your colonoscopy. TRANSPORTATION on the Day of Your Exam A responsible person MUST be present with you at Check In prior to your colonoscopy and REMAIN in the endoscopy area until you are discharged. You are NOT ALLOWED to drive, take a taxi or bus, or leave the Endoscopy Center ALONE. If you do not have a responsible short haul driver (family member or friend) with you to take you home, your exam cannot be done with sedation and will be cancelled. Please bring a list of all of your current medications, including any Over-the Counter medications with you. Medications If you take insulin, diabetic medications or blood thinners such as Coumadin (warfarin), Plavix (clopidogrel), Ticlid (ticlopidine hydrochloride), Agrylin (anagrelide), Xarelto (Rivaroxaban), Pradaxa(Dabigatran), Eliquis (Apixaban), and Effient (Prasugrel). You MUST call the doctors who orders those medicines for instructions on altering the dosage before your colonoscopy. All other medications should be taken the day of the exam with a sip of water including ASPIRIN. Five (5) Days Before Your Colonoscopy Do NOT take medicines that stop diarrhea - such as Imodium, Kaopectate, or Pepto Bismol. Do NOT take fiber supplements - such as Metamucil, Citrucel, or Perdiem. Do NOT take products that contain iron - such as multi-vitamins (the label lists what is in the products). Do NOT take Vitamin E. Buy the prescription bowel preparation solution at your local pharmacy or drugstore pharmacy. 03/2019 Bowel Preparation Instructions for: Golytely, Nulytely, Trilyte or Colyte (polyethylene glycol 3350and electrolytes) Three (3) Days Before Your Colonoscopy Do NOT eat high-fiber foods - such as popcorn, beans, seeds (flax, sunflower, quinoa), multigrain bread, nuts, salad/vegetables, or fresh and dried fruit. One (1) Day Before Your Colonoscopy Only drink clear liquids the ENTIRE DAY before your colonoscopy. Do NOT eat any solid foods. Drink at least 8 ounces of clear liquids every hour after waking up. The clear liquids you can drink include: Clear Liquid (NO RED LIQUIDS) DO NOT DRINK Gatorade, Pedialyte or Powerade Clear broth or bouillon Coffee or tea (no milk or non-dairy creamer) Carbonated and non-carbonated soft drinks Jakub-Aid or other fruit flavored drinks Strained fruit juices (no pulp) Jell-O, popsicles, hard candy Water Alcohol Milk or non-dairy creamers Noodles or vegetables in soup Juice with pulp Liquid you cannot see through Do not use tobacco/vaping products The bowel preparation solution will be consumed in two parts. Mix the solution the evening before your colonoscopy and refrigerate before drinking. You may add the flavor pack that came with the bowel preparation. Do NOT add ice, sugar or any other flavorings to the solution. Part 1 At 6:00 PM - Evening before your colonoscopy Drink an 8-oz glass of bowel preparation every 10 minutes for a total of 8 glasses. You may continue to drink clear liquids until midnight. Part 2 On the day of your colonoscopy you may drink clear liquids up to (three) 3 hours before your procedure. 4 1/2 hours before your colonoscopy Drink an 8-oz glass of bowel preparation every 10 minutes for a total of 8 glasses. Fifteen (15) minutes later, drink an 8-oz glass of clear liquids every 15 minutes for a total of 2 glasses. You may continue to drink clear liquids up to (three) 3 hours before your exam. 2 03/2019 documented in this encounterK[facility]-15-[facility] History of Present illness Narrative* Annmarie Coronado MD - 11/02/2023 4:10 PM EDT HISTORY AND PHYSICAL Brittnee Graff Frank 1975 REFERRING PHYSICIAN: Humera Garcia APRN.C* CHIEF COMPLAINT: Consult (Screening for colon cancer) HPI: The patient is a 48 year old female referred for endoscopy. Brittnee notes lower abdominal cramping pain and bloating for years. She denies blood in stools. She denies changes in bowel habits. She notes occasional constipation. The patient notes no colon cancer in immediate family. The patient has had previous colonoscopy in 2014 with MAC. She also had history of acid reflux, but states that she is asymptomatic on PPI PAST MEDICAL HISTORY Diagnosis Date Anxiety Bulging disc neck c6 Depression Migraine Pneumothorax, spontaneous, tension Prolapse, disk Neck Scoliosis Neck PAST SURGICAL HISTORY Procedure Laterality Date APPENDECTOMY 04/20/2002 COLONOSCOPY FLX DX W/COLLJ SPEC WHEN PFRMD 05/17/2014 Colonoscopy LIG/TRNSXJ FLP TUBE ABDL/VAG APPR UNI/BI 04/20/1994 Tubal ligation NECK SURGERY HX 08/2021 [facility] -- has hardware in neck OOPHORECTOMY PARTIAL/TOTAL UNI/BI 04/20/2009 right PAST SURGICAL HISTORY OF 04/20/2003 left lung -[facility]arpal PAST SURGICAL HISTORY OF cervical /lumbar spine pain injections Current Outpatient Medications Medication Sig cimetidine (TAGAMET) 200 mg tablet Take 1 tablet by mouth four times daily. omeprazole (PRILOSEC) 20 mg capsule Take 1 capsule by mouth daily before breakfast. 1/2 hr before meal. varenicline (CHANTIX STARTING MONTH BOX) 0.5 mg (11)- 1 mg (42) tablet Take 0.5 mg by mouth once daily on Days 1 through 3, THEN 0.5 mg twice daily on Days 4 through 7, THEN 1 mg twice daily on Day 8and thereafter varenicline (CHANTIX CONTINUING MONTH BOX) 1 mg tablet Take 1 tablet by mouth two times a day with meals. hydrOXYzine HCl (ATARAX) 10 mg tablet Take 1 tablet by mouth three times a day as needed. acetaminophen (TYLENOL) 325 mg tablet Take 1-2 tablets by mouth every 4 hours as needed for Pain. No current facility-administered medications for this visit. ALLERGIES: Darvocet A500 [Propoxyphene N-Acetaminophen], Flexeril [Cyclobenzaprine Hcl], Iodine, Percocet [Oxycodone-Acetaminophen], Tape [Adhesive Tape (Rosins)], and Topiramate PERSONAL HISTORY: Social History Tobacco Use Smoking status: Every Day Packs/day: 0.50 Years: 22.00 Additional pack years: 0.00 Total pack years: 11.00 Types: Cigarettes Smokeless tobacco: Never Vaping Use Vaping Use: Never used Substance Use Topics Alcohol use: Yes Comment: very rare Drug use: No FAMILY HISTORY Problem Relation Age of Onset No Known Problems Mother no personal ca, but reports cancer runs through that family (? leukemia). No Known Problems Father Diabetes Maternal Grandmother other (htn) Maternal Grandmother Cancer Maternal Grandfather lung other (old age) Paternal Grandmother The review of systems data was entered by the nurse and reviewed by de Nursing Notes: Cherelle Felder LPN 11/02/2023 3:55 PM Signed REVIEW OF SYSTEMS: General: The patient denies fatigue, denies weight loss, denies weight gain, denies feeling hot, and denies feelings of cold. Eyes: The patient denies glaucoma, denies eye injury/surgery, does not wear glasses or contacts. Ear/Nose/Throat: The patient NOTES allergies, denies hayfever, denies ear infections, and denies bloody noses. Cardiovascular: The patient denies chest pain, denies heart disease, denies high blood pressure,denies cardiac stent, denies prior heart attack, denies irregular heart beat, denies high cholesterol, denies poor circulation, denies heart failure, other cardiac issues, denies claudication, denies cold feet, denies peripheral arterial stent. Respiratory: The patient denies tuberculosis, denies pneumonia, denies frequent cough, denies pulmonary embolism, denies shortness of breath, and denies coughing up blood. Gastrointestinal: The patient denies difficulty swallowing, NOTES acid reflux, denies ulcers, denies vomiting, denies jaundice/hepatitis, denies gallbladder problems, denies black or tarry stools, denies hemorrhoids, denies bleeding from rectum, denies diverticulitis, NOTES constipation, denies diarrhea, denies loss of stool control, and denies hernias. Kidney/Bladder: The patient denies kidney stones, denies urine infections, and denies bloody urine. Skin: The patient denies a history of skin cancer, denies bleeding/changing moles, and denies a history of skin rash. Neurologic: The patient denies a history of epilepsy/convulsions, denies headaches, denies head/spinal injuries, and denies stroke/TIA. Psychiatric: The patient denies psychiatric medications, denies depression, and denies voices, denies substance abuse. Endocrine: The patient denies thyroid disorders, denies diabetes, and denies hormonal problems. Hematologic: The patient denies a history of bruising, denies bleeding, and denies anemia, denies blood clots. Infections: The patient denies a history of measles and mumps, denies rheumatic fever, and denies sexually transmitted diseases. Musculoskeletal: The patient denies back pain/injury, NOTES back problems, denies sciatica, denies knee/foot trouble, denies arthritis, or denies gout. When was patient's last Mammogram screening? N/a Last Colonoscopy: 2014 Cherelle Felder LPN PHYSICAL EXAMINATION: General: The patient is 48 year old female, well nourished, well hydrated in no acute distress. Thepatient is oriented to time, place, and person. VITALS: Blood pressure 106/80, pulse 88, temperature 36.9 C (98.5 F), height 160 cm (5' 3), suejur97.8 kg (156 lb), last menstrual period 06/02/2016, SpO2 96%. Body mass index is 27.63 kg/m . Head: Normal cephalic, atraumatic Eyes: pupils are equally round, sclera are clear/anicteric Neck is supple with no tracheal deviation Cardiac: normal heart sounds, regular Respiratory: Normal respiratory excursion and pattern. Abdominal exam: benign Extremities: no clubbing, cyanosis or edema. Neuro: non focal Psych: normal mood Assessment IMPRESSION: screening for colon cancer PLAN: I have discussed the above with the patient. I have offered colonoscopy , possible biopsies I have explained the procedure to the patient. I have counseled the patient as to the risks of the procedure, including but not limited to: infection, bleeding, injury to any intrabdominal organs such as liver/spleen, perforation of the GI tract,inability to complete the procedure, complications of anesthesia, etc. - the patient understands. I have suggested that she trial BEANO and probiotics for abdominal cramping and bloating. She defers EGD for now , since she is feeling much improved and has no symptoms on PPI The patient wishes to proceed. I have answered all questions to the patient s satisfaction and the patient has no further questions. My clinic staff has educated the patient as to the colon cleansing regimen and I have prescribed Golytely for the colon cleansing solution. The patient will be scheduled for the procedure at [facility] Diagnoses: (Z12.11) Screening for colon cancer (K21.9) Gastroesophageal reflux disease, unspecified whether esophagitis present I have confirmed and edited as necessary, the PFSH and ROS obtained by others. Consultation requested by Humera Garcia for an opinion regarding patient's screening for colon cancer. My final recommendations will be communicated back to the requesting physician by way of sharedMedical record or letter to requesting physician via US mail. Medical Decision Making: Problems: Low: Stable chronic illness Risk: Moderate: Decision on minor surgery w/ risk factors Medical Decision Making Level: 3 - Low Annmarie Coronado MD documented in this encounterK[facility] Nurse Note* Cherelle Felder LPN - 11/02/2023 3:53 PM EDT REVIEW OF SYSTEMS: General: The patient denies fatigue, denies weight loss, denies weight gain, denies feeling hot, and denies feelings of cold. Eyes: The patient denies glaucoma, denies eye injury/surgery, does not wear glasses or contacts. Ear/Nose/Throat: The patient NOTES allergies, denies hayfever, denies ear infections, and denies bloody noses. Cardiovascular: The patient denies chest pain, denies heart disease, denies high blood pressure,denies cardiac stent, denies prior heart attack, denies irregular heart beat, denies high cholesterol, denies poor circulation, denies heart failure, other cardiac issues, denies claudication, denies cold feet, denies peripheral arterial stent. Respiratory: The patient denies tuberculosis, denies pneumonia, denies frequent cough, denies pulmonary embolism, denies shortness of breath, and denies coughing up blood. Gastrointestinal: The patient denies difficulty swallowing, NOTES acid reflux, denies ulcers, denies vomiting, denies jaundice/hepatitis, denies gallbladder problems, denies black or tarry stools, denies hemorrhoids, denies bleeding from rectum, denies diverticulitis, NOTES constipation, denies diarrhea, denies loss of stool control, and denies hernias. Kidney/Bladder: The patient denies kidney stones, denies urine infections, and denies bloody urine. Skin: The patient denies a history of skin cancer, denies bleeding/changing moles, and denies a history of skin rash. Neurologic: The patient denies a history of epilepsy/convulsions, denies headaches, denies head/spinal injuries, and denies stroke/TIA. Psychiatric: The patient denies psychiatric medications, denies depression, and denies voices, denies substance abuse. Endocrine: The patient denies thyroid disorders, denies diabetes, and denies hormonal problems. Hematologic: The patient denies a history of bruising, denies bleeding, and denies anemia, denies blood clots. Infections: The patient denies a history of measles and mumps, denies rheumatic fever, and denies sexually transmitted diseases. Musculoskeletal: The patient denies back pain/injury, NOTES back problems, denies sciatica, denies knee/foot trouble, denies arthritis, or denies gout. When was patient's last Mammogram screening? N/a Last Colonoscopy: 2014 Cherelle Felder LPN [facility] Nurse Note* Cherelle Felder LPN - 11/02/2023 3:53 PM EDT REVIEW OF SYSTEMS: General: The patient denies fatigue, denies weight loss, denies weight gain, denies feeling hot, and denies feelings of cold. Eyes: The patient denies glaucoma, denies eye injury/surgery, does not wear glasses or contacts. Ear/Nose/Throat: The patient NOTES allergies, denies hayfever, denies ear infections, and denies bloody noses. Cardiovascular: The patient denies chest pain, denies heart disease, denies high blood pressure,denies cardiac stent, denies prior heart attack, denies irregular heart beat, denies high cholesterol, denies poor circulation, denies heart failure, other cardiac issues, denies claudication, denies cold feet, denies peripheral arterial stent. Respiratory: The patient denies tuberculosis, denies pneumonia, denies frequent cough, denies pulmonary embolism, denies shortness of breath, and denies coughing up blood. Gastrointestinal: The patient denies difficulty swallowing, NOTES acid reflux, denies ulcers, denies vomiting, denies jaundice/hepatitis, denies gallbladder problems, denies black or tarry stools, denies hemorrhoids, denies bleeding from rectum, denies diverticulitis, NOTES constipation, denies diarrhea, denies loss of stool control, and denies hernias. Kidney/Bladder: The patient denies kidney stones, denies urine infections, and denies bloody urine. Skin: The patient denies a history of skin cancer, denies bleeding/changing moles, and denies a history of skin rash. Neurologic: The patient denies a history of epilepsy/convulsions, denies headaches, denies head/spinal injuries, and denies stroke/TIA. Psychiatric: The patient denies psychiatric medications, denies depression, and denies voices, denies substance abuse. Endocrine: The patient denies thyroid disorders, denies diabetes, and denies hormonal problems. Hematologic: The patient denies a history of bruising, denies bleeding, and denies anemia, denies blood clots. Infections: The patient denies a history of measles and mumps, denies rheumatic fever, and denies sexually transmitted diseases. Musculoskeletal: The patient denies back pain/injury, NOTES back problems, denies sciatica, denies knee/foot trouble, denies arthritis, or denies gout. When was patient's last Mammogram screening? N/a Last Colonoscopy: 2014 Cherelle Felder LPN [facility] Instructions* Patient Instructions* Humera Garcia APRN.KELLY - 10/12/2023 6:26 PM EDT Return for fasting labs. Schedule w/ general surg for colonoscopy and EGD. Schedule mammogram. Start the chantix. Start the omeprazole. You can use the hydroxyzine as needed for anxiety -- this could cause drowsiness. Recheck in 1 month. Health Promotion: - Eat healthy -- go to [email or web address] to get started - Have a yearly physical - Mammogram yearly after age 40 - Get at least 30 minutes of physical activity daily - Get at least 7 to 8 hours of sleep each night - Reach and maintain a healthy weight - Get help to quit or don't start smoking - Limit alcohol use to one drink or less - Do not use illegal drugs or misuse prescription drugs - Wear a helmet when riding a bike and wear protective gear for sports - Wear a seatbelt in cars and not text and drive - Wear sunscreen documented in this encounterK[facility] History of Present illness Narrative* Humera Garcia APRN.KELLY - 10/12/2023 5:41 PM EDT This is a 48 year old female who presents today with: Patient presents with: Establish Care HISTORY OF PRESENT ILLNESS: Brittnee Marie is a 48 year old female. Patient presents with: Establish Care Pt presents today to establish care. Heartburn Worse with laying down. Also notices when she bends over at the waist. Chest burning. Taking tagamet -- some nights helpful and some nights not. Tried drinking milk, but didn't help. Never had EGD. No known food triggers. Tries to avoid eating prior to bedtime. Depression/anxiety Not out of control, but some days doesn't want to leave house. Took medication in the past, which helped. Refers the as needed medications were more effective. Tobacco use. Interested in smoking cessation Tried gum and patches. Smokes 1/2 ppd. REVIEW OF SYSTEMS GENERAL: No weight loss, malaise or fevers/chills. Has had weight gain since neck surgery 2 years ago. HEENT: Negative for frequent or significant headaches, occ headache from neck, but doable. No changes in hearing or vision. NECK: Negative for lumps, goiter, pain and significant neck swelling RESPIRATORY: Negative for cough, hemoptysis, wheezing, dyspnea or shortness of breath CARDIOVASCULAR: Negative for chest pain, leg swelling, orthopnea. + occ palpitations - generally w/anxiety. GI: No nausea, vomiting, or diarrhea. + constipation. No hematochezia/melena. No heartburn or reflux symptoms. Last colonoscopy 2014. : No history of dysuria, frequency or incontinence. Amenorrheic. MUSCULOSKELETAL: Negative for joint pain or swelling. Gets muscle pain in the legs and feet. SKIN: Negative for lesions, rash, and itching ENDOCRINE: Negative for cold or heat intolerance, polyuria, polydipsia and goiter. Doesn't like cold. Cold all the time. NEURO: No history of syncope, paralysis, seizures or tremors PAST MEDICAL HISTORY: PAST MEDICAL HISTORY Diagnosis Date Anxiety Bulging disc neck c6 Depression Migraine Pneumothorax, spontaneous, tension Prolapse, disk Neck Scoliosis Neck PAST SURGICAL HISTORY Procedure Laterality Date APPENDECTOMY 2003 COLONOSCOPY FLX DX W/COLLJ SPEC WHEN PFRMD 05/17/14 Colonoscopy LIG/TRNSXJ FLP TUBE ABDL/VAG APPR UNI/BI 1994 Tubal ligation OOPHORECTOMY PARTIAL/TOTAL UNI/BI 2010 right PAST SURGICAL HISTORY OF 2004 left lung -Harpal PAST SURGICAL HISTORY OF cervical /lumbar spine pain injections ALLERGIES Darvocet A500 [Propoxyphene N-Acetaminophen], Flexeril [Cyclobenzaprine Hcl], Hydrocodone-Acetaminophen, Iodine, Norflex [Orphenadrine Citrate], Percocet [Oxycodone-Acetaminophen], Tape [Adhesive Tape (Rosins)], and Topiramate MEDICATIONS Current Outpatient Medications Medication Sig cimetidine (TAGAMET) 200 mg tablet Take 1 tablet by mouth four times daily. omeprazole (PRILOSEC) 20 mg capsule Take 1 capsule by mouth daily before breakfast. 1/2 hr before meal. varenicline (CHANTIX STARTING MONTH BOX) 0.5 mg (11)- 1 mg (42) tablet Take 0.5 mg by mouth once daily on Days 1 through 3, THEN 0.5 mg twice daily on Days 4 through 7, THEN 1 mg twice daily on Day 8and thereafter varenicline (CHANTIX CONTINUING MONTH BOX) 1 mg tablet Take 1 tablet by mouth two times a day with meals. DULoxetine (CYMBALTA) 30 mg capsule Take 1 capsule by mouth once daily. For 2 weeks then increase to 2 tabs daily if tolerating (Patient not taking: Reported on 04/26/2021 ) acetaminophen (TYLENOL) 325 mg tablet Take 1-2 tablets by mouth every 4 hours as needed for Pain. No current facility-administered medications for this visit. FAMILY HISTORY Problem Relation Age of Onset Cancer Maternal Grandfather lung Social History Tobacco Use Smoking status: Every Day Packs/day: 0.50 Years: 22.00 Additional pack years: 0.00 Total pack years: 11.00 Types: Cigarettes Smokeless tobacco: Never Vaping Use Vaping Use: Never used Substance Use Topics Alcohol use: No Comment: rare Drug use: No EXAM: BP 110/82 Pulse 82 Resp 16 Wt 69.9 kg (154 lb) LMP 06/02/2016 SpO2 97% BMI 26.43 kg/m PHYSICAL EXAM: General Appearance: Well appearing, alert, in no acute distress, well-hydrated, well nourished.. Skin: Skin color, texture, turgor normal, no suspicious rashes or lesions. Head: Normocephalic, no masses, lesions, tenderness or abnormalities. Eyes: Anicteric sclera. Pupils are equally round and reactive to light. Extraocular movements are intact. . Ears: External ears normal, canals clear. Normal TMs bilaterally. Oropharynx: Lips, mucosa, and tongue normal, teeth and gums normal, oropharynx normal. Neck: Supple, no adenopathy; thyroid symmetric, normal size, no bruits. Lungs: Lungs clear to auscultation. No wheezing, rhonchi, rales.. Heart: RRR without murmur, gallop, or rubs. No ectopy. Abdomen: Abdomen soft, w/ generalized tenderness. No rebound/guarding. Bowel sounds normal. No masses, organomegaly. Extremities: No deformities, edema, skin discoloration, clubbing or cyanosis. Good capillary refill. . Neurologic: Gait normal. Reflexes normal and symmetric. Sensation grossly intact.. ASSESSMENT/PLAN: 1. Wellness examination - ICD9: V70.0, ICD10: Z00.00 (primary diagnosis) Try to get up-to-date on health maintenance. Will get labs. Schedule mammogram. Return for pap. - COMPLETE BLOOD COUNT AND DIFFERENTIAL - COMPREHENSIVE METABOLIC PANEL - LIPID PANEL BASIC Health Promotion: - Eat healthy -- go to [email or web address] to get started - Have a yearly physical - Mammogram yearly after age 40 - Get at least 30 minutes of physical activity daily - Get at least 7 to 8 hours of sleep each night - Reach and maintain a healthy weight - Get help to quit or don't start smoking - Limit alcohol use to one drink or less - Do not use illegal drugs or misuse prescription drugs - Wear a helmet when riding a bike and wear protective gear for sports - Wear a seatbelt in cars and not text and drive - Wear sunscreen 2. Cold intolerance - ICD9: 780.99, ICD10: R68.89 Check labs. - COMPLETE BLOOD COUNT AND DIFFERENTIAL 3. Fatigue, unspecified type - ICD9: 780.79, ICD10: R53.83 Check labs. - COMPLETE BLOOD COUNT AND DIFFERENTIAL - COMPREHENSIVE METABOLIC PANEL - THYROID STIMULATING HORMONE - T4 FREE/FREE THYROXINE 4. Screening for colon cancer - ICD9: V76.51, ICD10: Z12.11 - CONSULT TO GENERAL SURGERY 5. Gastroesophageal reflux disease, unspecified whether esophagitis present - ICD9: 530.81, ICD10: K21.9 - Discussed lifestyle modifications including limiting caffeine, no meals three hours before sleep,and head of bed elevation - Begin treatment with Prilosec 20 mg daily - Setup for EGD - CONSULT TO GENERAL SURGERY - OMEPRAZOLE 20 MG CAPSULE,DELAYED RELEASE 6. Visit for screening mammogram - ICD9: V76.12, ICD10: Z12.31 - Set up for mammogram, yearly mammogram recommended - [facility] SCREENING 7. STEPHANIE (generalized anxiety disorder) - ICD9: 300.02, ICD10: F41.1 - HYDROXYZINE HCL 10 MG TABLET Discussed potential side effects of ordered medications. Patient voices understanding. Discussed treatment plan and patient voices understanding. Patient's questions answered appropriately. Medications and potential side effects were discussed and patient voices understanding. Return to the office as scheduled or as needed for worsening/no improvement. Humera Garcia APRN.KELLY documented in this encounter[facility] Telephone encounter Note * Telephone Encounter - Aniceto Morrison LPN - 10/07/2023 12:58 PM EDT Pt scheduled. Aniceto Morrison LPN [facility] Miscellaneous Notes* Telephone Encounter - Aniceto Morrison LPN - 10/07/2023 12:58 PM EDT Pt scheduled. Aniceto Morrison LPN * Telephone Encounter - Aniceto Morrison LPN - 10/05/2023 2:40 PM EDT Schedulers please assist pt with scheduling pt for 40min Establish Care visit with Ghulam Garcia CNP. Aniceto Morrison LPN * Telephone Encounter - Humera Garcia APRN.CNP - 10/05/2023 2:26 PM EDT That is fine. Humera Garcia APRN.CNP * Telephone Encounter - Aniceto Morrison LPN - 10/05/2023 1:38 PM EDT Pt daughter asking if provider will accept pt. Pt daughter, Laverne Baeza, is a pt of Dr. Calle. Please advise. Aniceto Morrison LPN documented in this encounterK[facility]06-17-2024 Telephone encounter Note * Telephone Encounter - Aniceto Morrison LPN - 10/05/2023 2:40 PM EDT Schedulers please assist pt with scheduling pt for 40min Establish Care visit with Ghulam Garcia CNP. Aniceto Morrison LPN [facility] Telephone encounter Note* Telephone Encounter - Humera Garcia APRN.CNP - 10/05/2023 2:26 PM EDT That is fine. Humera Garcia APRN.KELLY [facility] Work Phone: [phone] Telephone encounter Note* Telephone Encounter - Aniceto Morrison LPN - 10/05/2023 1:38 PM EDT Pt daughter asking if provider will accept pt. Pt daughter, Laverne Baeza, is a pt of Dr. Calle. Please advise. Aniceto Morrison LPN [facility] History of Present illness Narrative* Carmencita Delgado PA - 08/07/2023 2:52 PM EDT Images from the original note were not included. This note was created using NoteWriter. Trevin Graff Frank is a 47 year old female. HPI 47-year-old female presents for rash. Patient states that she noticed a rash on her lower legs a few weeks ago. She states that it went away. She has a similar rash on her right hand/arm now. States the rash is itchy and burning feeling when she itches it. She denies any rash anywhere else. No fevers. Denies any new lotions, detergents, body washes. No new exposures that she is aware of. No new medication. States she has been outside, but not aware of any poison she was in. Nobody else at home has similar rash. No other complaint. Has not tried anything at home for the rash. PAST MEDICAL HISTORY Diagnosis Date Anxiety Bulging disc neck c6 Depression Migraine Pneumothorax, spontaneous, tension Prolapse, disk Neck Scoliosis Neck PAST SURGICAL HISTORY Procedure Laterality Date APPENDECTOMY 2002 COLONOSCOPY FLX DX W/COLLJ SPEC WHEN PFRMD 05/17/14 Colonoscopy LIG/TRNSXJ FLP TUBE ABDL/VAG APPR UNI/BI 1994 Tubal ligation OOPHORECTOMY PARTIAL/TOTAL UNI/BI 2010 right PAST SURGICAL HISTORY OF 2004 left lung -Harpal PAST SURGICAL HISTORY OF cervical /lumbar spine pain injections ALLERGIES Darvocet A500 [Propoxyphene N-Acetaminophen], Flexeril [Cyclobenzaprine Hcl], Hydrocodone-Acetaminophen, Iodine, Norflex [Orphenadrine Citrate], Percocet [Oxycodone-Acetaminophen], Tape [Adhesive Tape (Rosins)], and Topiramate MEDICATIONS triamcinolone acetonide (KENALOG) 0.1 % cream Apply 1 application to affected area two times a day for 7 days. Apply to affected area. Use sparingly. omeprazole (PRILOSEC) 20 mg capsule Take 1 capsule by mouth daily before breakfast. (Patient not taking: Reported on 04/26/2021 ) DULoxetine (CYMBALTA) 30 mg capsule Take 1 capsule by mouth once daily. For 2 weeks then increase to 2 tabs daily if tolerating (Patient not taking: Reported on 04/26/2021 ) acetaminophen (TYLENOL) 325 mg tablet Take 1-2 tablets by mouth every 4 hours as needed for Pain. FAMILY HISTORY Problem Relation Age of Onset Cancer Maternal Grandfather lung Social History Tobacco Use Smoking status: Every Day Packs/day: 0.50 Years: 22.00 Additional pack years: 0.00 Total pack years: 11.00 Types: Cigarettes Smokeless tobacco: Never Vaping Use Vaping Use: Never used Substance Use Topics Alcohol use: No Comment: rare Drug use: No Review of Systems Constitutional: Negative for chills and fever. HENT: Negative for congestion, ear pain and sore throat. Respiratory: Negative for cough and shortness of breath. Cardiovascular: Negative for chest pain. Gastrointestinal: Negative for diarrhea and vomiting. Skin: Positive for rash. Objective BP 122/62 Pulse 103 Temp 36.8 C (98.2 F) Resp 18 LMP 06/02/2016 SpO2 97% Physical Exam Vitals and nursing note reviewed. Constitutional: General: She is not in acute distress. Appearance: Normal appearance. She is not toxic-appearing. HENT: Nose: Nose normal. Mouth/Throat: Mouth: Mucous membranes are moist. Eyes: Conjunctiva/sclera: Conjunctivae normal. Cardiovascular: Rate and Rhythm: Normal rate and regular rhythm. Pulmonary: Effort: Pulmonary effort is normal. Breath sounds: Normal breath sounds. Skin: General: Skin is warm and dry. Findings: Rash present. Comments: Erythematous raised lesions noted over ulnar side of right forearm and hand. No lesions in the inner webspaces of the hand. No rash anywhere else. No warmth, swelling or surrounding erythema. Neurological: Mental Status: She is alert. Assessment and Plan ASSESSMENT/PLAN: 1. Rash - ICD9: 782.1, ICD10: R21 -Rash appears consistent with possible contact dermatitis. -It is localized to her arm. -Rx for triamcinolone ointment. -Recommend Benadryl and Claritin OTC. -If symptoms persist, follow-up with PCP. Diagnosis and treatment plan were discussed and questions were answered to the patient's satisfaction. Pt acknowledged understanding of concepts and follow up plan. Specific signs and symptoms that would indicate the need for higher level of care were discussed in detail warranting prompt ER evaluation. RADHA Sykes documented in this encounterK[facility] Hospital Discharge instructions Patient Education 06/10/2023 08:32:31 Pneumonia (Adult) Pneumonia (Adult) Pneumonia is an infection deep within the lungs. It is in the small air sacs (alveoli). Pneumonia may be caused by a virus or bacteria. Pneumonia caused by bacteria is usually treated with an antibiotic. Severe cases may need to be treated in the hospital. Milder cases can be treated at home. Symptoms usually start to get better during the first 2 days of treatment. Home care Follow these guidelines when caring for yourself at home: Rest at home for the first 2 to 3 days, or until you feel stronger. Don t let yourself get overly tired when you go back to your activities. Stay away from cigarette smoke yours or other people s. You may use acetaminophen or ibuprofen to control fever or pain, unless another medicine was prescribed. If you have chronic liver or kidney disease, talk with your healthcare provider before using these medicines. Also talk with your provider if you ve had a stomach ulcer or gastrointestinal bleeding. Don t give aspirin to anyone younger than 18 years of age who is ill with a fever. It may causesevere liver damage. Your appetite may be poor, so a light diet is fine. Drink 6 to 8 glasses of fluids every day to make sure you are getting enough fluids. Beverages can include water, sport drinks, sodas without caffeine, juices, tea, or soup. Fluids will help loosen secretions in the lung. This will make it easier for you to cough up the phlegm (sputum). If you alsohave heart or kidney disease, check with your healthcare provider before you drink extra fluids. Take antibiotic medicine prescribed until it is all gone, even if you are feeling better after a few days. Follow-up care Follow up with your healthcare provider in the next 2 to 3 days, or as advised. This is to be sure the medicine is helping you get better. If you are 65 or older, you should get a pneumococcal vaccine and a yearly flu (influenza) shot. You should also get these vaccines if you have chronic lung disease like asthma, emphysema, or COPD. Recently, a second type of pneumonia vaccine has become available for everyone over 65 years old. This is in addition to the previous vaccine. Ask your provider about this. When to seek medical advice Call your healthcare provider right away if any of these occur: You don t get better within the first 48 hours of treatment Shortness of breath gets worse Rapid breathing (more than 25 breaths per minute) Coughing up blood Chest pain gets worse with breathing Fever of 100.4 F (38 C) or higher that doesn t get better with fever medicine Weakness, dizziness, or fainting that gets worse Thirst or dry mouth that gets worse Sinus pain, headache, or a stiff neck Chest pain not caused by coughing [id number] [employer] [address] [place] [address]. All rights reserved. This information is not intended as a substitute for professional medical care. Always follow yourhealthcare professional's instructions. Follow Up Care 06/10/2023 06:41:33 With:BRAEDEN GONZALEZ Address: [address] [place] [phone] When:2-4 days [facility] 02-21-2024 Note Discharge Instructions Thank you for allowing [facility] to assist you with your healthcare needs. The following is importantdischarge information regarding your hospital visit. Diagnosis from Today's Visit Body aches Cough Pneumonia What to Do Next Instructions from Your Care Team Discharge Return to Work, School, or Sports (Return to Work, School, or Sports) - Ordered -- 06/10/23, 06/15/23, May return to: work, 06/10/23 8:35:00 EST Post Acute Orders No qualifying data available. You Need to Schedule the Following Appointments Follow Up with BRAEDEN GONZALEZ When Within 2-4 days Where: [address] [place] [phone] Allergies Darvocet (Percocet Tablets, hives) Percocet 5/325 (hives, Hives) Tape (welts, cooney) Vicodin (Hives) povidone iodine topical (welts, b urns) Latex Lortab [place] topiramate (Rash) Medications Please ask your primary doctor or pharmacist before taking any other medication not listed, including over the counter drugs, herbal medications, vitamins and or supplements as they may interact withyour home medications. What How Much When Why Instructions Last Dose New amoxicillin-clavulanate (amoxicillin-clavulanate 875 mg-125 mg oral tablet) 1 tab(s) by mouth Every 12 hours Duration: 7 Days Printed Prescription New benzonatate (Tessalon Perles 100 mg oral capsule) 1 cap by mouth Three (3) times a day as needed for as needed for cough Duration: 7 Days Printed Prescription Unchanged albuterol (albuterol MDI (90 mcg/ inh) CFC free inhalation aerosol) 2 puff(s) by inhalation Every 4 hours as needed for as needed for wheezing Acute bronchitis Unchanged cyclobenzaprine (cyclobenzaprine 10 mg oral tablet) 1 tab(s) by mouth Three (3) times a day as needed for for spasm Unchanged traMADol (traMADol 50 mg oral tablet) TAKE 1 TABLET BY MOUTH EVERY 6 HOURS NEEDED FOR PAIN FOR 7 DAYS. Please take this list to your next doctor s visit. Bring all medications you take, including over the counter medications, herbals and other supplements with you to your doctor s visit. Patients and families are reminded to discard old lists and to update any records with all medication providers or retail pharmacies. Education Materials Pneumonia (Adult) Pneumonia is an infection deep within the lungs. It is in the small air sacs (alveoli). Pneumonia may be caused by a virus or bacteria. Pneumonia caused by bacteria is usually treated with an antibiotic. Severe cases may need to be treated in the hospital. Milder cases can be treated at home. Symptoms usually start to get better during the first 2 days of treatment. Home care Follow these guidelines when caring for yourself at home: Rest at home for the first 2 to 3 days, or until you feel stronger. Don t let yourself get overly tired when you go back to your activities. Stay away from cigarette smoke yours or other people s. You may use acetaminophen or ibuprofen to control fever or pain, unless another medicine was prescribed. If you have chronic liver or kidney disease, talk with your healthcare provider before using these medicines. Also talk with your provider if you ve had a stomach ulcer or gastrointestinal bleeding. Don t give aspirin to anyone younger than 18 years of age who is ill with a fever. It may causesevere liver damage. Your appetite may be poor, so a light diet is fine. Drink 6 to 8 glasses of fluids every day to make sure you are getting enough fluids. Beverages can include water, sport drinks, sodas without caffeine, juices, tea, or soup. Fluids will help loosen secretions in the lung. This will make it easier for you to cough up the phlegm (sputum). If you alsohave heart or kidney disease, check with your healthcare provider before you drink extra fluids. Take antibiotic medicine prescribed until it is all gone, even if you are feeling better after a few days. Follow-up care Follow up with your healthcare provider in the next 2 to 3 days, or as advised. This is to be sure the medicine is helping you get better. If you are 65 or older, you should get a pneumococcal vaccine and a yearly flu (influenza) shot. You should also get these vaccines if you have chronic lung disease like asthma, emphysema, or COPD. Recently, a second type of pneumonia vaccine has become available for everyone over 65 years old. This is in addition to the previous vaccine. Ask your provider about this. When to seek medical advice Call your healthcare provider right away if any of these occur: You don t get better within the first 48 hours of treatment Shortness of breath gets worse Rapid breathing (more than 25 breaths per minute) Coughing up blood Chest pain gets worse with breathing Fever of 100.4 F (38 C) or higher that doesn t get better with fever medicine Weakness, dizziness, or fainting that gets worse Thirst or dry mouth that gets worse Sinus pain, headache, or a stiff neck Chest pain not caused by coughing [id number] [employer] [address] [place] [address]. All rights reserved. This information is not intended as a substitute for professional medical care. Always follow yourhealthcare professional's instructions. Additional Information VACCINATE! IT SAVES LIVES! Members of the community who have not yet received the COVID-19 vaccine and would like to receive it can visit one of [facility] vaccine clinics. There are many vaccine clinic locations within the [facility]. For locations and available times, please visit [email or web address] It is important to note that some COVID mobile vaccine clinics are held outdoors and may be canceled in rainy or stormy conditions. To learn more about pediatric vaccinations (ages 5-11), we invite you to visit the [facility] webpage. [email or web address] learn more about the COVID-19 vaccine, we invite you to visit the CDC website for a list of frequently asked questions. https://www.cdc.gov/coronavirus/2019-ncov/vaccines/faq.html [facility] Patient Portal Access Instructions: Stay connected with your healthcare team and access your personal medical information anytime with the [facility] Patient Portal. If you would like a full copy of your medical records please contact the [facility] Medical Records Department Thursday through Thursday between 8a.m. and 4:30p.m. Please follow the directions below to access the portal: 1.Access the email account you provided upon registration to the [facility].2.Look for an invitation email from [facility].3.Open the email and access the invitation link: Accept Invitation to [facility].Fill in the required serra to create your account. Sign into www.[employer] with your username and password that you created in the above steps to stay up to date. You can then view a summary of results, a summary of your visits, and the ability to download your summaries to your computer or send the information securely to a physician. Remember that your healthcare information is confidential, so carefully consider who you will allow to register on the [facility] Patient Portal for access to your information. You can also access the [facility] Patient Portal on the [employer]. Simply click on Health Records under HealthData and then click on the [facility] logo. HOW TO SAFELY DISPOSE OF PRESCRIPTION MEDICATIONS Please use one of the following methods to safely dispose of your unused medications. 1.Use a drug disposal kit: the drug disposal pouch allows you to safely discard your old and unuseddrugs. Ask your nurse to give you one when you are discharged.2.Visit a local take-back location: Many local pharmacies and police departments have programs that collect old and unwanted prescriptiondrugs. Call your local pharmacy or go to http://bit.SiBEAM/2S8Sz0b to find one close to you.3.Make use of household items: Use cat litter or old coffee grounds to dispose medications if other options arenot available. Mix your drugs with these household products, seal them in an airtight container andthrow it into the garbage. Call [facility]: [phone] to be sure your drugs can be disposed of in this way. Some medicines may require a different approach.4.Never flush your medications down the toilet. IF YOU HAVE BEEN PRESCRIBED AN OPIOIDS FOR PAIN If you have been prescribed an opioid (such as hydrocodone, oxycodone or morphine), it is critical to understand the possible side effects and risks of opioid pain medications. Even when taken as directed, opioids can have several side effects including: Tolerance, meaning you might need to take more of a medication for the same pain relief. Nausea, vomiting and/or constipation. Sleepiness, dizziness, dry mouth, confusion, depression or itching. Physical dependence, meaning you have withdrawal symptoms when a medication is stopped ? this can develop within a few days. KNOW YOUR RESPONSIBILITIES It is important to know exactly how much and how often to take the opioid pain medications you are prescribed. Never take opioids in higher amounts or more often than prescribed. Do not combine opioids with alcohol or other drugs that cause drowsiness, such as benzodiazepines, also known as benzos,including diazepam and alprazolam, muscle relaxants or sleep aids. Never sell or share prescriptionopioids. This is illegal. Store opioids in a secure place and out of reach of others (including children, family, friends and visitors). The last page(s) of this document has been signed and retained as a CHART COPY Signatures Patient Education Materials Pneumonia (Adult) Medication Leaflets My discharge plan and instructions have been reviewed and explained to me and IFRANK BONNIE S understand my current condition and have read and understand these discharge instructions. I have received a written copy of the plan/instructions. If I have questions, I am aware that I should contactmy doctor. 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 Minimal left basilar opacity could represent consolidation versus atelectasis. The right lung is clear. Biapical scarring. No large pleural effusion. No pneumothorax. Partially visualized ACDF changes. IMPRESSION: Minimal left basilar opacity could represent infectious consolidation versus atelectasis. I have personally reviewed the images of this examination and agree with the resident's findings and interpretation. Interpreted by: Lázaro Angel MD Preliminary Report By: Yovana Marvin Electronically signed By Lázaro Angel MD Dictated Date: 06/10/2023 7:30:15 AM Prelim Date: 06/10/2023 7:32:55 AM Sign Date: 06/10/2023 7:41:11 AM Ordering Provider: [facility]12-11-2023 Hospital Discharge instructions Patient Education 03/30/2023 06:39:53 URI, Viral, No Abx (Adult) Viral Upper Respiratory Illness (Adult) You have a viral upper respiratory illness (URI), which is another term for the common cold. This illness is contagious during the first few days. It is spread through the air by coughing and sneezing. It may also be spread by direct contact (touching the sick person and then touching your own eyes, nose, or mouth). Frequent handwashing will decrease risk of spread. Most viral illnesses go away within 7 to 10 days with rest and simple home remedies. Sometimes the illness may last for several weeks. Antibiotics will not kill a virus, and they are generally not prescribed for this condition. Home care If symptoms are severe, rest at home for the first 2 to 3 days. When you resume activity, don't letyourself get too tired. Don't smoke. If you need help stopping, talk with your healthcare provider. Avoid being exposed to cigarette smoke (yours or others ). You may use acetaminophen or ibuprofen to control pain and fever, unless another medicine was prescribed. If you have chronic liver or kidney disease, have ever had a stomach ulcer or gastrointestinal bleeding, or are taking blood-thinning medicines, talk with your healthcare provider before using these medicines. Aspirin should never be given to anyone under 18 years of age who is ill with a viral infection or fever. It may cause severe liver or brain damage. Your appetite may be poor, so a light diet is fine. Stay well hydrated by drinking 6 to 8 glasses of fluids per day (water, soft drinks, juices, tea, or soup). Extra fluids will help loosen secretions in the nose and lungs. Apbr-qtj-wblxclx cold medicines will not shorten the length of time you re sick, but they may be helpful for the following symptoms: cough, sore throat, and nasal and sinus congestion. If you take prescription medicines, ask your healthcare provider or pharmacist which pckh-pjs-wxeruhy medicines are safe to use. (Note: Don't use decongestants if you have high blood pressure.) Follow-up care Follow up with your healthcare provider, or as advised. When to seek medical advice Call your healthcare provider right away if any of these occur: Cough with lots of colored sputum (mucus) Severe headache; face, neck, or ear pain Difficulty swallowing due to throat pain Fever of 100.4 F (38 C) or higher, or as directed by your healthcare provider Call 911 Call 911 if any of these occur: Chest pain, shortness of breath, wheezing, or difficulty breathing Coughing up blood Very severe pain with swallowing, especially if it goes along with a muffled voice [id number] [employer] [address] [place] [address]. All rights reserved. This information is not intended as a substitute for professional medical care. Always follow yourhealthcare professional's instructions. Follow Up Care 03/30/2023 06:24:43 With:BRAEDEN GONZALEZ Address: [address] [facility] [place] [phone] When:2-4 days [facility] 12-11-2023 Note Discharge Instructions Thank you for allowing [facility] to assist you with your healthcare needs. The following is importantdischarge information regarding your hospital visit. Diagnosis from Today's Visit Flu-Like Symptoms What to Do Next Instructions from Your Care Team Discharge Return to Work, School, or Sports (Return to Work, School, or Sports) - Ordered -- 03/31/23, May return to: work, 03/30/23 7:23:00 EST Post Acute Orders No qualifying data available. You Need to Schedule the Following Appointments Follow Up with BRAEDEN GONZALEZ When Within 2-4 days Where: [address] [facility] [place] [phone] Allergies Darvocet (Percocet Tablets, hives) Percocet 5/325 (hives, Hives) Tape (welts, cooney) Vicodin (Hives) povidone iodine topical (welts, b urns) Latex Lortab [place] topiramate (Rash) Medications Please ask your primary doctor or pharmacist before taking any other medication not listed, including over the counter drugs, herbal medications, vitamins and or supplements as they may interact withyour home medications. What How Much When Why Instructions Last Dose New doxycycline (doxycycline hyclate 100 mg oral capsule) 1 cap by mouth Two (2) times a day Duration: 7 Days Printed Prescription New ondansetron (ondansetron 4 mg oral tablet, disintegrating) 1 tab(s) by mouth Every 8 hours Duration: 3 Days Printed Prescription Unchanged albuterol (albuterol MDI (90 mcg/ inh) CFC free inhalation aerosol) 2 puff(s) by inhalation Every 4 hours as needed for as needed for wheezing Acute bronchitis Unchanged cyclobenzaprine (cyclobenzaprine 10 mg oral tablet) 1 tab(s) by mouth Three (3) times a day as needed for for spasm Unchanged traMADol (traMADol 50 mg oral tablet) TAKE 1 TABLET BY MOUTH EVERY 6 HOURS NEEDED FOR PAIN FOR 7 DAYS. Please take this list to your next doctor s visit. Bring all medications you take, including over the counter medications, herbals and other supplements with you to your doctor s visit. Patients and families are reminded to discard old lists and to update any records with all medication providers or retail pharmacies. Medication Leaflets doxycycline (oral/injection) (DOX i MADELINE ortiz) Acticlate, Adoxa, Alodox, Avidoxy, Doryx, Doryx MPC, Lymepak, Mondoxyne NL, Monodox, Morgidox, Morgidox [id number], Morgidox [id number], O[place]bo, Oracea, Targadox, Vibramycin, Vibramycin Monohydrate What is the most important information I should know about doxycycline? You should not take this medicine if you are allergic to any tetracycline antibiotic. Children younger than 8 years old should use doxycycline only in cases of severe or life-threatening conditions. This medicine can cause permanent yellowing or graying of the teeth in children Using doxycycline during could harm the unborn baby or cause permanent tooth discoloration later in the baby's life. What is doxycycline? Doxycycline is a tetracycline antibiotic that Doxycycline is used to treat many different bacterial infections, such as acne, urinary tract infections, intestinal infections, eye infections, gonorrhea, chlamydia, periodontitis (gum disease), andothers. Doxycycline is also used to treat blemishes, bumps, and acne-like lesions caused by rosacea. Doxycycline will not treat facial redness caused by rosacea. Some forms of doxycycline are used to prevent malaria, to treat anthrax, or to treat infections caused by mites, ticks, or lice. Doxycycline may also be used for purposes not listed in this medication guide. What should I discuss with my healthcare provider before taking doxycycline? You should not take this medicine if you are allergic to doxycycline or other tetracycline antibiotics such as demeclocycline, minocycline, tetracycline, or tigecycline. Tell your doctor if you have ever had: liver disease; kidney disease; asthma or sulfite allergy; increased pressure inside your skull; or if you also take isotretinoin, seizure medicine, or a blood thinner such as warfarin (Coumadin). If you are using doxycycline to treat gonorrhea, your doctor may test you to make sure you do not also have syphilis, another sexually transmitted disease. Taking this medicine during may affect tooth and bone development in the unborn baby. Taking doxycycline during the last half of can cause permanent tooth discoloration later in the baby's life. Tell your doctor if you are or if you become . Doxycycline can make control pills less effective. Ask your doctor about using a non-hormonalbirth control (condom, diaphragm with spermicide) to prevent . Doxycycline can pass into breast milk and may affect bone and tooth development in a nursing infant. Do not breastfeed while you are taking doxycycline. Doxycycline can cause permanent yellowing or graying of the teeth in children younger than 8 years old. Children should use doxycycline only in cases of severe or life-threatening conditions such as anthrax or [place] spotted fever. The benefit of treating a serious condition may outweigh any risks to the child's tooth development. How should I take doxycycline? Follow all directions on your prescription label and read all medication guides or instruction sheets. Use the medicine exactly as directed. Take doxycycline with a full glass of water. Drink plenty of liquids while you are taking doxycycline. Read and carefully follow any Instructions for Use provided with your medicine. Ask your doctor or pharmacist if you do not understand these instructions. Most brands of doxycyline may be taken with food or milk if the medicine upsets your stomach. Different brands of doxycycline may have different instructions about taking them with or without food. Take Oracea on an empty stomach, at least 1 hour before or 2 hours after a meal. You may need to split a doxycycline tablet to get the correct dose. Follow your doctor's instructions. Swallow a delayed-release capsule or tablet whole. Do not crush, chew, break, or open it. Measure liquid medicine with the dosing syringe provided, or with a special dose-measuring spoon ormedicine cup. If you do not have a dose-measuring device, ask your pharmacist for one. If you take doxycycline to prevent malaria: Start taking the medicine 1 or 2 days before entering an area where malaria is common. Continue taking the medicine every day during your stay and for at least 4 weeks after you leave the area. Doxycycline is usually given by injection only if you are unable to take the medicine by mouth. A healthcare provider will give you this injection as an infusion into a vein. Use this medicine for the full prescribed length of time, even if your symptoms quickly improve. Skipping doses can increase your risk of infection that is resistant to medication. Doxycycline will not treat a viral infection such as the flu or a common cold. Store at room temperature away from moisture, heat, and light. Throw away any unused medicine after the expiration date on the label has passed. Using doxycycline can cause damage to your kidneys. What happens if I miss a dose? Take the medicine as soon as you can, but skip the missed dose if it is almost time for your next dose. Do not take two doses at one time. What happens if I overdose? Seek emergency medical attention or call the Poison Help line at . What should I avoid while taking doxycycline? Do not take iron supplements, multivitamins, calcium supplements, antacids, or laxatives within 2 hours before or after taking doxycycline. Avoid taking any other antibiotics with doxycycline unless your doctor has told you to. Doxycycline could make you sunburn more easily. Avoid sunlight or tanning beds. Wear protective clothing and use sunscreen (SPF 30 or higher) when you are outdoors. Antibiotic medicines can cause diarrhea, which may be a sign of a new infection. If you have diarrhea that is watery or bloody, call your doctor. Do not use anti-diarrhea medicine unless your doctor tells you to. What are the possible side effects of doxycycline? Get emergency medical help if you have signs of an allergic reaction (hives, difficult breathing, swelling in your face or throat) or a severe skin reaction (fever, sore throat, burning in your eyes,skin pain, red or purple skin rash that spreads and causes blistering and peeling). Seek medical treatment if you have a serious drug reaction that can affect many parts of your body.Symptoms may include: skin rash, fever, swollen glands, flu- like symptoms, muscle aches, severe weakness, unusual bruising, or yellowing of your skin or eyes. This reaction may occur several weeks after you began using doxycycline. Call your doctor at once if you have: severe stomach pain, diarrhea that is watery or bloody; throat irritation, trouble swallowing; chest pain, irregular heart rhythm, feeling short of breath; little or no urination; low white blood cell counts--fever, chills, swollen glands, body aches, weakness, pale skin, easy bruising or bleeding; increased pressure inside the skull--severe headaches, ringing in your ears, dizziness, nausea, vision problems, pain behind your eyes; or signs of liver or pancreas problems--loss of appetite, upper stomach pain (that may spread to your back), tiredness, nausea or vomiting, fast heart rate, dark urine, jaundice (yellowing of the skin or eyes). Common side effects may include: nausea, vomiting, upset stomach, loss of appetite; mild diarrhea; skin rash or itching; darkened skin color; or vaginal itching or discharge. This is not a complete list of side effects and others may occur. Call your doctor for medical advice about side effects. You may report side effects to FDA at 7-280-LZR-6040. What other drugs will affect doxycycline? Sometimes it is not safe to use certain medications at the same time. Some drugs can affect your blood levels of other drugs you take, which may increase side effects or make the medications less effective. Other drugs may affect doxycycline, including prescription and drxl-gch-myfgidx medicines, vitamins, and herbal products. Tell your doctor about all your current medicines and any medicine you start or stop using. Where can I get more information? Your pharmacist can provide more information about doxycycline. Remember, keep this and all other medicines out of the reach of children, never share your medicines with others, and use this medication only for the indication prescribed. Every effort has been made to ensure that the information provided by [employer]. ('[employer]') is accurate, up-to-date, and complete, but no guarantee is made to that effect. Drug information contained herein may be time sensitive. [employer] information has been compiled for use by healthcare practitioners and consumers in the [place] and therefore [employer] does not warrant that uses outside of the [place] are appropriate, unless specifically indicated otherwise. [employer] drug information does not endorse drugs, diagnose patients or recommend therapy. [employer] drug information isan informational resource designed to assist licensed healthcare practitioners in caring for their p atients and/or to serve consumers viewing this service as a supplement to, and not a substitute for, the expertise, skill, knowledge and judgment of healthcare practitioners. The absence of a warningfor a given drug or drug combination in no way should be construed to indicate that the drug or drug combination is safe, effective or appropriate for any given patient. [employer] does not assume any responsibility for any aspect of healthcare administered with the aid of information [employer] provides. The information contained herein is not intended to cover all possible uses, directions, precautions, warnings, drug interactions, allergic reactions, or adverse effects. If you have questions about the drugs you are taking, check with your doctor, nurse or pharmacist. Copyright 3131-7416 [employer]. Version: 25.. Revision Date: 12/24/2022. Education Materials Viral Upper Respiratory Illness (Adult) You have a viral upper respiratory illness (URI), which is another term for the common cold. This illness is contagious during the first few days. It is spread through the air by coughing and sneezing. It may also be spread by direct contact (touching the sick person and then touching your own eyes, nose, or mouth). Frequent handwashing will decrease risk of spread. Most viral illnesses go away within 7 to 10 days with rest and simple home remedies. Sometimes the illness may last for several weeks. Antibiotics will not kill a virus, and they are generally not prescribed for this condition. Home care If symptoms are severe, rest at home for the first 2 to 3 days. When you resume activity, don't letyourself get too tired. Don't smoke. If you need help stopping, talk with your healthcare provider. Avoid being exposed to cigarette smoke (yours or others ). You may use acetaminophen or ibuprofen to control pain and fever, unless another medicine was prescribed. If you have chronic liver or kidney disease, have ever had a stomach ulcer or gastrointestinal bleeding, or are taking blood-thinning medicines, talk with your healthcare provider before using these medicines. Aspirin should never be given to anyone under 18 years of age who is ill with a viral infection or fever. It may cause severe liver or brain damage. Your appetite may be poor, so a light diet is fine. Stay well hydrated by drinking 6 to 8 glasses of fluids per day (water, soft drinks, juices, tea, or soup). Extra fluids will help loosen secretions in the nose and lungs. Souk-cvn-pkvcgla cold medicines will not shorten the length of time you re sick, but they may be helpful for the following symptoms: cough, sore throat, and nasal and sinus congestion. If you take prescription medicines, ask your healthcare provider or pharmacist which fwav-jso-rwkntyl medicines are safe to use. (Note: Don't use decongestants if you have high blood pressure.) Follow-up care Follow up with your healthcare provider, or as advised. When to seek medical advice Call your healthcare provider right away if any of these occur: Cough with lots of colored sputum (mucus) Severe headache; face, neck, or ear pain Difficulty swallowing due to throat pain Fever of 100.4 F (38 C) or higher, or as directed by your healthcare provider Call 911 Call 911 if any of these occur: Chest pain, shortness of breath, wheezing, or difficulty breathing Coughing up blood Very severe pain with swallowing, especially if it goes along with a muffled voice [id number] [employer] [address] [place] [address]. All rights reserved. This information is not intended as a substitute for professional medical care. Always follow yourhealthcare professional's instructions. Additional Information VACCINATE! IT SAVES LIVES! Members of the community who have not yet received the COVID-19 vaccine and would like to receive it can visit one of [facility] vaccine clinics. There are many vaccine clinic locations within the [facility]. For locations and available times, please visit [email or web address]/. It is important to note that some COVID mobile vaccine clinics are held outdoors and may be canceled in rainy or stormy conditions. To learn more about pediatric vaccinations (ages 5-11), we invite you to visit the [facility] webpage. [email or web address] learn more about the COVID-19 vaccine, we invite you to visit the CDC website for a list of frequently asked questions. https://www.cdc.gov/coronavirus/2019-ncov/vaccines/faq.html [facility] Patient Portal Access Instructions: Stay connected with your healthcare team and access your personal medical information anytime with the [facility] Patient Portal. If you would like a full copy of your medical records please contact the [facility] Medical Records Department Thursday through Thursday between 8a.m. and 4:30p.m. Please follow the directions below to access the portal: 1.Access the email account you provided upon registration to the hospital.2.Look for an invitation email from [facility].3.Open the email and access the invitation link: Accept Invitation to [facility]4.Fill in the required serra to create your account. Sign into www.[email or web address] with your username and password that you created in the above steps to stay up to date. You can then view a summary of results, a summary of your visits, and the ability to download your summaries to your computer or send the information securely to a physician. Remember that your healthcare information is confidential, so carefully consider who you will allow to register on the [facility] Patient Portal for access to your information. You can also access the [facility] Patient Portal on the AV[employer] rishi. Simply click on Health Records under [employer] and then click on the [facility] logo. HOW TO SAFELY DISPOSE OF PRESCRIPTION MEDICATIONS Please use one of the following methods to safely dispose of your unused medications. 1.Use a drug disposal kit: the drug disposal pouch allows you to safely discard your old and unuseddrugs. Ask your nurse to give you one when you are discharged.2.Visit a local take-back location: Many local pharmacies and police departments have programs that collect old and unwanted prescriptiondrugs. Call your local pharmacy or go to http://Govtoday/1H4Dr5m to find one close to you.3.Make use of household items: Use cat litter or old coffee grounds to dispose medications if other options arenot available. Mix your drugs with these household products, seal them in an airtight container andthrow it into the garbage. Call [facility]: [phone] to be sure your drugs can be disposed of in this way. Some medicines may require a different approach.4.Never flush your medications down the toilet. IF YOU HAVE BEEN PRESCRIBED AN OPIOIDS FOR PAIN If you have been prescribed an opioid (such as hydrocodone, oxycodone or morphine), it is critical to understand the possible side effects and risks of opioid pain medications. Even when taken as directed, opioids can have several side effects including: Tolerance, meaning you might need to take more of a medication for the same pain relief. Nausea, vomiting and/or constipation. Sleepiness, dizziness, dry mouth, confusion, depression or itching. Physical dependence, meaning you have withdrawal symptoms when a medication is stopped ? this can develop within a few days. KNOW YOUR RESPONSIBILITIES It is important to know exactly how much and how often to take the opioid pain medications you are prescribed. Never take opioids in higher amounts or more often than prescribed. Do not combine opioids with alcohol or other drugs that cause drowsiness, such as benzodiazepines, also known as benzos,including diazepam and alprazolam, muscle relaxants or sleep aids. Never sell or share prescriptionopioids. This is illegal. Store opioids in a secure place and out of reach of others (including children, family, friends and visitors). The last page(s) of this document has been signed and retained as a CHART COPY Signatures Patient Education Materials URI, Viral, No Abx (Adult) Medication Leaflets doxycycline (oral/injection) My discharge plan and instructions have been reviewed and explained to me and I,BRITTNEE MARIE understand my current condition and have read and understand these discharge instructions. I have received a written copy of the plan/instructions. If I have questions, I am aware that I should contactmy doctor. 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 HISTORY: ORDERING SYSTEM PROVIDED HISTORY: Reason for Exam: cough FINDINGS: Hazy airspace disease at the lung bases. No pneumothorax. No large effusion. Heart size is normal. IMPRESSION: Mild hazy airspace disease at the lung bases. Interpreted by: Lázaro Angel MD Preliminary Report By: Lázaro Angel MD Electronically signed By Lázaro Angel MD Dictated Date: 03/30/2023 7:02:06 AM Prelim Date: 03/30/2023 7:06:37 AM Sign Date: 03/30/2023 7:06:37 AM Ordering Provider: [facility]06-28-2023 Hospital Discharge instructions Patient Education 10/15/2022 08:29:52 Pharyngitis, Viral Viral Pharyngitis (Sore Throat) You or your child have pharyngitis (sore throat). This infection is caused by a virus. It can causethroat pain that is worse when swallowing, aching all over, headache, and fever. The infection may be spread by coughing, kissing, or touching others after touching your mouth or nose. Antibiotic medicines do not work against viruses. They are not used for treating this illness. Home care If symptoms are severe, you or your child should rest at home. Return to work or school when you oryour child feel well enough. You or your child should drink plenty of fluids to prevent dehydration. Use throat lozenges or numbing throat sprays to help reduce pain. Gargling with warm salt water will also help reduce throat pain. Dissolve 1/2 teaspoon of salt in 1 glass of warm water. Children cansip on juice or a popsicle. Children 5 years and older can also suck on a lollipop or hard candy. Don t eat salty or spicy foods or give them to your child. These can be irritating to the throat. Medicines for a child: You can give your child acetaminophen for fever, fussiness, or discomfort. In babies over 6 months of age, you may use ibuprofen instead of acetaminophen. If your child has chronic liver or kidney disease or ever had a stomach ulcer or GI bleeding, talk with your child s healthcare provider before giving these medicines. Aspirin should never be used by any child under 18 years of age who has a fever. It may cause severe liver damage. Medicines for an adult: You may use acetaminophen or ibuprofen to control pain or fever, unless another medicine was prescribed for this. If you have chronic liver or kidney disease or ever had a stomach ulcer or GI bleeding, talk with your healthcare provider before using these medicines. Follow-up care Follow up with a healthcare provider or our staff if you or your child are not getting better over the next week. When to seek medical advice Call your healthcare provider right away if any of these occur: Fever as directed by your healthcare provider. For children, seek care if: oYour child is of any age and has repeated fevers above 104 F (40 C). oYour child is younger than 2 years of age and has a fever of 100.4 F (38 C) for more than 1 day. oYour child is 2 years old or older and has a fever of 100.4 F (38 C) for more than 3 days. New or worsening ear pain, sinus pain, or headache Painful lumps in the back of neck Stiff neck Lymph nodes are getting larger Can t swallow liquids, a lot of drooling, or can t open mouth wide due to throat pain Signs of dehydration, such as very dark urine or no urine, sunken eyes, dizziness Trouble breathing or noisy breathing Muffled voice New rash Other symptoms are getting worse [id number] [employer] [address] [place] [address]. All rights reserved. This information is not intended as a substitute for professional medical care. Always follow yourhealthcare professional's instructions. 10/15/2022 07:39:19 URI, Viral, No Abx (Adult) Viral Upper Respiratory Illness (Adult) You have a viral upper respiratory illness (URI), which is another term for the common cold. This illness is contagious during the first few days. It is spread through the air by coughing and sneezing. It may also be spread by direct contact (touching the sick person and then touching your own eyes, nose, or mouth). Frequent handwashing will decrease risk of spread. Most viral illnesses go away within 7 to 10 days with rest and simple home remedies. Sometimes the illness may last for several weeks. Antibiotics will not kill a virus, and they are generally not prescribed for this condition. Home care If symptoms are severe, rest at home for the first 2 to 3 days. When you resume activity, don't letyourself get too tired. Don't smoke. If you need help stopping, talk with your healthcare provider. Avoid being exposed to cigarette smoke (yours or others ). You may use acetaminophen or ibuprofen to control pain and fever, unless another medicine was prescribed. If you have chronic liver or kidney disease, have ever had a stomach ulcer or gastrointestinal bleeding, or are taking blood-thinning medicines, talk with your healthcare provider before using these medicines. Aspirin should never be given to anyone under 18 years of age who is ill with a viral infection or fever. It may cause severe liver or brain damage. Your appetite may be poor, so a light diet is fine. Stay well hydrated by drinking 6 to 8 glasses of fluids per day (water, soft drinks, juices, tea, or soup). Extra fluids will help loosen secretions in the nose and lungs. Expp-vps-ryxncfw cold medicines will not shorten the length of time you re sick, but they may be helpful for the following symptoms: cough, sore throat, and nasal and sinus congestion. If you take prescription medicines, ask your healthcare provider or pharmacist which jpow-mrd-ihjxzkp medicines are safe to use. (Note: Don't use decongestants if you have high blood pressure.) Follow-up care Follow up with your healthcare provider, or as advised. When to seek medical advice Call your healthcare provider right away if any of these occur: Cough with lots of colored sputum (mucus) Severe headache; face, neck, or ear pain Difficulty swallowing due to throat pain Fever of 100.4 F (38 C) or higher, or as directed by your healthcare provider Call 911 Call 911 if any of these occur: Chest pain, shortness of breath, wheezing, or difficulty breathing Coughing up blood Very severe pain with swallowing, especially if it goes along with a muffled voice [id number] [employer] [address] [place] [address]. All rights reserved. This information is not intended as a substitute for professional medical care. Always follow yourhealthcare professional's instructions. Follow Up Care 10/15/2022 07:18:21 With:Go to emergency room if symptoms worsen Address:Unknown When:2-4 days [facility] Address: [address] [facility] [place] [address] [phone] When:2-4 days [facility] 06-28-2023 Note Discharge Instructions Thank you for allowing [facility] to assist you with your healthcare needs. The following is importantdischarge information regarding your hospital visit. Diagnosis from Today's Visit URTI - Viral upper respiratory tract infection Viral pharyngitis Body aches Headache What to Do Next Instructions from Your Care Team Drink plenty fluids stay well-hydrated. Take Tylenol and or Motrin as needed for pain or fevers. Take Zofran as needed for nausea. Follow-up results of strep test if test positive likely benefit fromantibiotics. Return to the emergency department if you experience worsening symptoms or any other care concern. No qualifying data available. Post Acute Orders No qualifying data available. You Need to Schedule the Following Appointments Follow Up with Go to emergency room if symptoms worsen When Within 2-4 days Follow Up with BRAEDEN GONZALEZ When Within 2-4 days Where: [address] [facility] [place] [address] [phone] Allergies Darvocet (Percocet Tablets, hives) Percocet 5/325 (hives, Hives) Tape (welts, cooney) Vicodin (Hives) povidone iodine topical (welts, b urns) Latex Lortab [place] topiramate (Rash) Medications Please ask your primary doctor or pharmacist before taking any other medication not listed, including over the counter drugs, herbal medications, vitamins and or supplements as they may interact withyour home medications. What How Much When Why Instructions Last Dose New ondansetron (Zofran 4 mg oral tablet) 1 tab(s) by mouth Every 8 hours as needed for Nausea/Vomiting URTI - Viral upper respiratory tract infection Viral pharyngitis Duration: 3 Days Printed Prescription Unchanged albuterol (albuterol MDI (90 mcg/ inh) CFC free inhalation aerosol) 2 puff(s) by inhalation Every 4 hours as needed for as needed for wheezing Acute bronchitis Unchanged cyclobenzaprine (cyclobenzaprine 10 mg oral tablet) 1 tab(s) by mouth Three (3) times a day as needed for for spasm Unchanged traMADol (traMADol 50 mg oral tablet) TAKE 1 TABLET BY MOUTH EVERY 6 HOURS NEEDED FOR PAIN FOR 7 DAYS. Please take this list to your next doctor s visit. Bring all medications you take, including over the counter medications, herbals and other supplements with you to your doctor s visit. Patients and families are reminded to discard old lists and to update any records with all medication providers or retail pharmacies. Education Materials Viral Pharyngitis (Sore Throat) You or your child have pharyngitis (sore throat). This infection is caused by a virus. It can causethroat pain that is worse when swallowing, aching all over, headache, and fever. The infection may be spread by coughing, kissing, or touching others after touching your mouth or nose. Antibiotic medicines do not work against viruses. They are not used for treating this illness. Home care If symptoms are severe, you or your child should rest at home. Return to work or school when you oryour child feel well enough. You or your child should drink plenty of fluids to prevent dehydration. Use throat lozenges or numbing throat sprays to help reduce pain. Gargling with warm salt water will also help reduce throat pain. Dissolve 1/2 teaspoon of salt in 1 glass of warm water. Children cansip on juice or a popsicle. Children 5 years and older can also suck on a lollipop or hard candy. Don t eat salty or spicy foods or give them to your child. These can be irritating to the throat. Medicines for a child: You can give your child acetaminophen for fever, fussiness, or discomfort. In babies over 6 months of age, you may use ibuprofen instead of acetaminophen. If your child has chronic liver or kidney disease or ever had a stomach ulcer or GI bleeding, talk with your child s healthcare provider before giving these medicines. Aspirin should never be used by any child under 18 years of age who has a fever. It may cause severe liver damage. Medicines for an adult: You may use acetaminophen or ibuprofen to control pain or fever, unless another medicine was prescribed for this. If you have chronic liver or kidney disease or ever had a stomach ulcer or GI bleeding, talk with your healthcare provider before using these medicines. Follow-up care Follow up with a healthcare provider or our staff if you or your child are not getting better over the next week. When to seek medical advice Call your healthcare provider right away if any of these occur: Fever as directed by your healthcare provider. For children, seek care if: oYour child is of any age and has repeated fevers above 104 F (40 C). oYour child is younger than 2 years of age and has a fever of 100.4 F (38 C) for more than 1 day. oYour child is 2 years old or older and has a fever of 100.4 F (38 C) for more than 3 days. New or worsening ear pain, sinus pain, or headache Painful lumps in the back of neck Stiff neck Lymph nodes are getting larger Can t swallow liquids, a lot of drooling, or can t open mouth wide due to throat pain Signs of dehydration, such as very dark urine or no urine, sunken eyes, dizziness Trouble breathing or noisy breathing Muffled voice New rash Other symptoms are getting worse [id number] [employer] [address] [place] [address]. All rights reserved. This information is not intended as a substitute for professional medical care. Always follow yourhealthcare professional's instructions. Viral Upper Respiratory Illness (Adult) You have a viral upper respiratory illness (URI), which is another term for the common cold. This illness is contagious during the first few days. It is spread through the air by coughing and sneezing. It may also be spread by direct contact (touching the sick person and then touching your own eyes, nose, or mouth). Frequent handwashing will decrease risk of spread. Most viral illnesses go away within 7 to 10 days with rest and simple home remedies. Sometimes the illness may last for several weeks. Antibiotics will not kill a virus, and they are generally not prescribed for this condition. Home care If symptoms are severe, rest at home for the first 2 to 3 days. When you resume activity, don't letyourself get too tired. Don't smoke. If you need help stopping, talk with your healthcare provider. Avoid being exposed to cigarette smoke (yours or others ). You may use acetaminophen or ibuprofen to control pain and fever, unless another medicine was prescribed. If you have chronic liver or kidney disease, have ever had a stomach ulcer or gastrointestinal bleeding, or are taking blood-thinning medicines, talk with your healthcare provider before using these medicines. Aspirin should never be given to anyone under 18 years of age who is ill with a viral infection or fever. It may cause severe liver or brain damage. Your appetite may be poor, so a light diet is fine. Stay well hydrated by drinking 6 to 8 glasses of fluids per day (water, soft drinks, juices, tea, or soup). Extra fluids will help loosen secretions in the nose and lungs. Bcxu-jfy-yxxcbfz cold medicines will not shorten the length of time you re sick, but they may be helpful for the following symptoms: cough, sore throat, and nasal and sinus congestion. If you take prescription medicines, ask your healthcare provider or pharmacist which kzpk-fkz-foxudjj medicines are safe to use. (Note: Don't use decongestants if you have high blood pressure.) Follow-up care Follow up with your healthcare provider, or as advised. When to seek medical advice Call your healthcare provider right away if any of these occur: Cough with lots of colored sputum (mucus) Severe headache; face, neck, or ear pain Difficulty swallowing due to throat pain Fever of 100.4 F (38 C) or higher, or as directed by your healthcare provider Call 911 Call 911 if any of these occur: Chest pain, shortness of breath, wheezing, or difficulty breathing Coughing up blood Very severe pain with swallowing, especially if it goes along with a muffled voice [phone] [employer] [address] [place] [address]. All rights reserved. This information is not intended as a substitute for professional medical care. Always follow yourhealthcare professional's instructions. Additional Information VACCINATE! IT SAVES LIVES! Members of the community who have not yet received the COVID-19 vaccine and would like to receive it can visit one of [facility] vaccine clinics. There are many vaccine clinic locations within the [facility]. For locations and available times, please visit [email or web address]/. It is important to note that some COVID mobile vaccine clinics are held outdoors and may be canceled in rainy or stormy conditions. To learn more about pediatric vaccinations (ages 5-11), we invite you to visit the [facility] webpage. [email or web address] [email or web address] learn more about the COVID-19 vaccine, we invite you to visit the CDC website for a list of frequently asked questions. https://www.cdc.gov/coronavirus/2019-ncov/vaccines/faq.html [facility] Patient [facility] Access Instructions: Stay connected with your healthcare team and access your personal medical information anytime with the [facility] Patient Portal. If you would like a full copy of your medical records please contact the [facility] Medical Records Department Thursday through Thursday between 8a.m. and 4:30p.m. Please follow the directions below to access the portal: 1.Access the email account you provided upon registration to the [facility].2.Look for an invitation email from [facility].3.Open the email and access the invitation link: Accept Invitation to [facility]4.Fill in the required serra to create your account. Sign into [email or web address] with your username and password that you created in the above steps to stay up to date. You can then view a summary of results, a summary of your visits, and the ability to download your summaries to your computer or send the information securely to a physician. Remember that your healthcare information is confidential, so carefully consider who you will allow to register on the [facility] Patient Portal for access to your information. You can also access the [facility] Patient Portal on the [employer]. Simply click on Health Records under [employer] and then click on the [facility] logo. HOW TO SAFELY DISPOSE OF PRESCRIPTION MEDICATIONS Please use one of the following methods to safely dispose of your unused medications. 1.Use a drug disposal kit: the drug disposal pouch allows you to safely discard your old and unuseddrugs. Ask your nurse to give you one when you are discharged.2.Visit a local take-back location: Many local pharmacies and police departments have programs that collect old and unwanted prescriptiondrugs. Call your local pharmacy or go to http://Jaman.SiBEAM/5D2Ur0x to find one close to you.3.Make use of household items: Use cat litter or old coffee grounds to dispose medications if other options arenot available. Mix your drugs with these household products, seal them in an airtight container andthrow it into the garbage. Call [facility]: [phone] to be sure your drugs can be disposed of in this way. Some medicines may require a different approach.4.Never flush your medications down the toilet. IF YOU HAVE BEEN PRESCRIBED AN OPIOIDS FOR PAIN If you have been prescribed an opioid (such as hydrocodone, oxycodone or morphine), it is critical to understand the possible side effects and risks of opioid pain medications. Even when taken as directed, opioids can have several side effects including: Tolerance, meaning you might need to take more of a medication for the same pain relief. Nausea, vomiting and/or constipation. Sleepiness, dizziness, dry mouth, confusion, depression or itching. Physical dependence, meaning you have withdrawal symptoms when a medication is stopped ? this can develop within a few days. KNOW YOUR RESPONSIBILITIES It is important to know exactly how much and how often to take the opioid pain medications you are prescribed. Never take opioids in higher amounts or more often than prescribed. Do not combine opioids with alcohol or other drugs that cause drowsiness, such as benzodiazepines, also known as benzos,including diazepam and alprazolam, muscle relaxants or sleep aids. Never sell or share prescriptionopioids. This is illegal. Store opioids in a secure place and out of reach of others (including children, family, friends and visitors). The last page(s) of this document has been signed and retained as a CHART COPY Signatures Patient Education Materials Pharyngitis, Viral URI, Viral, No Abx (Adult) Medication Leaflets My discharge plan and instructions have been reviewed and explained to me and I,BRITTNEE MARIE understand my current condition and have read and understand these discharge instructions. I have received a written copy of the plan/instructions. If I have questions, I am aware that I should contactmy doctor. 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 Artifact from breast tissue overlies the apices on the frontal view. No definite focal consolidation, pleural effusion, vascular congestion, or pneumothorax is shown. Biapical scarring. Multilevel degenerative changes are noted in the spine. Partial visualization of a metallic density overlying the cervical spine, perhaps interval surgical change. IMPRESSION: No definite acute radiographic cardiopulmonary findings. Interpreted by: Katelyn Gardiner MD Preliminary Report By: Katelyn Gardiner MD Electronically signed By Katelyn Gardiner MD Dictated Date: 10/15/2022 8:21:21 AM Prelim Date: 10/15/2022 8:23:33 AM Sign Date: 10/15/2022 8:23:33 AM Ordering Provider: [facility]06-28-2023 Note ORIGINAL EXAMINATION: TWO XRAY VIEWS OF THE CHEST 10/15/2022 8:20 am COMPARISON: 09/02/2021 HISTORY: ORDERING SYSTEM PROVIDED HISTORY: Reason for Exam: cough FINDINGS: The cardiomediastinal silhouette is normal. Artifact from breast tissue overlies the apices on the frontal view. No definite focal consolidation, pleural effusion, vascular congestion, or pneumothorax is shown. Biapical scarring. Multilevel degenerative changes are noted in the spine. Partial visualization of a metallic density overlying the cervical spine, perhaps interval surgical change. IMPRESSION: No definite acute radiographic cardiopulmonary findings. Interpreted by: Katelyn Gardiner MD Preliminary Report By: Katelyn Gardiner MD Electronically signed By Katelyn Gardiner MD Dictated Date: 10/15/2022 8:21:21 AM Prelim Date: 10/15/2022 8:23:33 AM Sign Date: 10/15/2022 8:23:33 AM Ordering Provider: [facility]05-25-2022 Hospital Discharge instructions Patient Education 09/11/2021 11:29:44 Anterior Cervical Diskectomy and Fusion Anterior Cervical Diskectomy and Fusion Anterior cervical diskectomy and fusion is a surgery to remove and replace an intervertebral disk. Intervertebral disks are plates of cartilage located between the bones of the spine. This surgery isdone when an intervertebral disk in the neck puts pressure on the spine or on a nerve. The surgery is done through the front (anterior) part of the neck. During the surgery, the damaged disk is removed and replaced with a plastic implant, a bone from another part of the body (bone graft), or both. Sometimes metal plates and screws (hardware) are also put in the neck to help keep the implant or bone graft in place and to allow the bones to grow together (fuse). Tell a health care provider about: Any allergies you have. All medicines you are taking, including vitamins, herbs, eye drops, creams, and ludy-pid-tqckkvf medicines. Any problems you or family members have had with anesthetic medicines. Any blood disorders you have. Any surgeries you have had. Any medical conditions you have or have had. Whether you are or may be . What are the risks? Generally, this is a safe procedure. However, problems may occur, including: Infection. Bleeding, which can sometimes require a blood transfusion. Injury to surrounding structures, including nerves. Leakage of fluid from the brain or spinal cord (cerebrospinal fluid). Blood clots. Temporary breathing difficulties. What happens before the procedure? Medicines Ask your health care provider about: Changing or stopping your regular medicines. This is especially important if you are taking diabetes medicines or blood thinners. Taking medicines such as aspirin and ibuprofen. These medicines can thin your blood. Do not take these medicines unless your health care provider tells you to take them. Taking ljla-zaf-gqapsir medicines, vitamins, herbs, and supplements. Staying hydrated Follow instructions from your health care provider about hydration, which may include: Up to 2 hours before the procedure you may continue to drink clear liquids, such as water, clear fruit juice, black coffee, and plain tea. Eating and drinking Follow instructions from your health care provider about eating and drinking, which may include: 8 hours before the procedure stop eating heavy meals or foods, such as meat, fried foods, or fatty foods. 6 hours before the procedure stop eating light meals or foods, such as toast or cereal. 6 hours before the procedure stop drinking milk or drinks that contain milk. 2 hours before the procedure stop drinking clear liquids. General instructions Do not use any products that contain nicotine or tobacco for at least 4 weeks before the procedure.These products include cigarettes, e-cigarettes, and chewing tobacco. If you need help quitting, ask your health care provider. Ask your health care provider: ?How your surgery site will be marked. ?What steps will be taken to help prevent infection. These may include: ?Removing hair at the surgery site. ?Washing skin with a germ-killing soap. ?Receiving antibiotic medicine. What happens during the procedure? An IV will be inserted into one of your veins. You will be given one or more of the following: ?A medicine to help you relax (sedative). ?A medicine to make you fall asleep (general anesthetic). A breathing tube will be placed. Your neck will be cleaned with a germ-killing solution (antiseptic solution). Your surgeon will make an incision in the front of your neck. Your neck muscles will be spread apart. The damaged disk and any damaged bone will be removed. The area where the disk was removed will be filled with a small plastic implant, a bone graft, or both. Hardware may be put in your neck. The incision will be closed with stitches (sutures). Adhesive strips or skin glue may be placed across the incision. A bandage (dressing) will be applied over the incision. The procedure may vary among health care providers and hospitals. What happens after the procedure? Your blood pressure, heart rate, breathing rate, and blood oxygen level will be monitored until youleave the hospital or clinic. You will be monitored for any signs of complications from the procedure, such as: ?Too much bleeding from the incision site. ?A buildup of blood under your skin at the surgical site. ?Difficulty breathing. You may continue to receive antibiotics. You can start to eat as soon as you feel comfortable. You may be given a neck brace to wear. This brace limits your neck movement while your bones are fusing. Do not drive for 24 hours if you were given a sedative during your procedure. Summary Anterior cervical diskectomy and fusion is a surgery to remove and replace an intervertebral disk. The surgery is done through the front (anterior) part of the neck. Before the procedure, follow instructions from your health care provider about changing or stoppingyour medicines and about eating and drinking. During the procedure, the damaged disk and any damaged bone will be removed. After the procedure, you will be monitored for any signs of complications from the procedure. You may be given a neck brace to wear. This brace limits your neck movement while your bones are fusing. This information is not intended to replace advice given to you by your health care provider. Make sure you discuss any questions you have with your health care provider. Document Released: 03/25/2010 Document Revised: 12/30/2018 Document Reviewed: 12/30/2018 [employer] Patient Education 2020 [employer] Follow Up Care 08/20/2021 11:37:17 With:BAM CLANCY DO, Orthopedic Address: [address] [place] [address], [address] [facility] [place] [address]- [phone] When:09/30/2021 09:00:00 [facility] Discharge instructions Patient Education 04/04/2021 12:55:56 COPD Flare COPD Flare You have had a flare-up of your COPD. COPD (chronic obstructive pulmonary disease) is a common lung disease. It causes your airways to get irritated and narrower. This makes it harder for you to breathe. Emphysema and chronic bronchitis are both types of COPD. This is a long-term (chronic) condition. This means you always have it. Sometimes it gets worse. When this happens, it is called a flare-up. Symptoms of COPD People with COPD may have symptoms most of the time. In a flare-up, your symptoms get worse. These symptoms may mean you are having a flare-up: Shortness of breath, shallow or rapid breathing, or wheezing that gets worse Lung infection Cough that gets worse More mucus, thicker mucus or mucus of a different color Tiredness, less energy, or trouble doing your normal activities Fever Chest tightness Your symptoms don t get better even when you use your normal medicines, inhalers, and nebulizer Trouble talking You feel confused Causes of flare-ups Unfortunately, a flare-up can happen even if you did everything right. And even if you followed your healthcare provider s instructions. Some causes of flare- ups are: Smoking or secondhand smoke Colds, the flu, or respiratory infections Air pollution Sudden change in the weather Dust, irritating chemicals, or strong fumes Not taking your medicines as prescribed Home care Here are some things you can do at home to treat a flare-up: Try not to panic. This makes it harder to breathe, and keeps you from doing the right things. Don t smoke or be around others who are smoking. Try to drink more fluids than normal during a flare-up, unless your healthcare provider has told you not to because of heart and kidney problems. More fluids can help loosen the mucus. Use your inhalers and nebulizer, if you have one, as you have been told to. If you were given antibiotics, take them until they are used up or your provider tells you to stop.It s important to finish the antibiotics, even though you feel better. This will make sure the infection has cleared. If you were given prednisone or another steroid, finish it even if you feel better. Preventing a flare-up Flare-ups happen. But the best way to treat one is to prevent it before it starts. Here are some pointers: Don t smoke or be around others who are smoking. Take your medicines as discussed with your healthcare provider. Talk with your provider about getting a flu shot every year. Also find out if you need a pneumonia shot. If there is a weather advisory warning to stay indoors, try to stay inside when possible. Try to eat healthy, exercise, and get plenty of sleep. Try to stay away from things that normally set you off. These include dust, chemical fumes, hairsprays, or strong perfumes. Follow-up care Follow up with your healthcare provider, or as advised. If a culture was done, you will be told if your treatment needs to be changed. You can call as directed for the results. If X-rays were done, you will be told of any new findings that may affect your care. Call 911 Call 911 if any of these occur: You have trouble breathing You feel confused or it s hard to wake you up You faint or lose consciousness You have a rapid heart rate You have new pain in your chest, arm, shoulder, neck, or upper back When to seek medical advice Call your healthcare provider right away if any of these occur: Wheezing or shortness of breath gets worse You need to use your inhalers more often than normal without relief Fever of 100.4 F (38 C) or higher, or as directed by your healthcare provider Coughing up lots of dark-colored or bloody mucus (sputum) Chest pain with each breath You don't start to get better within 24 hours Swelling of your ankles gets worse Dizziness or weakness [id number] [employer]. [address] [place] [id number]. All rights reserved. This information is not intended as a substitute for professional medical care. Always follow yourhealthcare professional's instructions. Follow Up Care 04/04/2021 10:27:15 With:Call Physician Referral Address:Unknown When:2-4 days [facility] 11-22-2021 Hospital Discharge instructions Patient Education 03/11/2021 11:32:03 Viral Syndrome (Adult) Viral Syndrome (Adult) A viral illness may cause a number of symptoms such as fever. Other symptoms depend on the part of the body that the virus affects. If it settles in your nose, throat, and lungs, it may cause cough, sore throat, congestion, runny nose, headache, earache and other ear symptoms, or shortness of breath. If it settles in your stomach and intestinal tract, it may cause nausea, vomiting, cramping, and diarrhea. Sometimes it causes generalized symptoms like aching all over, feeling tired, loss of energy, or loss of appetite. A viral illness usually lasts anywhere from several days to several weeks, but sometimes it lasts longer. In some cases, a more serious infection can look like a viral syndrome in the first few days of the illness. You may need another exam and additional tests to know the difference. Watch for thewarning signs listed below for when to seek medical advice. Home care Follow these guidelines for taking care of yourself at home: If symptoms are severe, rest at home for the first 2 to 3 days. Stay away from cigarette smoke - both your smoke and the smoke from others. You may use ewak-ezt-fepruiu acetaminophen or ibuprofen for fever, muscle aching, and headache, unless another medicine was prescribed for this. If you have chronic liver or kidney disease or ever had a stomach ulcer or gastrointestinal bleeding, talk with your healthcare provider before using these medicines. No one who is younger than 18 and ill with a fever should take aspirin. It may cause severe disease or . Your appetite may be poor, so a light diet is fine. Avoid dehydration by drinking 8 to 12, 8-ounce glasses of fluids each day. This may include water; orange juice; lemonade; apple, grape, and cranberry juice; clear fruit drinks; electrolyte replacement and sports drinks; and decaffeinated teas andcoffee. If you have been diagnosed with a kidney disease, ask your healthcare provider how much andwhat types of fluids you should drink to prevent dehydration. If you have kidney disease, drinking too much fluid can cause it build up in the your body and be dangerous to your health. Qxyd-iqj-dujvrrl remedies won't shorten the length of the illness but may be helpful for symptoms such as cough, sore throat, nasal and sinus congestion, or diarrhea. Don't use decongestants if you have high blood pressure. Follow-up care Follow up with your healthcare provider if you do not improve over the next week. Call 911 Call 911 if any of the following occur: Convulsion Feeling weak, dizzy, or like you are going to faint Chest pain, or more than mild shortness of breath When to seek medical advice Call your healthcare provider right away if any of these occur: Cough with lots of colored sputum (mucus) or blood in your sputum Chest pain, shortness of breath, wheezing, or trouble breathing Severe headache; face, neck, or ear pain Severe, constant pain in the lower right side of your belly (abdominal) Continued vomiting (can t keep liquids down) Frequent diarrhea (more than 5 times a day); blood (red or black color) or mucus in diarrhea Feeling weak, dizzy, or like you are going to faint Extreme thirst Fever of 100.4 F (38 C) or higher, or as directed by your healthcare provider [id number] [employer] [address] [place] [address]. All rights reserved. This information is not intended as a substitute for professional medical care. Always follow yourhealthcare professional's instructions. Follow Up Care 03/11/2021 11:04:52 With:Call Physician Referral Address:Unknown When:2-4 days [facility] Evaluation + Plan note No data available for this section [facility] Evaluation + Plan note Future Appointments Appointment Date:05/10/2021 04:30:00 PM Scheduled Provider:BRAEDEN GONZALEZ Location:[facility] Appointment Type:PC VP TREASURER Well Adult [facility] Evaluation + Plan note Future Appointments Appointment Date:09/27/2021 04:00:00 PM Scheduled Provider:BRAEDEN GONZALEZ Location:[facility] Appointment Type:PC OV Future Scheduled Tests Laboratory* A1C Hemoglobin 06/19/21 Radiology* XR Spine Cervical AP/LAT 05/29/21 [facility] Evaluation note* Diagnosis Viral illness- Primary Unspecified viral infection, in conditions classified elsewhere and of unspecified site Upper respiratory tract infection, unspecified type documented in this encounter [facility] Work Phone: Evaluation noteNo assessment information available [facility] Work Phone: Evaluation note* Diagnosis Encounter for screening mammogram for [facility] Diagnosis Encounter for screening mammogram for breast cancer [facility] Diagnosis Rash- Primary Rash and other nonspecific skin eruption [facility] Diagnosis Wellness examination- Primary Cold intolerance Other general symptoms Fatigue, unspecified type Screening for colon cancer Special screening for malignant neoplasms, colon Gastroesophageal reflux disease, unspecified whether esophagitis present Visit for screening mammogram Other screening mammogram STEPHANIE (generalized anxiety disorder) Generalized anxiety disorder [facility]* Diagnosis Screening for colon cancer Special screening for malignant neoplasms, colon Abdominal bloating Flatulence, eructation, and gas pain Gastroesophageal reflux disease, unspecified whether esophagitis present [facility] Diagnosis Gastroesophageal reflux disease, unspecified whether esophagitis present [facility] Diagnosis Gastroesophageal reflux disease, unspecified whether esophagitis present- Primary STEPHANIE (generalized anxiety disorder) Generalized anxiety disorder Smoking trying to quit Tobacco use disorder [facility] Diagnosis Procedure not carried out- Primary Procedure not carried out for other reasons [facility]* Diagnosis Sacral pain- Primary Disorders of sacrum Periumbilical abdominal pain Abdominal pain, periumbilic [facility]* Diagnosis Pelvic pain- Primary Abnormal CT scan Other nonspecific (abnormal) findings on radiological and other examinations of body structure [facility] Diagnosis Need for prophylactic vaccination against Streptococcus pneumoniae (pneumococcus)- Primary Need for prophylactic vaccination against streptococcus pneumoniae (pneumococcus) Need for prophylactic vaccination with tetanus-diphtheria (Td) Annual physical exam Routine general medical examination at a health care facility Neck pain on right side Cervicalgia Neck pain- Primary Cervicalgia Headache(784.0) Headache Neck pain on right side Cervicalgia Chronic headaches Headache Depression Depressive disorder, not elsewhere classified Neck pain on right side- Primary Cervicalgia Neck pain on right side- Primary Cervicalgia Pelvic pain [facility] Diagnosis Need for prophylactic vaccination against Streptococcus pneumoniae (pneumococcus)- Primary Need for prophylactic vaccination against streptococcus pneumoniae (pneumococcus) Need for prophylactic vaccination with tetanus-diphtheria (Td) Annual physical exam Routine general medical examination at a health care facility Neck pain on right side Cervicalgia Neck pain- Primary Cervicalgia Headache(784.0) Headache Neck pain on right side Cervicalgia Chronic headaches Headache Depression Depressive disorder, not elsewhere classified Neck pain on right side- Primary Cervicalgia Neck pain on right side- Primary Cervicalgia Pelvic pain [facility] Diagnosis Need for prophylactic vaccination against Streptococcus pneumoniae (pneumococcus)- Primary Need for prophylactic vaccination against streptococcus pneumoniae (pneumococcus) Need for prophylactic vaccination with tetanus-diphtheria (Td) Annual physical exam Routine general medical examination at a health care facility Neck pain on right side Cervicalgia Neck pain- Primary Cervicalgia Headache(784.0) Headache Neck pain on right side Cervicalgia Chronic headaches Headache Depression Depressive disorder, not elsewhere classified Neck pain on right side- Primary Cervicalgia Neck pain on right side- Primary Cervicalgia Abdominal distension (gaseous)- Primary Flatulence, eructation, and gas pain Pelvic pain Pelvic and perineal pain Unspecified symptom associated with female genital organs [facility]* Diagnosis Need for prophylactic vaccination against Streptococcus pneumoniae (pneumococcus)- Primary Need for prophylactic vaccination against streptococcus pneumoniae (pneumococcus) Need for prophylactic vaccination with tetanus-diphtheria (Td) Annual physical exam Routine general medical examination at a health care facility Neck pain on right side Cervicalgia Neck pain- Primary Cervicalgia Headache(784.0) Headache Neck pain on right side Cervicalgia Chronic headaches Headache Depression Depressive disorder, not elsewhere classified Neck pain on right side- Primary Cervicalgia Neck pain on right side- Primary Cervicalgia Generalized abdominal pain- Primary Abdominal pain, generalized Abdominal bloating Flatulence, eructation, and gas pain History of endometriosis Personal history of other genital system and obstetric disorders History of ovarian cyst Personal history of other genital system and obstetric disorders Intra-abdominal and pelvic swelling, mass and lump, unspecified site Pelvic and perineal pain Unspecified symptom associated with female genital organs [facility]* Diagnosis Need for prophylactic vaccination against Streptococcus pneumoniae (pneumococcus)- Primary Need for prophylactic vaccination against streptococcus pneumoniae (pneumococcus) Need for prophylactic vaccination with tetanus-diphtheria (Td) Annual physical exam Routine general medical examination at a health care facility Neck pain on right side Cervicalgia Neck pain- Primary Cervicalgia Headache(784.0) Headache Neck pain on right side Cervicalgia Chronic headaches Headache Depression Depressive disorder, not elsewhere classified Neck pain on right side- Primary Cervicalgia Neck pain on right side- Primary Cervicalgia Lung nodules- Primary Other nonspecific abnormal finding of lung field documented in this encounter [facility] note* Diagnosis Need for prophylactic vaccination against Streptococcus pneumoniae (pneumococcus)- Primary Need for prophylactic vaccination against streptococcus pneumoniae (pneumococcus) Need for prophylactic vaccination with tetanus-diphtheria (Td) Annual physical exam Routine general medical examination at a health care facility Neck pain on right side Cervicalgia Neck pain- Primary Cervicalgia Headache(784.0) Headache Neck pain on right side Cervicalgia Chronic headaches Headache Depression Depressive disorder, not elsewhere classified Neck pain on right side- Primary Cervicalgia Neck pain on right side- Primary Cervicalgia Pelvic pain- Primary [facility] Diagnosis Need for prophylactic vaccination against Streptococcus pneumoniae (pneumococcus)- Primary Need for prophylactic vaccination against streptococcus pneumoniae (pneumococcus) Need for prophylactic vaccination with tetanus-diphtheria (Td) Annual physical exam Routine general medical examination at a health care facility Neck pain on right side Cervicalgia Neck pain- Primary Cervicalgia Headache(784.0) Headache Neck pain on right side Cervicalgia Chronic headaches Headache Depression Depressive disorder, not elsewhere classified Neck pain on right side- Primary Cervicalgia Neck pain on right side- Primary Cervicalgia Tachycardia- Primary Tachycardia, unspecified Pre-syncope Syncope and collapse Syncope, unspecified syncope type Abdominal distension Flatulence, eructation, and gas pain Chest pain, unspecified type Esophagitis Esophagitis, unspecified Cold feeling Other general symptoms documented in this encounter [facility] note* Diagnosis Need for prophylactic vaccination against Streptococcus pneumoniae (pneumococcus)- Primary Need for prophylactic vaccination against streptococcus pneumoniae (pneumococcus) Need for prophylactic vaccination with tetanus-diphtheria (Td) Annual physical exam Routine general medical examination at a health care facility Neck pain on right side Cervicalgia Neck pain- Primary Cervicalgia Headache(784.0) Headache Neck pain on right side Cervicalgia Chronic headaches Headache Depression Depressive disorder, not elsewhere classified Neck pain on right side- Primary Cervicalgia Neck pain on right side- Primary Cervicalgia Atypical chest pain- Primary Other chest pain Mixed hyperlipidemia POTS (postural orthostatic tachycardia syndrome) Tachycardia, unspecified [facility] Diagnosis Need for prophylactic vaccination against Streptococcus pneumoniae (pneumococcus)- Primary Need for prophylactic vaccination against streptococcus pneumoniae (pneumococcus) Need for prophylactic vaccination with tetanus-diphtheria (Td) Annual physical exam Routine general medical examination at a health care facility Neck pain on right side Cervicalgia Neck pain- Primary Cervicalgia Headache(784.0) Headache Neck pain on right side Cervicalgia Chronic headaches Headache Depression Depressive disorder, not elsewhere classified Neck pain on right side- Primary Cervicalgia Neck pain on right side- Primary Cervicalgia Tachycardia- Primary Tachycardia, unspecified Chest pain, unspecified type Chronic insomnia Insomnia, unspecified [facility] Diagnosis Need for prophylactic vaccination against Streptococcus pneumoniae (pneumococcus)- Primary Need for prophylactic vaccination against streptococcus pneumoniae (pneumococcus) Need for prophylactic vaccination with tetanus-diphtheria (Td) Annual physical exam Routine general medical examination at a health care facility Neck pain on right side Cervicalgia Neck pain- Primary Cervicalgia Headache(784.0) Headache Neck pain on right side Cervicalgia Chronic headaches Headache Depression Depressive disorder, not elsewhere classified Neck pain on right side- Primary Cervicalgia Neck pain on right side- Primary Cervicalgia SVT (supraventricular tachycardia) (HCC)- Primary Other specified cardiac dysrhythmias [facility] Diagnosis Need for prophylactic vaccination against Streptococcus pneumoniae (pneumococcus)- Primary Need for prophylactic vaccination against streptococcus pneumoniae (pneumococcus) Need for prophylactic vaccination with tetanus-diphtheria (Td) Annual physical exam Routine general medical examination at a health care facility Neck pain on right side Cervicalgia Neck pain- Primary Cervicalgia Headache(784.0) Headache Neck pain on right side Cervicalgia Chronic headaches Headache Depression Depressive disorder, not elsewhere classified Neck pain on right side- Primary Cervicalgia Neck pain on right side- Primary Cervicalgia Encounter for screening mammogram for breast cancer [facility] Diagnosis Need for prophylactic vaccination against Streptococcus pneumoniae (pneumococcus)- Primary Need for prophylactic vaccination against streptococcus pneumoniae (pneumococcus) Need for prophylactic vaccination with tetanus-diphtheria (Td) Annual physical exam Routine general medical examination at a health care facility Neck pain on right side Cervicalgia Neck pain- Primary Cervicalgia Headache(784.0) Headache Neck pain on right side Cervicalgia Chronic headaches Headache Depression Depressive disorder, not elsewhere classified Neck pain on right side- Primary Cervicalgia Neck pain on right side- Primary Cervicalgia STEPHANIE (generalized anxiety disorder)- Primary Generalized anxiety disorder SVT (supraventricular tachycardia) (HCC) Other specified cardiac dysrhythmias Encounter for screening examination for other mental health and behavioral disorders [facility] Diagnosis Need for prophylactic vaccination against Streptococcus pneumoniae (pneumococcus)- Primary Need for prophylactic vaccination against streptococcus pneumoniae (pneumococcus) Need for prophylactic vaccination with tetanus-diphtheria (Td) Annual physical exam Routine general medical examination at a health care facility Neck pain on right side Cervicalgia Neck pain- Primary Cervicalgia Headache(784.0) Headache Neck pain on right side Cervicalgia Chronic headaches Headache Depression Depressive disorder, not elsewhere classified Neck pain on right side- Primary Cervicalgia Neck pain on right side- Primary Cervicalgia Gastroesophageal reflux disease without esophagitis- Primary Esophageal reflux SVT (supraventricular tachycardia) (HCC) Other specified cardiac dysrhythmias [facility] No data available for this section [facility] Discharge instructions* Attachments The following attachments cannot be sent through Care Everywhere. * URI (Upper Respiratory Infection): Viral (Mongolian) [facility] Phone: Progress note No data available for this section [facility] Reason for referral (narrative)* Diagnostic Procedure Only (Routine) - Pending Review Specialty Diagnoses / Procedures Referred By Chilo t Referred To Contact [facility] Diagnoses Encounter for screening mammogram for breast cancer Procedures LUCAS SCREENING SCREENING MAMMOGRAPHY BI 2-VIEW BREAST INC Denys Barros MD [address] [place] [address] [facility] [address] [place] [address] Referral ID Status Reason Start Date Expiration Date Visits Requested Visits Authorized [id number] Pending Review Auto-Generat ed Referral 11/20/2021 12/20/2022 1 1 [facility] for referral (narrative)* Diagnostic Procedure Only (Routine) - Pending Review Specialty Diagnoses / Procedures Referred By Chilo t Referred To Contact [facility] Diagnoses Encounter for screening mammogram for breast cancer Procedures LUCAS SCREENING SCREENING MAMMOGRAPHY BI 2-VIEW BREAST INC CAD Denys Conti MD [address] [place] [address] [facility] [address] [place] [address] Referral ID Status Reason Start Date Expiration Date Visits Requested Visits Authorized [id number] Pending Review Auto-Generat ed Referral 10/22/2022 11/21/2023 1 1 [facility] for referral (narrative)* Diagnostic Procedure Only (Routine) - Authorized Specialty Diagnoses / Procedures Referred By Chilo t Referred To Contact [facility] Diagnoses Visit for screening mammogram Procedures LUCAS SCREENING SCREENING MAMMOGRAPHY BI 2-VIEW BREAST INC CAD Humera Garcia APRN.CNP [address] [place] [address] [facility] [address] [place] [address] Referral ID Status Reason Start Date Expiration Date Visits Requested Visits Authorized [id number] Authorized Auto-Generat ed Referral 10/12/2023 11/10/2024 1 1 * Consult, Test, Treat (Routine) - Authorized Specialty Diagnoses / Procedures Referred By Chilo schmidt Referred To Contact General Surgery Diagnoses Screening for colon cancer Gastroesophageal reflux disease, unspecified whether esophagitis present Procedures CONSULT TO GENERAL SURGERY OFFICE/OUTPATIENT [facility] 60 MINUTES Humera Garcia APRN.CNP [address] [place] [address] Referral ID Status Reason Start Date Expiration Date Visits Requested Visits Authorized [id number] Authorized PCP Requested Referral 10/12/2023 10/11/2024 1 1 [facility] for referral (narrative)* Outpatient Procedure (Routine) - Authorized Specialty Diagnoses / Procedures Referred By Contac t Referred To Contact [facility] Diagnoses Screening for colon cancer Procedures COLONOSCOPY SCREENING COLONOSCOPY FLX DX W/COLLJ SPEC WHEN Annmarie Cannon MD [address] [place] [address] [facility] [address] [place], [place] [id number] Referral ID Status Reason Start Date Expiration Date Visits Requested Visits Authorized [id number] Authorized Auto-Generat ed Referral 11/02/2023 11/01/2024 1 1 [facility] for referral (narrative)* Outpatient Procedure (Routine) - Authorized Specialty Diagnoses / Procedures Referred By Contac t Referred To Contact [facility] Diagnoses Abnormal CT scan Procedures ECHO ECHO TTHRC R-T 2D W/WOM-MODE COMPL SPEC&COLR D Humera Garcia APRN.RECORDS MANAGEMENT ASSOCIATE [address] [place] [address] [address] Referral ID Status Reason Start Date Expiration Date Visits Requested Visits Authorized [id number] Authorized Auto-Generat ed Referral 11/30/2023 11/29/2024 1 1 * Diagnostic Procedure Only (Routine) - Authorized Specialty Diagnoses / Procedures Referred By Contac t Referred To Contact [facility] Diagnoses Pelvic pain Procedures US KIDNEY/BLADDER US RETROPERITONEAL REAL TIME W/IMAGE COMPLETE Humera Garcia APRN.RECORDS MANAGEMENT ASSOCIATE [address] [place] [address] Us [facility] Referral ID Status Reason Start Date Expiration Date Visits Requested Visits Authorized [id number] Authorized Auto-Generat ed Referral 11/30/2023 12/29/2024 1 1 * Diagnostic Procedure Only (Routine) - Authorized Specialty Diagnoses / Procedures Referred By Contac t Referred To Contact [facility] Diagnoses Pelvic pain Procedures US FEMALE PELVIS TRANSVAG US TRANSVAGINAL Humera Garcia APRN.RECORDS MANAGEMENT ASSOCIATE [address] [place] [address] [place] [address] Referral ID Status Reason Start Date Expiration Date Visits Requested Visits Authorized [id number] Authorized Auto-Generat ed Referral 11/30/2023 12/29/2024 1 1 [facility] for referral (narrative)No reason for referral [facility] Work Phone: Reason for visit Narrative* Diagnostic Procedure Only (Routine) - Closed Specialty Diagnoses / Procedures Referred By Contac t Referred To Contact [facility] Diagnoses Pelvic pain Procedures US KIDNEY/BLADDER US RETROPERITONEAL REAL TIME W/IMAGE COMPLETE Humera Garcia APRN.RECORDS MANAGEMENT ASSOCIATE [address] [place] [address] [place] [address] Referral ID Status Reason Start Date Expiration Date V isits Requested Visits Authorized [id number] Closed Auto-Generate d Referral 11/30/2023 12/29/2024 1 1 [facility] for visit Narrative* Diagnostic Procedure Only (Routine) - Closed Specialty Diagnoses / Procedures Referred By Contac t Referred To Contact [facility] Diagnoses Pelvic pain Procedures US FEMALE PELVIS TRANSVAG US TRANSVAGINAL Humera Garcia APRN.RECORDS MANAGEMENT ASSOCIATE [address] [place] [address] [place] [address] Referral ID Status Reason Start Date Expiration Date V isits Requested Visits Authorized [id number] Closed Auto-Generate d Referral 11/30/2023 12/29/2024 1 1 [facility] Summary Purpose Family History No Family History Records Found Relationship Condition Age at Onset Recorded Date/T christie Not Specified Malignant neoplasm Unknown grandmother Diabetes mellitus Unknown Hypertension Unknown grandfather Malignant neoplasm of lung Unknown Advance Directives No Advanced Directives Records Found Advance Directive Response Recorded Date/ Time Do you have a Healthcare Power of Box Attacher? No November 14, 2024 10:01am Chief Complaint and Reason for Visit Chief Complaint Spinal stenosis, cer vical region Chief Complaint Spinal stenosis, cer vical region Other spondylosis with radiculopathy, cervical reg Other spondylosis with radiculopathy, cervical reg Chief Complaint Admit Date ALTERED METAL STATUS May 17, 2024 12:00am ALTERED METAL STATUS May 17, 2024 10:22am ALTERED METAL STATUS May 18, 2024 8:03am SVT (SUPPAN) September 02, 2024 11:20 am Chief Complaint Admit Date SVT (SUPPAN) September 02, 2024 11:20 am chestpain November 14, 2024 10:0 2am Chief Complaint Admit Date SVT (SUPPAN) September 02, 2024 11:20 am cp November 14, 2024 9:59 am chestpain November 14, 2024 10:0 2am Chief Complaint Admit Date SVT (SUPPAN) September 02, 2024 11:20 am cp November 14, 2024 9:59 am chestpain November 14, 2024 10:0 2am 3 M FU December 30, 2024 12:53pm Reason for Referral Specialty Diagnoses / Procedures Referred By Contac t Referred To Contact Gynecology Diagnoses Pelvic pain Procedures CONSULT TO GYNECOLOGY OFFICE/OUTPATIENT NEW HIGH MDM 60 MINUTES Humera Garcia, DIAGNOSTIC ASSISTANT.RECORDS MANAGEMENT ASSOCIATE [address] [place] [address] Referral ID Status Reason Start Date Expiration Date V isits Requested Visits Authorized [id number] Closed PCP Requested Referral Auto-Generated Referral 12/08/2023 12/07/2024 1 1 Specialty Diagnoses / Procedures Referred By Contac t Referred To Contact CT IMAGING Diagnoses Lung nodules Procedures CT CHEST W IVCON DIAGNOSTIC COMPUTED TOMOGRAPHY THORAX W/CONTRAST Humera Garcia, DIAGNOSTIC ASSISTANT.RECORDS MANAGEMENT ASSOCIATE [address] [place] [address] [place] [id number] Referral ID Status Reason Start Date Expiration Date Visits Requested Visits Authorized [id number] New Request Auto-Generat ed Referral 03/10/2025 1 1 Specialty Diagnoses / Procedures Referred By Contac t Referred To Contact Diagnoses Generalized abdominal pain Abdominal bloating History of endometriosis History of ovarian cyst Intra-abdominal and pelvic swelling, mass and lump, unspecified site Pelvic and perineal pain Procedures CONSULT TO DE IONIZER OPERATOR PELVIC PAIN OFFICE/OUTPATIENT [facility] 60 MINUTES Trini Higginbotham MD [address] [facility] [place] [address] Referral ID Status Reason Start Date Expiration Date Visits Requested Visits Authorized [id number] Authorized PCP Requested Referral Auto-Generate d Referral 01/07/2024 01/06/2025 1 1 Specialty Diagnoses / Procedures Referred By Contac t Referred To Contact [facility] Diagnoses Intra-abdominal and pelvic swelling, mass and lump, unspecified site Pelvic and perineal pain Procedures MRI PELVIS WO/W IVCON MRI PELVIS W/O & W/CONTRAST MATERIAL Trini Higginbotham MD [address] [place] [address] Mr Imaging [facility] Referral ID Status Reason Start Date Expiration Date Visits Requested Visits Authorized [id number] Authorized Auto-Generat ed Referral 01/07/2024 02/05/2025 1 1 Specialty Diagnoses / Procedures Referred By Contac t Referred To Contact [facility] Diagnoses Intra-abdominal and pelvic swelling, mass and lump, unspecified site Procedures MRI ABDOMEN WO/W IVCON MRI ABDOMEN W/O & W/CONTRAST MATERIAL Trini Higginbotham MD [address] [place] [address] Mr Imaging [facility] Referral ID Status Reason Start Date Expiration Date Visits Requested Visits Authorized [id number] Authorized Auto-Generat ed Referral 01/07/2024 02/05/2025 1 1 Specialty Diagnoses / Procedures Referred By Contac t Referred To Contact CT IMAGING Diagnoses Pelvic pain Abdominal distension (gaseous) Pelvic and perineal pain Procedures CT ABD/PEL W IVCON CT ABD & PELVIS W/CONTRAST Pietro Staley MD [address] [place] [address] Ct Imaging [facility] Referral ID Status Reason Start Date Expiration Date Visits Requested Visits Authorized [id number] Authorized Auto-Generat ed Referral 12/30/2023 01/28/2025 1 1 Additional Source Comments INFORMATION SOURCE (unrecogn ized section and content) DATE CREATED AUTHOR 10/14/2017 [facility] DATE CREATED AUTHOR AUTHOR'S ORGANIZ ATION 06/01/2019 [facility] DATE CREATED AUTHOR AUTHOR'S ORGANIZ ATION 11/20/2023 [facility] ([place]) DATE CREATED AUTHOR AUTHOR'S ORGANIZ ATION 11/28/2023 [facility] DATE CREATED AUTHOR AUTHOR'S ORGANIZ ATION 08/12/2024 [facility] DATE CREATED AUTHOR AUTHOR'S ORGANIZ ATION 01/24/2025 [facility] DATE CREATED AUTHOR AUTHOR'S ORGANIZ ATION 02/24/2025 [facility] Reason for Visit (unrecogniz ed section and content) Reason Comments Cough Reason Comments Rash Jordin itchy and feels like its burning. Reason Comments New Patient Reason Comments Establish Care Reason Comments Consult Screening for colon cancer Specialty Diagnoses / Procedures Referred By Contac t Referred To Contact General Surgery Diagnoses Screening for colon cancer Gastroesophageal reflux disease, unspecified whether esophagitis present Procedures CONSULT TO GENERAL SURGERY OFFICE/OUTPATIENT [facility] 60 MINUTES Humera Garcia, DIAGNOSTIC ASSISTANT.RECORDS MANAGEMENT ASSOCIATE [address] [place] [address] Referral ID Status Reason Start Date Expiration Date V isits Requested Visits Authorized [id number] Closed PCP Requested Referral 10/12/2023 10/11/2024 1 1 Reason Comments Med Change Request Reason Comments Follow Up Medication Reason Comments ER F/U [facility] 10/19 10/11 Reason Comments medication question/future apt Reason Comments Recheck Follow up abd bloati ng, pain, fatigue; c- scope completed, will finish atb today. Reason Comments pelvic problem Specialty Diagnoses / Procedures Referred By Contac t Referred To Contact Gynecology Diagnoses Pelvic pain Procedures CONSULT TO GYNECOLOGY OFFICE/OUTPATIENT [facility] MDM 60 MINUTES Humera Garcia, DIAGNOSTIC ASSISTANT.RECORDS MANAGEMENT ASSOCIATE [address] [place] [address] Referral ID Status Reason Start Date Expiration Date V isits Requested Visits Authorized [id number] Closed PCP Requested Referral Auto-Generated Referral 12/08/2023 12/07/2024 1 1 Reason Comments Patient Question Reason Comments Follow Up Pelvic pain Reason Comments Results [facility] CT Scan Appointment Reason Comments Results Reason Comments Received Outside Medical Records Externa l referral to [facility] Reason Comments New Patient Consult Reason Comments increase HR Reason Comments Chest Pain Reason Comments Tachycardia 2 week medication fo llow up Reason Comments ER F/U [facility] ER 11/14/24 Reason Onset Date Comments Refill Request 12/14/2024 Reason Comments Follow Up 6 week anxiety and S VT follow up Goals (unrecognized section and content) Goals may be documented in a n alternate section Care Team (unrecognized sect ion and content) [employer] Relationship Specialty Start Date End Date Denys Conti MD [address] [place], [place] [address] PCP - General Internal Medicine 12/15/19 [employer] Relationship Specialty Start Date End Date Denys Conti MD [address] [place], [place] [address] PCP - General Internal Medicine 12/15/19 [employer] Relationship Specialty Start Date End Date Denys Conti MD [address] [place], [place] [id number] PCP - General Internal Medicine 12/15/19 [employer] Relationship Specialty Start Date End Date Denys Conti MD [address] [place], [place] [address] PCP - General Internal Medicine 12/15/19 10/05/23 [employer] Relationship Specialty Start Date End Date Humera Garcia APRN.RECORDS MANAGEMENT ASSOCIATE [address] [place], [place] [id number] PCP - General Family Medicine 10/12/23 [employer] Relationship Specialty Start Date End Date Humera Garcia APRN.RECORDS MANAGEMENT ASSOCIATE [address] [place], [place] [id number] PCP - General Family Medicine 10/12/23 [employer] Relationship Specialty Start Date End Date Humera Garcia, DIAGNOSTIC ASSISTANT.RECORDS MANAGEMENT ASSOCIATE [address] [place] [address] PCP - General Family Medicine 10/12/23 [employer] Relationship Specialty Start Date End Date Humera Garcia, DIAGNOSTIC ASSISTANT.RECORDS MANAGEMENT ASSOCIATE [address] [place] [address] PCP - General Family Medicine 10/12/23 [employer] Relationship Specialty Start Date End Date Humera Garcia, DIAGNOSTIC ASSISTANT.RECORDS MANAGEMENT ASSOCIATE [address] [place] [address] PCP - General Family Medicine 10/12/23 [employer] Relationship Specialty Start Date End Date Humera Garcia, DIAGNOSTIC ASSISTANT.RECORDS MANAGEMENT ASSOCIATE [address] [place] [address] PCP - General Family Medicine 10/12/23 [employer] Relationship Specialty Start Date End Date Humera Garcia, DIAGNOSTIC ASSISTANT.RECORDS MANAGEMENT ASSOCIATE [address] [place] [address] PCP - General Family Medicine 10/12/23 [employer] Relationship Specialty Start Date End Date Humera Garcia, DIAGNOSTIC ASSISTANT.RECORDS MANAGEMENT ASSOCIATE [address] [place] [address] PCP - General Family Medicine 10/12/23 [employer] Relationship Specialty Start Date End Date Humera Garcia, DIAGNOSTIC ASSISTANT.RECORDS MANAGEMENT ASSOCIATE [address] [place] [address] PCP - General Family Medicine 10/12/23 [employer] Relationship Specialty Start Date End Date Humera Garcia, DIAGNOSTIC ASSISTANT.RECORDS MANAGEMENT ASSOCIATE [address] [place] [address] PCP - General Family Medicine 10/12/23 [employer] Relationship Specialty Start Date End Date Humera Garcia, DIAGNOSTIC ASSISTANT.RECORDS MANAGEMENT ASSOCIATE [address] [place] [address] PCP - General Family Medicine 10/12/23 [employer] Relationship Specialty Start Date End Date Humera Garcia, DIAGNOSTIC ASSISTANT.RECORDS MANAGEMENT ASSOCIATE [address] [place] [address] PCP - General Family Medicine 10/12/23 [employer] Relationship Specialty Start Date End Date Humera Garcia, DIAGNOSTIC ASSISTANT.RECORDS MANAGEMENT ASSOCIATE [address] [facility] [id number] PCP - General Family Medicine 10/12/23 [employer] Relationship Specialty Start Date End Date Humera Garcia, DIAGNOSTIC ASSISTANT.RECORDS MANAGEMENT ASSOCIATE [address] [place] [address] PCP - General Family Medicine 10/12/23 Lin Cisneros, DIAGNOSTIC ASSISTANT.RECORDS MANAGEMENT ASSOCIATE [address] [facility] [place] [address] Brake Press Operator Family Medicine 03/27/24 Danny Avila MD [address] [facility] [place] [address] Brake Press Operator Family Medicine 03/27/24 Nhan Schmidt DO [address], [place] [id number] [place] Referring Team Gastroenterology 05/23/24 [employer] Relationship Specialty Start Date End Date Humera Garcia APRN.RECORDS MANAGEMENT ASSOCIATE [address] [place] [address] PCP - General Family Medicine 10/12/23 Lin Cisneros DIAGNOSTIC ASSISTANT.RECORDS MANAGEMENT ASSOCIATE [address] [place] [address] Brake Press Operator Family Medicine 03/27/24 Danny Avila MD [address] [place] [address] Brake Press Operator [facility] Medicine 03/27/24 Nhan Schmidt DO [address] [place] [address] NI Referring Team Gastroenterology 05/23/24 [employer] Relationship Specialty Start Date End Date Humera Garcia APRN.RECORDS MANAGEMENT ASSOCIATE [address] [place] [address] PCP - General Family Medicine 10/12/23 Lin Cisneros DIAGNOSTIC ASSISTANT.RECORDS MANAGEMENT ASSOCIATE [address] [place] [address] Brake Press Operator Family Medicine 03/27/24 Danny Avila MD [address] [facility] [place] [address] Brake Press Operator Family Medicine 03/27/24 Nhan Schmidt DO [address] [facility] [address] [place] [address] NI Referring Team Gastroenterology 05/23/24 [employer] Se[employer] Relationship Specialty Start Date End Date Humera Garcia APRN.RECORDS MANAGEMENT ASSOCIATE [address] [place] [address] PCP - General Family Medicine 10/12/23 Lin Cisneros DIAGNOSTIC ASSISTANT.RECORDS MANAGEMENT ASSOCIATE [address] [facility] [place] [address] Brake Press Operator Family Medicine 03/27/24 Danny Avila MD [address] [facility] [place] [address] Brake Press Operator Family Medicine 03/27/24 Nhan Schmidt DO [address] [facility] [address] [place] [address] NI Referring Team Gastroenterology 05/23/24 [employer] Relationship Specialty Start Date End Date Humera Garcia, DIAGNOSTIC ASSISTANT.RECORDS MANAGEMENT ASSOCIATE [address] [place] [address] PCP - General Family Medicine 10/12/23 Nhan Schmidt DO [address], [place] [address] NI Referring Team Gastroenterology 05/23/24 [employer] Se[employer] Relationship Specialty Start Date End Date Humera Garcia, DIAGNOSTIC ASSISTANT.RECORDS MANAGEMENT ASSOCIATE [address] [place] [address] PCP - General Family Medicine 10/12/23 Nhan Schmidt DO [address] [facility] [address] [place] [address] NI Referring Team Gastroenterology 05/23/24 [employer] Relationship Specialty Start Date End Date Humera Garcia APRN.RECORDS MANAGEMENT ASSOCIATE [address] [facility], [place] [address] PCP - General Family Medicine 10/12/23 Lin Cisneros APRN.RECORDS MANAGEMENT ASSOCIATE [address] [facility] [place], [place] [address] Brake Press Operator Family [facility] 03/27/24 07/11/24 Danny Avila MD [address] [facility] [place], [place] [id number] Brake Press Operator Family Medicine 03/27/24 07/11/24 Nhan Schmidt DO [address] [place] [address] NI Referring Team Gastroenterology 05/23/24 [employer] Relationship Specialty Start Date End Date Humera Garcia APRN.RECORDS MANAGEMENT ASSOCIATE [address] [facility], [place] [address] PCP - General Family Medicine 10/12/23 Nhan Schmidt DO [address] [facility] [place], [place] [address] NI Referring Team Gastroenterology 05/23/24 Team Status: Active Member Role Status Dates Humera Garcia VP TREASURER, VP TREASURER-C Primary Care Provider Active Team Status: Active Member Role Status Dates Humera Garcia VP TREASURER, VP TREASURER-C Primary Care Provider Active Start: May 17, 2024 Dr. José Manuel Wallace MD Attending Provider Active S tart: May 17, 2024 Dr. Nhan Schmidt DO Referring Provider Active Start: May 17, 2024 Team Status: Inactive Member Role Status Dates Humera Garcia VP TREASURER, VP TREASURER-C Primary Care Provider Active Start: May 17, 2024 End: May 17, 2024 Dr. Nhan Schmidt DO Attending Provider Active Start: May 17, 2024 End: May 17, 2024 Dr. Nhan Schmidt DO Referring Provider Active Start: May 17, 2024 End: May 17, 2024 Team Status: Active Member Role Status Dates Humera Garcia NP, VP TREASURER-C Primary Care Provider Active Start: May 18, 2024 Dr. Nhan Schmidt DO Referring Provider Active Start: May 18, 2024 Dr. Nhan Shcmidt DO Other Provider Active St art: May 18, 2024 Dr. José Manuel Wallace MD Attending Provider Active S tart: May 18, 2024 Team Status: Inactive Member Role Status Dates Humera Garcia NP, VP TREASURER-C Primary Care Provider Active Start: September 02, 2024 End: September 02, 2024 Humera Garcia VP TREASURER, VP TREASURER-C Referring Provider Active Start: September 02, 2024 End: September 02, 2024 Dr. Arsh Trinidad MD Attending Provider Active Start: September 02, 2024 End: September 02, 2024 We[employer] Se[employer] Relationship Specialty Start Date End Date Humera Garcia APRN.RECORDS MANAGEMENT ASSOCIATE [address] [place] [address] PCP - General Family Medicine 10/12/23 Nhan Schmidt DO [address] [address] NI Referring Team Gastroenterology 05/23/24 Team Status: Active Member Role/Relationship Status Dates Humera Garcia VP TREASURER, VP TREASURER-C Primary Care Provider Active Team Status: Inactive Member Role/Relationship Status Dates Humera Garcia VP TREASURER, VP TREASURER-C Primary Care Provider Active Start: September 02, 2024 End: September 02, 2024 Humera Garcia VP TREASURER, VP TREASURER-C Referring Provider Active Start: September 02, 2024 End: September 02, 2024 Dr. Arsh Trinidad MD Attending Provider Active Start: September 02, 2024 End: September 02, 2024 Team Status: Inactive Member Role/Relationship Status Dates Humera Garcia NP, VP TREASURER-C Primary Care Provider Active Start: November 14, 2024 End: November 14, 2024 Ed Physician Provider Emergency Provider Active Start: November 14, 2024 End: November 14, 2024 Team Status: Inactive Member Role/Relationship Status Dates Humera Garcia VP TREASURER, VP TREASURER-C Primary Care Provider Active Start: November 14, 2024 End: November 14, 2024 Dr. Sulaiman Hoffman , DO Emergency Provider Active Start: November 14, 2024 End: November 14, 2024 Team Status: Inactive Member Role/Relationship Status Dates Humera Garcia VP TREASURER, VP TREASURER-C Primary Care Provider Active Start: November 14, 2024 End: November 14, 2024 Ed Physician Provider Emergency Provider Active Start: November 14, 2024 End: November 14, 2024 We[employer] Se[employer] Relationship Specialty Start Date End Date Humera Garcia APRN.RECORDS MANAGEMENT ASSOCIATE [address] [place] [address] PCP - General Family Medicine 10/12/23 [place] [address] [place] [id number] NI Referring Team Gastroenterology 05/23/24 [employer] Seamer [employer] Relationship Specialty Start Date End Date Humera Garcia APRN.RECORDS MANAGEMENT ASSOCIATE [address] [place], [place] [address] PCP - General Family Medicine 10/12/23 Nhan Schmidt DO [address] [address] NI Referring Team Gastroenterology 05/23/24 [employer] Seamer [employer] Relationship Specialty Start Date End Date Humera Garcia APRN.RECORDS MANAGEMENT ASSOCIATE [address] [place] [address] PCP - General Family Medicine 10/12/23 Nhan Schmidt DO [address] [place] [address] NI Referring Team Gastroenterology 05/23/24 Team Status: Inactive Member Role/Relationship Status Dates Humera Garcia VP TREASURER, VP TREASURER-C Primary Care Provider Active Start: November 14, 2024 End: November 14, 2024 Dr. Sulaiman Hoffman , DO Attending Provider Active Start: November 14, 2024 End: November 14, 2024 Dr. Sulaiman Hoffman , DO Emergency Provider Active Start: November 14, 2024 End: November 14, 2024 Team Status: Inactive Member Role/Relationship Status Dates Humera Garcia VP TREASURER, VP TREASURER-C Primary Care Provider Active Start: November 14, 2024 End: November 14, 2024 Ed Physician Provider Attending Provider Active Start: November 14, 2024 End: November 14, 2024 Ed Physician Provider Emergency Provider Active Start: November 14, 2024 End: November 14, 2024 Team Status: Inactive Member Role/Relationship Status Dates Humera Garcia VP TREASURER, VP TREASURER-C Primary Care Provider Active Start: December 30, 2024 End: December 30, 2024 Humera Garcia VP TREASURER, VP TREASURER-C Referring Provider Active Start: December 30, 2024 End: December 30, 2024 Dr. Arsh Trinidad MD Attending Provider Active Start: December 30, 2024 End: December 30, 2024 Source Comments (unrecognize d section and content) In the event this informatio n is protected by the Federal Confidentiality of Alcohol and Drug Abuse Patient Records regulations: The Federal rules restrict any use of the information to criminally investigate or prosecute any alcohol or drug abuse patient.[facility] the event this information is protected by the Federal Confidentiality of Alcohol and Drug Abuse Patient Records regulations: The Federal rules restrict any use of the information to criminally investigate or prosecute any alcohol or drug abuse patient.[facility] the event this information is protected by the Federal Confidentiality of Alcohol and Drug Abuse Patient Records regulations: The Federal rules restrict any use of the information to criminally investigate or prosecute any alcohol or drug abuse patient.[facility] the event this information is protected by the Federal Confidentiality of Alcohol and Drug Abuse Patient Records regulations: The Federal rules restrict any use of the information to criminally investigate or prosecute any alcohol or drug abuse patient.[facility] the event this information is protected by the Federal Confidentiality of Alcohol and Drug Abuse Patient Records regulations: The Federal rules restrict any use of the information to criminally investigate or prosecute any alcohol or drug abuse patient.[facility] the event this information is protected by the Federal Confidentiality of Alcohol and Drug Abuse Patient Records regulations: The Federal rules restrict any use of the information to criminally investigate or prosecute any alcohol or drug abuse patient.[facility]burg[facility] the event this information is protected by the Federal Confidentiality of Alcohol and Drug Abuse Patient Records regulations: The Federal rules restrict any use of the information to criminally investigate or prosecute any alcohol or drug abuse patient.[facility]burg[facility] the event this information is protected by the Federal Confidentiality of Alcohol and Drug Abuse Patient Records regulations: The Federal rules restrict any use of the information to criminally investigate or prosecute any alcohol or drug abuse patient.[facility] the event this information is protected by the Federal Confidentiality of Alcohol and Drug Abuse Patient Records regulations: The Federal rules restrict any use of the information to criminally investigate or prosecute any alcohol or drug abuse patient.[facility]burg[facility] the event this information is protected by the Federal Confidentiality of Alcohol and Drug Abuse Patient Records regulations: The Federal rules restrict any use of the information to criminally investigate or prosecute any alcohol or drug abuse patient.[facility]burg[facility] the event this information is protected by the Federal Confidentiality of Alcohol and Drug Abuse Patient Records regulations: The Federal rules restrict any use of the information to criminally investigate or prosecute any alcohol or drug abuse patient.[facility] the event this information is protected by the Federal Confidentiality of Alcohol and Drug Abuse Patient Records regulations: The Federal rules restrict any use of the information to criminally investigate or prosecute any alcohol or drug abuse patient.[facility]In the event this information is protected by the Federal Confidentiality of Alcohol and Drug Abuse Patient Records regulations: The Federal rules restrict any use of the information to criminally investigate or prosecute any alcohol or drug abuse patient.[facility]burgIn the event this information is protected by the Federal Confidentiality of Alcohol and Drug Abuse Patient Records regulations: The Federal rules restrict any use of the information to criminally investigate or prosecute any alcohol or drug abuse patient.[facility]burgIn the event this information is protected by the Federal Confidentiality of Alcohol and Drug Abuse Patient Records regulations: The Federal rules restrict any use of the information to criminally investigate or prosecute any alcohol or drug abuse patient.[facility]burgIn the event this information is protected by the Federal Confidentiality of Alcohol and Drug Abuse Patient Records regulations: The Federal rules restrict any use of the information to criminally investigate or prosecute any alcohol or drug abuse patient.[facility]burgIn the event this information is protected by the Federal Confidentiality of Alcohol and Drug Abuse Patient Records regulations: The Federal rules restrict any use of the information to criminally investigate or prosecute any alcohol or drug abuse patient.[facility]burgIn the event this information is protected by the Federal Confidentiality of Alcohol and Drug Abuse Patient Records regulations: The Federal rules restrict any use of the information to criminally investigate or prosecute any alcohol or drug abuse patient.[facility] the event this information is protected by the Federal Confidentiality of Alcohol and Drug Abuse Patient Records regulations: The Federal rules restrict any use of the information to criminally investigate or prosecute any alcohol or drug abuse patient.[facility] the event this information is protected by the Federal Confidentiality of Alcohol and Drug Abuse Patient Records regulations: The Federal rules restrict any use of the information to criminally investigate or prosecute any alcohol or drug abuse patient.[facility]burg[facility] the event this information is protected by the Federal Confidentiality of Alcohol and Drug Abuse Patient Records regulations: The Federal rules restrict any use of the information to criminally investigate or prosecute any alcohol or drug abuse patient.[facility]burgIn the event this information is protected by the Federal Confidentiality of Alcohol and Drug Abuse Patient Records regulations: The Federal rules restrict any use of the information to criminally investigate or prosecute any alcohol or drug abuse patient.[facility]In the event this information is protected by the Federal Confidentiality of Alcohol and Drug Abuse Patient Records regulations: The Federal rules restrict any use of the information to criminally investigate or prosecute any alcohol or drug abuse patient.[facility]burgIn the event this information is protected by the Federal Confidentiality of Alcohol and Drug Abuse Patient Records regulations: The Federal rules restrict any use of the information to criminally investigate or prosecute any alcohol or drug abuse patient.[facility]burgIn the event this information is protected by the Federal Confidentiality of Alcohol and Drug Abuse Patient Records regulations: The Federal rules restrict any use of the information to criminally investigate or prosecute any alcohol or drug abuse patient.[facility] the event this information is protected by the Federal Confidentiality of Alcohol and Drug Abuse Patient Records regulations: The Federal rules restrict any use of the information to criminally investigate or prosecute any alcohol or drug abuse patient.[facility] the event this information is protected by the Federal Confidentiality of Alcohol and Drug Abuse Patient Records regulations: The Federal rules restrict any use of the information to criminally investigate or prosecute any alcohol or drug abuse patient.[facility] the event this information is protected by the Federal Confidentiality of Alcohol and Drug Abuse Patient Records regulations: The Federal rules restrict any use of the information to criminally investigate or prosecute any alcohol or drug abuse patient.[facility]burg[facility] the event this information is protected by the Federal Confidentiality of Alcohol and Drug Abuse Patient Records regulations: The Federal rules restrict any use of the information to criminally investigate or prosecute any alcohol or drug abuse patient.[facility]burg[facility] the event this information is protected by the Federal Confidentiality of Alcohol and Drug Abuse Patient Records regulations: The Federal rules restrict any use of the information to criminally investigate or prosecute any alcohol or drug abuse patient.[facility] the event this information is protected by the Federal Confidentiality of Alcohol and Drug Abuse Patient Records regulations: The Federal rules restrict any use of the information to criminally investigate or prosecute any alcohol or drug abuse patient.[facility]burg[facility] the event this information is protected by the Federal Confidentiality of Alcohol and Drug Abuse Patient Records regulations: The Federal rules restrict any use of the information to criminally investigate or prosecute any alcohol or drug abuse patient.[facility] the event this information is protected by the Federal Confidentiality of Alcohol and Drug Abuse Patient Records regulations: The Federal rules restrict any use of the information to criminally investigate or prosecute any alcohol or drug abuse patient.[facility] FOR RECORDS PERTAINING TO PATIENTS WHO ARE OR HAVE BEEN ENROLLED IN A CHEMICAL DEPENDENCY/SUBSTANCEABUSE PROGRAM, SOME INFORMATION MAY BE OMITTED. This clinical summary was aggregated from multiple sources. Caution should be exercised in using it in the provision of clinical care. This summary normalizes information from multiple sources, and as a consequence, information in this document may materially change the coding, format and clinical context of patient data. In addition, data may be omitted in some cases. CLINICAL DECISIONS SHOULD BE BASED ON THE PRIMARY CLINICAL RECORDS. [employer] [facility]. provides no warranty or guarantee of the accuracy or completeness of information in this document.
[2025-04-13 01:07] LABS: Calprotectin, Stool 80 ug/g (0-120)
== END | disposition home or self-care (01) ==
LOC: LABSPEC 09:41
PROVIDERS: Student in an Organized Health Care Education/Training Program; PCP Registered Nurse; Visit Provider Internal Medicine Gastroenterology
DX: R10.9 Unspecified abdominal pain (principal); K58.9 Irritable bowel syndrome, unspecified
CPT/HCPCS: 83993; 87177; 87209; 87329; 87493; 87506